=== PATIENT | male | born 1950 | race Caucasian/White ===

== ENCOUNTER 2016-08-15 10:12 | Observation (INO) | payer MEDICARE, MEDICAID ==
[2016-08-15] MEDS ORDERED: Diltiazem IV* 5 MG/ML 5 ML VIAL (for loading dose/IV Push) (25 MG) IV SLOW PU ONE ×2 (10:43→11:49)
[2016-08-15] MEDS ORDERED: Diltiazem DRIP* 100 MG/100 ML ADDV.BAG IVPB ONE (10:43)
[2016-08-15] MEDS ORDERED: NS 0.9% 1000 ML* 1,000 ML IV ONE (10:44)
[2016-08-15 10:56] LABS: Hematocrit 33 % (42-52); Hemoglobin 10.9 g/dl (14.0-18.0); Mean Corpuscular HGB Conc 33 g/dl (31-36); Mean Corpuscular Hemoglobin 33 pg (27-31); Mean Corpuscular Volume 98 fL (80-94); Mean Platelet Volume 8 um3 (7.4-10.4); Red Blood Count 3.32 10^6/ul (4.0-5.4); Red Cell Distribution Width 14 % (10.5-15); White Blood Count 4.1 10^3/ul (3.5-10.8)
[2016-08-15 11:12] LABS: Albumin 4.3 g/dL (3.2-5.2); BUN/Creatinine Ratio 3.9 (8-20); Calcium 9.6 mg/dL (8.6-10.3); EGFR Non-African American 17.1 (>60); Globulin 3.3 g/dL (2-4); Magnesium 1.9 mg/dL (1.9-2.7); Potassium 3.3 mmol/L (3.5-5.0); Total Bilirubin 0.7 mg/dL (0.2-1.0); Total Protein 7.6 g/dL (6.4-8.9)
[2016-08-15 11:19] LABS: Troponin I 0.06 ng/mL (<0.04)
[2016-08-15 11:41] LABS: TSH (Thyroid Stimulating Horm) 1.11 mcIU/mL (0.34-5.60)
[2016-08-15] MEDS ORDERED: Diltiazem IV* 5 MG/ML 5 ML VIAL (for loading dose/IV Push) (25 MG) ONE (11:51)
[2016-08-15] MEDS ORDERED: Magnesium Sulfate 2 GM IV* 2 GM/50 ML BAG IVPB ONE (12:02)
[2016-08-15] MEDS ORDERED: Metoprolol Tartrate TAB* 25 MG PO ONE (12:02)
[2016-08-15] MEDS ORDERED: Acetaminophen TAB* 325 MG PO PRN (12:30)
[2016-08-15] MEDS: Ropinirole TAB* 0.5 MG TAB PO SCH ×2 (14:11→20:47)
--- NOTE | 2016-08-15 14:14 | ED ---
Aquiles Rob Matthew, scribed for Rajesh Andrew MD on 08/15/16 at 1130 . Palpitations / Dysrhythmia - HPI Summary HPI Summary: A 65 y/o male presents to the ED with constant atrial fibrillation since this morning. The patient was sent from dialysis to the ED. 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 Last night, he felt some irregular heart beats. The patient is not currently on the blood thinner and receives heparin at dialysis. He has been on dialysis for the past two years. He has some residual affects of the CVA. PMHx also includes AFib and two CVA. - History of Current Complaint Chief Complaint: EDDysrhythmPalp Hx Obtained From: Patient Onset/Duration: Lasting Hours, Still Present Timing: Constant Severity Initially: Moderate Severity Currently: Moderate Character: Irregular Aggravating: Nothing Alleviating: Nothing Associated Signs & Symptoms: Negative - Allergy/Home Medications Allergies/Adverse Reactions: Allergies Allergy/AdvReac Type Severity Reaction Status Date / Time Penicillins Allergy Hives Verified 05/15/12 13:56 Home Medications: Home Medications Acetaminophen TAB* [Tylenol TAB*] 650 mg PO Q8HR PRN 08/15/16 [History Confirmed 08/15/16] B-Complex W/ C & Folic Acid [Nephro-Mark] 1 tab PO DAILY 08/15/16 [History Confirmed 08/15/16] NIFEdipine ER TAB* [Procardia Xl TAB*] 30 mg PO DAILY 08/15/16 [History Confirmed 08/15/16] Nitroglycerin TAB 0.4 MG* 0.4 mg SL Q5M PRN 08/15/16 [History Confirmed 08/15/16 ] Ropinirole Hydrochloride [Ropinirole HCl] 0.75 mg PO TID 08/15/16 [History Confirmed 08/15/16] Sevelamer TAB* [Renvela TAB*] 800 mg PO TID WITH MEALS 08/15/16 [History Confirmed 08/15/16] Sodium Polystyrene ORAL.SELENE* [Kayexalate ORAL.SELENE*] 15 gm PO DAILY 08/15/16 [ History Confirmed 08/15/16] diPHENhydraMINE PO* [Benadryl PO*] 50 mg PO DAILY PRN 08/15/16 [History Confirmed 08/15/16] PMH/Surg Hx/FS Hx/Imm Hx Endocrine/Hematology History: Reports: Hx Diabetes - CONTROL WITH DIET, Hx Anemia Cardiovascular History: Reports: Hx Coronary Artery Disease - CHOLESTEROL CONTROL WITH MEDICATION, Hx Hypertension - ON MEDICATION, Other Cardiovascular Problems/Disorders - 2009 OR 2010 CARDIAC CATHERIZATION Respiratory History: Reports: Hx Sleep Apnea - NO CPAP, Other Respiratory Problems/Disorders GI History: Reports: Hx Gastroesophageal Reflux Disease - ON MEDICATION History: Reports: Hx Chronic Renal Failure Musculoskeletal History: Reports: Hx Arthritis - BILATERAL KNUCKLES AND NECK Sensory History: Reports: Hx Cataracts - BILATERAL, Hx Contacts or Glasses - GLASSES Denies: Hx Hearing Aid Opthamlomology History: Reports: Hx Cataracts - BILATERAL, Hx Contacts or Glasses - GLASSES Neurological History: Comment Only: Other Neuro Impairments/Disorders - DIFFICULTY CONCENTRATING WITH LEFT SIDE WEAKNESS, BALANCE OFF, STAMMERING, Psychiatric History: Reports: Hx Depression - ON MEDICATION - Surgical History Surgery Procedure, Year, and Place: 2009 OR 2010 CARDIAC CATHERIZATION, [place] DENTAL WORK, OFFICE Hx Anesthesia Reactions: No Infectious Disease History: No Infectious Disease History: Denies: Traveled Outside the [place] in Last 30 Days - Family History Family History: No FHx of malignant hyperthermia. No FHx of anesthesia reaction - Social History Alcohol Use: Rare Substance Use Type: Reports: None Smoking Status (MU): Never Smoked Tobacco Review of Systems Constitutional: Negative Eyes: Negative ENT: Negative Positive: Palpitations Respiratory: Negative Gastrointestinal: Negative Genitourinary: Negative Musculoskeletal: Negative Skin: Negative Neurological: Negative Psychological: Normal All Other Systems Reviewed And Are Negative: Yes Physical Exam Triage Information Reviewed: Yes Vital Signs On Initial Exam: Initial Vitals Temp Pulse Resp BP Pulse Ox 98 F 132 19 161/111 100 08/15/16 10:19 08/15/16 10:19 08/15/16 10:19 08/15/16 10:19 08/15/16 10:19 Vital Signs Reviewed: Yes Appearance: Positive: Well-Appearing, No Pain Distress Skin: Positive: Warm, Skin Color Reflects Adequate Perfusion, Dry Head/Face: Positive: Normal Head/Face Inspection Eyes: Positive: Normal ENT: Positive: Normal ENT inspection Neck: Positive: Supple, Nontender Respiratory/Lung Sounds: Positive: Clear to Auscultation, Breath Sounds Present Cardiovascular: Positive: IRR, Tachycardia. Negative: Murmur Abdomen Description: Positive: Nontender, Soft Bowel Sounds: Positive: Present Musculoskeletal: Positive: Normal, Strength/ROM Intact Neurological: Positive: Normal, Sensory/Motor Intact, Alert, Oriented to Person Place, Time Psychiatric: Positive: Normal, Affect/Mood Appropriate Diagnostics - Vital Signs Vital Signs Temp Pulse Resp BP Pulse Ox 08/15/16 10:19 98 F 132 19 161/111 100 - Laboratory Lab Results: Lab Results 08/15/16 08/15/16 08/15/16 Range/Units 10:40 10:40 10:40 WBC 4.1 (3.5-10.8) 10^3/ul RBC 3.32 L (4.0-5.4) 10^6/ul Hgb 10.9 L (14.0-18.0) g/dl Hct 33 L (42-52) % MCV 98 H (80-94) fL MCH 33 H (27-31) pg MCHC 33 (31-36) g/dl RDW 14 (10.5-15) % Plt Count 154 (150-450) 10^3/ul MPV 8 (7.4-10.4) um3 Neut % (Auto) 65.6 (38-83) % Lymph % (Auto) 20.5 L (25-47) % [place] % (Auto) 6.9 (1-9) % Eos % (Auto) 5.6 (0-6) % Baso % (Auto) 1.4 (0-2) % Absolute Neuts (auto) 2.7 (1.5-7.7) 10^3/ul Absolute Lymphs (auto) 0.8 L (1.0-4.8) 10^3/ul Absolute Monos (auto) 0.3 (0-0.8) 10^3/ul Absolute Eos (auto) 0.2 (0-0.6) 10^3/ul Absolute Basos (auto) 0.1 (0-0.2) 10^3/ul Absolute Nucleated RBC 0 10^3/ul Nucleated RBC % 0 INR (Anticoag Therapy) (0.89-1.11) Sodium 137 (133-145) mmol/L Potassium 3.3 L (3.5-5.0) mmol/L Chloride 93 L (101-111) mmol/L Carbon Dioxide 35 H (22-32) mmol/L Anion Gap 9 (2-11) mmol/L BUN 14 (6-24) mg/dL Creatinine 3.62 H (0.67-1.17) mg/dL Est GFR ( Amer) 22.0 (>60) Est GFR (Non-Af Amer) 17.1 (>60) BUN/Creatinine Ratio 3.9 L (8-20) Glucose 116 H (70-100) mg/dL Lactic Acid 1.4 (0.5-2.0) mmol/L Calcium 9.6 (8.6-10.3) mg/dL Magnesium 1.9 (1.9-2.7) mg/dL Total Bilirubin 0.70 (0.2-1.0) mg/dL AST 19 (13-39) U/L ALT 10 (7-52) U/L Alkaline Phosphatase 64 (34-104) U/L Troponin I 0.06 H* (<0.04) ng/mL Total Protein 7.6 (6.4-8.9) g/dL Albumin 4.3 (3.2-5.2) g/dL Globulin 3.3 (2-4) g/dL Albumin/Globulin Ratio 1.3 (1-3) TSH 1.11 (0.34-5.60) mcIU/mL 08/15/16 Range/Units 10:40 WBC (3.5-10.8) 10^3/ul RBC (4.0-5.4) 10^6/ul Hgb (14.0-18.0) g/dl Hct (42-52) % MCV (80-94) fL MCH (27-31) pg MCHC (31-36) g/dl RDW (10.5-15) % Plt Count (150-450) 10^3/ul MPV (7.4-10.4) um3 Neut % (Auto) (38-83) % Lymph % (Auto) (25-47) % [place] % (Auto) (1-9) % Eos % (Auto) (0-6) % Baso % (Auto) (0-2) % Absolute Neuts (auto) (1.5-7.7) 10^3/ul Absolute Lymphs (auto) (1.0-4.8) 10^3/ul Absolute Monos (auto) (0-0.8) 10^3/ul Absolute Eos (auto) (0-0.6) 10^3/ul Absolute Basos (auto) (0-0.2) 10^3/ul Absolute Nucleated RBC 10^3/ul Nucleated RBC % INR (Anticoag Therapy) 0.95 (0.89-1.11) Sodium (133-145) mmol/L Potassium (3.5-5.0) mmol/L Chloride (101-111) mmol/L Carbon Dioxide (22-32) mmol/L Anion Gap (2-11) mmol/L BUN (6-24) mg/dL Creatinine (0.67-1.17) mg/dL Est GFR ( Amer) (>60) Est GFR (Non-Af Amer) (>60) BUN/Creatinine Ratio (8-20) Glucose (70-100) mg/dL Lactic Acid (0.5-2.0) mmol/L Calcium (8.6-10.3) mg/dL Magnesium (1.9-2.7) mg/dL Total Bilirubin (0.2-1.0) mg/dL AST (13-39) U/L ALT (7-52) U/L Alkaline Phosphatase (34-104) U/L Troponin I (<0.04) ng/mL Total Protein (6.4-8.9) g/dL Albumin (3.2-5.2) g/dL Globulin (2-4) g/dL Albumin/Globulin Ratio (1-3) TSH (0.34-5.60) mcIU/mL Result Diagrams: 08/15/16 10:40 08/15/16 10:40 Lab Statement: Any lab studies that have been ordered have been reviewed, and results considered in the medical decision making process. - EKG 10:13 Cardiac Rate: Tachycardia - 132 bpm EKG Rhythm: Atrial Fibrillation EKG Interpretation: Rapid Response ; anterior lateral ST depressions Course/Dx - Course Course Of Treatment: Mr. Knight presented in A-Fib with a rapid response but relatively asymptomatic. He was slowed with diltiazem and admitted to the hospitalist service. - Diagnoses Provider Diagnoses: Afib - Physician Notifications Discussed Care Of Patient With: Hal (Hospitalist CARLOTTA) at 11:30 -- Notified of patient's history and will admit the patient into their services. Discharge - Discharge Plan Condition: Stable Disposition: ADMITTED TO [facility] The documentation as recorded by the Aquiles patricio Matthew accurately reflects the service I personally performed and the decisions made by me, Rajesh Andrew MD.
[2016-08-15] MEDS: Heparin VIAL(*) 5000 UNITS/ML VIAL (FIVE THOUSAND) SUBCUT SCH ×2 (14:17→20:53)
--- NOTE | 2016-08-15 16:11 | HP ---
HISTORY AND PHYSICAL: * DATE OF ADMISSION: 08/15/16 PRIMARY CARE PHYSICIAN: " " and Dr. Corral. ADDENDUM: The addendum is to history and physical dictated by CARLOTTA Loya, at the same time and as follows: Mr. Knight is a 65-year-old male with history of paroxysmal atrial fibrillation who has also history of end-stage renal disease. He is not currently anticoagulated. He woke up with "palpitations." He is in atrial fibrillation with rapid ventricular response. He is going to be placed on observation and we will try to rate control his atrial fibrillation. Due to history of bleeding in 2013 and due to being [employer], apparently the patient had not been anticoagulated ever since 2013. For further details of the patient's presentation and plan, please see history and physical dictated by CARLOTTA Loya, on 08/15/16 with which I agree[place] [id number]/[facility] #: [id number] MTDD
[2016-08-15] MEDS ORDERED: Warfarin TAB(*) 5 MG PO SCH (17:00)
--- NOTE | 2016-08-15 17:09 | HP ---
SUPERVISING PHYSICIAN'S ADDENDUM INCLUDED ON THIS REPORT ADMISSION HISTORY AND PHYSICAL: DATE OF ADMISSION: 08/15/16 PRIMARY CARE PROVIDER: Dr. Balbina oCrral. PRIMARY KEY CARRIER: Abdifatah Mosqueda MD ADMITTING PROVIDER: CARLOTTA Carroll SUPERVISING PHYSICIAN: Monique Cordero MD * (DICTATED BY CARLOTTA CARROLL) CHIEF COMPLAINT: Palpitations. HISTORY OF PRESENT ILLNESS: This is a 65-year-old gentleman with history of paroxysmal atrial fibrillation; end-stage renal disease, on hemodialysis; history of 2 prior CVAs with minimal residual deficits; hypertension; GERD; and ischemic cardiomyopathy with EF last estimated at 40% to 45% who awoke this morning with feelings of palpitation starting at about 5 a.m. The patient states that he does have occasional palpitations, but they are generally fleeting, these palpitations more and more sustained. He presented to hemodialysis for his typical appointment, noted to be an atrial fibrillation, but he was otherwise feeling well and dialysis was completed as scheduled and he was subsequently referred to the emergency department following dialysis. Heart rate was between 130 and 150 beats per minute when he reached the emergency department, again he was normotensive and generally asymptomatic. The patient stated that he now recalls that he has been out of his metoprolol for the last couple of days. He states that he is not without any of his other medications and took all of his usual morning medications this morning. The patient is not currently anticoagulated. From record review and discussing with the patient, it sounds like he had this severe acute illness since 2013 at which point, his INR was near 17 and he was severely anemic complicated by sepsis secondary to pneumonia. The patient is a [employer] and refuses whole blood products. The patient's Coumadin was discontinued at that time and review from Cardiology note states that the plan was to resume his anticoagulation after his anemia has stabilized, but it has now been a couple of years since that time, his hemoglobin does appear to be fairly stable between the 10 and 12 g/dL range when reviewing prior records. The patient denies any associated chest pain or difficulty breathing. He denies any acute illness or as mentioned above, missing any other medications. He denies any abdominal pain, nausea, or vomiting. He has been afebrile at home and compliant with dialysis. PAST MEDICAL HISTORY: 1. End-stage renal disease followed by Dr. Mosqueda on hemodialysis on Sunday, , and Sunday. 2. Paroxysmal atrial fibrillation, not currently anticoagulated. 3. History of CVA with residual deficit including occasional right eye droop, double vision, and dizziness. 4. Hypertension. 5. GERD. 6. Ischemic cardiomyopathy with last cardiac catheterization in 2013 showing diffuse moderate disease, but no severe stenosis requiring intervention at that time. Last ejection fraction estimated at 40% to 45%. PAST SURGICAL HISTORY: Two cardiac catheterizations without PCI. HOME MEDICATIONS: 1. Acetaminophen 650 mg p.o. q.8 hours as needed for pain or fever. 2. Vitamin B complex with folic acid 1 tablet p.o. daily. 3. Lisinopril 20 mg p.o. daily. 4. Metoprolol tartrate 25 mg p.o. b.i.d. 5. Nifedipine XL 30 mg p.o. daily. 6. Nitroglycerin 0.4 mg sublingual q.5 minutes as needed for chest pain. 7. Omeprazole 20 mg p.o. daily. 8. Ropinirole 0.7 mg p.o. t.i.d. 9. Renvela 800 mg p.o. t.i.d. 10. Simvastatin 20 mg p.o. daily. 11. Kayexalate 15 g p.o. daily. 12. Diphenhydramine 50 mg p.o. daily as needed for insomnia. SOCIAL HISTORY: The patient currently lives alone. His sister lives in a nearby apartment. He consumes occasional alcohol. He has limited tobacco history, smoked a little bit in high school, but nothing of significant. The patient is currently unemployed and identified himself as a Y[employer]ism. REVIEW OF SYSTEMS: As noted above in HPI. PHYSICAL EXAMINATION GENERAL: This is a very pleasant middle-aged gentleman, who is in no acute distress. VITAL SIGNS: Initially temperature 98 degrees Fahrenheit, pulse 132 beats per minute, respiratory rate 19, oxygen saturation 100% on room air, and blood pressure 161/111 mmHg. HEENT: Head is normocephalic, atraumatic. Mucous membranes are pink and moist. RESPIRATORY: Lungs are clear to auscultation without wheezes, crackles, or rhonchi. CARDIOVASCULAR: Heart has an irregular rhythm, but rate is appropriate at this time. No significant murmurs appreciated. ABDOMEN: Soft and nontender to palpation. EXTREMITIES: He has a trace lower extremity edema. SKIN: Limited exam, shows no concerning rashes or lesions. PSYCH: The patient is alert and appropriately oriented. LABORATORY EVALUATION: CBC shows a white blood cell count of 4100; hemoglobin of 10.9 g/dL; and a platelet count of 154,000. INR is normal at 0.95. Comprehensive metabolic panel shows normal sodium of 137 mmol/L, potassium 3.3 mmol/L, BUN of 14, and creatinine of 3.62. Random glucose of 116 mg/dL. Transaminase and total bilirubin within normal limits. Troponin mildly elevated at 0.06. TSH is normal at 1.11. DIAGNOSTIC STUDIES/IMAGIN. EKG shows atrial fibrillation at a rate of 130 to 150 beats per minute. There are some ST depressions appreciated in lateral leads, most specifically the lead III through V. 2. Repeat EKG with rate improved to about 90 beats per minutes shows improvement in ST depressions near resolution in affected leads. ASSESSMENT AND PLAN: This is a 65-year-old gentleman with end-stage renal disease, on hemodialysis Sunday, , and Sunday followed by Dr. Mosqueda as well as paroxysmal atrial fibrillation, not currently anticoagulated as well as history of prior cerebrovascular accidents, hypertension, gastroesophageal reflux disease, and ischemic cardiomyopathy with an EF of 40% to 45%, who presents with complaints of palpitations, found to be in rapid atrial fibrillation after being without his metoprolol for the last few days. 1. Rapid atrial fibrillation - this seems likely be medication related. The patient has been without his metoprolol for the last couple of days. He received 2 boluses of IV Cardizem in the emergency department and started on Cardizem drip. He is still on atrial fibrillation, but rate controlled near 90. We will plan to restart his oral metoprolol and likely be able to discontinue his diltiazem drip within the next hour or so. Had a thorough discussion with the patient in regards to his anticoagulation wishes. He understands that there is concern about his bleeding risk given his identifying as a Syn[employer] and not accepting whole blood products. He is chronically anemic, but this appears to be stable and likely related to his chronic kidney disease. The patient has had 2 prior cerebrovascular accidents that seemed to be embolic in origin placing him at high risk for future cerebrovascular accidents. He had a CHADS-VASc score of 4, placing him at an annual stroke risk of 4% yearly. The patient is very concerned about his future risk of stroke and is interested in resuming anticoagulation. Given his history I think a reversible agent would be in his best interest. We will plan to resume Coumadin and have him follow up with his primary robotic technician, Dr. Acuña, following discharge. 2. Demand ischemia - the patient has a mildly elevated troponin and ST depressions appreciated in lateral leads noted on EKG. These seemed to be rate related and have improved as his rate has improved. The patient has no complaints of chest pain and his repeat EKG appears to be improved. Could consider repeating stress test for him either during this hospital stay depending on the trajectory of his troponins, but given his atrial fibrillation currently being poorly controlled in terms of rate, this would probably be best accomplished as an outpatient as the patient is currently asymptomatic and can be arranged by his robotic technician. The patient does have known moderate coronary artery disease based on catheterization approximately 3 years ago. There was no significant stenosis appreciated at that time. 3. Ischemic cardiomyopathy with last EF of 40% to 45% without evidence of acute exacerbation. 4. End-stage renal disease, on hemodialysis Sunday, , and Sunday - the patient did receive his dialysis as scheduled today prior to coming to the emergency department. 5. Hypokalemia - potassium is 3.3. Although he is in atrial fibrillation, the patient is on daily Kayexalate therapy and he is a hemodialysis patient. Assume that his potassium accumulates rather quickly and we will hold off on oral supplementation at this time. We will instead plan to repeat a basic metabolic panel in the morning. 6. History of cerebrovascular accident - presumed to be embolic in origin with some mild residual deficits including occasional double vision and dizziness what sounds to be an occasional right eye ptosis. 7. Hypertension. 8. Gastroesophageal reflux disease. 9. Code status - the patient is full code. 10. Health care proxy - identified as the patient's sister, Mary. 11. DVT prophylaxis - plan to resume Coumadin without a bridge, but during his hospital stay, we will place him on prophylactic doses of heparin. DISPOSITION: The patient is being admitted to observation status for rapid atrial fibrillation, anticipates discharge tomorrow morning. The patient will require close follow up with primary robotic technician, Dr. Acuña, following discharge. CARLOTTA CARROLL DATE OF ADMISSION: 08/15/16 PRIMARY CARE PHYSICIAN: Dr. Mosquera and Dr. Corral. ADDENDUM: The addendum is to history and physical dictated by CARLOTTA Carroll, at the same time and as follows: Mr. Knight is a 65-year-old male with history of paroxysmal atrial fibrillation who has also history of end-stage renal disease. He is not currently anticoagulated. He woke up with "palpitations." He is in atrial fibrillation with rapid ventricular response. He is going to be placed on observation and we will try to rate control his atrial fibrillation. 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 For further details of the patient's presentation and plan, please see history and physical dictated by CARLOTTA Carroll on 08/15/16 with which I agree. MONIQUE CORDERO MD CC: Dr. Arianne MD; Dr. Balbina Corral; Dr. Abdiftaah Mosqueda* [id number] #: [id number] #: [id number] [facility]
[2016-08-15] MEDS: Sevelamer TAB* 800 MG PO SCH (17:19)
[2016-08-15] MEDS: Metoprolol Tartrate TAB* 25 MG PO SCH (17:19)
[2016-08-15] MEDS ORDERED: Atorvastatin* 10 MG TAB PO SCH (21:00)
[2016-08-16 05:39] LABS: Calcium 9.4 mg/dL (8.6-10.3); EGFR African American 12.8 (>60); EGFR Non-African American 9.9 (>60); Potassium 4.5 mmol/L (3.5-5.0)
[2016-08-16] MEDS: Heparin VIAL(*) 5000 UNITS/ML VIAL (FIVE THOUSAND) SUBCUT SCH (05:41)
[2016-08-16] MEDS ORDERED: Omeprazole CAP* 20 MG PO SCH (07:30)
[2016-08-16] MEDS: Metoprolol Tartrate TAB* 25 MG PO SCH (08:42)
[2016-08-16] MEDS: Sevelamer TAB* 800 MG PO SCH (08:42)
[2016-08-16] MEDS: Ropinirole TAB* 0.5 MG TAB PO SCH (08:45)
[2016-08-16] MEDS ORDERED: Lisinopril TAB* 10 MG PO SCH (09:00)
[2016-08-16] MEDS ORDERED: NIFEdipine ER TAB* 30 MG PO SCH (09:00)
[2016-08-16] MEDS ORDERED: Atorvastatin* 10 MG TAB PO SCH (09:00)
[2016-08-16 09:02] VITALS: BP 185/98
--- NOTE | 2016-08-16 22:25 | DS ---
DISCHARGE SUMMARY: DATE OF ADMISSION: 08/15/16 DATE OF DISCHARGE: 08/16/16 PRIMARY CARE PROVIDER: Dr. Balbina Corral. PRIMARY LICENSED EMBALMER: Dr. Acuña. ATTENDING PHYSICIAN: Chris Corral MD * (DICTATED BY CARLOTTA CARROLL) PRIMARY DISCHARGE DIAGNOSES: 1. Atrial fibrillation with rapid ventricular rate. 2. Demand ischemia. SECONDARY DISCHARGE DIAGNOSES: 1. Ischemic cardiomyopathy with last ejection fraction estimated at 40% to 45% without evidence of acute exacerbation. 2. End-stage renal disease, on hemodialysis with a Sunday, , Sunday schedule, followed by Dr. Mosqueda. 3. 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 4. Hypertension. 5. Gastroesophageal reflux disease. 6. Hypokalemia - resolved. DISCHARGE MEDICATIONS: 1. Acetaminophen 650 mg p.o. q.8 hours as needed. 2. Vitamin B complex with folic acid 1 tablet p.o. daily. 3. Lisinopril 20 mg p.o. daily. 4. Metoprolol tartrate 25 mg p.o. b.i.d. 5. Nifedipine extended release 30 mg p.o. daily. 6. Nitroglycerin 0.4 mg sublingual q.5 minutes as needed for chest pain. 7. Omeprazole 20 mg p.o. daily. 8. Ropinirole 0.75 mg p.o. t.i.d. 9. Renvela 800 mg p.o. t.i.d. 10. Simvastatin 20 mg p.o. daily. 11. Kayexalate 15 g p.o. daily. 12. Coumadin 5 mg p.o. daily. 13. Diphenhydramine 50 mg p.o. daily as needed for insomnia. Medication changes: 1. Start Coumadin. 2. Refilled metoprolol. HOSPITAL IMAGIN. EKG initially showed atrial fibrillation with rate between 130 and 150 beats per minute with ST depressions in V2 through V5 and subtly in I and aVL. Repeat EKGs showed improvement in ST depressions. 2. EKG, 08/16/16, shows normal sinus rhythm without ischemic changes. HOSPITAL COURSE: This is a 65-year-old gentleman with a history of paroxysmal atrial fibrillation; history of 2 prior CVAs with some occasional double vision and dizziness; end-stage renal disease, on hemodialysis; hypertension; GERD; known ischemic cardiomyopathy with last EF estimated between 40% and 45%, who was sent from dialysis with complaints of palpitations. The patient awoke at approximately 5 a.m. yesterday morning with feelings of palpitations. He was otherwise asymptomatic, denying shortness of breath, or chest pain. No abdominal pain, nausea, or vomiting. He says that he does have occasional palpitations that are generally fleeting, but these were sustained and he was noted to be in rapid atrial fibrillation at dialysis. His dialysis was completed as scheduled and he was sent to the emergency department following for further evaluation. The patient was normotensive, actually slightly hypertensive when reaching the emergency department, heart rate was between 130 and 150 beats per minute and the patient was otherwise asymptomatic. Initial EKG showed some ST depressions in lateral leads and troponin was mildly elevated to 0.06. Again, the patient denied any associated chest pain. The patient relates that he had forgotten that he ran out of his metoprolol a few days ago. He states that he is usually very well organized and did not realize that this had occurred. He received 2 boluses of Cardizem in the emergency department and started on a Cardizem drip. His oral metoprolol was resumed. The Cardizem drip was discontinued and the patient spontaneously converted to sinus rhythm overnight and remained asymptomatic. Subsequent troponins remained 0.[address] changes resolved as his rate improved. I had a thorough discussion with the patient in terms of his anticoagulation. The patient was not anticoagulated upon entering the hospital. He was previously anticoagulated with Coumadin and had an acute illness in 2013, at which point, he had a severe pneumonia, supratherapeutic INR with a GI bleed. He had been struggling with anemia since that time and his Coumadin had been discontinued with plans based on his Cardiology notes to resume at some point, but that had not been completed. The patient has had 2 prior CVAs, presumed to be of embolic origin and is at high risk for future stroke. I discussed benefits and risks of anticoagulation and the patient expressed that he is a [employer] and is unwilling to accept whole blood products. He is, however, quite concerned about his risk of CVA and would like to resume anticoagulation. Coumadin was chosen because of its reversibility and initiated at 5 mg daily during his hospital stay. He was not bridged, however. In regards to demand ischemia, echocardiogram was not repeated during his hospital stay. He showed no signs of CHF exacerbation, but would consider repeating a stress test as an outpatient. This was not completed during his hospital stay due to his uncontrolled atrial fibrillation rate at the time of admission, but could be arranged as an outpatient. DISPOSITION: The patient is being discharged to home where he lives alone in an apartment at [facility]. Followup arranged with his sports trainer for August 28. Also recommend, he follows up with his primary care provider within the next week. The patient has been initiated on Coumadin, this does need to be followed by his primary care provider. He is given instructions to check his INR tomorrow and again next Sunday, which will align with his dialysis days and contact his primary care provider's office for instructions on what to do with his Coumadin dose. The patient's INR is 0.98 at the time of discharge today. The patient is also provided with a refill for his metoprolol and is asymptomatic and is in a normal sinus rhythm at the time of discharge. CARLOTTA CARROLL CC: Dr. Balbina Corral; Dr. Acuña; Dr. Mosqueda * [id number]/[facility] #: [id number] [facility]PITALNatasha
== END 2016-08-16 13:15 | disposition home or self-care (01) ==
LOC: ED 10:12 → MEDTELE 11:40
PROVIDERS: ADMIT Internal Medicine; ATTEND Internal Medicine
DX: I48.0 Paroxysmal atrial fibrillation (principal); Z79.01 Long term (current) use of anticoagulants; I25.5 Ischemic cardiomyopathy; I12.0 Hypertensive chronic kidney disease with stage 5 chronic kidney disease or end stage renal disease; N18.6 End stage renal disease; Z99.2 Dependence on renal dialysis; K21.9 Gastro-esophageal reflux disease without esophagitis; E87.6 Hypokalemia; Z79.899 Other long term (current) drug therapy; Z88.0 Allergy status to penicillin; I69.392 Facial weakness following cerebral infarction; Z87.891 Personal history of nicotine dependence; R74.8 Abnormal levels of other serum enzymes
CPT/HCPCS: 36415; 80048; 80053; 83605; 83735; 84443; 84484; 85025; 85610; 87641; 93005; 96365; 96367; 96372; 96375; 96376; 99285; A9270-GY; G0378; J1644; J3475

== ENCOUNTER 2017-05-25 19:15 | Emergency (ER) | payer MEDICARE, MEDICAID ==
--- NOTE | 2017-05-25 21:31 | RAD ---
Indication: RIGHT hip pain post fall. Comparison: May 21, 2014 CT. Technique: AP pelvis and AP and frog-leg lateral views RIGHT hip. Report: The RIGHT hip is normally located. No proximal femur or pelvic fracture or pelvic joint diastases. Preserved hip joint spaces. Extensive peripheral vascular calcifications. Unremarkable soft tissue contours. IMPRESSION: No radiographic evidence for RIGHT hip or pelvic fracture.
--- NOTE | 2017-05-25 21:35 | RAD ---
Indication: Fall. Anticoagulated. Hit chin. Comparison: February 07, [address] Technique: Noncontrast CT vertex of skull through foramen magnum. Report: Moderate prominence of the cerebral sulci and mild prominence of the cerebellar fissures reflecting atrophy. Moderate regions of encephalomalacia at the RIGHT frontal and LEFT parietal lobes without gross change compared with the 2013 exam. No new region of whittaker matter white matter obscuration, intra or extra-axial hemorrhage, or mass effect. Decreased density in the periventricular and subcortical white matter while non-specific is most likely due to chronic microangiopathy. Unremarkable orbital contents. Negative for calvarial or skull base fracture. Clear visualized paranasal sinuses and mastoid air spaces. Negative for scalp hematoma. IMPRESSION: 1. No evidence for traumatic brain injury or acute intracranial process. 2. Multiple old infarcts. Stigmata of chronic small vessel ischemic disease.
[2017-05-25] MEDS ORDERED: rOPINIRole TAB* 1 MG PO ONE (22:06)
[2017-05-25] MEDS ORDERED: Metoprolol Tartrate TAB* 25 MG PO ONE (22:06)
--- NOTE | 2017-05-25 22:12 | RAD ---
INDICATION: Bruising at the chin after a fall. Anticoagulated. COMPARISON: CT brain of the same date. TECHNIQUE: Multidetector CT base of the skull through mandible without contrast. Multiplanar reformation. REPORT: Soft tissue swelling at the anterior and RIGHT para midline mandible. No loculated soft tissue hematoma evident. Negative for subcutaneous emphysema. The orbital and maxillary sinus margins, zygomatic arches, lamina papyracea, base of the maxilla, pterygoid plates, and nasal bones are intact. The senile morphology mandible is intact. Normal temporal mandibular joint alignment. Atherosclerotic calcification at the carotid bifurcations. Clear paranasal sinuses and mastoid air spaces. IMPRESSION: Soft tissue swelling at the chin. Negative for fracture.
[2017-05-25] MEDS ORDERED: Warfarin TAB(*) 5 MG PO ONE (23:00)
--- NOTE | 2017-05-26 01:00 | ED ---
Dest[place] Rob Alfonso, scribed for Yunior Wallace MD on 05/25/17 at 2142 . Adult Trauma - HPI Summary HPI Summary: This patient is a 66 year old M presenting [facility] s/p a mechanical fall at approximately 1230 today. He states I was going to the gas station and my foot caught a pothole and I went down so fast and I caught the pavement with my chin and down on my left side. He was able to ambulate after the fall. The patient rates the pain 1/10 in severity. Symptoms aggravated by ambulation. Symptoms alleviated by 2000 mg Tylenol at 1300. Patient reports a chin bruise and bilateral LE neuropathy (chronic). Patient denies CP, SOB, and abdominal pain. He is a dialysis patient with his next treatment tomorrow at 0600. He lives alone in [facility]. He does not remember when his last tetanus shot was. - History of Current Complaint Chief Complaint: EDExtremityLower Stated Complaint: RT LEG INJURY Hx Obtained From: Patient Mechanism of Injury: Fall Ambulatory at the Scene: Yes Force: Direct Onset/Duration: Started Hours Ago, Traumatic, Still Present Onset of Pain: Post Accident Current Severity: Mild Pain Intensity: 1 Pain Scale Used: 0-10 Numeric Aggravating Factor(s): Ambulation Alleviating Factor(s): OTC Meds Associated Signs & Symptoms: Positive: Other: - chin bruise and bilateral LE neuropathy (chronic). Patient denies CP, SOB, and abdominal pain - Allergy/Home Medications Allergies/Adverse Reactions: Allergies Allergy/AdvReac Type Severity Reaction Status Date / Time Penicillins Allergy Hives Verified 05/15/12 13:56 PMH/Surg Hx/FS Hx/Imm Hx Endocrine/Hematology History: Reports: Hx Diabetes - CONTROL WITH DIET, Hx Anemia Cardiovascular History: Reports: Hx Atrial Fibrillation, Hx Coronary Artery Disease - CHOLESTEROL CONTROL WITH MEDICATION, Hx Hypertension - ON MEDICATION, Other Cardiovascular Problems/Disorders - 2009 OR 2010 CARDIAC CATHERIZATION Respiratory History: Reports: Hx Sleep Apnea - NO CPAP, Other Respiratory Problems/Disorders GI History: Reports: Hx Gastroesophageal Reflux Disease - ON MEDICATION History: Reports: Hx Chronic Renal Failure Musculoskeletal History: Reports: Hx Arthritis - BILATERAL KNUCKLES AND NECK Sensory History: Reports: Hx Cataracts - BILATERAL, Hx Contacts or Glasses - GLASSES Denies: Hx Hearing Aid Opthamlomology History: Reports: Hx Cataracts - BILATERAL, Hx Contacts or Glasses - GLASSES Neurological History: Reports: Hx Nerve Disease - Neuropathy, restless leg syndrome Comment Only: Other Neuro Impairments/Disorders - DIFFICULTY CONCENTRATING WITH LEFT SIDE WEAKNESS, BALANCE OFF, STAMMERING, Psychiatric History: Reports: Hx Depression - ON MEDICATION - Surgical History Surgery Procedure, Year, and Place: 2009 OR 2010 CARDIAC CATHERIZATION, [place] DENTAL WORK, OFFICE Hx Anesthesia Reactions: No Infectious Disease History: No Infectious Disease History: Denies: Traveled Outside the [place] in Last 30 Days - Family History Family History: No FHx of malignant hyperthermia. No FHx of anesthesia reaction - Social History Lives: Alone Alcohol Use: Rare Hx Substance Use: No Substance Use Type: Reports: None Hx Tobacco Use: No Smoking Status (MU): Never Smoked Tobacco Review of Systems Negative: Fever Negative: Chest Pain Negative: Shortness Of Breath Negative: Abdominal Pain Positive: Other - mechanical fall Positive: Other - chin bruise Neurological: Other - bilateral LE neuropathy (chronic) All Other Systems Reviewed And Are Negative: Yes Physical Exam - Summary Physical Exam Summary: Appearance: Well-appearing, Well-nourished Sin: Warm, Bruising along right chin measuring 7 cm round proximally with superficial abrasion Eyes: Normal ENT: Normal , No trismus Neck: Supple, nontender Respiratory: Clear to auscultation Cardiovascular: Normal Abdomen: Soft, nontender Bowel: Present Musculoskeletal: Strength/ROM Intact, Mild tenderness to palpation at the chin. No obvious FND. Normal ROM of neck. No tenderness to hip palpation. Mild tenderness to right upper thigh. Neurological: Normal, A&Ox3, Conversational, No obvious FND, Normal distal neurovascular status in bilateral toes Psychiatric: Normal Triage Information Reviewed: Yes Vital Signs On Initial Exam: Initial Vitals Temp Pulse Resp BP Pulse Ox 97.4 F 80 14 138/77 100 05/25/17 19:32 05/25/17 19:32 05/25/17 19:32 05/25/17 19:32 05/25/17 19:32 Vital Signs Reviewed: Yes - Noris Coma Scale Coma Scale Total: 15 Diagnostics - Vital Signs Vital Signs Temp Pulse Resp BP Pulse Ox 05/25/17 19:32 97.4 F 80 14 138/77 100 - Laboratory Lab Results: Lab Results 05/25/17 05/25/17 Range/Units 22:37 22:37 INR (Anticoag Therapy) 2.61 H (0.89-1.11) Total Creatine Kinase 285 H (10-223) U/L Lab Statement: Any lab studies that have been ordered have been reviewed, and results considered in the medical decision making process. - Radiology Hip/Pelvis X-Ray Radiology Interpretation Completed By: Radiologist - No radiographic evidence for RIGHT hip or pelvic fracture. ED physician has reviewed this radiology report and agrees. - CT Brain CT Interpretation Completed By: Radiologist - 1. No evidence for traumatic brain injury or acute intracranial process. 2. Multiple old infarcts. Stigmata of chronic small vessel ischemic disease. ED physician has reviewed this radiology report and agrees. Maxillofacial CT Interpretation Completed By: Radiologist - Soft tissue swelling at the chin. Negative for fracture. ED physician has reviewed this radiology report and agrees. Re-Evaluation - Re-Evaluation First Eval Re-Evaluation Time: 00:58 Change: Improved Adult Trauma Course/Dx - Course Assessment/Plan: ct and xr neg for any acute traumatic injuries, likely mechanical fall on history ,pt feels well and comfortabel to fu with pmd agrees to and understands dc instructions. - Diagnoses Provider Diagnoses: Fall, Facial abrasion Discharge - Discharge Plan Condition: Stable Disposition: HOME Referrals: Balbina Corral MD [Primary Care Provider] - Additional Instructions: RETURN TO THE EMERGENCY DEPARTMENT FOR CHANGING OR WORSENING SYMPTOMS. PLEASE MAKE AN APPOINTMENT TO SEE YOUR PRIMARY CARE DOCTOR TO BE SEEN WITHIN 1 WEEK. The documentation as recorded by the Destin patricio Alfonso accurately reflects the service I personally performed and the decisions made by me, Yunior Wallace MD.
[2017-05-26 01:02] VITALS: BP 138/74
== END 2017-05-26 01:32 | disposition home or self-care (01) ==
LOC: ED 19:15
DX: S00.81XA Abrasion of other part of head, initial encounter (principal); E11.9 Type 2 diabetes mellitus without complications; Z86.79 Personal history of other diseases of the circulatory system; W19.XXXA Unspecified fall, initial encounter; Y93.9 Activity, unspecified; Y92.9 Unspecified place or not applicable
CPT/HCPCS: 36415; 70450; 70486; 82550; 85610; 99283; A9270-GY

== ENCOUNTER 2017-05-29 07:32 | Inpatient (IN) | payer MEDICARE, MEDICAID ==
[2017-05-29 07:58] LABS: Hematocrit 21 % (42-52); Mean Corpuscular HGB Conc 34 g/dl (31-36); Mean Corpuscular Hemoglobin 34 pg (27-31); Mean Corpuscular Volume 100 fL (80-94); Mean Platelet Volume 7 um3 (7.4-10.4); Red Blood Count 2.08 10^6/ul (4.0-5.4); Red Cell Distribution Width 14 % (10.5-15); White Blood Count 6.4 10^3/ul (3.5-10.8)
[2017-05-29 08:16] LABS: Albumin 3.9 g/dL (3.2-5.2); BUN/Creatinine Ratio 4.8 (8-20); C Reactive Protein 66.99 mg/L (< 5.00); Calcium 9.7 mg/dL (8.6-10.3); EGFR African American 11.7 (>60); EGFR Non-African American 9.1 (>60); Globulin 3.3 g/dL (2-4); Total Bilirubin 0.6 mg/dL (0.2-1.0); Total Protein 7.2 g/dL (6.4-8.9); Troponin I 0.03 ng/mL (<0.04)
--- NOTE | 2017-05-29 08:41 | RAD ---
HISTORY: Near syncope, hypertension COMPARISONS: June 29, 2015 VIEWS: 4: Frontal dual-energy and lateral views of the chest. FINDINGS: CARDIOMEDIASTINAL SILHOUETTE: The cardiomediastinal silhouette is normal. CORNELL: The cornell are normal. PLEURA: Again noted is elevation of left hemidiaphragm. LUNG PARENCHYMA: The lungs are clear. ABDOMEN: The upper abdomen is clear. There is no subphrenic gas. BONES AND SOFT TISSUES: No bone or soft tissue abnormalities are noted. OTHER: None. IMPRESSION: NO ACTIVE CARDIOPULMONARY DISEASE.
--- NOTE | 2017-05-29 08:42 | RAD ---
HISTORY: Near syncope, fall, right femur pain COMPARISONS: None VIEWS: 5, Frontal and lateral views of the right femur FINDINGS: BONE DENSITY: Normal. BONES: There is no displaced fracture. JOINTS: There is mild osteoarthritis of the hip and knee. ALIGNMENT: There is no dislocation. SOFT TISSUES: There is peripheral arterial calcification. OTHER FINDINGS: None. IMPRESSION: 1. PERIPHERAL ARTERIAL DISEASE. 2. NO ACUTE OSSEOUS INJURY. 3. X-RAYS MAY BE NEGATIVE WITH NONDISPLACED HIP FRACTURE, IF THERE IS PERSISTENT CLINICAL CONCERN, RECOMMEND CONSIDERATION OF MRI. IN THE SETTING OF CONTRAINDICATION TO MRI OR LIMITATION IN EMERGENT ACCESS TO MRI, CT WOULD BE SUGGESTED.
[2017-05-29 10:05] LABS: Urine Bacteria Absent (Absent); Urine Bilirubin Negative (Negative); Urine Glucose 1+(50 mg/dL) (Negative); Urine Nitrite Negative (Negative)
--- NOTE | 2017-05-29 10:46 | RAD ---
HISTORY: Seizure COMPARISONS: July 25, 2016 TECHNIQUE: Multiple contiguous axial CT scans were obtained of the head without intravenous contrast. FINDINGS: HEMORRHAGE/INFARCT: There is no hemorrhage or acute infarct. MASSES/SHIFT: There is no mass or shift. EXTRA-AXIAL SPACES: There are no extra-axial fluid collections. SULCI AND VENTRICLES: The sulci and ventricles are normal in size and position for the patient's stated age. CEREBRUM: There is right frontal and left frontoparietal BRAINSTEM: There are no focal parenchymal abnormalities. CEREBELLUM: There are no focal parenchymal abnormalities. VESSELS: The vessels are grossly normal. PARANASAL SINUSES: The paranasal sinuses are clear. ORBITS: The orbits are unremarkable. BONES AND SOFT TISSUE: No bone or soft tissue abnormalities are noted. OTHER: None IMPRESSION: 1. NO ACUTE INTRACRANIAL PATHOLOGY. 2. STABLE CHRONIC INFARCTS
[2017-05-29] MEDS ORDERED: Acetaminophen TAB* 325 MG PO PRN (11:14)
[2017-05-29] MEDS ORDERED: Epoetin Alfa* 10,000 UNITS/ML VIAL SUBCUT ONE (11:14)
--- NOTE | 2017-05-29 12:09 | RAD ---
Indication: Right Leg edema. Duplex Doppler sonography of the deep venous system of the right lower extremity deep venous system was performed. Bilaterally the common femoral veins appear patent and compressible. Right proximal greater saphenous vein, proximal deep femoral vein, femoral vein, popliteal vein, posterior tibial veins and peroneal veins appear patent and compressible. In the upper thigh there is retraction enlargement of a quadriceps muscle may represent hematoma or tear. IMPRESSION: NO EVIDENCE OF DEEP VENOUS THROMBOSIS IS IDENTIFIED. INTRAMUSCULAR ENLARGEMENT IN THE LATERAL RIGHT THIGH SUGGESTIVE OF INTRAMUSCULAR HEMATOMA OR TEAR OF THE QUADRICEPS MUSCLE.
[2017-05-29] MEDS ORDERED: Iron Sucrose* 200 MG in NS 0.9% 100 ML* 100 ML IVPB ONE (12:45)
[2017-05-29] MEDS ORDERED: Phytonadione Oral Solution* 5 MG/25 ML UDC PO ONE ×2 (12:46→22:00)
[2017-05-29 12:57] LABS: Magnesium 1.9 mg/dL (1.9-2.7)
--- NOTE | 2017-05-29 13:08 | RAD ---
CLINICAL HISTORY: Fall, trauma COMPARISON: May 21, 2014 TECHNIQUE: Multiple contiguous axial CT scans were obtained of the abdomen and pelvis, without intravenous contrast enhancement. Coronal and sagittal multiplanar reformations are submitted for review. Oral contrast was not administered. FINDINGS: The study is limited by the lack of intravenous contrast. This limits evaluation of the solid organs and vasculature. LUNG BASES: The lung bases are clear. There is elevation of left hemidiaphragm. LIVER: The liver is normal in shape, size, contour, and attenuation. BILE DUCTS: There is no intrahepatic or extrahepatic biliary dilatation. GALLBLADDER: The gallbladder is normal, without pericholecystic inflammatory change. PANCREAS: The pancreas is normal, without mass or ductal dilatation. SPLEEN: Normal in size and appearance. UPPER GI TRACT: Evaluation of the gastrointestinal tract is limited by incomplete gastric distention. The upper GI tract is unremarkable. SMALL BOWEL AND MESENTERY: The small bowel is normal in contour, course, and caliber. There is no obstruction or dilatation. COLON: The colon is normal in contour, course, caliber. There is no pericolonic inflammatory change. ADRENALS: Normal bilaterally. KIDNEYS: The kidneys are normal in shape, size, contour, and axis. There is no hydronephrosis or nephrolithiasis. BLADDER: The bladder is smooth in contour. PELVIC ORGANS: The prostate gland is normal. The seminal vesicles are symmetric. AORTA: There is calcific atherosclerotic disease of the abdominal aorta and its branches, without aneurysmal dilatation IVC: Unremarkable LYMPH NODES: There is no lymphadenopathy by size criteria. ABDOMINAL WALL: There is a small fat-containing right inguinal hernia. BONES AND SOFT TISSUES: Degenerative changes are noted of the spine. OTHER: None IMPRESSION: 1. ELEVATION OF THE LEFT HEMIDIAPHRAGM. 2. ATHEROSCLEROSIS. 3. NO ACUTE CT PATHOLOGY OF THE VISUALIZED ABDOMEN OR PELVIS.
--- NOTE | 2017-05-29 13:15 | RAD ---
INDICATION: Right hip and thigh pain after a fall COMPARISON: Right thigh radiograph that does not reveal any acute abnormalities. TECHNIQUE: Noncontrast CT examination of the right hip and femur. Axial images were acquired and sagittal and coronal reformats were created and independently analyzed. FINDINGS: The visualized bones are intact and appropriately aligned. No fracture or dislocation is identified. There is subcutaneous induration overlying the greater trochanter (axial image 31) but no subcutaneous fluid collection. Within the musculature of the quadriceps muscle there is a heterogeneous but partially hyperattenuating collection measuring 3.8 x 5.5 cm in the axial plane (image 94) and up to 9.5 cm in the cephalocaudal projection (coronal image 25). Hyperdense material tracks within the musculature of the vastus lateralis. There is widespread calcified atherosclerosis throughout the visualized iliac and femoral arterial system. IMPRESSION: 1. No acute fracture or dislocation involving the right hip or femur. 2. CT findings are consistent with large multilocular intramuscular hematoma mostly contained within the right vastus lateralis and vastus intermedialis and deep to the rectus femoris. In the subcutaneous tissue overlying the greater trochanter there is infiltration of the fat but no drainable fluid collection. 3. Also incidentally noted is widespread calcified atherosclerosis of the visualized iliac and femoral arteries. These correlate to chronic signs and symptoms of lower extremity arterial insufficiency.
[2017-05-29 13:31] LABS: TSH (Thyroid Stimulating Horm) 1.03 mcIU/mL (0.34-5.60)
[2017-05-29 13:34] LABS: Free T4 1.26 ng/dL (0.61-1.12)
[2017-05-29 13:37] LABS: Ferritin 930.6 ng/mL (24-336)
[2017-05-29] MEDS: Sevelamer TAB* 800 MG PO SCH ×2 (14:51→18:09)
[2017-05-29] MEDS: Ropinirole TAB* 0.5 MG TAB PO SCH ×2 (14:51→21:11)
[2017-05-29 15:15] LABS: Hematocrit 21 % (42-52); Hemoglobin 7.1 g/dl (14.0-18.0)
--- NOTE | 2017-05-29 15:36 | HP ---
CC: Dr. Balbina Corral; Dr. Mosqueda; Dr. Chris * HISTORY AND PHYSICAL: DATE OF ADMISSION: 05/29/17 PRIMARY CARE PROVIDER: Dr. Balbina Corral. ATTENDING PHYSICIAN WHILE IN THE HOSPITAL: Leyla Mariee MD * (report dictated by Kp Nieves NP). CONSULTING FIELD PLACEMENT DIRECTOR: Dr. Mosqueda. CONSULTING NEUROLOGIST: Dr. Chris. CHIEF COMPLAINT: 1. Shaking. 2. Hypertension. HISTORY OF PRESENTING ILLNESS: Mr. Knight is a 66-year-old male patient who has a history of end-stage renal disease, AFib, history of CVA, hypertension, GERD, cardiomyopathy and he also has a history of borderline diabetes. He says that his blood pressure dropped, it went down in the 70s. He had the shaking episode , it sounds like it was in both arms. He has had episodes like this in the past with dialysis. He usually gets cramping and they terminated dialysis and sent him in the ER. Five days ago, he sustained a fall while [place] [facility] [place] He says his toes got caught in a pothole and he went down, he hit his face. In addition to this, he also hit his right leg. Since then, he has been having significant amount of swelling and pain in leg. He has also been complaining of having swelling in that leg. He was concerned for this as well and brought this to our attention. He came into the ER, was evaluated. There is a concern that maybe he had a partial seizure, maybe he was having again tremors, it is unclear and he was also noted that his H and H had dropped significantly, his hemoglobin was 7 down from 10, so we were asked to evaluate for admission. He denies having any chest pain. No shortness of breath. Denies having any loss of consciousness. Denies having any confusion. There has been no dysuria, no fevers, no coughing and no diarrhea or vomiting or abdominal discomfort. He came into our ER, was evaluated. Again, we are asked to evaluate. PAST MEDICAL HISTORY: Significant for: 1. End-stage renal disease. 2. AFib. 3. CVA. 4. Hypertension. 5. GERD. 6. Cardiomyopathy, last EF 40% to 45%. 7. Borderline diabetes. PAST SURGICAL HISTORY: He has had a HD fistula placed and he has had a cardiac catheterization x2 with no PCI. MEDICATIONS: Home meds according to list that we were able to obtain includes: 1. Diphenhydramine 50 mg p.o. daily as needed. 2. Simvastatin 20 mg daily. 3. Requip 0.75 mg p.o. t.i.d. 4. Prilosec 20 mg daily. 5. Lopressor 50 mg p.o. b.i.d. 6. Coumadin 7.5 mg p.o. twice a week. 7. Coumadin 5 mg p.o. 5 times a week. 8. Nitro 0.4 mg sublingual every 5 minutes p.r.n. x3 for chest pain. 9. Procardia 30 mg p.o. daily. 10. Lisinopril 20 mg p.o. daily. 11. Tylenol 650 mg every 8 hours as needed. 12. Renvela 800 mg p.o. t.i.d. with meals. 13. Nephro-Mark 1 tablet p.o. daily. ALLERGIES TO MEDICATIONS: Include PENICILLIN. FAMILY HISTORY: Both parents were diabetic. SOCIAL HISTORY: He does not smoke. He does not drink. His surrogate decision maker is his sister Maninder. REVIEW OF SYSTEMS: There is no documented fever. He denied having any significant weight change. There was no double vision. He denies having any ear discharge. There is no rhinorrhea. No sore throat. No thyroid enlargement. Denied having any chest pain. There is no orthopnea. No nocturnal dyspnea. There was no abdominal pain. There was no nausea, no vomiting, no dysuria, no frequency. There was question of possible seizure, but he had tremors. No loss of consciousness. No pruritus and no skin ulcerations. Review of 14 systems completed, all others negative. PHYSICAL EXAMINATION GENERAL: At this time, Mr. Knight is a 66-year-old male patient, appears to be well nourished, well developed. He does not appear to be in any acute distress. He is awake. He is alert. He is oriented x3. VITAL SIGNS: Blood pressure 124/73; pulse 78; respirations was documented in here at 37, but he is not 37, he is breathing at 20; his O2 saturation was dipping down into the 80s, it is now up to 90%, when I was in there with him he was 94% on room air and question if with these low sats if he was having tremors , then it maybe not an accurate read. HEENT: Head: Atraumatic with exception he has ecchymosis noted to his jaw on the right side. Eyes: EOMs intact. Sclerae anicteric, not pale. Throat: Oral mucosa appears to be moist. No oropharyngeal erythema. NECK: Supple. LUNGS: Clear to auscultation. No wheezes, rales, or rhonchi. HEART: Sounds S1, S2. Regular rate and rhythm. No murmurs, rubs, or gallops. ABDOMEN: Soft, flat, nontender. Bowel sounds are present. EXTREMITIES: Pulses were 2+ throughout. He does have a significant amount of swelling noted to the right lower extremity particularly in the thigh. Distal CSM checks are intact. NEUROLOGICAL: He is awake. He is alert. He is oriented x3. His tongue is midline. His manager planning are equal. He had 5/5 strength. He had no gross focal deficits. SKIN: His skin was grossly intact. DIAGNOSTIC STUDIES/LAB DATA: The labs today revealed a WBC of 6.4, RBC of 2.08 , hemoglobin 7, hematocrit 21, platelet count of 189. Sodium was 134, potassium was 4.0, chloride of 91, his bicarb was 33, BUN was 30, his creatinine was 6.24, his glucose 100, calcium 9.7. Total bili 0.6, AST 23, ALT 9, alk phos 45, troponin 0.03, CRP is 66, albumin is 3.9. Urine showed 2+ protein, 1+ blood, present squamous epithelial cells. Again, his hemoglobin on April was 10, now is 7. Brain CT obtained today revealed, impression: No acute intracranial pathology, stable chronic infarcts. There was a femur x-ray obtained today, which revealed peripheral arterial disease, no acute osseous injury, as x-rays maybe negative with nondisplaced hip fracture. If there is persistent clinical concern, recommend consideration of MRI in the setting of contraindication of MRI, limitation in emergent access MRI, CT would be suggested. EKG obtained today shows a sinus rhythm, rate of 74. No ST elevations or T- wave inversions. He did have a LVH. It was reviewed to the previous EKG, it appears to be similar and no acute changes were noted. There was a chest x-ray obtained today showed no active cardiopulmonary disease. Old medical records were reviewed. ASSESSMENT AND PLAN: Mr. Knight is a 66-year-old male patient with multiple medical problems, coming into the ED today with complaints of shaking. In addition to this, now found to have a low H and H. We were asked to evaluate for admission. He will be admitted under observation status for: 1. Tremors. Again when I was evaluated him, he was shaking, the one side was tremors particularly on the right side. He is aware that this is happening and he apparently take dialysis, is seemed more diffuse and there was concern for seizure. So at this point, I did touch base with Dr. Chris who will evaluate the patient. We will get an MRI of the brain and an EEG and we will place him on telemetry. We will order neuro checks every 4 hours and we will follow closely. 2. Acute on chronic anemia. Again, I am worried that he may have a hematoma particularly in the right thigh given the recent fall. I am checking his INR. The plan will be if his INR is therapeutic, I probably would continue and see what his H and H does as he has his 5 days out, but I am going to CT that lower extremity and also get an ultrasound of that lower extremity. He unfortunately is Orthodox and will not take blood transfusion, so I am going to give him Neupogen and checking iron studies. If his iron saturation is well, I will give him Venofer and we will continue to follow. 3. Atrial fibrillation. For the time being until I know the INR, I am holding off on giving him any Coumadin and we will restart it when able. He is in a sinus rhythm. 4. History of cerebrovascular accident. Again if INR is therapeutic, I probably would continue the INR checking, keep an eye on that H and H and we will continue with this for secondary stroke prevention. 5. Hypertension. Continue meds as prescribed. 6. Gastroesophageal reflux disease. Continue PPI therapy. 7. Cardiomyopathy. It does not appear to be in any failure. We will continue to monitor RSV. 8. History of borderline diabetes. We will continue with diet control. 9. DVT prophylaxis. For now, I have ordered SCDs. 10. Code status. Full code. 11. Fluids, electrolytes, and nutrition. He can have a renal diet. 12. End-stage renal disease. Again, we did touch base with Dr. Mosqueda, who will be evaluating. We will continue his dialysis as prescribed. TIME SPENT: On the admission was 60 minutes; greater than half the time was spent [id number] with the patient obtaining my history and physical, time spent going over the plan of care with the patient and implementing the plan of care. I did discuss the plan of care with my attending doctor, Dr. Mariee; she is in agreement. KP NIEVES, AMIRAH [id number]/[facility] #: [id number] PETER
--- NOTE | 2017-05-29 16:01 | CONS ---
CONSULTATION REPORT: DATE OF CONSULT: 05/29/17 LOCATION: Currently in ER bed 16. PRIMARY CARE PROVIDER: Dr. Corral. REASON FOR CONSULTATION: Tremors and dizziness. HISTORY OF PRESENT ILLNESS: Mr. Knight is a 66-year-old gentleman with a history of end-stage renal disease, on dialysis; history of AV fistula placed on the left; history of paroxysmal atrial fibrillation, on warfarin; history of strokes in the past, he said he had 2 years ago with no significant deficits; history of hypertension; cardiomyopathy; GERD; also a recent fall which he was seen in the ER several days ago. He was walking and tripped when he hit his head. At that time, he had a brain CT, which showed no traumatic brain injury or bleeding. He had a right frontal and left parietal old strokes with no significant change from 2013, also some micro-ischemic changes noted. He also had a maxillofacial CT done at the time of his ER visit several days ago, which showed some soft tissue swelling of the chin, but negative for fracture. He was discharged home, was recovering, although he noted some right leg pain and more difficulty walking, was in hemodialysis this morning when he suddenly started to develop tremors. He states the tremors were generally in the upper extremities, they were coarse, involving the entire arm. They were persistent in nature. He was awake during them. He did not lose consciousness, although he felt dizzy at times. His blood pressure apparently dropped during hemodialysis to the systolic in the 70s. He denied any chest palpitations at that time. Currently, denies any headache, any nausea or vomiting. He states that he has not been eating and the last time he ate was last night. No dysuria. No diarrhea or constipation. No fevers or chills. He notes that the tremors have resolved mostly. Currently, he is not having any tremors, although when I spoke with the hospitalist on the phone, he was still having some upper extremity tremors. He states that the same thing happened several years ago when he was in hemodialysis and he developed tremors and had some electrolyte abnormalities at that time, which were replaced and he did well. He has a history of some seizure-like event when he was in high school, but he states it was because of anxiety. He denies any family history of seizures, any other head trauma prior to 05/25/17 or any history of meningitis. There is no reported family history of seizures that he is aware of. He states that he has been taking his medications regularly. He was admitted back in August of 2016. At that time, he was having palpitations with rapid atrial fibrillation, was kept overnight for observation and discharged home. Apparently, at that time, he had run out of his metoprolol, was initially put on a Cardizem drip that converted to sinus rhythm and remained asymptomatic. He had some demand ischemia at that time. Most recently, he denies any stroke-like symptoms. No problem speaking. No slurred speech. No problem swallowing. No vision changes. No vision loss. No focal numbness, tingling, or weakness except for the right lower extremity proximally where he states that he has a lot of pain limiting his movement where he hit his leg during the fall. He notes no current chest pain or shortness of breath. He does have some dyspnea on exertion at times, but nothing above his baseline. No prior history of Parkinson's disease or tremors in the past. He has otherwise been in his usual state of health. PAST MEDICAL HISTORY: As noted above includes: 1. Hypertension. 2. History of strokes in the past. 3. Paroxysmal atrial fibrillation. 4. End-stage renal disease. 5. GERD. 6. Ischemic cardiomyopathy with catheterizations in the past. 7. He also has a history of restless legs syndrome. PAST SURGICAL HISTORY: Includes catheterizations. No stenting was done. MEDICATIONS: Current medications at home include: 1. Diphenhydramine. 2. Simvastatin. 3. Ropinirole tab 0.75 mg p.o. t.i.d. 4. Omeprazole 20 mg p.o. daily. 5. Metoprolol 50 mg p.o. b.i.d. 6. Coumadin. 7. Nitroglycerin. 8. Nifedipine. 9. Lisinopril. 10. Acetaminophen. 11. Sevelamer. 12. B-complex. ALLERGIES: PENICILLIN. SOCIAL HISTORY: Lives alone in an apartment. Drinks alcohol occasionally. Minimal tobacco use. REVIEW OF SYSTEMS: Review of systems in 14 organ systems as noted above, otherwise negative. PHYSICAL EXAMINATION: Vital Signs: Blood pressure 131/69 and 124/73, heart rate of 84, respiratory rate of 16, pulse ox 100%, afebrile. In general, he is a well- nourished, well-developed gentleman, lying in his hospital bed. He is pleasant, well dressed, well groomed. HEENT: He is normocephalic, atraumatic. Sclerae are anicteric. Mucous membranes are slightly dry. Oropharynx is clear. Poor dentition. Neck is supple. No thyromegaly. No carotid bruits. Chest: Clear to auscultation bilaterally. Cardiovascular is regular rate and rhythm with a 3/6 holosystolic murmur. Abdomen is nontender. Extremities: No clubbing, cyanosis, or edema. He has petechiae in his legs bilaterally distally and he has an AV fistula on the left with a bruit. On neurologic examination, he is awake, alert, oriented x3. His speech is fluent. There is no dysarthria. Repetition is intact. Recall of recent and remote events is intact. Vocabulary is intact. His mood is euthymic. Affect is mood congruent. Cranial nerves II through XII; pupils are are equal, round, and reactive to light and accommodation. Extraocular muscles are intact. Visual sol are full. There is no nystagmus noted. Facial sensation is intact throughout. Face is symmetric. There is no obvious drooping. Hearing is intact bilaterally. Tongue is midline. Palate raises symmetrically. Sternocleidomastoid and trapezius are intact. Motor Exam: Spontaneously moving all extremities with 5/5 throughout except for the right lower extremity proximally where he has limited movement secondary to pain in his thigh. He does have an area of firmness in his right thigh, sensitive to touch. No erythema. No obvious cords appreciated. Distally on the right lower extremity is 5/5. DTRs are absent in the upper and lower extremities bilaterally. Sensation is markedly diminished to all modalities in the legs to the knees bilaterally. Babinski is equivocal. Finger-to- nose and rapid alternating movements are intact. There is no obvious tremor at this time. There is no asterixis. There is no resting tremor. There is no coarse tremor appreciated. Tone is normal. There is no evidence of ataxia. Gait was not tested at this time. He is having difficulty walking. DIAGNOSTIC STUDIES/LAB DATA: Lab work includes a white count of 6.4, hemoglobin of 7, hematocrit of 21, platelet count of 189. INR of 2.61 on the 25 of May. Chemistry is significant for a chloride of 91, carbon dioxide of 33, BUN of 30, creatinine of 6.24 up from August at 5.80. Troponin is 0.03 , total protein 7.2, C-reactive protein of 66.99. Urine showed 2+ protein, 1+ blood, squamous cells present, 1+ urine glucose. FRANCISCO screen in the past was negative. Hepatitis screen in the past nonreactive in 2014. Studies done includes a brain CT on this admission showed the old strokes, but no acute changes, films reviewed. Femur x-ray of the right lower extremity shows peripheral artery disease, no acute osseous injury. Venous Doppler of the lower extremities is pending. MRI of the brain is pending. EEG is pending. ASSESSMENT AND PLAN: Mr. Knight is a 66-year-old gentleman with multiple medical problems with chronic kidney disease, on hemodialysis; history of strokes in the past; paroxysmal atrial fibrillation; ischemic heart disease; history of possible seizure in high school, although it sounds more like anxiety ; history of tremors in the past with dialysis, had a fall several days ago, came to the ER and workup was largely negative. No evidence of any fractures. No evidence of new stroke at that time. He was in dialysis today when he developed sudden onset of some dizziness and upper extremity tremors, which were coarse in nature. he tremors have since resolved and I see no obvious tremors on examination. He is feeling better. He states that he had not eaten since last night, but he denies any other significant neurologic symptoms including no headache, no vision changes, no speech difficulties, no other focal numbness, tingling, or weakness. He does have limited range of motion in the right lower extremity proximally due to pain. It appears there may be a hematoma in the right side. Doppler is pending. It is likely limiting his movement, but I do not think this is primarily neurologic. Given his history of stroke and paroxysmal atrial fibrillation, I do think an MRI of the brain is appropriate for any evidence of new strokes especially in light of his right lower extremity weakness. I am also going to get an EEG to look for any underlying epileptogenic activity, although my suspicion for seizures is low. I suspect at this point that this may be related to electrolyte abnormality, possibly electrolyte shift due to hemodialysis. We will additionally check magnesium. I am also checking CPK and myoglobin, which I expect will be elevated due to his recent trauma, but we can track it over time. We will check copper and ceruloplasmin, although my suspicion for underlying Harris's disease is very low. Check an EEG as noted to rule out any seizure-like activity, although my suspicion is very low. He has had similar episodes like this in the past, most recently several years ago during hemodialysis. He states at that time, he had some electrolyte abnormalities and once they were repleted, he felt better. Currently, he is not having any tremors and feels better. We will continue to follow him closely in the hospital and make further recommendations as necessary. Thank you for the opportunity to participate in his care. [id number]/[facility] #: [id number] PETER
--- NOTE | 2017-05-29 18:27 | RAD ---
HISTORY: Seizure COMPARISONS: Same day CT of the brain as well as CT of the brain dated May 25, 2017 TECHNIQUE: The following sequences were obtained of the head: Sagittal T1-weighted images, axial T2-weighted images, axial FLAIR images, axial susceptibility weighted images, axial T1-weighted images. Additionally, axial diffusion-weighted images were obtained with calculated apparent diffusion coefficients.. FINDINGS: HEMORRHAGE/INFARCT: There is no hemorrhage or acute infarct. MASSES/SHIFT: There is no mass or shift. EXTRA-AXIAL SPACES/MENINGES: There are no extra-axial fluid collections. SULCI AND VENTRICLES: The sulci and ventricles are normal in size and position for the patient's stated age. CEREBRUM: There is encephalomalacia at the left posterior parietal lobe corresponding to the appearance of the 1716 CT of the brain. There is a smaller area of encephalomalacia involving the posterior superior right frontal lobe (image 22 of 30). There are confluent subcortical and periventricular T2 Bright changes in the white matter. BRAINSTEM: There are no focal parenchymal abnormalities. CEREBELLUM: There are no focal parenchymal abnormalities. The cerebellar tonsils are normal in size and position. SELLA: The sella is normal. PINEAL: The pineal region is clear. CP ANGLE/TEMPORAL BONES: The labyrinthine structures are grossly normal. VESSELS: Normal flow-voids are noted within the visualized vertebral vasculature. DIFFUSION ABNORMALITIES: There are no diffusion abnormalities. PARANASAL SINUSES/MASTOIDS: The paranasal sinuses are clear. ORBITS: The orbits are unremarkable. BONES AND SOFT TISSUE: No bone or soft tissue abnormalities are noted. IMPRESSION: THERE IS ENCEPHALOMALACIA AND EVIDENCE OF CHRONIC MICROVASCULAR DISEASE CORRESPONDING TO FINDINGS ON THE SAME DAY AND MAY 25, 2017 CTS OF THE BRAIN. THERE IS NO EVIDENCE OF ACUTE TERRITORIAL OR FOCAL INFARCTION OR OTHER ACUTE INTRACRANIAL PROCESS.
[2017-05-29 19:58] LABS: Hematocrit 20 % (42-52); Hemoglobin 6.6 g/dl (14.0-18.0)
[2017-05-29 19:59] LABS: Comments Flag Yes
[2017-05-29] MEDS: Metoprolol Tartrate TAB* 50 mg PO SCH (21:11)
[2017-05-30 03:07] LABS: Hematocrit 20 % (42-52); Hemoglobin 6.8 g/dl (14.0-18.0)
[2017-05-30 03:08] LABS: Comments Flag Yes
[2017-05-30 04:17] LABS: Erythrocyte Sed Rate 120 mm/Hr (0-20)
[2017-05-30 06:37] LABS: Hematocrit 19 % (42-52); Mean Corpuscular HGB Conc 34 g/dl (31-36); Mean Corpuscular Hemoglobin 34 pg (27-31); Mean Corpuscular Volume 100 fL (80-94); Mean Platelet Volume 7 um3 (7.4-10.4); Red Cell Distribution Width 14 % (10.5-15); White Blood Count 6.3 10^3/ul (3.5-10.8)
[2017-05-30 06:45] LABS: Comments Flag Yes
[2017-05-30 06:46] LABS: Hemoglobin 6.5 g/dl (14.0-18.0)
[2017-05-30 06:52] LABS: BUN/Creatinine Ratio 5.1 (8-20); Calcium 9.4 mg/dL (8.6-10.3); EGFR African American 8.6 (>60); EGFR Non-African American 6.7 (>60); Potassium 4.7 mmol/L (3.5-5.0)
--- NOTE | 2017-05-30 08:21 | ED ---
Gordo Rob Angela, scribed for Randall Nichols MD on 05/29/17 at 0740 . Syncope/Near Syncope - HPI Summary HPI Summary: This pt is a 66 y/o male presenting to [facility] via EMS c/o hypotension today. Pt was at dialysis this morning and after 1 hour of dialysis, pt became hypotensive. Pt was given 200ml of NS and his hypotension was resolved. Pt notes he was shaking during dialysis. Pt states he took a fall a couple of days ago and had XRs done here in the ED, which resulted negative for fractures. He is able to ambulate with the aide of a walker. Pt notes he is able to bear weight on his right leg but still has tenderness. - History Of Current Complaint Time Seen by Provider: 05/29/17 07:38 Hx Obtained From: Patient Onset/Duration: Sudden Onset, Resolved Timing: Constant Context: Witnessed Activity At Onset: Other - at dialysis Associated Head Trauma: No Alleviating Factor(s): Other - NS 200ml Associated Signs And Symptoms: Other - hypotension, shaking - Allergies/Home Medications Allergies/Adverse Reactions: Allergies Allergy/AdvReac Type Severity Reaction Status Date / Time Penicillins Allergy Hives Verified 05/15/12 13:56 Home Medications: Home Medications Acetaminophen [Acetaminophen ER] 650 mg PO Q8HR PRN 05/29/17 [History Confirmed 05/29/17] Metoprolol Tartrate TAB* [Lopressor TAB*] 50 mg PO BID 05/29/17 [History Confirmed 05/29/17] Ropinirole TAB* [Requip TAB*] 0.75 mg PO TID 05/29/17 [History Confirmed ] Warfarin TAB(*) [Coumadin TAB(*)] 5 mg PO .5 DAYS A WEEK 05/29/17 [History Confirmed 05/29/17] Warfarin TAB(*) [Coumadin TAB(*)] 7.5 mg PO .2 DAYS A WEEK 05/29/17 [History Confirmed 05/29/17] PMH/Surg Hx/FS Hx/Imm Hx Endocrine/Hematology History: Reports: Hx Diabetes - CONTROL WITH DIET, Hx Anemia Cardiovascular History: Reports: Hx Atrial Fibrillation, Hx Coronary Artery Disease - CHOLESTEROL CONTROL WITH MEDICATION, Hx Hypertension - ON MEDICATION, Other Cardiovascular Problems/Disorders - 2009 OR 2010 CARDIAC CATHERIZATION Respiratory History: Reports: Hx Sleep Apnea - NO CPAP, Other Respiratory Problems/Disorders GI History: Reports: Hx Gastroesophageal Reflux Disease - ON MEDICATION History: Reports: Hx Chronic Renal Failure Musculoskeletal History: Reports: Hx Arthritis - BILATERAL KNUCKLES AND NECK Sensory History: Reports: Hx Cataracts - BILATERAL, Hx Contacts or Glasses - GLASSES Denies: Hx Hearing Aid Opthamlomology History: Reports: Hx Cataracts - BILATERAL, Hx Contacts or Glasses - GLASSES Neurological History: Reports: Hx Nerve Disease - Neuropathy, restless leg syndrome Comment Only: Other Neuro Impairments/Disorders - DIFFICULTY CONCENTRATING WITH LEFT SIDE WEAKNESS, BALANCE OFF, STAMMERING, Psychiatric History: Reports: Hx Depression - ON MEDICATION - Surgical History Surgery Procedure, Year, and Place: 2009 OR 2010 CARDIAC CATHERIZATION, [place], [place]. 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 No FHx of anesthesia reaction - Social History Alcohol Use: Rare Hx Substance Use: No Substance Use Type: Reports: None Hx Tobacco Use: No Smoking Status (MU): Never Smoked Tobacco Review of Systems Constitutional: Other - hypotensive, shaking Negative: Fever, Chills Eyes: Negative ENT: Negative Negative: Chest Pain Negative: Shortness Of Breath Gastrointestinal: Negative Genitourinary: Negative Musculoskeletal: Negative All Other Systems Reviewed And Are Negative: Yes Physical Exam - Summary Physical Exam Summary: VITAL SIGNS: Reviewed. GENERAL: Patient is a well-developed and nourished male who is lying comfortable in the stretcher. Patient is not in any acute respiratory distress. HEAD AND FACE: No signs of trauma. No ecchymosis, hematomas or skull depressions. No sinus tenderness. EYES: PERRLA, EOMI x 2, No injected conjunctiva, no nystagmus. EARS: Hearing grossly intact. Ear canals and tympanic membranes are within normal limits. MOUTH: Oropharynx within normal limits. NECK: Supple, trachea is midline, no adenopathy, no JVD, no carotid bruit, no c- spine tenderness, neck with full ROM. CHEST: Symmetric, no tenderness at palpation LUNGS: Clear to auscultation bilaterally. No wheezing or crackles. CVS: Regular rate and rhythm, S1 and S2 present, no murmurs or gallops appreciated. ABDOMEN: Soft, non-tender. No signs of distention. No rebound no guarding, and no masses palpated. Bowel sounds are normal. EXTREMITIES: FROM in all major joints, no edema, no cyanosis or clubbing. Pt has a port on left arm. RLE: There is swelling of the right thigh. There is tenderness to palpation on right thigh. No hematoma. Good pulses and good capillary refill of bilateral legs. NEURO: Alert and oriented x 3. No acute neurological deficits. Speech is normal and follows commands. SKIN: Dry and warm Triage Information Reviewed: Yes Vital Signs On Initial Exam: Initial Vitals Temp Pulse Resp BP Pulse Ox 98.1 F 78 16 143/100 100 05/29/17 07:34 05/29/17 07:34 05/29/17 07:34 05/29/17 07:34 05/29/17 07:34 Vital Signs Reviewed: Yes Diagnostics - Vital Signs Vital Signs Temp Pulse Resp BP Pulse Ox 05/29/17 10:30 103 37 124/73 90 05/29/17 10:16 33 11 81 05/29/17 10:15 131/69 05/29/17 09:28 45 19 82 05/29/17 09:26 97 17 93 05/29/17 08:00 73 13 100 05/29/17 07:49 76 13 98 05/29/17 07:34 98.1 F 78 16 143/100 100 - Laboratory Lab Results: Lab Results 05/29/17 05/29/17 05/29/17 Range/Units 07:47 07:47 07:47 WBC 6.4 (3.5-10.8) 10^3/ul RBC 2.08 L (4.0-5.4) 10^6/ul Hgb 7.0 L (14.0-18.0) g/dl Hct 21 L (42-52) % MCV 100 H (80-94) fL MCH 34 H (27-31) pg MCHC 34 (31-36) g/dl RDW 14 (10.5-15) % Plt Count 189 (150-450) 10^3/ul MPV 7 L (7.4-10.4) um3 Neut % (Auto) 70.3 (38-83) % Lymph % (Auto) 14.9 L (25-47) % [place] % (Auto) 10.0 H (1-9) % Eos % (Auto) 3.9 (0-6) % Baso % (Auto) 0.9 (0-2) % Absolute Neuts (auto) 4.5 (1.5-7.7) 10^3/ul Absolute Lymphs (auto) 1.0 (1.0-4.8) 10^3/ul Absolute Monos (auto) 0.6 (0-0.8) 10^3/ul Absolute Eos (auto) 0.2 (0-0.6) 10^3/ul Absolute Basos (auto) 0.1 (0-0.2) 10^3/ul Absolute Nucleated RBC 0 10^3/ul Nucleated RBC % 0.1 INR (Anticoag Therapy) (0.89-1.11) Sodium 134 (133-145) mmol/L Potassium 4.0 (3.5-5.0) mmol/L Chloride 91 L (101-111) mmol/L Carbon Dioxide 33 H (22-32) mmol/L Anion Gap 10 (2-11) mmol/L BUN 30 H (6-24) mg/dL Creatinine 6.24 H (0.67-1.17) mg/dL Est GFR ( Amer) 11.7 (>60) Est GFR (Non-Af Amer) 9.1 (>60) BUN/Creatinine Ratio 4.8 L (8-20) Glucose 100 (70-100) mg/dL Calcium 9.7 (8.6-10.3) mg/dL Iron 28 L (50-212) ug/dL TIBC 297 (250-450) mcg/dL % Saturation 9 L (15-55) % Unsat Iron Binding 269 ug/dL Ferritin 930.6 H (24-336) ng/mL Total Bilirubin 0.60 (0.2-1.0) mg/dL AST 23 (13-39) U/L ALT 9 (7-52) U/L Alkaline Phosphatase 45 (34-104) U/L Troponin I 0.03 (<0.04) ng/mL C-Reactive Protein 66.99 H (< 5.00) mg/L Total Protein 7.2 (6.4-8.9) g/dL Albumin 3.9 (3.2-5.2) g/dL Globulin 3.3 (2-4) g/dL Albumin/Globulin Ratio 1.2 (1-3) Urine Color Urine Appearance Urine pH (5-9) Ur Specific [place] (1.010-1.030) Urine Protein (Negative) Urine Ketones (Negative) Urine Blood (Negative) Urine Nitrate (Negative) Urine Bilirubin (Negative) Urine Urobilinogen (Negative) Ur Leukocyte Esterase (Negative) Urine WBC (Auto) (Absent) Urine RBC (Auto) (Absent) Ur Squamous Epith Cells (Absent) Urine Bacteria (Absent) Urine Glucose (Negative) Blood Type A Positive Antibody Screen Negative Crossmatch See Detail 05/29/17 05/29/17 Range/Units 07:47 09:39 WBC (3.5-10.8) 10^3/ul RBC (4.0-5.4) 10^6/ul Hgb (14.0-18.0) g/dl Hct (42-52) % MCV (80-94) fL MCH (27-31) pg MCHC (31-36) g/dl RDW (10.5-15) % Plt Count (150-450) 10^3/ul MPV (7.4-10.4) um3 Neut % (Auto) (38-83) % Lymph % (Auto) (25-47) % [place] % (Auto) (1-9) % Eos % (Auto) (0-6) % Baso % (Auto) (0-2) % Absolute Neuts (auto) (1.5-7.7) 10^3/ul Absolute Lymphs (auto) (1.0-4.8) 10^3/ul Absolute Monos (auto) (0-0.8) 10^3/ul Absolute Eos (auto) (0-0.6) 10^3/ul Absolute Basos (auto) (0-0.2) 10^3/ul Absolute Nucleated RBC 10^3/ul Nucleated RBC % INR (Anticoag Therapy) 5.53 H* (0.89-1.11) Sodium (133-145) mmol/L Potassium (3.5-5.0) mmol/L Chloride (101-111) mmol/L Carbon Dioxide (22-32) mmol/L Anion Gap (2-11) mmol/L BUN (6-24) mg/dL Creatinine (0.67-1.17) mg/dL Est GFR ( Amer) (>60) Est GFR (Non-Af Amer) (>60) BUN/Creatinine Ratio (8-20) Glucose (70-100) mg/dL Calcium (8.6-10.3) mg/dL Iron (50-212) ug/dL TIBC (250-450) mcg/dL % Saturation (15-55) % Unsat Iron Binding ug/dL Ferritin (24-336) ng/mL Total Bilirubin (0.2-1.0) mg/dL AST (13-39) U/L ALT (7-52) U/L Alkaline Phosphatase (34-104) U/L Troponin I (<0.04) ng/mL C-Reactive Protein (< 5.00) mg/L Total Protein (6.4-8.9) g/dL Albumin (3.2-5.2) g/dL Globulin (2-4) g/dL Albumin/Globulin Ratio (1-3) Urine Color Yellow Urine Appearance Clear Urine pH 9.0 (5-9) Ur Specific [place] 1.010 (1.010-1.030) Urine Protein 2+(100 mg/dl) H (Negative) Urine Ketones Negative (Negative) Urine Blood 1+ H (Negative) Urine Nitrate Negative (Negative) Urine Bilirubin Negative (Negative) Urine Urobilinogen Negative (Negative) Ur Leukocyte Esterase Negative (Negative) Urine WBC (Auto) Trace(0-5/hpf) (Absent) Urine RBC (Auto) Trace(0-2/hpf) (Absent) Ur Squamous Epith Cells Present H (Absent) Urine Bacteria Absent (Absent) Urine Glucose 1+(50 mg/dl) H (Negative) Blood Type Antibody Screen Crossmatch Result Diagrams: 05/30/17 06:18 05/30/17 06:18 Lab Statement: Any lab studies that have been ordered have been reviewed, and results considered in the medical decision making process. - Radiology Right femur XR Xray Interpretation: Positive (See Comments) - IMPRESSION: 1. Peripheral arterial disease. 2. No acute osseous injury. 3. As X-rays may be negative with nondisplaced hip fracture, if there is persistent clinical concern, recommend consideration of MRI. In the setting of contraindication to MRI or limitation in emergent access to MRI, CT would be suggested. ED physician has reviewed this radiology report and agrees. Radiology Interpretation Completed By: Radiologist Chest XR Xray Interpretation: No Acute Changes - IMPRESSION: No active cardiopulmonary disease. ED physician has reviewed this radiology report and agrees. Radiology Interpretation Completed By: Radiologist - CT Brain CT CT Interpretation: No Acute Changes - IMPRESSION: 1. No acute intracranial pathology. 2. Stable chronic infarcts. ED physician has reviewed this radiology report and agrees. CT Interpretation Completed By: Radiologist - EKG 0833 Cardiac Rate: NL EKG Rhythm: Sinus Rhythm - at 74 bpm EKG Interpretation: No ST elevations. T wave inversion in I and aVL. Course/Dx Assessment/Plan: This pt is a 66 y/o male presenting to [facility] via EMS c/o hypotension today. Pt was at dialysis this morning and after 1 hour of dialysis , pt became hypotensive. Pt was given 200ml of NS and his hypotension was resolved. Pt notes he was shaking during dialysis. Pt states he took a fall a couple of days ago and had XRs done here in the ED, which resulted negative for fractures. He is able to ambulate with the aide of a walker. Pt notes he is able to bear weight on his right leg but still has tenderness. Test results shows normocytic and normochromic anemia, possibly secondary to end of stage renal disease. BUN and creatinine are elevated, consistent with end of stage renal disease. Chest XR shows no active cardiopulmonary disease. I offered the pt transfusion, but since the pt is a Je[employer]es he refused the transfusion. I discussed the pts case with Dr. Mosqueda, final block press operator, he reported to me that while the pt was having dialysis he had a seizure. He recommends a head CT and admit the pt to the hospitalist for observation. Head CT shows 1. No acute intracranial pathology. 2. Stable chronic infarcts. At this point I discussed the test results and findings with Dr. Manning, who accepted the pt for admission. Pt is hemodynamically stable, alert and oriented x3. - Diagnoses Provider Diagnoses: Symptomatic anemia, End stage renal disease, Seizure - Physician Notifications Discussed Care of Patient With: Leyla Manning Time Discussed With Above Provider: 09:15 Instructed by Provider To: Other - I discussed pt care with Dr. Manning, who has accepted the pt for admission. Discharge - Discharge Plan Condition: Stable Disposition: ADMITTED TO [facility] The documentation as recorded by the scribe, Caro,Lynne accurately reflects the service I personally performed and the decisions made by me, Randall Nichols MD.
[2017-05-30] MEDS: Sevelamer TAB* 800 MG PO SCH ×3 (08:22→17:28)
[2017-05-30] MEDS: NIFEdipine ER TAB* 30 MG PO SCH (08:22)
[2017-05-30] MEDS: Metoprolol Tartrate TAB* 50 mg PO SCH ×2 (08:22→21:01)
[2017-05-30] MEDS: Lisinopril TAB* 10 MG PO SCH (08:22)
[2017-05-30] MEDS: Omeprazole CAP* 20 MG PO SCH (08:22)
[2017-05-30] MEDS: Ropinirole TAB* 0.5 MG TAB PO SCH ×3 (08:22→21:02)
[2017-05-30] MEDS: Atorvastatin* 10 MG TAB PO SCH (08:22)
--- NOTE | 2017-05-30 08:28 | PN ---
Subjective Date of Service: 05/30/17 Interval History: This is a 66 yo gentleman with ESRD on HD with afib and h/o CVA anticoagulated with coumadin who presented after a period of hypotension associated HD and tremors. Patient was noted to be profoundly anemic with c/o R leg swelling after a recent injury. CT confirmed presence of large hematoma of the R thigh. Patient is a Mandaen and does not wish to receive blood products. He has received Epogen and iron infusion. INR was supratherapeutic at admission and he has received 2 doses of oral vit K. This am, patient reports he is having some pain in R leg with associated spasm. He denies dizziness or lightheadedness with ambulation. No CP, SOB, abd pain , n/v. Objective Active Medications: Acetaminophen (Tylenol Tab*) 650 mg PO Q4H PRN PRN Reason: FEVER/PAIN Last Admin: 05/29/17 21:34 Dose: 650 mg Atorvastatin Calcium (Lipitor*) 10 mg PO DAILY [facility] Lisinopril (Prinivil Tab*) 20 mg PO DAILY [facility] Metoprolol Tartrate (Lopressor Tab*) 50 mg PO BID [facility] Last Admin: 05/29/17 21:11 Dose: 50 mg Nifedipine (Procardia Xl Tab*) 30 mg PO DAILY [facility] Omeprazole (Prilosec Cap*) 20 mg PO DAILY@0730 [facility] Ropinirole HCl (Requip Tab*) 0.75 mg PO TID [facility] Last Admin: 05/29/17 21:11 Dose: 0.75 mg Sevelamer Carbonate (Renvela Tab*) 2,400 mg PO TID WITH MEALS [facility] Vital Signs: Temp Pulse Resp BP Pulse Ox 98.0 F 85 18 130/73 98 05/30/17 07:15 05/30/17 07:15 05/30/17 07:15 05/30/17 07:15 05/30/17 07:15 Oxygen Devices in Use Now: None Appearance: Chronically ill appearing 66 yo gentleman in NAD, sitting up at bedside. Respiratory: Symmetrical Chest Expansion and Respiratory Effort, Clear to Auscultation Cardiovascular: RRR, - - 3/6 murmur Abdominal: NL Sounds; No Tenderness; No Distention Extremities: - - R leg is much large than the L, no pitting edema noted Skin: - - ecchymosis over his chin and posterior R proximal and lower legs Neurological: Alert and Oriented x 3 Result Diagrams: 05/30/17 06:18 05/30/17 06:18 Additional Lab and Data: . Microbiology and Other Data: Microbiology 05/29/17 18:41 Nasal Screen MRSA (PCR)(JORGE) - Final Nasal Mrsa Negative Diagnostic Imaging: MRI brain - encephalomalacia associated with prior CVA, no new infarct or mass LE venous doppler - No DVT CT RLE - large hematoma Assess/Plan/Problems-Billing Assessment: This is a 66 yo gentleman with ESRD, afib and prior CVA chronically anticoagulated with Coumadin, HTN, GERD and cardiomyopathy with last EF measured at 40-45% who presented with hypotension and tremor noted to be anemic with a large R proximal leg hematoma. - Patient Problems (1) Hematoma Comment: Large R proximal leg hematoma with supratherapeutic INR and acute blood loss anemia He has received 2 doses of vit K with improvement from near 6 to 2.0 this am Hgb has drifted down to 6.5 g/dl this am, largely asx and hemodynamically stable Refuses blood products, he did receive one dose of Epogen and iron infusion (2) Hypotension Comment: During HD Likely due to blood loss Now resolved (3) Tremor Comment: Appreciate neuro input Low suspicion for seizure Pending EEG MRI shows old infarcts, but nothing acute (4) ESRD (end stage renal disease) Comment: On HD (5) Cardiomyopathy Comment: EF 40-45% No acute exacerbation (6) Afib Comment: Rate controlled Chronically anticoagulated with Coumadin, now being held and reversed (7) HTN (hypertension) Comment: Normotensive Home antihypertensives have been continued at this time (8) GERD (gastroesophageal reflux disease) (9) History of CVA (cerebrovascular accident) (10) Full code status (11) DVT prophylaxis Comment: Chemical prophylaxis contraindicated with active bleeding Status and Disposition: Transition to inpatient. Trend H&H. Dc anticipated in 1-2 d
--- NOTE | 2017-05-30 10:18 | PN ---
Progress Note - Progress Note Date of Service: 05/30/17 SOAP: Subjective: Mr. Knight is a pleasant 66 yo male with a history of stage 4 CKD, atrial fibrillation, and CVA who presents complaining of tremors and hypotension that occurred while receiving dialysis. Patient was found to have a large hematoma on the right thigh area, and was subsequently anemic. Patient is being treated for this with epogen and iron. Patient seems to be doing well this morning and reports that his tremors have resolved completely. Patient's biggest complaint is leg pain that occurs d/t spasms. Patient denies fatigue, fevers, chills, lightheadedness above baseline, weakness, CP, SOB, coughing, wheezing, abdominal pain, N/V/D. Objective: Vital Signs Temp Pulse Resp BP Pulse Ox 98.0 F 85 18 130/73 98 05/30/17 07:15 05/30/17 07:15 05/30/17 07:15 05/30/17 07:15 05/30/17 07:15 Laboratory Last Values WBC 6.3 10^3/ul (3.5-10.8) 05/30/17 06:18 RBC 1.90 10^6/ul (4.0-5.4) L 05/30/17 06:18 Hgb 6.5 g/dl (14.0-18.0) L 05/30/17 06:18 Hct 19 % (42-52) L 05/30/17 06:18 MCV 100 fL (80-94) H 05/30/17 06:18 MCH 34 pg (27-31) H 05/30/17 06:18 MCHC 34 g/dl (31-36) 05/30/17 06:18 RDW 14 % (10.5-15) 05/30/17 06:18 Plt Count 189 10^3/ul (150-450) 05/30/17 06:18 MPV 7 um3 (7.4-10.4) L 05/30/17 06:18 Neut % (Auto) 76.4 % (38-83) 05/30/17 06:18 Lymph % (Auto) 11.9 % (25-47) L 05/30/17 06:18 [place] % (Auto) 8.2 % (1-9) 05/30/17 06:18 Eos % (Auto) 2.6 % (0-6) 05/30/17 06:18 Baso % (Auto) 0.9 % (0-2) 05/30/17 06:18 Absolute Neuts (auto) 4.8 10^3/ul (1.5-7.7) 05/30/17 06:18 Absolute Lymphs (auto) 0.8 10^3/ul (1.0-4.8) L 05/30/17 06:18 Absolute Monos (auto) 0.5 10^3/ul (0-0.8) 05/30/17 06:18 Absolute Eos (auto) 0.2 10^3/ul (0-0.6) 05/30/17 06:18 Absolute Basos (auto) 0.1 10^3/ul (0-0.2) 05/30/17 06:18 Absolute Nucleated RBC 0 10^3/ul 05/30/17 06:18 Nucleated RBC % 0 05/30/17 06:18 ESR 120 mm/Hr (0-20) H 05/30/17 02:54 INR (Anticoag Therapy) 2.00 (0.89-1.11) H 05/30/17 06:17 Sodium 131 mmol/L (133-145) L 05/30/17 06:18 Potassium 4.7 mmol/L (3.5-5.0) 05/30/17 06:18 Chloride 91 mmol/L (101-111) L 05/30/17 06:18 Carbon Dioxide 31 mmol/L (22-32) 05/30/17 06:18 Anion Gap 9 mmol/L (2-11) 05/30/17 06:18 BUN 42 mg/dL (6-24) H 05/30/17 06:18 Creatinine 8.18 mg/dL (0.67-1.17) H 05/30/17 06:18 Est GFR ( Amer) 8.6 (>60) 05/30/17 06:18 Est GFR (Non-Af Amer) 6.7 (>60) 05/30/17 06:18 BUN/Creatinine Ratio 5.1 (8-20) L 05/30/17 06:18 Glucose 129 mg/dL (70-100) H 05/30/17 06:18 Calcium 9.4 mg/dL (8.6-10.3) 05/30/17 06:18 Magnesium 1.9 mg/dL (1.9-2.7) 05/29/17 12:22 Iron 28 ug/dL (50-212) L 05/29/17 07:47 TIBC 297 mcg/dL (250-450) 05/29/17 07:47 % Saturation 9 % (15-55) L 05/29/17 07:47 Unsat Iron Binding 269 ug/dL 05/29/17 07:47 Ferritin 930.6 ng/mL (24-336) H 05/29/17 07:47 Total Bilirubin 0.60 mg/dL (0.2-1.0) 05/29/17 07:47 AST 23 U/L (13-39) 05/29/17 07:47 ALT 9 U/L (7-52) 05/29/17 07:47 Alkaline Phosphatase 45 U/L (34-104) 05/29/17 07:47 Total Creatine Kinase 534 U/L (10-223) H 05/29/17 12:22 Myoglobin 1001.3 ng/mL (17.4-105.7) H 05/29/17 12:22 Troponin I 0.03 ng/mL (<0.04) 05/29/17 07:47 C-Reactive Protein 66.99 mg/L (< 5.00) H 05/29/17 07:47 Total Protein 7.2 g/dL (6.4-8.9) 05/29/17 07:47 Albumin 3.9 g/dL (3.2-5.2) 05/29/17 07:47 Globulin 3.3 g/dL (2-4) 05/29/17 07:47 Albumin/Globulin Ratio 1.2 (1-3) 05/29/17 07:47 TSH 1.03 mcIU/mL (0.34-5.60) 05/29/17 12:22 Free T4 1.26 ng/dL (0.61-1.12) H 05/29/17 12:22 Urine Color Yellow 05/29/17 09:39 Urine Appearance Clear 05/29/17 09:39 Urine pH 9.0 (5-9) 11/21/17 09:39 Ur Specific [place] 1.010 (1.010-1.030) 05/29/17 09:39 Urine Protein 2+(100 mg/dl) (Negative) H 05/29/17 09:39 Urine Ketones Negative (Negative) 05/29/17 09:39 Urine Blood 1+ (Negative) H 05/29/17 09:39 Urine Nitrate Negative (Negative) 05/29/17 09:39 Urine Bilirubin Negative (Negative) 05/29/17 09:39 Urine Urobilinogen Negative (Negative) 05/29/17 09:39 Ur Leukocyte Esterase Negative (Negative) 05/29/17 09:39 Urine WBC (Auto) Trace(0-5/hpf) (Absent) 05/29/17 09:39 Urine RBC (Auto) Trace(0-2/hpf) (Absent) 05/29/17 09:39 Ur Squamous Epith Cells Present (Absent) H 05/29/17 09:39 Urine Bacteria Absent (Absent) 05/29/17 09:39 Urine Glucose 1+(50 mg/dl) (Negative) H 05/29/17 09:39 Blood Type A Positive 05/29/17 07:47 Antibody Screen Negative 05/29/17 07:47 Crossmatch See Detail 05/29/17 07:47 Assessment: General: WDWN male, sitting up in bed and is in NAD. A&O x3. CV: RRR, regurgitation murmur was appreciated on exam. Respiratory: CTA BL w/o RRW GI: Abdomen is soft and non-tender to palpation Extremities: LE w/o edema, however, right leg is much larger and more firm than left, bruising noted on the posterior aspect of the thigh. Plan: Mr. Knight is a pleasant 66 yo male with a history of stage 4 CKD, atrial fibrillation, and CVA. 1. Tremors: Largely resolved, neurology was consulted. EEG is pending, MRI of the brain shows no active disease. 2. Hematoma: Patient is a Restorationism and is not interested in receiving blood products. Treated with epogen and iron instead. 3. Stage 4 CKD: Hemodialysis 4. Chronic atrial fibrillation: warfarin is being held at this time.
[2017-05-30] MEDS ORDERED: Epoetin Alfa* 10,000 UNITS/ML VIAL IV ONE (12:00)
[2017-05-30 15:30] LABS: Hematocrit 20 % (42-52)
[2017-05-30 15:31] LABS: Comments Flag Yes
[2017-05-30 15:32] LABS: Hemoglobin 6.8 g/dl (14.0-18.0)
--- NOTE | 2017-05-30 22:18 | EEG ---
ELECTROENCEPHALOGRAPHY: DATE OF STUDY: 05/29/17 - ROOM #446 LOCATION: The patient is an inpatient. ORDERING PROVIDER: pK Nieves NP CLINICAL PROBLEM: This is a 66-year-old man admitted after a seizure-like episode at dialysis. He states he was cold in the dialysis room, began upper body shaking bilaterally for about 10 minutes without loss of consciousness or awareness. He had a similar episode about 3 years ago while getting dialysis. EEG is requested to evaluate for epileptiform abnormalities. MEDICATIONS: 1. Acetaminophen. 2. Simvastatin. 3. Nifedipine. 4. Lisinopril. 5. Omeprazole. 6. Metoprolol. 7. Ropinirole. 8. Sevelamer. 9. Epogen. REPORT: The waking background showed appropriate organization with clearly defined [id number] voltage and frequency gradients. There was a well -defined posterior dominant rhythm of 8.5 Hz, which was symmetrical and showed normal reactivity. Anteriorly, there was an expected pattern of lower voltage, irregular, mixed faster frequencies. Photic stimulation and hyperventilation were not performed. Attenuation of the occipital rhythm accompanied drowsiness, but there were no well- developed sleep spindles to indicate the transition to stage II sleep. Throughout the recording, there were no epileptiform discharges, focal features , paroxysmal features, or significant interhemispheric asymmetries. CLINICAL IMPRESSION: This is a normal waking and drowsy EEG. There are no epileptiform abnormalities. [id number] #: [id number] [facility]
[2017-05-31 06:33] LABS: Hematocrit 20 % (42-52); Mean Corpuscular HGB Conc 34 g/dl (31-36); Mean Corpuscular Hemoglobin 34 pg (27-31); Mean Corpuscular Volume 100 fL (80-94); Mean Platelet Volume 7 um3 (7.4-10.4); Red Blood Count 1.97 10^6/ul (4.0-5.4); Red Cell Distribution Width 14 % (10.5-15); White Blood Count 5.7 10^3/ul (3.5-10.8)
[2017-05-31 06:38] LABS: Comments Flag Yes
[2017-05-31 06:39] LABS: Hemoglobin 6.7 g/dl (14.0-18.0)
[2017-05-31 06:52] LABS: BUN/Creatinine Ratio 4.3 (8-20); Calcium 9.5 mg/dL (8.6-10.3); EGFR African American 11.7 (>60); EGFR Non-African American 9.1 (>60); Potassium 3.8 mmol/L (3.5-5.0)
[2017-05-31] MEDS: Sevelamer TAB* 800 MG PO SCH (08:08)
[2017-05-31] MEDS: Omeprazole CAP* 20 MG PO SCH (08:08)
[2017-05-31] MEDS: NIFEdipine ER TAB* 30 MG PO SCH (08:09)
[2017-05-31] MEDS: Lisinopril TAB* 10 MG PO SCH (08:09)
[2017-05-31] MEDS: Ropinirole TAB* 0.5 MG TAB PO SCH (08:09)
[2017-05-31] MEDS: Atorvastatin* 10 MG TAB PO SCH (08:09)
[2017-05-31] MEDS: Metoprolol Tartrate TAB* 50 mg PO SCH (08:09)
[2017-05-31 09:33] VITALS: BP 118/62
--- NOTE | 2017-05-31 18:39 | DS ---
CC: Dr. Balbina Corral * DISCHARGE SUMMARY: DATE OF ADMISSION: 05/29/17 DATE OF DISCHARGE: 05/31/17 PRIMARY CARE PROVIDER: Dr. Balbina Corral. DISCHARGING PROVIDER: CARLOTTA Carroll SUPERVISING PHYSICIAN: Dr. Kee Etienne * (DICTATED BY CARLOTTA CARROLL) PRIMARY DISCHARGE DIAGNOSES: 1. Acute blood loss anemia secondary to right thigh hematoma. 2. Supratherapeutic INR. 3. Hypotension associated with hemodialysis secondary to hypovolemia. 4. Tremor without evidence of seizure. SECONDARY DISCHARGE DIAGNOSES: 1. End-stage renal disease, on hemodialysis, followed by Dr. Mosqueda. 2. Cardiomyopathy with an ejection fraction of 40% to 45% without acute exacerbation. 3. Atrial fibrillation, which is rate controlled and previously anticoagulated with Coumadin, which has since been stopped due to hematoma formation. 4. Hypertension. 5. Gastroesophageal reflux disease. 6. History of cerebrovascular accident. DISCHARGE MEDICATIONS: 1. Lisinopril 20 mg p.o. daily. 2. Metoprolol tartrate 25 mg p.o. twice daily. 3. Nifedipine 30 mg p.o. daily. 4. Nitroglycerin 0.4 mg sublingual q.5 minutes as needed for chest pain. 5. Omeprazole 20 mg p.o. daily. 6. Requip 0.75 mg p.o. three times daily. 7. Renvela 800 mg p.o. three times daily. 8. Simvastatin 20 mg p.o. daily. Medication changes: Discontinue Coumadin. HOSPITAL IMAGIN. Chest x-ray shows no acute process. 2. X-ray of the femur shows evidence of peripheral arterial disease, but no acute fracture. 3. CT of the brain shows no acute pathology, stable chronic infarcts noted. 4. CT of the abdomen and pelvis, elevation of the left hemidiaphragm was incidentally noticed. There is no acute pathology noted. 5. CT of the right lower extremity demonstrates no fracture or dislocation. There is a large multilocular intramuscular hematoma mostly within the right vastus lateralis and vastus intermedius and deep to the rectus femoris in the subcu tissue overlying the greater trochanter. There is infiltration of the fat , but no drainable collection. 6. Venous Doppler study shows no evidence of DVT. 7. MRI of the brain shows encephalomalacia and evidence of chronic microvascular disease, but no evidence of acute infarcts or other process. 8. EEG is read as a normal waking and drowsy EEG. HOSPITAL COURSE: This is a 66-year-old gentleman with end-stage renal disease, on hemodialysis as well as AFib with a history of CVA, anticoagulated on Coumadin, who was referred to the emergency department following dialysis where he became profoundly hypotensive and had an episode that was concerning for a possible seizure where he had a coarse tremor of his upper extremities, but was able to maintain consciousness during the episode. Initial imaging of the brain showed nothing acute when he reached the emergency room. His initial CBC showed a rather significant anemia with a hemoglobin of 7, when his last hemoglobin checked about 6 weeks prior was 10. His INR was also elevated at 5.5 and chemistry panel was consistent with his known renal disease, but really no other acute findings. Imaging of the right lower extremity demonstrated a very large hematoma and the patient did provide a history where he had fallen approximately 1-week prior, hitting his chin and also injuring his right leg and he had noted some pain and edema in that right leg as well as some accompanying weakness. The patient's Coumadin was discontinued and his INR was reversed with oral vitamin K. The patient is a Hinduism and declined blood products. He did receive Epogen and then iron infusion. His hemoglobin stabilized near 6.5 g /dL and he was largely asymptomatic, denying lightheadedness with position changes and orthostatic vital signs completed at the time of discharge were negative. The patient's pain in his leg improved, swelling seems to improve somewhat during his hospital stay as well. Due to the tremors that were noted during dialysis that were concerning for seizure, he was evaluated by neurologist, Dr. Chris, who felt that per his history this is the low suspicion for seizure. An MRI was completed of his brain, which showed his old infarcts, but nothing acute. EEG was completed, which was within normal limits and the patient remained asymptomatic throughout the remainder of his hospital stay. DISPOSITION AND FOLLOWUP PLAN: The patient is being discharged to home. His Coumadin has been discontinued and reversed. Recommend repeating his CBC in approximately 1 week's time. If there is clinical evidence of regression of the hematoma, could trial resuming his Coumadin in a few weeks' time as he is at high- risk for recurrent CVA given his history of such in the setting of atrial fibrillation. No specific neurologic followup is necessary. CARLOTTA CARROLL [id number]/[facility] #: [id number] [facility]PITALNatasha
== END 2017-05-31 11:15 | disposition home or self-care (01) | DRG 811 ==
LOC: ED 07:32 → MEDTELE 11:11 → OBSVTOIN 05-30 08:50
PROVIDERS: ADMIT Internal Medicine; ATTEND Hospitalist
PROC: 4A00X4Z Measurement of Central Nervous Electrical Activity, External Approach (ICD-10-PCS; principal; 2017-05-30)
PROC: 5A1D70Z Performance of Urinary Filtration, Intermittent, Less than 6 Hours Per Day (ICD-10-PCS; 2017-05-30)
DX: D62 Acute posthemorrhagic anemia (principal); N18.6 End stage renal disease; E11.22 Type 2 diabetes mellitus with diabetic chronic kidney disease; E11.40 Type 2 diabetes mellitus with diabetic neuropathy, unspecified; I95.3 Hypotension of hemodialysis; E11.51 Type 2 diabetes mellitus with diabetic peripheral angiopathy without gangrene; I12.0 Hypertensive chronic kidney disease with stage 5 chronic kidney disease or end stage renal disease; S70.11XA Contusion of right thigh, initial encounter; E11.36 Type 2 diabetes mellitus with diabetic cataract; I48.0 Paroxysmal atrial fibrillation; G25.81 Restless legs syndrome; G93.89 Other specified disorders of brain; F32.9 Major depressive disorder, single episode, unspecified; G47.30 Sleep apnea, unspecified; R79.1 Abnormal coagulation profile; K21.9 Gastro-esophageal reflux disease without esophagitis; I25.10 Atherosclerotic heart disease of native coronary artery without angina pectoris; M13.0 Polyarthritis, unspecified; I25.5 Ischemic cardiomyopathy; Y93.01 Activity, walking, marching and hiking; Z88.0 Allergy status to penicillin; Z99.2 Dependence on renal dialysis; Z72.89 Other problems related to lifestyle; Z83.3 Family history of diabetes mellitus; I69.398 Other sequelae of cerebral infarction; Y92.009 Unspecified place in unspecified non-institutional (private) residence as the place of occurrence of the external cause
CPT/HCPCS: 36415; 70450; 70551; 71020; 74176; 80048; 80053; 81003; 81015; 82390; 82525; 82550; 82728; 83540; 83550; 83735; 83874; 84439; 84443; 84466; 84484; 85014; 85018; 85025; 85610; 85652; 86140; 86850; 86900; 86901; 86922; 87641; 90935; 93005; 95816; A9270-GY; G0257; G0378; J0885; J1756

== ENCOUNTER 2017-06-04 04:57 | Inpatient (IN) | payer MEDICARE, MEDICAID ==
[2017-06-04] MEDS ORDERED: Morphine INJ* 2 MG/ML 1 ML CARPUJECT IV ONE (05:08)
[2017-06-04] MEDS ORDERED: Ondansetron INJ* 2 MG/ML VIAL IV ONE (05:09)
[2017-06-04] MEDS ORDERED: Morphine INJ* 2 MG/ML 1 ML SYRINGE (TWO MG - NEW SYRINGE VERSION) ONE (05:15)
[2017-06-04] MEDS ORDERED: nitroGLYCERIN DRIP* 25,000 MCG/250 ML BTL IV ONE (05:24)
[2017-06-04 05:27] LABS: PCO2 Arterial 33 mmHg (35-45)
[2017-06-04] MEDS ORDERED: Furosemide IV* 10 MG/ML 10 ML VIAL (100 MG) IV ONE (05:27)
[2017-06-04 05:28] LABS: EPAP 6; FIO2 100; IPAP 14
[2017-06-04] MEDS ORDERED: Levofloxacin 500 MG IVPREMIX(* 500 MG/100 ML BAG IVPB ONE (05:28)
[2017-06-04] MEDS ORDERED: Heparin DRIP 25,000 UNITS(*) 25,000 UNITS/500 ML BAG IV SCH ×2 (05:30→08:08)
[2017-06-04 05:31] LABS: Hematocrit 23 % (42-52); Hemoglobin 7.4 g/dl (14.0-18.0); Mean Corpuscular HGB Conc 33 g/dl (31-36); Mean Corpuscular Hemoglobin 35 pg (27-31); Mean Corpuscular Volume 105 fL (80-94); Mean Platelet Volume 8 um3 (7.4-10.4); Red Blood Count 2.15 10^6/ul (4.0-5.4); Red Cell Distribution Width 15 % (10.5-15); White Blood Count 12.2 10^3/ul (3.5-10.8)
[2017-06-04 05:45] LABS: BUN/Creatinine Ratio 6.4 (8-20); Calcium 9.8 mg/dL (8.6-10.3); Globulin 3.3 g/dL (2-4); Total Bilirubin 1.8 mg/dL (0.2-1.0); Total Protein 7.3 g/dL (6.4-8.9)
[2017-06-04 05:49] LABS: Potassium 6.2 mmol/L (3.5-5.0)
[2017-06-04 05:50] LABS: Troponin I 0.31 ng/mL (<0.04)
[2017-06-04] MEDS ORDERED: Albuterol/Ipratropium NEB.SOL* Albuterol 2.5 MG/Ipratropium 0.5 MG 3 ML INH ONE (05:50)
[2017-06-04] MEDS ORDERED: Dextrose 50% Syringe 50 ML* 25 GM/50 ML SYRINGE IV PUSH PRN ×2 (05:59→08:29)
[2017-06-04] MEDS ORDERED: Insulin REGULAR(*) 1 UNITS UNIT IV PUSH ONE (06:00)
[2017-06-04] MEDS ORDERED: Heparin VIAL(*) 5000 UNITS/ML VIAL (FIVE THOUSAND) IV SCH ×2 (06:00)
[2017-06-04] MEDS ORDERED: Sodium Bicarbonate 8.4% IV* 50 ML VIAL IV ONE (06:01)
[2017-06-04] MEDS ORDERED: Nitroglycerin 2% OINT* 1 GM PAK TOPICAL ONE (06:03)
[2017-06-04 06:21] LABS: EPAP 6; FIO2 35; IPAP 14; Resp Rate 12
[2017-06-04 06:28] LABS: PCO2 Arterial 39 mmHg (35-45)
[2017-06-04] MEDS ORDERED: Sodium Bicarbonate 8.4%* 50 ML SYRINGE IV ONE (06:30)
--- NOTE | 2017-06-04 07:25 | ED ---
Nick Rob Nikita, scribed for Lokesh Buck on 06/04/17 at 0502 . Shortness of Breath - HPI Summary HPI Summary: This patient is a 68 year old M presenting to ED with a chief complaint of SOB since a couple of days ago. Symptoms aggravated by nothing. Symptoms alleviated by nothing. Per EMS, pt was pallor, anxious, and diaphoretic. Patient denies CP. 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 Pt was on dialysis 2 days ago. - History of Current Complaint Hx Obtained From: Patient Onset/Duration: Sudden Onset, Lasting Hours, Still Present Timing: Constant Aggrevating Factors: Nothing Alleviating Factors: Nothing Associated Signs & Symptoms: Diaphoresis - Per EMS, pt was pallor, anxious, and diaphoretic. Patient denies CP. - Allergy/Home Medications Allergies/Adverse Reactions: Allergies Allergy/AdvReac Type Severity Reaction Status Date / Time Penicillins Allergy Hives Verified 05/15/12 13:56 PMH/Surg Hx/FS Hx/Imm Hx Endocrine/Hematology History: Reports: Hx Diabetes - CONTROL WITH DIET, Hx Anemia Cardiovascular History: Reports: Hx Atrial Fibrillation, Hx Coronary Artery Disease - CHOLESTEROL CONTROL WITH MEDICATION, Hx Hypertension - ON MEDICATION, Other Cardiovascular Problems/Disorders - 2009 OR 2010 CARDIAC CATHERIZATION Denies: Hx Pacemaker/ICD Respiratory History: Reports: Hx Sleep Apnea - NO CPAP, Other Respiratory Problems/Disorders GI History: Reports: Hx Gastroesophageal Reflux Disease - ON MEDICATION History: Reports: Hx Chronic Renal Failure Musculoskeletal History: Reports: Hx Arthritis - BILATERAL KNUCKLES AND NECK Sensory History: Reports: Hx Cataracts - BILATERAL, Hx Contacts or Glasses - GLASSES Denies: Hx Hearing Aid Opthamlomology History: Reports: Hx Cataracts - BILATERAL, Hx Contacts or Glasses - GLASSES Neurological History: Reports: Hx Nerve Disease - Neuropathy, restless leg syndrome, Other Neuro Impairments/Disorders - DIFFICULTY CONCENTRATING WITH LEFT SIDE WEAKNESS, BALANCE OFF, STAMMERING, Psychiatric History: Reports: Hx Depression - ON MEDICATION Denies: Hx Panic Disorder - Surgical History Surgery Procedure, Year, and Place: 2009 OR 2010 CARDIAC CATHERIZATION, [place], [place]. 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 No FHx of anesthesia reaction - Social History Alcohol Use: Rare Alcohol Amount: 1-2 per week Hx Substance Use: No Substance Use Type: Reports: None Hx Tobacco Use: No Smoking Status (MU): Never Smoked Tobacco Review of Systems Positive: Skin Diaphoresis Negative: Chest Pain Positive: Shortness Of Breath Positive: Other - pallor Positive: Anxious All Other Systems Reviewed And Are Negative: Yes Physical Exam Triage Information Reviewed: Yes Vital Signs On Initial Exam: Initial Vitals Temp Pulse Resp BP Pulse Ox 97.2 F 96 38 163/107 100 06/04/17 04:57 06/04/17 04:57 06/04/17 04:57 06/04/17 04:57 06/04/17 04:57 Vital Signs Reviewed: Yes Appearance: Positive: Well-Appearing, No Pain Distress Skin: Positive: Warm, Skin Color Reflects Adequate Perfusion, Dry Head/Face: Positive: Normal Head/Face Inspection Eyes: Positive: EOMI, DARLEEN, Other: - pale conjunctiva ENT: Positive: Normal ENT inspection Neck: Positive: Supple, Nontender Respiratory/Lung Sounds: Positive: Other - pulmonary edema Cardiovascular: Positive: Tachycardia, Other - bilateral palpitations, shunt on L arm (fistula) Abdomen Description: Positive: Nontender, Soft Bowel Sounds: Positive: Present Musculoskeletal: Positive: Normal, Strength/ROM Intact Neurological: Positive: Normal, Sensory/Motor Intact, Alert, Oriented to Person Place, Time Diagnostics - Vital Signs Vital Signs Temp Pulse Resp BP Pulse Ox 06/04/17 07:17 86 106/65 100 06/04/17 07:00 85 30 103/69 97 06/04/17 06:30 86 18 111/74 100 06/04/17 06:06 87 28 100 06/04/17 06:04 87 28 100 06/04/17 06:00 90 31 92/55 96 06/04/17 05:30 39 120/71 06/04/17 05:23 94 38 06/04/17 05:16 38 06/04/17 05:11 37 06/04/17 05:10 163/107 06/04/17 04:57 97.2 F 96 38 163/107 100 - Laboratory Lab Results: Lab Results 06/04/17 06/04/17 06/04/17 Range/Units 04:55 04:55 04:55 WBC 12.2 H (3.5-10.8) 10^3/ul RBC 2.15 L (4.0-5.4) 10^6/ul Hgb 7.4 L (14.0-18.0) g/dl Hct 23 L (42-52) % MCV 105 H (80-94) fL MCH 35 H (27-31) pg MCHC 33 (31-36) g/dl RDW 15 (10.5-15) % Plt Count 374 (150-450) 10^3/ul MPV 8 (7.4-10.4) um3 Neut % (Auto) 83.9 H (38-83) % Lymph % (Auto) 9.0 L (25-47) % Hudspeth % (Auto) 6.0 (1-9) % Eos % (Auto) 0.4 (0-6) % Baso % (Auto) 0.7 (0-2) % Absolute Neuts (auto) 10.2 H (1.5-7.7) 10^3/ul Absolute Lymphs (auto) 1.1 (1.0-4.8) 10^3/ul Absolute Monos (auto) 0.7 (0-0.8) 10^3/ul Absolute Eos (auto) 0.1 (0-0.6) 10^3/ul Absolute Basos (auto) 0.1 (0-0.2) 10^3/ul Absolute Nucleated RBC 0.03 10^3/ul Nucleated RBC % 0.2 INR (Anticoag Therapy) 1.14 H (0.89-1.11) APTT 29.5 (26.0-36.3) seconds Patient Temperature ABG pH (7.35-7.45) ABG pH (Temp Correct) ABG pCO2 (35-45) mmHg ABG pCO2 (Temp Corrct ABG pO2 (80-100) mmHg ABG pO2 (Temp Correct ABG HCO3 (19-31) mmol/L ABG O2 Saturation (95-98) % ABG Base Excess (-2.0-2.0) Respiration Rate O2 Delivery Device Ventilator Type Vent Mode FiO2 Inspiratory Time PEEP Pressure Support Pressure Control EPAP IPAP BiPAP Sodium (133-145) mmol/L Potassium (3.5-5.0) mmol/L Chloride (101-111) mmol/L Carbon Dioxide (22-32) mmol/L Anion Gap (2-11) mmol/L BUN (6-24) mg/dL Creatinine (0.67-1.17) mg/dL Est GFR ( Amer) (>60) Est GFR (Non-Af Amer) (>60) BUN/Creatinine Ratio (8-20) Glucose (70-100) mg/dL Calcium (8.6-10.3) mg/dL Magnesium (1.9-2.7) mg/dL Total Bilirubin (0.2-1.0) mg/dL AST (13-39) U/L ALT (7-52) U/L Alkaline Phosphatase (34-104) U/L Troponin I (<0.04) ng/mL B-Natriuretic Peptide 2230 H ( - 100) pg/mL Total Protein (6.4-8.9) g/dL Albumin (3.2-5.2) g/dL Globulin (2-4) g/dL Albumin/Globulin Ratio (1-3) Blood Type Antibody Screen 06/04/17 06/04/17 06/04/17 Range/Units 04:55 04:55 05:12 WBC (3.5-10.8) 10^3/ul RBC (4.0-5.4) 10^6/ul Hgb (14.0-18.0) g/dl Hct (42-52) % MCV (80-94) fL MCH (27-31) pg MCHC (31-36) g/dl RDW (10.5-15) % Plt Count (150-450) 10^3/ul MPV (7.4-10.4) um3 Neut % (Auto) (38-83) % Lymph % (Auto) (25-47) % Hudspeth % (Auto) (1-9) % Eos % (Auto) (0-6) % Baso % (Auto) (0-2) % Absolute Neuts (auto) (1.5-7.7) 10^3/ul Absolute Lymphs (auto) (1.0-4.8) 10^3/ul Absolute Monos (auto) (0-0.8) 10^3/ul Absolute Eos (auto) (0-0.6) 10^3/ul Absolute Basos (auto) (0-0.2) 10^3/ul Absolute Nucleated RBC 10^3/ul Nucleated RBC % INR (Anticoag Therapy) (0.89-1.11) APTT (26.0-36.3) seconds Patient Temperature Not Reportable ABG pH 7.41 (7.35-7.45) ABG pH (Temp Correct) ABG pCO2 33 L (35-45) mmHg ABG pCO2 (Temp Corrct ABG pO2 310 H (80-100) mmHg ABG pO2 (Temp Correct ABG HCO3 22.4 (19-31) mmol/L ABG O2 Saturation 100.0 H (95-98) % ABG Base Excess -3.3 L (-2.0-2.0) Respiration Rate Not Reportable O2 Delivery Device bipap Ventilator Type Not Reportable Vent Mode s/t FiO2 100 Inspiratory Time Not Reportable PEEP Not Reportable Pressure Support Not Reportable Pressure Control Not Reportable EPAP 6 IPAP 14 BiPAP Not Reportable Sodium 134 (133-145) mmol/L Potassium 6.2 H* (3.5-5.0) mmol/L Chloride 88 L (101-111) mmol/L Carbon Dioxide 21 L (22-32) mmol/L Anion Gap 25 H (2-11) mmol/L BUN 50 H (6-24) mg/dL Creatinine 7.86 H (0.67-1.17) mg/dL Est GFR ( Amer) 9.0 (>60) Est GFR (Non-Af Amer) 7.0 (>60) BUN/Creatinine Ratio 6.4 L (8-20) Glucose 110 H (70-100) mg/dL Calcium 9.8 (8.6-10.3) mg/dL Magnesium 2.0 (1.9-2.7) mg/dL Total Bilirubin 1.80 H (0.2-1.0) mg/dL AST 32 (13-39) U/L ALT 16 (7-52) U/L Alkaline Phosphatase 53 (34-104) U/L Troponin I 0.31 H* (<0.04) ng/mL B-Natriuretic Peptide ( - 100) pg/mL Total Protein 7.3 (6.4-8.9) g/dL Albumin 4.0 (3.2-5.2) g/dL Globulin 3.3 (2-4) g/dL Albumin/Globulin Ratio 1.2 (1-3) Blood Type A Positive Antibody Screen Negative 06/04/17 Range/Units 06:15 WBC (3.5-10.8) 10^3/ul RBC (4.0-5.4) 10^6/ul Hgb (14.0-18.0) g/dl Hct (42-52) % MCV (80-94) fL MCH (27-31) pg MCHC (31-36) g/dl RDW (10.5-15) % Plt Count (150-450) 10^3/ul MPV (7.4-10.4) um3 Neut % (Auto) (38-83) % Lymph % (Auto) (25-47) % Hudspeth % (Auto) (1-9) % Eos % (Auto) (0-6) % Baso % (Auto) (0-2) % Absolute Neuts (auto) (1.5-7.7) 10^3/ul Absolute Lymphs (auto) (1.0-4.8) 10^3/ul Absolute Monos (auto) (0-0.8) 10^3/ul Absolute Eos (auto) (0-0.6) 10^3/ul Absolute Basos (auto) (0-0.2) 10^3/ul Absolute Nucleated RBC 10^3/ul Nucleated RBC % INR (Anticoag Therapy) (0.89-1.11) APTT (26.0-36.3) seconds Patient Temperature Not Reportable ABG pH 7.47 H (7.35-7.45) ABG pH (Temp Correct) Not Reportable ABG pCO2 39 (35-45) mmHg ABG pCO2 (Temp Corrct Not Reportable ABG pO2 78 L (80-100) mmHg ABG pO2 (Temp Correct Not Reportable ABG HCO3 28.3 (19-31) mmol/L ABG O2 Saturation 97.6 (95-98) % ABG Base Excess 4.4 H (-2.0-2.0) Respiration Rate 12 O2 Delivery Device Ventilator Type Not Reportable Vent Mode Not Reportable FiO2 35 Inspiratory Time Not Reportable PEEP Not Reportable Pressure Support Not Reportable Pressure Control Not Reportable EPAP 6 IPAP 14 BiPAP s/t Sodium (133-145) mmol/L Potassium (3.5-5.0) mmol/L Chloride (101-111) mmol/L Carbon Dioxide (22-32) mmol/L Anion Gap (2-11) mmol/L BUN (6-24) mg/dL Creatinine (0.67-1.17) mg/dL Est GFR ( Amer) (>60) Est GFR (Non-Af Amer) (>60) BUN/Creatinine Ratio (8-20) Glucose (70-100) mg/dL Calcium (8.6-10.3) mg/dL Magnesium (1.9-2.7) mg/dL Total Bilirubin (0.2-1.0) mg/dL AST (13-39) U/L ALT (7-52) U/L Alkaline Phosphatase (34-104) U/L Troponin I (<0.04) ng/mL B-Natriuretic Peptide ( - 100) pg/mL Total Protein (6.4-8.9) g/dL Albumin (3.2-5.2) g/dL Globulin (2-4) g/dL Albumin/Globulin Ratio (1-3) Blood Type Antibody Screen Result Diagrams: 06/04/17 04:55 06/04/17 04:55 Lab Statement: Any lab studies that have been ordered have been reviewed, and results considered in the medical decision making process. - Radiology CXR Radiology Interpretation Completed By: ED Physician - pulmonary edema and PNA - EKG 4002 Cardiac Rate: Other Rate EKG Rhythm: Atrial Fibrillation - 96 bpm EKG Interpretation: ST depression at V2 and V6 Course/Dx - Course Assessment/Plan: This patient is a 68 year old M presenting to ED with a chief complaint of SOB since a couple of days ago. Per EMS, pt was pallor, anxious, and diaphoretic. Patient denies CP. 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 In the ED course, pt was given heparin, morphine, and zofran. CXR reveals pulmonary edema and PNA. EKG reveals Afib at [address] depression at V2 and V6. Bloodwork/UA obtained. Consulted Dr. Acuña at 0450 who recommended to consult with Dr. Ford regarding the pt. Consulted Dr. Ford at 045 who said that the case is not a STEMI. Consulted Dr. Ford at 0520 who says to start NTG. Consulted Dr. Mosqueda at 0555 who agrees to put the pt on dialysis at 0800. Consulted Dr. Manning at 0719 who accepts pt for admission. Pt will be admitted. - Diagnoses Differential Diagnosis/HQI/PQRI: Positive: Bronchitis, CHF, COPD Exacerbation, OR, Pulmonary Edema - esrd on hd, Unstable Angina, Other - Pulmonary edema, PNA , end stage renal disease, hemodialysis, ACS, hyperkalemia, anemia, respiratory failure Provider Diagnoses: Pulmonary edema, Pneumonia, End stage renal disease, ACS (acute coronary syndrome), Hyperkalemia, Anemia, Respiratory failure - Physician Notifications Discussed Care of Patient With: Lisa Acuña Time Discussed With Above Provider: 04:50 Instructed by Provider To: Other - Consulted Dr. Acuña who recommended to consult with Dr. Ford regarding the pt. Consulted Dr. Ford at 0459 who said that the case is not a STEMI. Consulted Dr. Ford at 0520 who says to start NTG. Consulted Dr. Mosqueda at 0555 who agrees to put the pt on dialysis at 0800. Consulted Dr. Manning at 0719 who accepts pt for admission. - Critical Care Time Critical Care Time: 75-104 min Discharge - Discharge Plan Condition: Stable Disposition: ADMITTED TO [facility] Referrals: Balbina Corral MD [Primary Care Provider] - The documentation as recorded by the Nick patricio Nikita accurately reflects the service I personally performed and the decisions made by , Lokesh Buck.
[2017-06-04] MEDS ORDERED: diPHENhydraMINE PO* 50 MG PO PRN (08:09)
[2017-06-04] MEDS ORDERED: Albuterol/Ipratropium NEB.SOL* Albuterol 2.5 MG/Ipratropium 0.5 MG 3 ML INH PRN (08:11)
[2017-06-04] MEDS ORDERED: Acetaminophen TAB* 325 MG PO PRN (08:11)
--- NOTE | 2017-06-04 08:16 | RAD ---
INDICATION: Shortness of breath. COMPARISON: Comparison is made with a prior chest x-ray study from May 29, 2017. TECHNIQUE: A portable view of the chest was obtained. FINDINGS: The heart appears within normal limits in size for this portable exam. There is elevation of the left hemidiaphragm which is unchanged. There is a new moderately dense infiltrates present in the right mid and lower lung field and at the left lung base. No pleural effusion is seen. IMPRESSION: NEW BILATERAL INFILTRATES.
[2017-06-04] MEDS ORDERED: Atorvastatin* 10 MG TAB PO SCH (09:00)
[2017-06-04] MEDS: NIFEdipine ER TAB* 30 MG PO SCH (10:01)
[2017-06-04] MEDS: Metoprolol Tartrate TAB* 50 mg PO SCH ×2 (10:01→22:07)
[2017-06-04] MEDS: Lisinopril TAB* 10 MG PO SCH (10:01)
--- NOTE | 2017-06-04 10:57 | HP ---
CC: Dr. Balbina Corral; Dr. Mosqueda; Dr. Stewart HISTORY AND PHYSICAL: DATE OF ADMISSION: 06/04/17 TIME OF EVALUATION: 7:40 p.m. PRIMARY CARE PROVIDER: Dr. Balbina Corral. ADVERTISING AGENCY MANAGER: Dr. Mosqueda. CONSULTING HYPERION DEVELOPER: Dr. Stewart. CHIEF COMPLAINT: Shortness of breath. HISTORY OF PRESENT ILLNESS: Mr. Knight is a 66-year-old male with a past medical history of ESRD, on hemodialysis, atrial fibrillation, CVA, hypertension, GERD, CHF with ejection fraction of 40% to 45%, diet-controlled diabetes, recent admission for blood loss anemia, and right thigh hematoma, that pre sented to the emergency room with complaints of severe shortness of breath and chest pressure. The patient was admitted to [facility] from 05/29/17 to 05/31/17. At that time, he was anticoagulated with warfarin, sustained a fall, and was found to have a large right thigh hematoma and significant anemia . His hemoglobin had dropped, from baseline of 10 to 12, to 6.5. The patient is a Sabianism . He declined blood transfusions, received Epogen while in the hospital. His INR on that admission was elevated at 5.6. So, his warfarin was discontinued. His INR was reversed and the plan was for h im to follow up as an outpatient, and as his hemoglobin improves, may be resume his warfarin in the n ear future. The patient states he went home on , but he did not have Thanks dinner with his family. He ate the dinner in the hospital. He states he did eat some leftovers over the weekend, b ut he is very conscious about his fluid and food intake. He had his dialysis as scheduled on , but since discharge he has had progressive dyspnea, initially on exertion, that progressed to dysp sai at rest, associated with chest pressure that is relieved by rest. Today, the symptoms became wor se and he came to the emergency room for further evaluation. As per ED description, the patient arriv ed on BiPAP, was diaphoretic, tachypneic. He was continued on BiPAP, received aspirin and bronchodila tors, Zofran, morphine, and he continued to be tachypneic and restless. The patient received 60 mg o f Lasix and he states that he still voids a little. As his tests started to come back, he was noted to have ST depressions on the EKG, hyperkalemia with a potassium of 6.2, troponin of 0.31, and BNP of 2200. He was started on a nitro drip and heparin drip for possible acute coronary syndrome and hospitalist services was consulted for admission. PAST MEDICAL HISTORY: 1. ESRD, on hemodialysis on Tuesdays, , and Saturdays. 2. Atrial fibrillation, off anticoagulation since last week due to fall with acute blood loss anemia and right thigh hematoma. 3. CVA. 4. Hypotension. 5. GERD. 6. CHF, with ejection fraction of 40% to 45%. 7. Diet-controlled diabetes. 8. Status post hemodialysis fistula to right arm. MEDICATION LIST: 1. Acetaminophen 650 mg p.o. q.8 hours p.r.n. pain or fever. 2. Nephro-Mark 1 tablet p.o. daily. 3. Benadryl 50 mg p.o. daily p.r.n. allergy symptoms. 4. Lisinopril 20 mg p.o. daily. 5. Metoprolol tartrate 50 mg p.o. b.i.d. 6. Nifedipine ER 30 mg p.o. daily. 7. Nitroglycerin 0.4 mg sublingual q.5 minutes p.r.n. chest pain. 8. Omeprazole 20 mg p.o. daily. 9. Ropinirole 0.75 mg p.o. t.i.d. 10. Sevelamer 800 mg p.o. t.i.d. with meals. 11. Simvastatin 20 mg p.o. daily. ALLERGIES: PENICILLIN, the patient had hives. FAMILY HISTORY: Both parents had diabetes. SOCIAL HISTORY: No history of tobacco, alcohol or drug use. The patient is a Sabianism. Carlson rrogate decision maker is his sister, Helga Knight, phone number is [phone]. REVIEW OF SYSTEMS: A 14-point review of systems was performed and all the pertinent negative and pos itive findings are in the HPI. PHYSICAL EXAMINATION GENERAL: The patient is a pleasant, elderly male, sitting up on the ED stretcher, in no acute distre ss at this time. VITAL SIGNS: Temperature 97.2, heart rate is 86, respiratory rate is 24, oxygen saturation 100% on B iPAP with FiO2 of 35%, blood pressure is 106/65. HEENT: Pupils are equal. Moist mucous membranes. CHEST: Breath sounds present bilaterally with crackles all the way to mid lungs bilaterally. CVS: Normal S1, S2. Irregularly irregular. ABDOMEN: Soft, nontender, nondistended. EXTREMITIES: Bilateral lower extremities show moderate pitting lower extremity edema. NEUROLOGIC: He is alert, awake, and oriented x3. Able to move all 4 extremities. LABORATORY/IMAGING DATA: Patient had a CBC that showed a WBC of 12.2, hemoglobin of 7.4, hematocrit of 23, platelets of 374, with 83% neutrophils. INR was 1.1. ABG showed a pH of 7.47, CO2 of 39, pO2 of 78, bicarb of 28, oxygen saturation 97% on BiPAP. Chemistry showed a sodium of 134, potassium of 6.2, chloride of 88, bicarb of 21, anion gap of 25, BUN of 50, creatinine of 7.86, glucose of 110, c alcium of 9.8. magnesium of 2. LFTs showed a total bilirubin of 1.8, AST of 32, ALT of 16, alk phos of 53. Troponin of 0.31. BNP of 2230. His chest x-ray showed new bilateral infiltrates and EKG showed atrial fibrillation at 96 beats per m inute with ST depression in V3 to V6. Those are new when compared to his prior EKG from 05/29/17. ASSESSMENT AND PLAN: Mr. Knight is 66-year-old male with a past medical history of end-stage renal di sease, on hemodialysis, atrial fibrillation, not on anticoagulation at this time, cerebrovascular acc ident, hypertension, gastroesophageal reflux disease, congestive heart failure with ejection fraction of 40% to 45%, diet-controlled diabetes, recent admission with acute blood loss anemia and right thi gh hematoma secondary to a fall, who presents to the emergency room with complaints of chest pressure and dyspnea, found to have acute coronary syndrome and acute pulmonary edema. 1. Acute hypoxemic respiratory failure. I believe this is likely secondary to acute pulmonary edema , but his chest x-ray does show bilaterally fluffy infiltrates that could be concerning for pneumonia too. The patient will continued on BiPAP and admitted to the intensive care unit. 2. Acute coronary syndrome. I believe the patient has increased demand in the setting of significan t blood loss anemia and probably developed ischemia and high output congestive heart failure in that setting. He will be admitted to the intensive care unit on BiPAP and he will be dialyzed this vern gonzáles. The patient was on nitroglycerin drip and his chest pressure is now resolved. The drip had to be stopped for now due to hypotension. He will be continued on low dose aspirin, heparin drip, beta-bl ocker, and statins. I am going to repeat his echocardiogram and a Cardiology consultation was reques yesica with Dr. Stewart. 3. Acute pulmonary edema. As above, we will continue BiPAP and the patient will be dialyzed this mo rning. I believe after dialysis he will probably be able to be released from BiPAP. 4. Possible pneumonia. Although I believe his infiltrates are likely secondary to fluid overload, john paul claros could be secondary to pneumonia. He received levofloxacin in the emergency room. I am going to check blood cultures, Legionella and pneumococcal antigens, and I plan to repeat his x-ray tomorrow. If the infiltrates are much improved, that is a sign that those are likely secondary to fluid overlo ad and I will probably discontinue the antibiotics at that time. 5. Diet-controlled diabetes. The patient is n.p.o. at this time. So, we are just going to monitor his fingersticks and cover with lispro sliding scale as needed. 6. End-stage renal disease, on hemodialysis. The patient will be dialyzed today. 7. Symptomatic anemia. The patient's hemoglobin is a little better from his prior admission, up to 7.4, but in the setting of ACS and pulmonary edema, the patient will certainly benefit from blood tra nsfusion to decrease demand, but he is very clear that he does not wish to proceed with transfusion a s he is a Sabianism. He understands the risks and benefits. I discussed with Dr. Panda boyer the plan is to give him more Epogen during dialysis today. 8. Hyperkalemia. The patient received sodium bicarb, regular insulin, with glucose in the emergency room, and he will be dialyzed soon. 9. Atrial fibrillation. The patient has been off anticoagulation due to his anemia/thigh hematoma a nd he understands that he was at greater risk for CVA because of that. At this point, with his acute coronary syndrome, he is back on anticoagulation with heparin drip that I plan to maintain for the s hortest possible time. We are going to monitor his H and H in the meantime. 10. DVT prophylaxis. The patient has a score of 4 on the DVT Prophylaxis Risk Assessment Guide and he is already on heparin drip. 11. Code status is full. TIME SPENT: Approximately 75 minutes of critical care time were spent to complete this admission. [id number]/[facility] #: [id number]
[2017-06-04 11:21] LABS: Hematocrit 18 % (42-52); Mean Corpuscular HGB Conc 34 g/dl (31-36); Mean Corpuscular Hemoglobin 35 pg (27-31); Mean Corpuscular Volume 103 fL (80-94); Mean Platelet Volume 7 um3 (7.4-10.4); Red Blood Count 1.79 10^6/ul (4.0-5.4); Red Cell Distribution Width 14 % (10.5-15); White Blood Count 11.1 10^3/ul (3.5-10.8)
[2017-06-04 11:26] LABS: Comments Flag Yes; Hemoglobin 6.2 g/dl (14.0-18.0)
[2017-06-04 11:27] LABS: Add Diff/Slide Review? Slide Review Added
[2017-06-04] MEDS: Sevelamer TAB* 800 MG PO SCH ×2 (11:49→17:54)
[2017-06-04] MEDS: Insulin LISPRO* 1 UNITS UNIT SUBCUT SCH ×4 (11:49→22:07)
[2017-06-04 11:50] LABS: Troponin I 2.33 ng/mL (<0.04)
[2017-06-04] MEDS: Ropinirole TAB* 0.5 MG TAB PO SCH ×3 (11:52→20:47)
[2017-06-04] MEDS: Aspirin EC Low Dose* 81 MG TAB.EC PO SCH (11:55)
[2017-06-04] MEDS: Omeprazole CAP* 20 MG PO SCH (11:55)
[2017-06-04] MEDS ORDERED: Epoetin Alfa* 10,000 UNITS/ML VIAL IV ONE (12:00)
[2017-06-04] MEDS ORDERED: Heparin DIALYSIS ONLY(*) 1,000 UNITS/ML VIAL DIALYSIS ONE (13:00)
[2017-06-04 14:27] LABS: Hematocrit 19 % (42-52)
[2017-06-04 14:28] LABS: Comments Flag Yes
[2017-06-04 14:29] LABS: Hemoglobin 6.4 g/dl (14.0-18.0)
[2017-06-04 14:40] LABS: BUN/Creatinine Ratio 6.3 (8-20); EGFR African American 20.9 (>60); EGFR Non-African American 16.2 (>60); Potassium 3.4 mmol/L (3.5-5.0)
[2017-06-04 14:49] LABS: Troponin I 3.07 ng/mL (<0.04)
--- NOTE | 2017-06-04 16:10 | ECHO ---
Patient: HARRISON RODRIGUEZ [facility] Rec#: [id number] : 1950 Date: 06/04/2017 Age: 66y Height: 180.34 cm / 71.0 in Weight: 79.83 kg / 175.9 lbs Sex: M BSA: 2 Room#: ICU 12 Admit Date#: 06/04/2017 Type: Inpatient Referring: Leyla Thorne MD Reading: Ty Stewart MD Associate Merchant: Tamela Wilson,SILVIACS,RDMS CC: Balbina Corral Transthoracic Echocardiogram Indication: Pulmonary edema BP: 106/65 HR: 108 Rhythm: A-Fib Findings History: DM, AFIB, HTN, HLD, KIMBERLY, CKD, CVA Technical Comments: The study is technically difficult. The study is technically limited due to poor parasternal windows. Left Ventricle: The left ventricular chamber size is normal. Mild concentric left ventricular hypertrophy is observed. Basal interventricular septum shows moderate thickening. There is global hypokinesis of the left ventricle with minor regional variation. There is moderate to severely decreased left ventricular systolic function. The estimated ejection fraction is 30-35%. The assessment of diastolic function is non-diagnostic. Left Atrium: The left atrium is severely dilated. Right Ventricle: The right ventricular chamber size and systolic function are within normal limits. Right Atrium: The right atrium is mild to moderately dilated. Aortic Valve: The aortic valve leaflets are moderately thickened. Systolic excursion of the aortic valve cusps is reduced. There is a trace of aortic regurgitation. There is mild to moderate aortic stenosis. The mean gradient of the aortic valve is 10 mmHg. The aortic valve area, by peak velocities, is calculated at 1.4 cm2. Mitral Valve: There is mitral annular calcification. The mitral valve leaflets are mildly thickened. There is mild mitral regurgitation. There is mild mitral stenosis. Tricuspid Valve: The tricuspid valve leaflets are normal. There is trace tricuspid regurgitation. Unable to estimate the right ventricular systolic pressure. Pulmonic Valve: The pulmonic valve appears normal. There is mild to moderate pulmonic regurgitation. Pericardium: There is no significant pericardial effusion. Aorta: The ascending aorta is not well visualized. The aortic arch is not well visualized. The aortic root is normal in size. Pulmonary Artery: The main pulmonary artery is not well visualized. Venous: The inferior vena cava is dilated. There is an approximate 50% respiratory change in the inferior vena cava dimension. Conclusions Basal interventricular septum shows moderate thickening. There is global hypokinesis of the left ventricle with minor regional variation. There is moderate to severely decreased left ventricular systolic function. The estimated ejection fraction is 30-35%. The assessment of diastolic function is non-diagnostic. Systolic excursion of the aortic valve cusps is reduced. There is mild to moderate aortic stenosis. The mean gradient of the aortic valve is 10 mmHg. There is mild mitral regurgitation. There is trace tricuspid regurgitation. Unable to estimate the right ventricular systolic pressure. There is no significant pericardial effusion. Compared to study of 08/2016, the decrease in LV function is new (previously normal). The previously noted severe Pulm HTN could not be demonstrated. Measurements Name Value Normal Range RVDdMajor (2D) 3.2 cm (2.2 - 4.4) RAd ISD 4CH 5.8 cm (3.4 - 4.9) RA (A4C)W 4.7 cm (2.9 - 4.6) IVSd (2D) 1.9 cm (0.6 - 1) LVPWd (2D) 1.4 cm (0.6 - 1) LVIDd (2D) 3.9 cm (3.6 - 5.4) LVIDs (2D) 3.5 cm - LV FS (2D) 11 % (25 - 45) Aortic Annulus 2 cm (1.4 - 2.6) Ao root diameter (2D) 3.1 cm (2.1 - 3.5) LA dimension (AP) 2D 4.5 cm (2.3 - 3.8) LAd ISD 4CH 6.3 cm (2.9 - 5.3) LA ISD 4CH W 4.9 cm (2.5 - 4.5) Name Value Normal Range LA ESV SP 4CH (A/L) 113.58 ml - LA ESV SP 2CH (A/L) 98.87 ml - LA ESV BP (A/L) 108.71 ml - LA ESV BP (A/L) index 54 ml/m2 - LA ESV SP 4CH (MOD) 107.08 ml - LA ESV SP 2CH (MOD) 93.12 ml - Name Value Normal Range MV E-wave Vmax 1.5 m/sec - MV deceleration time 199 msec - LV lateral e' Vmax 0.05 m/sec - LV E:e' lateral ratio 30 ratio - Name Value Normal Range AV Vmax 2 m/sec - AV VTI 34.5 cm - AV peak gradient 16 mmHg - AV mean gradient 10 mmHg - LVOT diameter 2 cm - LVOT Vmax 0.9 m/sec - LVOT VTI 13.4 cm - LVOT peak gradient 3.2 mmHg - LVOT mean gradient 1.6 mmHg - PATSY (continuity Vmax) 1.4 cm2 - PATSY (continuity VTI) 1.2 cm2 - NGHIA Vmax 0.4 m/sec - Name Value Normal Range MV Vmax 1.3 m/sec - MV VTI 26.2 cm - MV peak gradient 7 mmHg - MV mean gradient 3.7 mmHg - MV PHT 81 msec - MVA (PHT) 2.7 cm2 - MVA (continuity VTI) 1.6 cm2 - Name Value Normal Range RAP 8 mmHg - IVC diameter 2.2 cm - Name Value Normal Range PV Vmax 0.8 m/sec - PV peak gradient 2.6 mmHg -
[2017-06-04] MEDS: Atorvastatin* 10 MG TAB PO SCH (20:47)
--- NOTE | 2017-06-05 02:02 | CONS ---
CC: Dr. Mariee; Dr. Acuña; Dr. Balbina Corral, Family Medicine * CARDIOLOGY CONSULTATION: DATE OF CONSULT: 06/04/17 INDICATION FOR CONSULTATION: Congestive heart failure. HISTORY OF PRESENT ILLNESS: The patient is a 66-year-old gentleman with a history of known moderate three-vessel coronary artery disease, paroxysmal atrial fibrillation, end-stage renal disease on dialysis, was admitted to the hospital with congestive heart failure. The patient was admitted to the hospital last week with a severe bleed and hematoma to his right leg. His hemoglobin went down to 6.2 during that admission. At that time, his Coumadin was stopped. The patient did not get a blood transfusion because of his jehovah's witness beliefs. The patient was observed for a couple of days and discharged home. The patient came to the emergency room today in severe congestive heart failure. He was immediately placed on BiPAP machine and given nitroglycerin for afterload reduction. He was not given Lasix because of his end-stage renal disease. The patient states that on Sunday, he had his usual dialysis but then today he became progressively short of breath and came to the emergency room in severe congestive heart failure. The patient's initial blood work showed a potassium level of 6.2, a minimally elevated troponin level, and a BNP of 2200. The patient was admitted to the hospital for evaluation. Since he has been in the ICU, he has undergone dialysis which has markedly improved his breathing status. The patient denies any chest pain. He denies any palpitations. He denies any lightheadedness, dizziness, or syncope. PAST MEDICAL HISTORY: Significant for end-stage renal disease, he is on hemodialysis. Paroxysmal atrial fibrillation, he is on anticoagulation until his severe bleed last week. Coronary artery disease with a cardiac catheterization in 2013 showing a 30% stenosis to his LAD, a 60% stenosis to his diagonal, a 50% stenosis to his circumflex artery. His first obtuse marginal had an 80% stenosis but was relatively small vessel. His right coronary artery had a 40 and then a 30% stenosis. The patient had an echocardiogram in August of 2016 which showed normal LV size and systolic function, dilated right ventricle with [id number] pulmonary hypertension, estimated PA systolic pressure of 65 to 70 mmHg. Also has a history of CVA, gastroesophageal reflux disease, diabetes. OUTPATIENT MEDICATIONS: 1. Nephro-Mark 1 tablet a day. 2. Lisinopril 20 mg a day. 3. Metoprolol tartrate 50 mg b.i.d. 4. Nifedipine ER 30 mg a day. 5. Omeprazole 20 mg a day. 6. Ropinirole 0.75 mg 3 times a day. 7. Simvastatin 20 mg a day. ALLERGIES: He is intolerant of PENICILLIN. FAMILY HISTORY: Both parents had diabetes. SOCIAL HISTORY: He denies tobacco use or alcohol use. He is a Nondenominational and refuses blood products. PHYSICAL EXAM: Height is 5 feet 10 inches, weight is 180 pounds, temperature 99.4, heart rate is 91, respiratory rate is 22, oxygen saturation 99% on 2 L, blood pressure 90/58. Sclerae anicteric. Oropharynx is pink without erythema. Carotids are 2+ without bruits. JVD is normal. Thyroid is normal. Cardiac Exam: S1, S2 with distant heart sounds. No obvious murmurs, rubs, or gallops. Lungs have bilateral rales at the bases. There is no dullness to percussion. Abdomen is soft, nontender, nondistended with normoactive bowel sounds. Extremities show no edema. He has 2+ pulses throughout. The patient is awake, alert, and oriented. He moves all 4 extremities equally. DIAGNOSTIC STUDIES/LAB DATA: White count 11.1, hemoglobin 6.2, hematocrit 18, platelet count 206. Chemistries: Potassium 3.4, BUN 24, creatinine 3.8. Peak troponin is 3. BNP is 2200. EKG today appears to be in atrial flutter with a heart rate of 84 beats per minute, LVH, mild ST segment depressions in V3 and V4. His echocardiogram today shows globally reduced LV systolic function with ejection fraction of 30% to 35%, [id number] aortic stenosis, trace tricuspid regurgitation, unable to estimate PA systolic pressures. IMPRESSION: This is a 66-year-old gentleman who is admitted to the hospital with congestive heart failure who clearly has high output failure from his low hemoglobin and hematocrit and now has low LV function because of that. The patient did get dialysis today, which had a significant improvement in his overall pulmonary status. However, given his severe anemia and the fact that he refuses blood products makes the situation very difficult to treat. His blood pressure is very low, so I cannot treat him with afterload reducing agents. He is on low dose beta-blockers for heart rate control. At this point , I do not have any significant intervention for this gentleman. We will continue to use BiPAP and dialysis as tolerated and try to add on afterload reducing agents as his blood pressure tolerates. This was discussed with Dr. Mariee. [id number]/[facility] #: [id number] MTDNatasha
[2017-06-05] MEDS: Insulin LISPRO* 1 UNITS UNIT SUBCUT SCH ×5 (02:18→17:41)
[2017-06-05] MEDS: Metoprolol Tartrate TAB* 50 mg PO SCH ×2 (09:18→20:41)
[2017-06-05] MEDS: Sevelamer TAB* 800 MG PO SCH ×3 (09:18→17:37)
[2017-06-05] MEDS: Aspirin EC Low Dose* 81 MG TAB.EC PO SCH (09:18)
[2017-06-05] MEDS: Ropinirole TAB* 0.5 MG TAB PO SCH ×3 (09:19→21:32)
[2017-06-05] MEDS: Omeprazole CAP* 20 MG PO SCH (09:20)
[2017-06-05] MEDS: NIFEdipine ER TAB* 30 MG PO SCH (09:20)
[2017-06-05] MEDS: Lisinopril TAB* 10 MG PO SCH (09:20)
--- NOTE | 2017-06-05 11:54 | RAD ---
INDICATION: Infiltrates, follow-up. COMPARISON: Comparison is made with a prior chest x-ray study from June 04, 2017. TECHNIQUE: Dual-energy PA and lateral views of the chest were obtained. FINDINGS: Cardiac and mediastinal contours appear normal. The lungs are underinflated. There is more focal elevation of the left hemidiaphragm which appears unchanged. There is near complete resolution of the previously noted bibasilar infiltrates. No pleural effusion is seen. IMPRESSION: NEAR COMPLETE RESOLUTION OF THE PREVIOUSLY NOTED INFILTRATES.
--- NOTE | 2017-06-05 17:47 | PN ---
Subjective Date of Service: 06/05/17 Interval History: Pt feeling much better. Down to 3L. s/p HD. no chest pressure currently. Blood pressures stable. Objective Active Medications: Acetaminophen (Tylenol Tab*) 650 mg PO Q6H PRN PRN Reason: pain/fever Last Admin: 06/04/17 22:00 Dose: 650 mg Albuterol/Ipratropium (Duoneb (Albuterol 2.5 Mg/Ipratropium 0.5 Mg)) 1 neb INH Q4H PRN PRN Reason: SOB/WHEEZING Aspirin (Aspirin Ec Low Dose*) 81 mg PO DAILY [facility] Last Admin: 06/05/17 09:18 Dose: 81 mg Atorvastatin Calcium (Lipitor*) 10 mg PO DAILY@2100 [facility] Last Admin: 06/04/17 20:47 Dose: 10 mg Dextrose (D50w Syringe 50 Ml*) 12.5 gm IV PUSH .FOR FS < 60 - SS PRN PRN Reason: FS < 60 Diphenhydramine HCl (Benadryl Po*) 50 mg PO DAILY PRN PRN Reason: Allergy Symptoms Levofloxacin/Dextrose (Levaquin 500 Mg Ivpremix(*)) 500 mg in 100 mls @ 100 mls /hr IVPB Q48H [facility] Insulin Human Lispro (Humalog*) 0 units SUBCUT Q4HR [facility] PRN Reason: Protocol Last Admin: 06/05/17 17:41 Dose: Not Given Lisinopril (Prinivil Tab*) 20 mg PO DAILY [facility] Last Admin: 06/05/17 09:20 Dose: 20 mg Metoprolol Tartrate (Lopressor Tab*) 50 mg PO BID [facility] Last Admin: 06/05/17 09:18 Dose: 50 mg Nifedipine (Procardia Xl Tab*) 30 mg PO DAILY [facility] Last Admin: 06/05/17 09:20 Dose: 30 mg Omeprazole (Prilosec Cap*) 20 mg PO DAILY [facility] Last Admin: 06/05/17 09:20 Dose: 20 mg Ropinirole HCl (Requip Tab*) 0.75 mg PO TID [facility] Last Admin: 06/05/17 14:49 Dose: 0.75 mg Sevelamer Carbonate (Renvela Tab*) 800 mg PO TID WITH MEALS [facility] Last Admin: 06/05/17 17:37 Dose: 800 mg Vital Signs 06/04/17 06/04/17 06/04/17 18:00 18:30 19:00 Temperature Pulse Rate 89 91 96 Respiratory 20 22 25 Rate Blood Pressure 91/74 80/60 90/59 (mmHg) O2 Sat by Pulse 98 93 97 Oximetry 06/04/17 06/04/17 06/04/17 19:30 20:00 20:06 Temperature 100.6 F Pulse Rate 83 97 76 Respiratory 19 19 22 Rate Blood Pressure 80/51 78/53 83/65 (mmHg) O2 Sat by Pulse 100 88 100 Oximetry 06/04/17 06/04/17 06/04/17 20:30 21:00 21:30 Temperature Pulse Rate 84 86 Respiratory 21 9 7 Rate Blood Pressure 99/69 84/54 90/54 (mmHg) O2 Sat by Pulse 94 100 Oximetry 06/04/17 06/04/17 06/04/17 22:00 22:19 22:20 Temperature Pulse Rate 94 90 89 Respiratory 22 19 19 Rate Blood Pressure 80/47 (mmHg) O2 Sat by Pulse 100 100 100 Oximetry 06/04/17 06/04/17 06/04/17 22:30 23:00 23:30 Temperature Pulse Rate 101 80 90 Respiratory 22 16 10 Rate Blood Pressure 105/74 100/67 100/64 (mmHg) O2 Sat by Pulse 100 100 100 Oximetry 06/05/17 06/05/17 06/05/17 00:00 00:30 01:00 Temperature 98.5 F Pulse Rate 94 87 81 Respiratory 18 17 20 Rate Blood Pressure 103/70 108/78 109/74 (mmHg) O2 Sat by Pulse 100 100 100 Oximetry 06/05/17 06/05/17 06/05/17 01:30 02:00 02:30 Temperature Pulse Rate 85 92 87 Respiratory 16 16 16 Rate Blood Pressure 130/82 97/63 106/79 (mmHg) O2 Sat by Pulse 100 100 100 Oximetry 06/05/17 06/05/17 06/05/17 03:00 03:30 04:00 Temperature Pulse Rate 90 91 89 Respiratory 16 18 18 Rate Blood Pressure 105/66 123/80 106/80 (mmHg) O2 Sat by Pulse 100 100 100 Oximetry 06/05/17 06/05/17 06/05/17 04:30 05:00 05:30 Temperature Pulse Rate 112 95 Respiratory 15 16 15 Rate Blood Pressure 100/72 112/84 110/72 (mmHg) O2 Sat by Pulse 96 96 Oximetry 06/05/17 06/05/17 06/05/17 06:00 06:30 07:00 Temperature Pulse Rate 92 74 71 Respiratory 20 18 12 Rate Blood Pressure 117/89 132/77 119/63 (mmHg) O2 Sat by Pulse 100 100 100 Oximetry 06/05/17 06/05/17 06/05/17 07:30 07:54 08:00 Temperature 99.1 F Pulse Rate 71 73 Respiratory 19 18 Rate Blood Pressure 118/62 144/80 (mmHg) O2 Sat by Pulse 99 100 Oximetry 06/05/17 06/05/17 06/05/17 08:30 09:00 09:13 Temperature Pulse Rate 72 75 76 Respiratory 12 15 18 Rate Blood Pressure 139/78 130/85 140/80 (mmHg) O2 Sat by Pulse 100 100 100 Oximetry 06/05/17 06/05/17 06/05/17 09:30 10:00 10:24 Temperature Pulse Rate 75 Respiratory 20 18 17 Rate Blood Pressure 137/82 (mmHg) O2 Sat by Pulse 100 Oximetry 06/05/17 06/05/17 06/05/17 10:25 10:30 11:00 Temperature Pulse Rate 71 69 69 Respiratory 19 7 19 Rate Blood Pressure 127/78 130/77 127/70 (mmHg) O2 Sat by Pulse 100 100 96 Oximetry 06/05/17 06/05/17 06/05/17 11:30 11:40 12:00 Temperature 98.6 F Pulse Rate 70 73 Respiratory 18 6 Rate Blood Pressure 113/65 147/83 (mmHg) O2 Sat by Pulse 95 100 Oximetry 06/05/17 06/05/17 06/05/17 12:30 13:00 13:30 Temperature Pulse Rate 71 70 72 Respiratory 20 15 17 Rate Blood Pressure 124/70 124/76 135/75 (mmHg) O2 Sat by Pulse 99 99 100 Oximetry 06/05/17 06/05/17 06/05/17 14:00 14:30 15:00 Temperature Pulse Rate 77 76 74 Respiratory 18 22 22 Rate Blood Pressure 136/74 131/69 101/53 (mmHg) O2 Sat by Pulse 100 100 98 Oximetry 06/05/17 06/05/17 06/05/17 15:30 16:00 16:10 Temperature 98.4 F Pulse Rate 73 71 Respiratory 19 19 Rate Blood Pressure 99/47 102/53 (mmHg) O2 Sat by Pulse 98 100 Oximetry 06/05/17 06/05/17 06/05/17 16:30 17:00 17:30 Temperature Pulse Rate 77 75 76 Respiratory 20 21 18 Rate Blood Pressure 137/78 132/77 128/78 (mmHg) O2 Sat by Pulse 99 92 97 Oximetry Oxygen Devices in Use Now: None Appearance: NAD Ears/Nose/Mouth/Throat: NL Teeth, Lips, Gums, Mucous Membranes Moist Neck: NL Appearance and Movements; NL JVP, Trachea Midline Respiratory: Symmetrical Chest Expansion and Respiratory Effort, Clear to Auscultation Cardiovascular: - - TEDDY loudest apex, regular rate rhythm Abdominal: NL Sounds; No Tenderness; No Distention Extremities: No Edema Skin: No Rash or Ulcers Neurological: Alert and Oriented x 3 Result Diagrams: 06/05/17 20:37 06/04/17 14:05 Additional Lab and Data: Laboratory Results - last 24 hr 06/04/17 06/05/17 06/05/17 22:05 02:16 06:19 Hgb Hct POC Glucose (mg/dL) 127 H 127 H 120 H 06/05/17 06/05/17 06/05/17 09:28 09:30 13:00 Hgb Hct POC Glucose (mg/dL) 79 105 H 149 H 06/05/17 06/05/17 06/05/17 17:40 20:37 20:41 Hgb 6.4 L* Hct 19 L POC Glucose (mg/dL) 144 H 175 H Microbiology and Other Data: Microbiology 06/04/17 14:05 Blood Venous Aerobic Blood Culture - Preliminary No Growth Day 1 06/04/17 14:05 Blood Venous Anaerobic Blood Culture - Preliminary No Growth Day 1 06/04/17 11:00 Blood Venous Aerobic Blood Culture - Preliminary No Growth Day 1 06/04/17 11:00 Blood Venous Anaerobic Blood Culture - Preliminary No Growth Day 1 06/04/17 17:00 Urine Legionella Urinary Antigen - Final Negative Legionella 06/04/17 17:00 Urine Streptococcus pneumoniae Ag Screen - Final Positive S. Pneumo Antigen 06/04/17 09:30 Nasal Nasal Screen MRSA (PCR)(JORGE) - Final Mrsa Negative 06/04/17 05:30 Stool Stool Occult Blood (JORGE) - Final Assess/Plan/Problems-Billing Assessment: 66 yo male ESRD, Afib, CVA, HTN, DM, GERD p/w hypoxic respiratory, troponin elevation, Strep Pna Urine Ag positive on levaquin. Improved after HD. - Patient Problems (1) Acute respiratory failure with hypoxia Current Visit: Yes Status: Acute Code(s): J96.01 - ACUTE RESPIRATORY FAILURE WITH HYPOXIA SNOMED Code(s): 92547580 Comment: continue levaquin for now given low grade fevers, renally dosed. Pt w/ pcn allergy Strep Pna Urine Antigen positive. Infiltrates largely resolved after HD. improved after HD. (2) Anemia Current Visit: Yes Status: Acute Code(s): D64.9 - ANEMIA, UNSPECIFIED SNOMED Code(s): 313043243 Comment: Refuses blood products. epogen per renal. in setting of recent right thigh hematoma cbc daily. (3) ESRD (end stage renal disease) Current Visit: No Status: Acute Code(s): N18.6 - END STAGE RENAL DISEASE SNOMED Code(s): 07626208 Comment: respiratory improved greatly after HD. (4) Hematoma Current Visit: No Status: Acute Code(s): T14.8XXA - OTHER INJURY OF UNSPECIFIED BODY REGION, INITIAL ENCOUNTER SNOMED Code(s): 377655005 Comment: recent fall while on supratherapeautic anticoagulation. Stable. Refuses blood products. s/p epogen (5) Afib Current Visit: No Status: Chronic Code(s): I48.91 - UNSPECIFIED ATRIAL FIBRILLATION SNOMED Code(s): 61445621 Comment: off anticoagulation given hematoma/anemia (6) SIRS (systemic inflammatory response syndrome) Current Visit: Yes Status: Acute Code(s): R65.10 - SIRS OF NON-INFECTIOUS ORIGIN W/O ACUTE ORGAN DYSFUNCTION SNOMED Code(s): 275271574 Comment: fever, slight leukocytosis, tachpynea, tachypnea. qSofa also met. Sepsis II and III hypotension initially, Status and Disposition: medicine inpatient. possible d/c 06/06 Attending: Howard Patiño
[2017-06-05] MEDS: Atorvastatin* 10 MG TAB PO SCH (20:41)
[2017-06-05 21:10] LABS: Hematocrit 19 % (42-52)
[2017-06-05 21:14] LABS: Comments Flag Yes
[2017-06-05 21:15] LABS: Hemoglobin 6.4 g/dl (14.0-18.0)
[2017-06-06 06:09] LABS: Hematocrit 19 % (42-52); Mean Corpuscular HGB Conc 34 g/dl (31-36); Mean Corpuscular Hemoglobin 34 pg (27-31); Mean Corpuscular Volume 102 fL (80-94); Mean Platelet Volume 8 um3 (7.4-10.4); Red Blood Count 1.81 10^6/ul (4.0-5.4); Red Cell Distribution Width 15 % (10.5-15); White Blood Count 6.5 10^3/ul (3.5-10.8)
[2017-06-06 06:11] LABS: Comments Flag Yes
[2017-06-06 06:13] LABS: Hemoglobin 6.2 g/dl (14.0-18.0)
[2017-06-06 06:18] LABS: BUN/Creatinine Ratio 7.5 (8-20); Calcium 9.1 mg/dL (8.6-10.3); EGFR African American 8.6 (>60); EGFR Non-African American 6.7 (>60); Potassium 3.8 mmol/L (3.5-5.0)
[2017-06-06] MEDS ORDERED: Levofloxacin 500 MG IVPREMIX(* 500 MG/100 ML BAG IVPB SCH (08:00)
[2017-06-06] MEDS ORDERED: Levofloxacin 750 MG IVPREMIX(* 750 MG/150 ML BAG IVPB SCH (08:00)
[2017-06-06] MEDS: Insulin LISPRO* 1 UNITS UNIT SUBCUT SCH ×3 (08:31→18:02)
[2017-06-06] MEDS: Ropinirole TAB* 0.5 MG TAB PO SCH ×2 (08:44→14:15)
[2017-06-06] MEDS: NIFEdipine ER TAB* 30 MG PO SCH (08:45)
[2017-06-06] MEDS: Metoprolol Tartrate TAB* 50 mg PO SCH (08:45)
[2017-06-06] MEDS: Omeprazole CAP* 20 MG PO SCH (08:45)
[2017-06-06] MEDS: Aspirin EC Low Dose* 81 MG TAB.EC PO SCH (08:45)
[2017-06-06] MEDS: Sevelamer TAB* 800 MG PO SCH ×3 (08:45→18:03)
[2017-06-06] MEDS: Lisinopril TAB* 10 MG PO SCH (08:45)
[2017-06-06] MEDS ORDERED: Epoetin Alfa* 10,000 UNITS/ML VIAL IV ONE (11:00)
[2017-06-06] MEDS ORDERED: Heparin DIALYSIS ONLY(*) 1,000 UNITS/ML VIAL DIALYSIS ONE (11:00)
[2017-06-06 17:53] VITALS: BP 116/68
--- NOTE | 2017-06-07 13:32 | DS ---
DISCHARGE SUMMARY: DATE OF ADMISSION: 06/04/17 DATE OF DISCHARGE: 06/06/17 ADMITTING PHYSICIAN: Leyla Mariee MD. ATTENDING PHYSICIAN: Howard Patiño MD. PRIMARY CARE PROVIDER: Balbina Corral MD. PRIMARY FAST FOOD CREW MEMBER: Dr. Mosqueda. CONSULTING EMPLOYMENT TRAINING SPECIALIST: Dr. Stewart. CHIEF COMPLAINT: Shortness of breath. PRINCIPAL DIAGNOSES: 1. Acute hypoxic respiratory failure secondary to volume overload and possible Streptococcus pneumoniae. 2. Persistent blood loss anemia secondary to hematoma. 3. Sepsis by Sepsis 2 and 3 criteria, SIRS/qSOFA. 4. Fxm-VX-jqlrntogi myocardial infarction. PAST MEDICAL HISTORY: End-stage renal disease, on hemodialysis Sunday, , Sunday. Atrial fibrillation, off anticoagulation since recent right thigh hematoma secondary to fall. Acute anemia, CVA, hypertension, GERD, CHF, EF 40% to 45%, diet-controlled diabetes. HISTORY OF PRESENT ILLNESS AND HOSPITAL COURSE: Mr. Knight is a 66-year-old male with PMH as above, who presented to the emergency room with severe shortness of breath and chest pressure. He was recently admitted between to 05/31/17 after he had a fall resulting in large right thigh hematoma and significant anemia. Hemoglobin had been dropped to 6.5 from 10 to 12 baseline. The fact that he was a Jehovah's witness, he denied any blood transfusions. His INR was 5.6. He got vitamin K at that time. He returned home on , had a scheduled dialysis on Sunday, but since discharge he has had progressive dyspnea on exertion and then at rest and then associated with chest pressure, relieved by rest. Symptoms worsened on the day of admission and he required BiPAP in the emergency room for diaphoresis, tachypnea. He received bronchodilators, morphine, Zofran, aspirin, got 60 of Lasix, but ultimately required hemodialysis on hospital day #1, which rapidly improved his symptoms. He did have some ST depressions on EKG. The patient had hyperkalemia with potassium of 6.2, BNP of 2200. His chest x- ray was concerning for bilateral fluffy infiltrates concerning for volume overload. He did, of note, have a Strep pneumoniae urine antigen positive and was given a course of Levaquin while in the hospital and will be continued upon discharge. He rapidly improved after hemodialysis, was transferred out of the ICU on , is on room air on discharge. He got dialysis again on the day of discharge , Sunday06/06/17 with scheduled resumption of his normal schedule of Sunday, Sunday, . Patient's microbiology was negative for blood cultures all 4 bottles x2 days. He had initial leukocytosis of 12.2 improved to 6.5, a T-max of 101.4 and initially was hypotensive to 75/59 inna on hospital day #1. The patient's troponin peaked at 4.24. Dr. Stewart of Cardiology recommended medical management for NSTEMI given the patient's Jehovah 's Witness status and anemia. It was deemed somewhat difficult to treat except continuing his low dose beta-blockers for heart rate control and if his blood pressure rallies, to continue afterload reducing agents. He was continued on lisinopril 20 mg p.o. daily and metoprolol 50 mg p.o. b.i.d. DISCHARGE MEDICATIONS: Include: 1. Levaquin 500 mg p.o. q. 48 hours to start on 06/08/17. 2. Nitroglycerin tabs 0.4 mg sublingual q.5 minutes p.r.n. 3. B complex tab p.o. daily. 4. Acetaminophen 650 mg p.o. q.8 hours p.r.n. 5. Simvastatin 20 mg p.o. daily. 6. Sevelamer 800 mg p.o. t.i.d. with meals. 7. Ropinirole 0.75 mg p.o. t.i.d. 8. Omeprazole 20 mg p.o. daily. 9. Nifedipine 30 mg p.o. daily. 10. Metoprolol 50 mg p.o. b.i.d. 11. Lisinopril 20 mg p.o. daily. 12. Benadryl 50 mg p.o. daily p.r.n. 13. Aspirin 81 mg daily. DISCHARGE DIET: Renal, heart healthy, unchanged. ACTIVITY LEVEL: No restrictions. FOLLOWUP: Please follow up with Dr. Balbina Corral within 3 to 5 days to discuss CHF admission and possible resumption of his warfarin for his A-Fib after his hematoma resolves, although discharge hemoglobin is still low at 6.2 on 11/29/17. TIME SPENT: Time spent on discharge was 45 minutes. [id number]/[facility] #: [id number] PETER
== END 2017-06-06 19:50 | disposition home or self-care (01) | DRG 189 ==
LOC: ED 04:57 → ICU 08:03 → MEDTELE 06-06 05:43
PROVIDERS: ADMIT Internal Medicine; ATTEND Internal Medicine
PROC: 5A1D70Z Performance of Urinary Filtration, Intermittent, Less than 6 Hours Per Day (ICD-10-PCS; principal; 2017-06-04)
DX: J96.01 Acute respiratory failure with hypoxia (principal); I21.4 Non-ST elevation (NSTEMI) myocardial infarction; I13.2 Hypertensive heart and chronic kidney disease with heart failure and with stage 5 chronic kidney disease, or end stage renal disease; R65.10 Systemic inflammatory response syndrome (SIRS) of non-infectious origin without acute organ dysfunction; E11.22 Type 2 diabetes mellitus with diabetic chronic kidney disease; I50.9 Heart failure, unspecified; E87.5 Hyperkalemia; I48.0 Paroxysmal atrial fibrillation; N18.6 End stage renal disease; N39.0 Urinary tract infection, site not specified; D50.0 Iron deficiency anemia secondary to blood loss (chronic); B95.3 Streptococcus pneumoniae as the cause of diseases classified elsewhere; K21.9 Gastro-esophageal reflux disease without esophagitis; Z99.2 Dependence on renal dialysis; Z86.73 Personal history of transient ischemic attack (TIA), and cerebral infarction without residual deficits; Z79.1 Long term (current) use of non-steroidal anti-inflammatories (NSAID); Z79.899 Other long term (current) drug therapy; Z88.0 Allergy status to penicillin; Z83.3 Family history of diabetes mellitus
CPT/HCPCS: 36415; 36600; 71010; 71020; 80048; 80053; 82270; 82803; 82947; 83735; 83880; 84484; 85014; 85018; 85025; 85610; 85730; 86850; 86900; 86901; 87040; 87641; 87899; 90935; 93005; 93306; 94640; 94660; A9270-GY; G0257; J0885; J1644; J1940; J1956; J2270; J2405

== ENCOUNTER 2017-06-18 17:20 | Inpatient (IN) | payer MEDICARE, MEDICAID ==
[2017-06-18] MEDS ORDERED: Nitroglycerin TAB 0.4 MG* 0.4 MG TAB SL PRN (17:26)
[2017-06-18] MEDS ORDERED: Aspirin Low Dose CHEW TAB* 81 MG PO ONE (17:26)
[2017-06-18] MEDS ORDERED: Morphine INJ* 4 MG/ML 1 ML CARPUJECT IV ONE (17:26)
[2017-06-18] MEDS ORDERED: Nitroglycerin TAB 0.4 MG* 0.4 MG TAB ONE (17:35)
[2017-06-18 17:47] LABS: Hematocrit 28 % (42-52); Hemoglobin 8.9 g/dl (14.0-18.0); Mean Corpuscular HGB Conc 32 g/dl (31-36); Mean Corpuscular Hemoglobin 33 pg (27-31); Mean Corpuscular Volume 102 fL (80-94); Mean Platelet Volume 8 um3 (7.4-10.4); Red Blood Count 2.74 10^6/ul (4.0-5.4); Red Cell Distribution Width 15 % (10.5-15)
[2017-06-18 17:56] LABS: FIO2 15
[2017-06-18 17:59] LABS: PCO2 Arterial 42 mmHg (35-45)
[2017-06-18] MEDS ORDERED: nitroGLYCERIN DRIP* 25,000 MCG/250 ML BTL IV ONE (18:02)
[2017-06-18 18:03] LABS: Albumin 4.2 g/dL (3.2-5.2); BUN/Creatinine Ratio 5.6 (8-20); Calcium 9.9 mg/dL (8.6-10.3); EGFR African American 8.9 (>60); EGFR Non-African American 6.9 (>60); Globulin 3.5 g/dL (2-4); Magnesium 1.8 mg/dL (1.9-2.7); Total Bilirubin 1.2 mg/dL (0.2-1.0); Total Protein 7.7 g/dL (6.4-8.9)
[2017-06-18 18:05] LABS: Troponin I 0.03 ng/mL (<0.04)
[2017-06-18 18:07] LABS: Potassium 6.6 mmol/L (3.5-5.0)
--- NOTE | 2017-06-18 18:31 | RAD ---
HISTORY: Chest pain COMPARISONS: June 05, 2017 VIEWS: 1: frontal portable view of the chest at 6:02 PM FINDINGS: LINES AND TUBES: None. CARDIOMEDIASTINAL SILHOUETTE: The cardiomediastinal silhouette is normal for portable technique. PLEURA: The costophrenic angles are sharp. No pleural abnormalities are noted. LUNG PARENCHYMA: There is a diffuse reticular pattern with indistinct pulmonary vessels. There is patchy linear opacification of the lung bases bilaterally ABDOMEN: The upper abdomen is clear. There is no subphrenic gas. BONES AND SOFT TISSUES: No bone or soft tissue abnormalities are noted. IMPRESSION: PULMONARY INTERSTITIAL AND ALVEOLAR EDEMA
[2017-06-18 18:38] LABS: T4 9.82 mcg/mL (6.09-12.23)
[2017-06-18 18:42] LABS: TSH (Thyroid Stimulating Horm) 2.2 mcIU/mL (0.34-5.60)
[2017-06-18] MEDS ORDERED: Furosemide IV* 10 MG/ML VIAL (40 MG) IV SLOW PU ONE (18:47)
[2017-06-18] MEDS ORDERED: diPHENhydraMINE PO* 50 MG PO PRN (19:07)
[2017-06-18] MEDS ORDERED: Acetaminophen TAB* 325 MG PO PRN (19:09)
--- NOTE | 2017-06-18 19:17 | ED ---
[place] Rob Alfonso, scribed for Geneva Cha MD on 06/18/17 at 1743 . Shortness of Breath - HPI Summary HPI Summary: This patient is a 66 year old [facility] chief complaint of SOB since earlier today. The patient rates the pain 0/10 in severity. Symptoms alleviated by nothing. Patient reports vomiting (earlier today) and weight gain. Patient denies CP, and fever. He is due for dialysis tomorrow. Pt was just admitted to [facility] ED 05/29/17 s/p a fall with a significant bleed into his right leg that dropped his HB to the 6's. He declined transfusion at the time. Dr. Mosqueda said his Hb was 8 a few days ago. During that admission he had CHF and had a full cardiology evaluation. Pt is in severe respiratory distress on admission and can only speak single word answers. EMS report that pt's O2 sats on room air were in the 70's. With 100% O2 pt's sats are 98%, but his resp rate is 51. Pt does not know his usual dry weight but thinks he has excess fluid weight now. - History of Current Complaint Chief Complaint: EDShortnessOfBreath Time Seen by Provider: 06/18/17 17:25 Hx Obtained From: Patient, EMS, Medical Records, Other: - Dr. Mosqueda Onset/Duration: Gradual Onset, Lasting Hours, Still Present Timing: Constant Current Severity: Severe Dyspnea At: Rest Aggrevating Factors: Nothing Alleviating Factors: Nothing Associated Signs & Symptoms: Calf Pain/Swelling - Allergy/Home Medications Allergies/Adverse Reactions: Allergies Allergy/AdvReac Type Severity Reaction Status Date / Time Penicillins Allergy Hives Verified 05/15/12 13:56 PMH/Surg Hx/FS Hx/Imm Hx Endocrine/Hematology History: Reports: Hx Diabetes, Hx Anemia Cardiovascular History: Reports: Hx Atrial Fibrillation, Hx Congestive Heart Failure, Hx Coronary Artery Disease, Hx Hypercholesterolemia, Hx Hypertension - ON MEDICATION Denies: Hx Pacemaker/ICD Respiratory History: Reports: Hx Sleep Apnea - NO CPAP Denies: Hx Asthma, Hx Chronic Obstructive Pulmonary Disease (COPD) GI History: Reports: Hx Gastroesophageal Reflux Disease - ON MEDICATION History: Reports: Hx Chronic Renal Failure, Hx Dialysis Musculoskeletal History: Reports: Hx Arthritis Sensory History: Reports: Hx Cataracts - BILATERAL Denies: Hx Contacts or Glasses, Hx Hearing Aid Opthamlomology History: Reports: Hx Cataracts - BILATERAL Denies: Hx Contacts or Glasses Neurological History: Reports: Hx Nerve Disease - Neuropathy, restless leg syndrome Psychiatric History: Reports: Hx Depression - ON MEDICATION Denies: Hx Panic Disorder - Surgical History Surgery Procedure, Year, and Place: 2009 OR 2010 CARDIAC CATHERIZATION, [place] DENTAL WORK, OFFICE Hx Anesthesia Reactions: No - Immunization History Date of Influenza Vaccine: Fall 2016 Infectious Disease History: No Infectious Disease History: Denies: Traveled Outside the [place] in Last 30 Days - Family History Known Family History: Positive: Cardiac Disease Family History: No FHx of malignant hyperthermia. No FHx of anesthesia reaction - Social History Alcohol Use: None Alcohol Amount: 1-2 per week Hx Substance Use: No Substance Use Type: Reports: None Hx Tobacco Use: No Smoking Status (MU): Never Smoked Tobacco Review of Systems Positive: Other - Weight change. Negative: Fever Negative: Chest Pain Positive: Shortness Of Breath Positive: Vomiting All Other Systems Reviewed And Are Negative: Yes Physical Exam Triage Information Reviewed: Yes Vital Signs On Initial Exam: Initial Vitals Temp Pulse Resp BP Pulse Ox 98.2 F 108 30 137/77 94 06/18/17 17:28 06/18/17 17:28 06/18/17 17:28 06/18/17 17:28 06/18/17 17:28 Vital Signs Reviewed: Yes Completion Of Physical Exam Limited Due To: Extremis Appearance: Positive: No Pain Distress, Well-Nourished, Ill-Appearing Skin: Positive: Warm, Skin Color Reflects Adequate Perfusion, Other - Right leg and groin with purple bruising. Head/Face: Positive: Normal Head/Face Inspection Eyes: Positive: Conjunctiva Clear ENT: Positive: Normal ENT inspection Neck: Positive: Supple, Nontender Respiratory/Lung Sounds: Positive: Breath Sounds Present, Rales - All lung sol, Unable to speak in full sentences, Other - Respiratory distress Cardiovascular: Positive: RRR, Pulses are Symmetrical in both Upper and Lower Extremities, Other - Left antecubital AV fistula with bruit and good thrill. Brisk capillary refill.. Negative: Murmur Abdomen Description: Positive: Nontender, No Organomegaly, Soft. Negative: Distended, Guarding, Hepatomegaly, McBurney's Point Tenderness, Peritoneal Signs , Splenomegaly Bowel Sounds: Positive: Present Musculoskeletal: Positive: Strength/ROM Intact, Edema Left, Edema Right, Other - 1+ pitting edema bilaterally Neurological: Positive: Alert, Oriented to Person Place, Time, Other - Tremulous , muscle tone normal, facial symmetry, speech normal, sensory/motor intact Psychiatric: Positive: Normal - Hudson Coma Scale Coma Scale Total: 15 Diagnostics - Vital Signs Vital Signs Temp Pulse Resp BP Pulse Ox 06/18/17 17:37 40 06/18/17 17:33 98 06/18/17 17:28 98.2 F 108 30 137/77 94 - Laboratory Lab Results: Lab Results 06/18/17 06/18/17 06/18/17 Range/Units 17:33 17:33 17:33 WBC 13.0 H (3.5-10.8) 10^3/ul RBC 2.74 L (4.0-5.4) 10^6/ul Hgb 8.9 L (14.0-18.0) g/dl Hct 28 L (42-52) % MCV 102 H (80-94) fL MCH 33 H (27-31) pg MCHC 32 (31-36) g/dl RDW 15 (10.5-15) % Plt Count 286 (150-450) 10^3/ul MPV 8 (7.4-10.4) um3 Neut % (Auto) 88.9 H (38-83) % Lymph % (Auto) 4.9 L (25-47) % [place] % (Auto) 4.4 (1-9) % Eos % (Auto) 1.2 (0-6) % Baso % (Auto) 0.6 (0-2) % Absolute Neuts (auto) 11.6 H (1.5-7.7) 10^3/ul Absolute Lymphs (auto) 0.6 L (1.0-4.8) 10^3/ul Absolute Monos (auto) 0.6 (0-0.8) 10^3/ul Absolute Eos (auto) 0.2 (0-0.6) 10^3/ul Absolute Basos (auto) 0.1 (0-0.2) 10^3/ul Absolute Nucleated RBC 0 10^3/ul Nucleated RBC % 0 INR (Anticoag Therapy) 1.06 H (0.77-1.02) APTT 36.3 (26.0-36.3) seconds D-Dimer, Quantitative > 1050 H (Less Than 230) ng/mL Patient Temperature ABG pH (7.35-7.45) ABG pH (Temp Correct) ABG pCO2 (35-45) mmHg ABG pCO2 (Temp Corrct ABG pO2 (80-100) mmHg ABG pO2 (Temp Correct ABG HCO3 (19-31) mmol/L ABG O2 Saturation (95-98) % ABG Base Excess (-2.0-2.0) Respiration Rate O2 Delivery Device Ventilator Type Vent Mode FiO2 Inspiratory Time PEEP Pressure Support Pressure Control EPAP IPAP BiPAP Sodium (133-145) mmol/L Potassium (3.5-5.0) mmol/L Chloride (101-111) mmol/L Carbon Dioxide (22-32) mmol/L Anion Gap (2-11) mmol/L BUN (6-24) mg/dL Creatinine (0.67-1.17) mg/dL Est GFR ( Amer) (>60) Est GFR (Non-Af Amer) (>60) BUN/Creatinine Ratio (8-20) Glucose (70-100) mg/dL Lactic Acid (0.5-2.0) mmol/L Calcium (8.6-10.3) mg/dL Magnesium (1.9-2.7) mg/dL Total Bilirubin (0.2-1.0) mg/dL AST (13-39) U/L ALT (7-52) U/L Alkaline Phosphatase (34-104) U/L Total Creatine Kinase (10-223) U/L CK-MB (CK-2) (0.6-6.3) ng/mL Troponin I (<0.04) ng/mL B-Natriuretic Peptide 2144 H ( - 100) pg/mL Total Protein (6.4-8.9) g/dL Albumin (3.2-5.2) g/dL Globulin (2-4) g/dL Albumin/Globulin Ratio (1-3) TSH (0.34-5.60) mcIU/mL Thyroxine (T4) (6.09-12.23) mcg/mL 06/18/17 06/18/17 06/18/17 Range/Units 17:33 17:33 17:50 WBC (3.5-10.8) 10^3/ul RBC (4.0-5.4) 10^6/ul Hgb (14.0-18.0) g/dl Hct (42-52) % MCV (80-94) fL MCH (27-31) pg MCHC (31-36) g/dl RDW (10.5-15) % Plt Count (150-450) 10^3/ul MPV (7.4-10.4) um3 Neut % (Auto) (38-83) % Lymph % (Auto) (25-47) % [place] % (Auto) (1-9) % Eos % (Auto) (0-6) % Baso % (Auto) (0-2) % Absolute Neuts (auto) (1.5-7.7) 10^3/ul Absolute Lymphs (auto) (1.0-4.8) 10^3/ul Absolute Monos (auto) (0-0.8) 10^3/ul Absolute Eos (auto) (0-0.6) 10^3/ul Absolute Basos (auto) (0-0.2) 10^3/ul Absolute Nucleated RBC 10^3/ul Nucleated RBC % INR (Anticoag Therapy) (0.77-1.02) APTT (26.0-36.3) seconds D-Dimer, Quantitative (Less Than 230) ng/mL Patient Temperature Not Reportable ABG pH 7.51 H (7.35-7.45) ABG pH (Temp Correct) Not Reportable ABG pCO2 42 (35-45) mmHg ABG pCO2 (Temp Corrct Not Reportable ABG pO2 58 L* (80-100) mmHg ABG pO2 (Temp Correct Not Reportable ABG HCO3 32.2 H (19-31) mmol/L ABG O2 Saturation 93.1 L (95-98) % ABG Base Excess 9.5 H (-2.0-2.0) Respiration Rate Not Reportable O2 Delivery Device oxymask Ventilator Type Not Reportable Vent Mode Not Reportable FiO2 15 Inspiratory Time Not Reportable PEEP Not Reportable Pressure Support Not Reportable Pressure Control Not Reportable EPAP Not Reportable IPAP Not Reportable BiPAP Not Reportable Sodium 133 (133-145) mmol/L Potassium 6.6 H* (3.5-5.0) mmol/L Chloride 92 L (101-111) mmol/L Carbon Dioxide 30 (22-32) mmol/L Anion Gap 11 (2-11) mmol/L BUN 44 H (6-24) mg/dL Creatinine 7.91 H (0.67-1.17) mg/dL Est GFR ( Amer) 8.9 (>60) Est GFR (Non-Af Amer) 6.9 (>60) BUN/Creatinine Ratio 5.6 L (8-20) Glucose 130 H (70-100) mg/dL Lactic Acid 2.6 H* (0.5-2.0) mmol/L Calcium 9.9 (8.6-10.3) mg/dL Magnesium 1.8 L (1.9-2.7) mg/dL Total Bilirubin 1.20 H (0.2-1.0) mg/dL AST 24 (13-39) U/L ALT 25 (7-52) U/L Alkaline Phosphatase 54 (34-104) U/L Total Creatine Kinase 171 (10-223) U/L CK-MB (CK-2) 4.2 (0.6-6.3) ng/mL Troponin I 0.03 (<0.04) ng/mL B-Natriuretic Peptide ( - 100) pg/mL Total Protein 7.7 (6.4-8.9) g/dL Albumin 4.2 (3.2-5.2) g/dL Globulin 3.5 (2-4) g/dL Albumin/Globulin Ratio 1.2 (1-3) TSH 2.20 (0.34-5.60) mcIU/mL Thyroxine (T4) 9.82 (6.09-12.23) mcg/mL Result Diagrams: 06/18/17 17:33 06/18/17 17:33 Lab Statement: Any lab studies that have been ordered have been reviewed, and results considered in the medical decision making process. - Radiology CXR Radiology Interpretation Completed By: Radiologist - PULMONARY INTERSTITIAL AND ALVEOLAR EDEMA. ED physician has reviewed this radiology report. - EKG 1730 Cardiac Rate: Tachycardia EKG Rhythm: Sinus Tachycardia - 107 BPM EKG Interpretation: Nml AV IV CT QTC. -[address] depressions in V2-V5. EKG Comparison: No Significant Change - 06/04/17 Re-Evaluation - Re-Evaluation First Eval Re-Evaluation Time: 17:50 Change: Improved - after morphine, nitro, ASA, and O2 Second Eval Re-Evaluation Time: 18:00 - after vapotherm, able to speak full sentences Change: Improved Course/Dx - Course Assessment/Plan: Patients medications reviewed this visit. In the ED course the patient was given ASA, Dr. Mosqueda and Dr. Barrios consulted immediately on arrival. No STEMI per Dr. Barrios. Morphine, and nitroglycerin and started on a nitro drip with improvement of his SOB. Sepsis protocol IV fluids withheld due to CHF. Made aware of PO2 58 and lactic acid 2.16 at 1805. Pt also placed on vapotherm with decrease of his respiratory rate from 50's to 20's after 100% O2. Patient will be admitted to [facility] ICU with Dr. Manning. The patient is agreeable with this plan. - Diagnoses Differential Diagnosis/HQI/PQRI: Positive: CHF, COPD Exacerbation, MS, Pulmonary Embolism, Pulmonary Edema Provider Diagnoses: Acute respiratory failure with hypoxia, ESRD (end stage renal disease), Pulmonary edema with congestive heart failure, Hyperkalemia - Physician Notifications Discussed Care of Patient With: Abdifatah Mosqueda Time Discussed With Above Provider: 17:36 Instructed by Provider To: Other - Consulted Dr. Mosqueda (dielectric press operator) at 1736 regarding the patients case and plan for care. Consulted Dr. Barrios ( silk hanger) at 1745 regarding the patient's case. Consulted Dr. Mosqueda again at 1748 who reports the Dialysis machine is not ready yet if it were to be needed. Consulted Dr. Barrios again at 1757 who reports the patient is not a STEMI. Consulted Dr. Manning (hospitalist) at 1806 who agrees to admit. - Critical Care Time Critical Care Time: 30-74 min - 30 minutes Discharge - Discharge Plan Condition: Guarded Disposition: ADMITTED TO [facility] documentation as recorded by the [place] patricio Alfonso accurately reflects the service I personally performed and the decisions made by , Geneva Cha MD.
[2017-06-18] MEDS ORDERED: Sodium Polystyrene ORAL.SOL* 15 GM/60 ML BTL PO ONE (20:00)
[2017-06-18] MEDS ORDERED: Furosemide IV* 10 MG/ML 10 ML VIAL (100 MG) IV ONE (20:01)
[2017-06-18] MEDS: Atorvastatin* 10 MG TAB PO SCH (21:08)
[2017-06-18] MEDS: Metoprolol Tartrate TAB* 25 MG PO SCH (21:08)
[2017-06-18] MEDS: Heparin VIAL(*) 5000 UNITS/ML VIAL (FIVE THOUSAND) SUBCUT SCH (21:08)
[2017-06-18] MEDS: Ropinirole TAB* 0.5 MG TAB PO SCH (21:47)
--- NOTE | 2017-06-19 00:08 | HP ---
C: Dr. Balbina Corral; Dr. Abdifatah Mosuqeda * HISTORY AND PHYSICAL: DATE OF ADMISSION: 06/18/17 PRIMARY CARE PROVIDER: Dr. Balbina Corral. STAFF RADIOLOGIST: Dr. Abdifatah Mosqueda. ATTENDING PHYSICIAN: Blaire Chan DO * (dictated by Brendan Yun NP). CHIEF COMPLAINT: Shortness of breath. HISTORY OF PRESENT ILLNESS: Mr. Knight is a 66-year-old male with past medical history significant for end-stage renal disease, on hemodialysis; atrial fibrillation, off full anticoagulation due to a hematoma; cerebrovascular accident; GERD; congestive heart failure; diet-controlled diabetes mellitus; obstructive sleep apnea, non-treated; and restless leg syndrome, who presents to the emergency room today with complaints of shortness of breath starting in the last couple of days. The patient states that since he had dialysis on Sunday, he had not been monitoring his fluid intake and had lost track, he feels that he went over his fluid restriction. He also reports vomiting this afternoon while waiting for EMS. He denies any chills, chest pain. He reports intermittent cough with clear mucus production, but then often was followed by the vomiting. He reports shaking, does not feel that he had a fever. He reports generalized weakness. He has a hematoma in his right thigh that he has had for several weeks that is improving. While in the emergency room, the patient had a chest x-ray showing pulmonary interstitial and alveolar edema. He had an EKG showing a sinus tachycardia with a rate of [address] depressions in leads V2 to 5. This EKG was similar to previous EKG from 06/04/17 with the exception that at that time he was in an atrial flutter. He had labs significant for hyperkalemia with potassium of 6.7. His BUN was 44 and creatinine 7.91, magnesium 1.8. He had a D-dimer greater than 1050, lactic acid 2.6, BNP 2144. He had a mild leukocytosis with white blood cell count of 13.0. He had an ABG showing pH of 7.51, bicarb 82.2, pO2 of 58, pCO2 of 42, O2 saturation of 93.1, and base excess of 9.5. While in the ER the patient was noted to be tachypneic. He was placed initially on OxyMask and then transition to Vapotherm for acute hypoxic respiratory failure. He had initially been called in by EMS as possible STEMI. After his EKGs were reviewed by Dr. Barrios, it was felt that this was not a STEMI. His troponin was 0.03. Hospitalist were asked to evaluate the patient for admission. PAST MEDICAL HISTORY: 1. End-stage renal disease, on hemodialysis, Sunday, , Sunday. 2. Atrial fibrillation, currently off anticoagulation due to a hematoma. 3. Cerebrovascular accident. 4. Hypertension. 5. GERD. 6. Congestive heart failure, last EF 40 to 45. 7. Diet-controlled diabetes mellitus. 8. Obstructive sleep apnea. 9. Restless leg syndrome. PAST SURGICAL HISTORY: 1. Status post hemodialysis fistula to the left arm forearm. 2. Status post cardiac catheterization x2. MEDICATIONS: Home medications include: 1. Rfip-uuu-lelvkyy allergy medicine 1 tablet daily as needed. The patient is unsure of the name but states that it is a store brand medication. 2. Simvastatin 20 mg oral daily. 3. Sevelamer 800 mg oral 3 times daily with meals. 4. Requip 0.75 mg oral 3 times daily. 5. Omeprazole 20 mg oral daily. 6. Nitroglycerin 0.4 mg sublingual every 5 minutes as needed for chest pain. 7. Nifedipine ER 30 mg oral daily. 8. Metoprolol tartrate 50 mg oral twice daily. 9. Lisinopril 20 mg oral daily. 10. Nephro-Mark one tablet oral daily. 11. Aspirin 81 mg oral daily. 12. Acetaminophen 650 mg oral every 8 hours as needed for fever or pain. ALLERGIES: PENICILLIN and ENVIRONMENTAL ALLERGIES. FAMILY HISTORY: The patient's father had a history of coronary artery disease. The patient's mother and father had a history of diabetes mellitus. The patient denies any family history of cancer. SOCIAL HISTORY: The patient denies tobacco or recreational drug use. He drinks 1 to 2 alcoholic beverages weekly. His sister, Helga Knight, will be his surrogate decision maker in the event that he is unable to make decisions for himself. REVIEW OF SYSTEMS: I performed a 14-point review of systems. All the pertinent positives and negatives are mentioned in the history of present illness. The remaining review of systems are negative. PHYSICAL EXAMINATION GENERAL APPEARANCE: The patient is alert, pleasant, and appears to be in no acute distress. VITAL SIGNS: Temperature 98.2, heart rate 88, respiratory rate 23, O2 sat 100% on 40% Vapotherm. Blood pressure 128/53. HEENT: Normocephalic, atraumatic. Pupils are equal and reactive to light. Extraocular movements are intact. NECK: Supple. RESPIRATORY: There is no accessory muscle use. The lungs have crackles bilaterally. CARDIOVASCULAR: Regular rate and rhythm. S1, S2 present. There are no murmurs , rubs, or gallops heard. ABDOMEN: Soft, nontender, nondistended. There are bowel sounds present x4. EXTREMITIES: There is no lower extremity edema. Although the patient does have some swelling in his posterior thigh due to hematoma, DP and PT pulses are 2+ and symmetric. The patient has AV fistula in his left forearm and has a positive bruit and thrill. MUSCULOSKELETAL: There is no clubbing or cyanosis noted. The patient exhibits good strength in all extremities. NEUROLOGIC: The patient is alert and oriented x4. Cranial nerves II through XII are grossly intact. PSYCHOLOGICAL: The patient is calm and cooperative. SKIN: There are no rashes or abnormalities seen with the exception of some ecchymosis to the posterior right thigh due to his hematoma. DIAGNOSTIC STUDIES/LABORATORY DATA: Sodium 133, potassium 6.6, chloride 92, CO2 30, BUN 44, creatinine 7.91, glucose 130. Magnesium 1.8. D-dimer greater than 1050. Lactic acid 2.6. BNP 2144. White blood cell count 13.0, hemoglobin 8.9, hematocrit 28, platelet count 286. ABG shows a pH of 7.51, pO2 of 58, pCO2 42, HCO3 82.2, O2 sat 93.1. Base excess 9.5. Troponin 0.03. EKG shows a sinus, tachycardia rate of 107. There is ST depressions in leads V2 to V5. This EKG is similar to previous EKG with the exception of previous EKG from 06/04/17 that showed an atrial flutter. Chest x-ray from today. Radiologist's impression: Pulmonary interstitial and alveolar edema. IMPRESSION: Mr. Knight is a 66-year-old male with past medical history significant for end-stage renal disease on hemodialysis; atrial fibrillation, off anticoagulation; cerebrovascular accident; gastroesophageal reflux disease; congestive heart failure; diet-controlled diabetes; obstructive sleep apnea; and restless leg syndrome, who presents to the emergency room with complaints of shortness of breath. He will be admitted as an inpatient for acute hypoxic respiratory failure and acute renal failure, on chronic end-stage renal disease. ASSESSMENT/PLAN: 1. Acute hypoxic respiratory failure: I suspect this is in the setting of volume overload. The patient has been given IV Lasix. He was requiring Vapotherm, I am going to try to wean him off of Vapotherm. In the past, he has needed BiPAP but has not tolerated it well, so we will start with Vapotherm. 2. Acute renal failure imposed over end-stage renal disease: The patient receives dialysis Sunday, , Sunday. He last received dialysis on Sunday. We are going to give him IV Lasix and hold on emergent dialysis tonight. He will have dialysis in the morning. 3. Hyperkalemia. I am going to give the patient some Kayexalate, recheck his labs at midnight and we will give further interventions if needed. The patient does not have EKG changes. 4. Leukocytosis and lactic acidosis: At this time, there are no signs of an infection. We will check urinalysis, although the patient denies any urinary symptoms. We will repeat lactic acid later and redraw CBC in the morning. Again at this time, the patient does not have any signs of an infection and he is yet to void. 5. Diabetes mellitus: The patient is diet controlled. We will get fingersticks a.c. and h.s. and hold on any insulin coverage. We will start insulin if he has elevated glucoses in the setting of his acute illness. 6. Atrial fibrillation: The patient is not currently anticoagulated due to a recent right thigh hematoma. He is currently on aspirin. He is currently in sinus rhythm. He will be continued on his home metoprolol. 7. Gastroesophageal reflux disease: The patient will be continued on his home omeprazole. 8. Restless leg syndrome: The patient will be continued on his home Requip. 9. End-stage renal disease: The patient will be continued on his home schedule of dialysis. He will be continued on sevelamer and renal vitamins. 10. Fluids, electrolytes, and nutrition: The patient will be on a renal diet with 1.5 L fluid restriction. 11. Code status: Full code. 12. DVT prophylaxis: The patient is at moderate risk and will have subcu heparin. 13. Disposition: Inpatient. TIME SPENT: Time for this admission was approximately 70 minutes, greater than half of that was spent with the patient discussing medications, past medical history, the events leading up to his arrival today, and performing a physical examination. Case has been reviewed with the attending, Dr. Chan, who agrees with the plan of care. BRENDAN LUCAS, EMERGENCY ROOM PHYSICIAN [id number]/CPS #: [id number]
[2017-06-19 00:17] LABS: BUN/Creatinine Ratio 5.8 (8-20); Calcium 9.1 mg/dL (8.6-10.3); EGFR African American 8.2 (>60); EGFR Non-African American 6.4 (>60)
[2017-06-19 00:20] LABS: Potassium 6.7 mmol/L (3.5-5.0)
[2017-06-19] MEDS ORDERED: Insulin REGULAR(*) 1 UNITS UNIT IV PUSH ONE (01:00)
[2017-06-19] MEDS ORDERED: Dextrose 50% Syringe 50 ML* 25 GM/50 ML SYRINGE IV PUSH ONE (01:00)
[2017-06-19 02:51] LABS: Urine Bacteria Absent (Absent); Urine Bilirubin Negative (Negative); Urine Glucose 2+(150 mg/dL) (Negative); Urine Nitrite Negative (Negative)
[2017-06-19] MEDS: Heparin VIAL(*) 5000 UNITS/ML VIAL (FIVE THOUSAND) SUBCUT SCH ×3 (06:00→22:48)
[2017-06-19 06:08] LABS: Hematocrit 25 % (42-52); Hemoglobin 8.2 g/dl (14.0-18.0); Mean Corpuscular HGB Conc 33 g/dl (31-36); Mean Corpuscular Hemoglobin 34 pg (27-31); Mean Corpuscular Volume 103 fL (80-94); Mean Platelet Volume 8 um3 (7.4-10.4); Red Blood Count 2.41 10^6/ul (4.0-5.4); Red Cell Distribution Width 16 % (10.5-15); White Blood Count 8.4 10^3/ul (3.5-10.8)
[2017-06-19 06:09] LABS: Add Diff/Slide Review? Slide Review Added
[2017-06-19 06:31] LABS: BUN/Creatinine Ratio 5.9 (8-20); Calcium 9.6 mg/dL (8.6-10.3); EGFR African American 7.7 (>60)
[2017-06-19 06:37] LABS: Potassium 7.4 mmol/L (3.5-5.0)
[2017-06-19] MEDS ORDERED: Sodium Polystyrene ORAL.SOL* 15 GM/60 ML BTL PO ONE (06:39)
[2017-06-19] MEDS ORDERED: Nitroglycerin TAB 0.4 MG* 0.4 MG TAB SL PRN (07:50)
[2017-06-19] MEDS: Sevelamer TAB* 800 MG PO SCH ×3 (07:56→18:26)
[2017-06-19] MEDS: Metoprolol Tartrate TAB* 25 MG PO SCH ×2 (07:56→20:25)
[2017-06-19] MEDS: Aspirin EC Low Dose* 81 MG TAB.EC PO SCH (07:56)
[2017-06-19] MEDS: NIFEdipine ER TAB* 30 MG PO SCH (07:56)
[2017-06-19] MEDS: Omeprazole CAP* 20 MG PO SCH (07:56)
[2017-06-19] MEDS: Lisinopril TAB* 10 MG PO SCH (07:56)
[2017-06-19] MEDS: Atorvastatin* 10 MG TAB PO SCH (07:56)
[2017-06-19] MEDS: Ropinirole TAB* 0.5 MG TAB PO SCH ×3 (07:56→20:26)
--- NOTE | 2017-06-19 08:11 | PN ---
Subjective Date of Service: 06/19/17 Interval History: Less SOB here. He says he has had worse episodes of SOB than this.Urinated once since admission according to pt, goes 1-3 times a day at home. He states his weight was higher at his last HD 06/16. Objective Active Medications: Acetaminophen (Tylenol Tab*) 650 mg PO Q4H PRN PRN Reason: FEVER/PAIN Aspirin (Aspirin Ec Low Dose*) 81 mg PO DAILY [facility] Last Admin: 06/19/17 07:56 Dose: 81 mg Atorvastatin Calcium (Lipitor*) 10 mg PO DAILY [facility] Last Admin: 06/19/17 07:56 Dose: 10 mg Diphenhydramine HCl (Benadryl Po*) 50 mg PO DAILY PRN PRN Reason: Allergy Symptoms Heparin Sodium (Porcine) (Heparin Vial(*)) 5,000 units SUBCUT Q8HR [facility] Last Admin: 06/19/17 06:00 Dose: 5,000 units Lisinopril (Prinivil Tab*) 20 mg PO DAILY [facility] Last Admin: 06/19/17 07:56 Dose: 20 mg Metoprolol Tartrate (Lopressor Tab*) 50 mg PO BID [facility] Last Admin: 06/19/17 07:56 Dose: 50 mg Nifedipine (Procardia Xl Tab*) 30 mg PO DAILY [facility] Last Admin: 06/19/17 07:56 Dose: 30 mg Nitroglycerin (Nitroglycerin Tab 0.4 Mg*) 0.4 mg SL Q5M PRN PRN Reason: PAIN - CHEST Non-Formulary Medication (B-Complex W/ C & Folic Acid [Nephro-Mark 0.8 Mg]) 1 tab PO DAILY [facility] Omeprazole (Prilosec Cap*) 20 mg PO DAILY [facility] Last Admin: 06/19/17 07:56 Dose: 20 mg Ropinirole HCl (Requip Tab*) 0.75 mg PO TID [facility] Last Admin: 06/19/17 07:56 Dose: 0.75 mg Sevelamer Carbonate (Renvela Tab*) 800 mg PO TID WITH MEALS [facility] Last Admin: 06/19/17 07:56 Dose: 800 mg Sodium Polystyrene Sulfonate (Kayexalate Oral.Maria Isabel*) 15 gm PO DAILY [facility] Vital Signs - 8 hr 06/19/17 06/19/17 06/19/17 00:31 00:33 00:45 Temperature Pulse Rate 76 77 78 Respiratory 18 13 21 Rate Blood Pressure 77/55 131/64 155/51 (mmHg) O2 Sat by Pulse 98 99 100 Oximetry 06/19/17 06/19/17 06/19/17 01:00 02:00 03:00 Temperature Pulse Rate 78 81 82 Respiratory 24 21 18 Rate Blood Pressure 155/66 139/61 151/79 (mmHg) O2 Sat by Pulse 100 100 94 Oximetry 06/19/17 06/19/17 06/19/17 03:34 04:00 05:00 Temperature 96.9 F Pulse Rate 73 74 Respiratory 19 19 Rate Blood Pressure 129/70 (mmHg) O2 Sat by Pulse 100 98 Oximetry 06/19/17 06/19/17 06/19/17 05:01 05:56 06:00 Temperature Pulse Rate 74 83 Respiratory 20 21 22 Rate Blood Pressure 163/63 (mmHg) O2 Sat by Pulse 99 98 Oximetry 06/19/17 06/19/17 06:01 07:00 Temperature Pulse Rate 82 85 Respiratory 29 14 Rate Blood Pressure 163/80 166/76 (mmHg) O2 Sat by Pulse 100 99 Oximetry Oxygen Devices in Use Now: High Flow Heated Nasal Cannula Appearance: Alert, sitting up on ICU bed. Tachypneic, otherwise looks comfortable. Respiratory: - - Basilar rales Cardiovascular: NL Sounds; No Murmurs; No JVD, RRR, No Edema, - Extremities: No Edema, No Clubbing, Cyanosis, - Skin: No Nodules or Sclerosis, - - onychomycosis all toenails. Markedly dry scaly skin on feet. Neurological: Alert and Oriented x 3, NL Sensation Result Diagrams: 06/19/17 05:53 06/19/17 05:53 Additional Lab and Data: Lab Results 06/18/17 06/18/17 06/18/17 Range/Units 17:33 17:33 17:33 WBC 13.0 H (3.5-10.8) 10^3/ul RBC 2.74 L (4.0-5.4) 10^6/ul Hgb 8.9 L (14.0-18.0) g/dl Hct 28 L (42-52) % MCV 102 H (80-94) fL MCH 33 H (27-31) pg MCHC 32 (31-36) g/dl RDW 15 (10.5-15) % Plt Count 286 (150-450) 10^3/ul MPV 8 (7.4-10.4) um3 Neut % (Auto) 88.9 H (38-83) % Lymph % (Auto) 4.9 L (25-47) % Marin % (Auto) 4.4 (1-9) % Eos % (Auto) 1.2 (0-6) % Baso % (Auto) 0.6 (0-2) % Absolute Neuts (auto) 11.6 H (1.5-7.7) 10^3/ul Absolute Lymphs (auto) 0.6 L (1.0-4.8) 10^3/ul Absolute Monos (auto) 0.6 (0-0.8) 10^3/ul Absolute Eos (auto) 0.2 (0-0.6) 10^3/ul Absolute Basos (auto) 0.1 (0-0.2) 10^3/ul Absolute Nucleated RBC 0 10^3/ul Nucleated RBC % 0 INR (Anticoag Therapy) 1.06 H (0.77-1.02) APTT 36.3 (26.0-36.3) seconds D-Dimer, Quantitative > 1050 H (Less Than 230) ng/mL Patient Temperature ABG pH (7.35-7.45) ABG pH (Temp Correct) ABG pCO2 (35-45) mmHg ABG pCO2 (Temp Corrct ABG pO2 (80-100) mmHg ABG pO2 (Temp Correct ABG HCO3 (19-31) mmol/L ABG O2 Saturation (95-98) % ABG Base Excess (-2.0-2.0) Respiration Rate O2 Delivery Device Ventilator Type Vent Mode FiO2 Inspiratory Time PEEP Pressure Support Pressure Control EPAP IPAP BiPAP Sodium (133-145) mmol/L Potassium (3.5-5.0) mmol/L Chloride (101-111) mmol/L Carbon Dioxide (22-32) mmol/L Anion Gap (2-11) mmol/L BUN (6-24) mg/dL Creatinine (0.67-1.17) mg/dL Est GFR ( Amer) (>60) Est GFR (Non-Af Amer) (>60) BUN/Creatinine Ratio (8-20) Glucose (70-100) mg/dL Lactic Acid (0.5-2.0) mmol/L Calcium (8.6-10.3) mg/dL Magnesium (1.9-2.7) mg/dL Total Bilirubin (0.2-1.0) mg/dL AST (13-39) U/L ALT (7-52) U/L Alkaline Phosphatase (34-104) U/L Total Creatine Kinase (10-223) U/L CK-MB (CK-2) (0.6-6.3) ng/mL Troponin I (<0.04) ng/mL B-Natriuretic Peptide 2144 H ( - 100) pg/mL Total Protein (6.4-8.9) g/dL Albumin (3.2-5.2) g/dL Globulin (2-4) g/dL Albumin/Globulin Ratio (1-3) TSH (0.34-5.60) mcIU/mL Thyroxine (T4) (6.09-12.23) mcg/mL 06/18/17 06/18/17 06/18/17 Range/Units 17:33 17:33 17:50 WBC (3.5-10.8) 10^3/ul RBC (4.0-5.4) 10^6/ul Hgb (14.0-18.0) g/dl Hct (42-52) % MCV (80-94) fL MCH (27-31) pg MCHC (31-36) g/dl RDW (10.5-15) % Plt Count (150-450) 10^3/ul MPV (7.4-10.4) um3 Neut % (Auto) (38-83) % Lymph % (Auto) (25-47) % Marin % (Auto) (1-9) % Eos % (Auto) (0-6) % Baso % (Auto) (0-2) % Absolute Neuts (auto) (1.5-7.7) 10^3/ul Absolute Lymphs (auto) (1.0-4.8) 10^3/ul Absolute Monos (auto) (0-0.8) 10^3/ul Absolute Eos (auto) (0-0.6) 10^3/ul Absolute Basos (auto) (0-0.2) 10^3/ul Absolute Nucleated RBC 10^3/ul Nucleated RBC % INR (Anticoag Therapy) (0.77-1.02) APTT (26.0-36.3) seconds D-Dimer, Quantitative (Less Than 230) ng/mL Patient Temperature Not Reportable ABG pH 7.51 H (7.35-7.45) ABG pH (Temp Correct) Not Reportable ABG pCO2 42 (35-45) mmHg ABG pCO2 (Temp Corrct Not Reportable ABG pO2 58 L* (80-100) mmHg ABG pO2 (Temp Correct Not Reportable ABG HCO3 32.2 H (19-31) mmol/L ABG O2 Saturation 93.1 L (95-98) % ABG Base Excess 9.5 H (-2.0-2.0) Respiration Rate Not Reportable O2 Delivery Device oxymask Ventilator Type Not Reportable Vent Mode Not Reportable FiO2 15 Inspiratory Time Not Reportable PEEP Not Reportable Pressure Support Not Reportable Pressure Control Not Reportable EPAP Not Reportable IPAP Not Reportable BiPAP Not Reportable Sodium 133 (133-145) mmol/L Potassium 6.6 H* (3.5-5.0) mmol/L Chloride 92 L (101-111) mmol/L Carbon Dioxide 30 (22-32) mmol/L Anion Gap 11 (2-11) mmol/L BUN 44 H (6-24) mg/dL Creatinine 7.91 H (0.67-1.17) mg/dL Est GFR ( Amer) 8.9 (>60) Est GFR (Non-Af Amer) 6.9 (>60) BUN/Creatinine Ratio 5.6 L (8-20) Glucose 130 H (70-100) mg/dL Lactic Acid 2.6 H* (0.5-2.0) mmol/L Calcium 9.9 (8.6-10.3) mg/dL Magnesium 1.8 L (1.9-2.7) mg/dL Total Bilirubin 1.20 H (0.2-1.0) mg/dL AST 24 (13-39) U/L ALT 25 (7-52) U/L Alkaline Phosphatase 54 (34-104) U/L Total Creatine Kinase 171 (10-223) U/L CK-MB (CK-2) 4.2 (0.6-6.3) ng/mL Troponin I 0.03 (<0.04) ng/mL B-Natriuretic Peptide ( - 100) pg/mL Total Protein 7.7 (6.4-8.9) g/dL Albumin 4.2 (3.2-5.2) g/dL Globulin 3.5 (2-4) g/dL Albumin/Globulin Ratio 1.2 (1-3) TSH 2.20 (0.34-5.60) mcIU/mL Thyroxine (T4) 9.82 (6.09-12.23) mcg/mL Assess/Plan/Problems-Billing Assessment: - Patient Problems (1) CHF (congestive heart failure) Current Visit: Yes Status: Acute Code(s): I50.9 - HEART FAILURE, UNSPECIFIED SNOMED Code(s): 61048514 Comment: Acute on chronic systolic CHF, exacerbated by fluid overload. HD , needs lower weight target. (2) ESRD (end stage renal disease) Current Visit: No Status: Acute Code(s): N18.6 - END STAGE RENAL DISEASE SNOMED Code(s): 47068060 Comment: HD TuThSa. Nutririon consult requested. (3) Hyperkalemia Current Visit: No Status: Acute Priority: High Onset Date: 05/15/14 Code (s): E87.5 - HYPERKALEMIA SNOMED Code(s): 47217179 Comment: Daily sodium polystyrene 15 gm, start 06/19, titrate as outpt. (4) Afib Current Visit: No Status: Chronic Code(s): I48.91 - UNSPECIFIED ATRIAL FIBRILLATION SNOMED Code(s): 99742417 Comment: off anticoagulation due to prior hematoma/anemia
[2017-06-19] MEDS: NON FORMULARY MED* (B-Complex W/ C & Folic Acid [Nephro-Vite 0.8 Mg] 1 TAB) PO SCH (08:55)
[2017-06-19] MEDS ORDERED: Sodium Polystyrene ORAL.SOL* 15 GM/60 ML BTL PO SCH (09:00)
[2017-06-19] MEDS ORDERED: Heparin DIALYSIS ONLY(*) 1,000 UNITS/ML VIAL DIALYSIS ONE (11:30)
[2017-06-19 11:33] LABS: Phosphorus 2.9 mg/dL (2.5-5.0)
[2017-06-19] MEDS ORDERED: Epoetin Alfa* 4,000 UNITS/ML VIAL IV ONE (12:00)
[2017-06-19] MEDS ORDERED: Metoprolol Tartrate TAB* 25 MG PO SCH (12:00)
[2017-06-19] MEDS ORDERED: Metoprolol Tartrate TAB* 25 MG PO ONE (12:00)
[2017-06-19 15:43] LABS: BUN/Creatinine Ratio 4.5 (8-20); Calcium 8.9 mg/dL (8.6-10.3); EGFR African American 14.6 (>60); EGFR Non-African American 11.3 (>60); Potassium 3.6 mmol/L (3.5-5.0)
[2017-06-20] MEDS: Heparin VIAL(*) 5000 UNITS/ML VIAL (FIVE THOUSAND) SUBCUT SCH (06:08)
[2017-06-20 06:33] LABS: Hematocrit 22 % (42-52); Hemoglobin 7.6 g/dl (14.0-18.0); Mean Corpuscular HGB Conc 34 g/dl (31-36); Mean Corpuscular Hemoglobin 35 pg (27-31); Mean Corpuscular Volume 101 fL (80-94); Mean Platelet Volume 9 um3 (7.4-10.4); Red Blood Count 2.19 10^6/ul (4.0-5.4); Red Cell Distribution Width 15 % (10.5-15); White Blood Count 3.8 10^3/ul (3.5-10.8)
[2017-06-20 06:57] LABS: BUN/Creatinine Ratio 5.4 (8-20); Calcium 9.1 mg/dL (8.6-10.3); EGFR African American 10.6 (>60); EGFR Non-African American 8.2 (>60)
[2017-06-20] MEDS: Sevelamer TAB* 800 MG PO SCH (07:59)
[2017-06-20] MEDS: Aspirin EC Low Dose* 81 MG TAB.EC PO SCH (08:00)
[2017-06-20] MEDS: Lisinopril TAB* 10 MG PO SCH (08:00)
[2017-06-20] MEDS: Ropinirole TAB* 0.5 MG TAB PO SCH (08:01)
[2017-06-20] MEDS: Atorvastatin* 10 MG TAB PO SCH (08:01)
[2017-06-20] MEDS: Metoprolol Tartrate TAB* 25 MG PO SCH (08:02)
[2017-06-20] MEDS: NIFEdipine ER TAB* 30 MG PO SCH (08:02)
[2017-06-20] MEDS: Omeprazole CAP* 20 MG PO SCH (08:02)
[2017-06-20] MEDS: NON FORMULARY MED* (B-Complex W/ C & Folic Acid [Nephro-Vite 0.8 Mg] 1 TAB) PO SCH (08:05)
[2017-06-20] MEDS ORDERED: Folic Acid TAB* 1 MG PO SCH (09:00)
[2017-06-20] MEDS ORDERED: Vitamin B Complex TAB PO SCH (09:00)
--- NOTE | 2017-06-20 09:02 | PN ---
Progress Note - Progress Note Date of Service: 06/20/17 Note: Time spent on discharge 50 minutes.
--- NOTE | 2017-06-20 09:39 | DS ---
CC: Dr. Corral; Dr. Mosqueda * DISCHARGE SUMMARY: DATE OF ADMISSION: 06/18/17 DATE OF DISCHARGE: 06/20/17 HOSPITAL COURSE: This 66-year-old man was admitted with fluid overload from endstage renal disease as well as hyperkalemia. The patient clearly had dietary indiscretion and also this was the portion of the weakened, which he had 3 days between dialysis treatments. His potassium was recorded up to 7.4. He received several doses of Kayexalate and also insulin and glucose. He had dialysis the next morning. He was much improved. His dyspnea resolved. His potassium level on the day of discharge was 4.0. His oxygen saturation was on room air was 98% to 100%. The patient did have a few instances of low grade fever, the highest being 100.9. He had a mild nausea. He may have some mild viral illness, but I do not think this was of concern at this time. His white count was 2.8 on the day of discharge, which is elevated due to his congestive heart failure, but it was 8.4 on this second hospital day. The patient spoke to dietitian about his renal diet again. He realizes that he needs to make changes; I know he has continued followup with the dialysis dietitian as well. I decided to give the patient a prescription for Kayexalate 15 g every Sunday and Sunday. This can be titrated up or down as needed, depending on how he does as an outpatient. FINAL DIAGNOSES: 1. Endstage renal disease with fluid overload and hyperkalemia. 2. Atrial fibrillation. DISCHARGE MEDICATIONS: 1. Sodium polystyrene 15 g every Sunday and Sunday. 2. Simvastatin 20 mg daily. 3. Omeprazole 20 mg daily. 4. Lisinopril 20 mg daily. 5. Nitroglycerin 0.4 mg every 5 minutes p.r.n. 6. Diphenhydramine 50 mg daily p.r.n. 7. Nephro-Mark 1 daily. 8. Sevelamer 800 mg t.i.d. with meals. 9. Nifedipine ER 30 mg daily. 10. Acetaminophen 650 mg every 8 hours p.r.n. 11. Ropinirole 0.75 mg t.i.d. 12. Metoprolol tartrate 50 mg b.i.d. 13. Aspirin 81 mg daily. The patient was instructed to discuss both the possibility of having an overnight sleep oximetry study as well as reconsidering the use of anticoagulation for his atrial fibrillation in light of his previous hematoma. [id number]/[facility] #: [id number] PETER
[2017-06-20 10:31] VITALS: BP 157/77
[2017-06-22] MEDS ORDERED: Sodium Polystyrene ORAL.SOL* 15 GM/60 ML BTL PO SCH (20:58)
== END 2017-06-20 15:16 | disposition home or self-care (01) | DRG 291 ==
LOC: ED 17:20 → ICU 18:48
PROVIDERS: ADMIT Internal Medicine; ATTEND Internal Medicine
DX: I50.23 Acute on chronic systolic (congestive) heart failure (principal); N18.6 End stage renal disease; J96.01 Acute respiratory failure with hypoxia; E11.22 Type 2 diabetes mellitus with diabetic chronic kidney disease; N17.9 Acute kidney failure, unspecified; I48.91 Unspecified atrial fibrillation; G25.81 Restless legs syndrome; E87.5 Hyperkalemia; D72.829 Elevated white blood cell count, unspecified; K21.9 Gastro-esophageal reflux disease without esophagitis; G47.33 Obstructive sleep apnea (adult) (pediatric); Z86.73 Personal history of transient ischemic attack (TIA), and cerebral infarction without residual deficits; Z99.2 Dependence on renal dialysis; Z79.1 Long term (current) use of non-steroidal anti-inflammatories (NSAID); Z79.82 Long term (current) use of aspirin; Z79.899 Other long term (current) drug therapy; Z88.0 Allergy status to penicillin; Z82.49 Family history of ischemic heart disease and other diseases of the circulatory system; Z83.3 Family history of diabetes mellitus
CPT/HCPCS: 36415; 36600; 71010; 80048; 80053; 81003; 81015; 82550; 82553; 82803; 83605; 83735; 83880; 84100; 84436; 84443; 84484; 85025; 85027; 85379; 85610; 85730; 87040; 87641; 90935; 93005; 94760; A9270-GY; G0257; J0885; J1644; J1940; J2270

== ENCOUNTER 2017-08-14 09:50 | Inpatient (IN) | payer MEDICARE, MEDICAID ==
[2017-08-14 10:20] LABS: ABS Basophils 0.1 10^3/ul (0-0.2); ABS Eosinophils 0.1 10^3/ul (0-0.6); ABS Lymphocytes 0.8 10^3/ul (1.0-4.8); ABS Monocytes 0.6 10^3/ul (0-0.8); ABS Neutrophils 8.6 10^3/ul (1.5-7.7); ABS Nucleated RBC 0 10^3/ul; Hematocrit 26 % (42-52); Hemoglobin 8.5 g/dl (14.0-18.0); Lymphocyte % 7.9 % (25-47); Mean Corpuscular HGB Conc 33 g/dl (31-36); Mean Corpuscular Hemoglobin 33 pg (27-31); Mean Corpuscular Volume 101 fL (80-94); Mean Platelet Volume 7 um3 (7.4-10.4); Nucleated Red Blood Cells % 0.1; Platelet Count 229 10^3/ul (150-450); Red Blood Count 2.55 10^6/ul (4.0-5.4); Red Cell Distribution Width 18 % (10.5-15); White Blood Count 10.2 10^3/ul (3.5-10.8)
[2017-08-14 10:36] LABS: EGFR Non-African American 13.7 (>60)
[2017-08-14] MEDS ORDERED: Furosemide IV* 10 MG/ML 2 ML VIAL (20 MG) IV ONE (10:54)
--- NOTE | 2017-08-14 10:58 | RAD ---
INDICATION: Shortness of breath. COMPARISON: Correlation is made with prior studies from June 05, 2017 and June 18, 2017. TECHNIQUE: A portable view of the chest was obtained. FINDINGS: The heart is mildly enlarged. There is diffuse prominence of the interstitial markings with more focal infiltrates at both lung bases. There are small bilateral pleural effusions. These findings appear similar to the prior exam. IMPRESSION: FINDINGS MOST CONSISTENT WITH CONGESTIVE HEART FAILURE LESS LIKELY PNEUMONIA.
[2017-08-14] MEDS ORDERED: Cefepime(*) 2 GM in NS 0.9% 50 ML* 50 ML IVPB ONE (11:52)
[2017-08-14] MEDS ORDERED: Dextrose 50% VIAL 50 ml IV PRN (12:03)
[2017-08-14] MEDS ORDERED: Dextrose 50% Syringe 50 ML* 25 GM/50 ML SYRINGE ONE (12:11)
[2017-08-14] MEDS ORDERED: Dextrose 50% Syringe 50 ML* 25 GM/50 ML SYRINGE IV PUSH ONE (12:16)
[2017-08-14] MEDS ORDERED: Propofol* 0 ML ONE (12:54)
[2017-08-14] MEDS ORDERED: Norepinephrine 16MCG/ML IVPRE* 0 MCG/0 ML BAG IV ONE (12:54)
[2017-08-14] MEDS ORDERED: Vancomycin(*) 1,000 MG in NS 0.9% 250 ML* 250 ML IVPB ONE ×2 (13:00→14:00)
[2017-08-14] MEDS ORDERED: Acetaminophen TAB* 325 MG PO PRN (13:03)
[2017-08-14] MEDS ORDERED: Dextrose 50% Syringe 50 ML* 25 GM/50 ML SYRINGE IV PUSH PRN (13:14)
[2017-08-14] MEDS ORDERED: Oseltamivir CAP* 30 MG CAP PO SCH (13:15)
[2017-08-14] MEDS ORDERED: NS 0.9% 1000 ML* 1,000 ML IV SCH (13:15)
[2017-08-14] MEDS ORDERED: Vancomycin(*) 1,000 MG in NS 0.9% 250 ML* 250 ML IVPB PRN (14:41)
--- NOTE | 2017-08-14 14:47 | RAD ---
Indication: Altered mental status. Symptoms began at dialysis. Associated shortness of breath. Comparison: May 29, [address] Technique: Noncontrast CT vertex of skull through foramen magnum. Report: Chronic encephalomalacia related to previous infarcts at the RIGHT frontal and LEFT parietal lobes. No new region of whittaker matter white matter obscuration, intra or extra-axial hemorrhage, or mass effect. Decreased density in the periventricular and subcortical white matter while non-specific is most likely due to chronic microangiopathy. Mild prominence of the cerebral sulci and cerebellar fissures reflecting atrophy. Unremarkable ventricles and basal cisterns. Unremarkable orbital contents. Small fluid level at the partially visualized RIGHT maxillary sinus. No suspicious calvarial or skull base lesions evident. Peripheral vascular calcifications noted at the intracranial internal carotid arteries and the superficial scalp arteries. IMPRESSION: 1. No acute intracranial process evident. 2. Unchanged bilateral foci of encephalomalacia related to previous infarcts and stigmata of chronic small vessel ischemic disease.
[2017-08-14] MEDS: Azithromycin IV(*) 500 MG in NS 0.9% 250 ML* 250 ML IVPB SCH (14:57)
[2017-08-14] MEDS: Heparin VIAL(*) 5000 UNITS/ML VIAL (FIVE THOUSAND) SUBCUT SCH ×2 (15:36→21:57)
[2017-08-14] MEDS: Oseltamivir CAP* 30 MG CAP PO SCH (15:37)
[2017-08-14] MEDS: Pantoprazole IV* 40 MG IV SCH (15:37)
--- NOTE | 2017-08-14 15:39 | PN ---
Progress Note - Progress Note Date of Service: 08/14/17 - [facility] admission note Note: Pt was seen and examined at bedside. Agree with dictated history and physical by Kp Nieves CATTLE MANAGER Pt was sent from dialysis for evaluation of AMS and SOB. Pt was found to be lethargic upon arrival. His BS was 50, received dextrose. He was also noted to be hypotensive, received fluid resuscitation. He was noted to be febrile with left shift. He was hypoxic and was placed on high flow. No evidence of metabolic acidosis or hypercapnia was noted. He was noted to have elevated lactic acid. He bacame more respnsive while in ED and intubation was deferred. He was admitted to ICU with diagnosis of septic shock and septic encephalopathy. Labs, imaging studies, prior hospital records were reviewed Please refer to detailed dictated H&P by Kp Nieevs Pt is on broad spectrum antibiotics Mental status improved upn re-exam, he is now AAOx4 Will rpt lactate in 2 hrs c/w IV fluids at 100cc/hr, BP now improved to 120 systolic with MAP of 84 Pt has air space opacities b/l on CXR- PNA versus fluid overload Will avoid aggressive resuscitation in setting of HD status and concern with fluid overload He is not in need of vasopressors at this time, will c/w gentle hydration while holding BP meds Will c/w NPO status until mental status and resp status improves Renal f/u in am Aspiration and fall precautions D/W Kp Nieves RN at bedside.
[2017-08-14 16:35] LABS: EGFR Non-African American 14.1 (>60)
[2017-08-14] MEDS ORDERED: NS 0.9% 1000 ML* 1,000 ML IV ONE (18:00)
--- NOTE | 2017-08-14 18:27 | PN ---
Progress Note - Progress Note Date of Service: 08/14/17 - Femoral central line procedure note Note: Central Venous Catheter (CVC, Central Line) Placement Date of procedure: 08/14/17 Time: 4:30 pm Indication: Intravenous access for administration of pressors Procedure: A time-out was completed verifying correct patient, procedure, site, positioning, and equipment needed. The patient was placed in a dependent position appropriate for central line placement. Strict aseptic precautions and all necessary barrier techniques were utilized. The patients right groin was prepped and draped in sterile fashion. 1% Lidocaine was used to anesthetize the surrounding skin area. A triple lumen catheter was introduced into the right common femoral vein using the Seldinger technique and under ultrasound guidance. The catheter was threaded smoothly over the guide wire and appropriate blood return was obtained. Each lumen of the catheter was evacuated of air and flushed with sterile saline. The catheter was then sutured in place to the skin and a sterile dressing applied. Perfusion to the extremity distal to the point of catheter insertion was checked and found to be adequate. Estimated Blood Loss: Minimal to none The patient tolerated the procedure well and there were no complications.
--- NOTE | 2017-08-14 19:04 | HP ---
CC: Dr. Mosqueda; Dr. Balbina Corral * HISTORY AND PHYSICAL: DATE OF ADMISSION: 08/14/17 PRIMARY CARE PROVIDER: Dr. Balbina Corral. CONSULTING TELECOMMUNICATIONS TECHNICIAN: Dr. Mosqueda. ATTENDING PHYSICIAN WHILE IN THE HOSPITAL: Dr. Marlene Hernandez * (report dictated by Kp Nieves NP). CHIEF COMPLAINT: Shortness of breath. HISTORY OF PRESENT ILLNESS: Mr. Knight is a 66-year-old male patient. He carries a history of end-stage renal disease, AFib, CVA, hypertension, GERD, CHF , diabetes. He has a history of KIMBERLY and history of restless legs syndrome. Diabetes is diet controlled. He is also a [employer] and does not take blood products. He comes into our ER today because he was over at dialysis today and during the treatment, he noted he became profoundly short of breath and he was hypoxic in the 70s. The patient now is evaluated in the ER. He is really not able to give much history and only thing he is really able to give us is that he has been exposed to flu recently and he has been having some URI- type symptoms and cough. He is very drowsy and he is very sluggish to respond. He is almost encephalopathic at times. He, according, to Dr. Mosqueda, I touched base with him, the nursing staff over there noticed that he appeared to slumped over in his car when he came in, he was acting drowsy before dialysis. He underwent dialysis where his treatment was stopped at 2- 1/2 hours' duration because he was noted to be little short of breath, hypoxic. He does state that he has been having issues with cough. There have been no documented fevers. He denies having any weight change, but again it is hard to get a thorough history from him because he is very drowsy during my exam and falling asleep quickly. There was concern here as well today his lactic acid was 3.6. He was noted to be hypoxic. He was requiring Vapotherm. CBC did show a left shift. His hemoglobin was 8.5 which is good for him as he is normally running around 7. The patient had an x-ray, which was concerning for pulmonary edema. He is noted to be hypoglycemic. We were asked to evaluate for admission. PAST MEDICAL HISTORY: Significant for: 1. End-stage renal disease. 2. AFib, not on anticoagulation because of hematoma. 3. History of CVA. 4. Hypertension. 5. GERD. 6. CHF. 7. Diabetes. 8. KIMBERLY. 9. Restless legs syndrome. His diabetes is diet controlled. PAST SURGICAL HISTORY: 1. He has had a fistula placement. 2. He has had a cardiac cath x2. MEDICATIONS: His home meds include: 1. Lopressor 50 mg p.o. b.i.d. 2. Veltassa one tab once. 3. Aspirin 81 mg daily. 4. Prilosec 20 mg daily. 5. Kayexalate 15 g on Sunday and Sunday. 6. Zocor 20 mg daily. 7. Procardia 90 mg daily. 8. Nephro-Mark 1 tablet daily. 9. Renvela 800 mg t.i.d. with meals. 10. Requip 0.75 mg p.o. t.i.d. 11. Lisinopril 20 mg daily. ALLERGIES TO MEDICATIONS: Include PENICILLIN. FAMILY HISTORY: His mother was diabetic. Father had CAD and diabetes. SOCIAL HISTORY: He does not smoke. He rarely drinks. Surrogate decision maker is his sister. REVIEW OF SYSTEMS: Again, difficult to obtain because of his lethargy, but he denies having any significant weight change. He denied having any double vision. He did admit to having some cough, feeling sick. He denied having any vomiting or dysuria. He denies any chest pain or any abdominal pain. Denies having any headache. Review of 14 systems completed, all others negative. PHYSICAL EXAMINATION GENERAL: At this time, Mr. Knight is a 66-year-old male patient with multiple medical problems. He is sitting in the ED stretcher. He does not appear to be in any acute respiratory distress but he is certainly noted to be drowsy. VITAL SIGNS: Blood pressure 112/71; pulse 81; respirations 18; his O2 sat is 100%, he is on Vapotherm; his temperature 99.5. HEENT: Head: Atraumatic. Eyes: Pupils react to light. Throat: Oral mucosa appears to be dry. No oropharyngeal erythema. NECK: Supple. LUNGS: He had crackles bilaterally. HEART: Sounds S1, S2. Regular rate and rhythm. No murmurs, rubs, or gallops. ABDOMEN: Soft, flat, nontender. Bowel sounds present. EXTREMITIES: Pulses were 2+. He had no peripheral edema. NEUROLOGIC: He will follow simple commands. He can squeeze both fingers. He has no facial drooping. Again, he is very drowsy. He will talk for a few minutes and then quickly will fall asleep, but he appears to be more encephalopathic than having any focal deficits. No other gross focal deficits were noted. SKIN: Intact. DIAGNOSTIC STUDIES/LAB DATA: WBC 10.2, RBC of 2.55, hemoglobin 8.5, hematocrit 26, platelet count of 229. PTT of 41.7. His blood gas: pH 7.51, PCO2 of 42, PO2 127, his bicarb was 32. His sodium was 137; potassium of 4.6; chloride 95; bicarb 32; BUN 23; creatinine 4.3; lactate was 3.6, repeat was 2.9 ; calcium 9.6. Total bili 1.1, AST 39, ALT 14, alk phos 82. CK 140. Troponin 0.02. BNP was 1133. Albumin of 3.9. Serology negative for flu. Chest x-ray under my review showed findings consistent with CHF, less likely pneumonia. EKG obtained today showed sinus rhythm. He does have depressions in V2, V3, and V4, which he has had previously, they are actually improved today. There are no acute changes noted from previous EKG. Old medical records were reviewed. ASSESSMENT AND PLAN: Mr. Knight is 66-year-old complex male patient coming into the ED today with complaints initially of hypoxia and shortness of breath, on evaluation here in the ED noted to be encephalopathic. He will be admitted under inpatient status for: 1. Sepsis. I think he has got a toxic encephalopathy probably from underlying infection. He has a left shift on his white count on the differential. In addition to this, I am concerned that he may have an underlying either viral pneumonia or underlying pneumonia. I did touch base with Dr. Hernandez, who evaluated the patient and it was felt that at this point, we should go ahead and give him fluids. We are not going to bolus him. I spoke to Dr. Mosqueda and Dr. Mosqueda says he is probably about a kilogram ahead of his dry weight, so at this point, he recommended 100 an hour for a liter. If his blood pressure does not come up relative to where his baseline is, we would consider pressors. His baseline blood pressure is between 140s to 160s, right now he is 112. At times , he does drip down in the 90s. I am going to get the CT of the brain as well to make sure there is not anything else going on but he is nonfocal. I will go ahead and I will put him on vanco, cefepime, and azithromycin. We will get legionella antigen, sputum cultures. I am going to give him Tamiflu empirically as he has been exposed to people with flu and we will continue to follow him. I have a low threshold for intubation should his mental status not improve significantly. It did improve when we had him sitting upright and we were stimulating him, but again quickly after he does fall asleep and again we will follow him closely. His lactate is coming down. I am going to add on a procalcitonin. 2. End-stage renal disease. I consulted Dr. Mosqueda. 3. Atrial fibrillation. 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 So, at this point, he is rate controlled. 4. Cerebrovascular accident. Continue with secondary prevention. He is on an aspirin. 5. Hypertension. In the setting of acute illness, I will hold his meds. 6. Gastroesophageal reflux disease. Continue PPI therapy. 7. History of congestive heart failure. We will diurese him as needed and follow his I's and O's closely. I am going to give him some fluids though for now. 8. Diabetes. Again, I will check his fingersticks. He is not on any insulin. He is diet controlled. 9. Obstructive sleep apnea. He is on Vapotherm for the time being. 10. Restless legs syndrome. Continue meds as prescribed. 11. DVT prophylaxis. I will place him on heparin subcu. 12. Code status. Full code. 13. Fluids, electrolytes, and nutrition. He is n.p.o. except for meds. When he is more awake, we will certainly get him on a renal diet. TIME SPENT: On the admission which is critical care time 90 minutes, greater than half time was spent [id number] with the patient obtaining my history and physical, other half the time was spent going over the plan of care with the patient and implementing the plan of care. I did discuss plan of care with my attending, Dr. Hernandez; she is in agreement. KP NIEVES NP [id number]/[facility] #: [id number] PETER
[2017-08-14] MEDS: Ropinirole TAB* 0.5 MG TAB PO SCH (19:45)
[2017-08-14 20:39] LABS: Urine Appearance Cloudy; Urine Blood 1+ (Negative); Urine Color Yellow; Urine Ketones Trace (Negative); Urine Protein 2+(100 mg/dL) (Negative); Urine Urobilinogen Negative (Negative)
[2017-08-15] MEDS: Aspirin EC Low Dose* 81 MG TAB.EC PO SCH (07:34)
[2017-08-15] MEDS: Ropinirole TAB* 0.5 MG TAB PO SCH ×3 (07:34→21:18)
[2017-08-15] MEDS: Heparin VIAL(*) 5000 UNITS/ML VIAL (FIVE THOUSAND) SUBCUT SCH ×3 (07:34→21:23)
--- NOTE | 2017-08-15 07:35 | PN ---
Date of Service: 08/15/17 - [facility] note Critical Care Services: Pt seen and examined at bedside. Pt reports improvement in SOB. Has been coughing last night. Has not needed pressors. BP has remained stable. Had 2 BM, UO of 400cc. Still needing high flow Medications, vitals, labs reviewed Vital Signs: Temp Pulse Resp BP SpO2 FiO2 98.3 F 78 17 133/72 95 60 08/15/17 04:00 08/15/17 06:00 08/15/17 06:00 08/15/17 06:00 08/15/17 05:45 08/15 04:00 Physical Exam: Gen:Pt in NAD, alert, awake, orientedx3 HEENT:PERRLA, NO JVD Lungs:Clear to auscultation b/l Cardiac: S1, S2+ Abdomen:Soft, BS+, mild tenderness in RUQ, no rebound Extremities:No edema, LUE fistula+ Neuro: Mental status much improved today, orientedx4, no focal defecits Fluid Balance (Past 24 Hours): T=5171 O= 400 Net 1484 Intake & Output 08/13/17 08/14/17 08/15/17 08/16/17 06:59 06:59 06:59 06:59 Intake Total 1884 Output Total 400 Balance 1484 Weight 187 lb 2.759 oz Intake: IV Fluids 948 NS (0.9%) 948 IVPB 536 ABX - VANCOMYCIN 536 Oral 400 Output: Urine 400 Other: Date of Last Bowel 08/15/17 Movement # Bowel Movements 1 Estimated Stool Amount Medium Labs: Laboratory Results - last 24 hr 08/14/17 08/14/17 08/14/17 13:31 16:00 18:22 Sodium 139 Potassium 4.1 Chloride 106 Carbon Dioxide 23 Anion Gap 10 BUN 21 Creatinine 4.27 H Est GFR ( Amer) 18.1 Est GFR (Non-Af Amer) 14.1 BUN/Creatinine Ratio 4.9 L Glucose 50 L POC Glucose (mg/dL) 94 57 L Calcium 7.2 L Urine Color Urine Appearance Urine pH Ur Specific [place] Urine Protein Urine Ketones Urine Blood Urine Nitrate Urine Bilirubin Urine Urobilinogen Ur Leukocyte Esterase Urine WBC (Auto) Urine RBC (Auto) Ur Squamous Epith Cells Amorphous Crystals Urine Bacteria Urine Glucose 08/14/17 08/14/17 08/14/17 18:25 18:29 20:00 Sodium Potassium Chloride Carbon Dioxide Anion Gap BUN Creatinine Est GFR ( Amer) Est GFR (Non-Af Amer) BUN/Creatinine Ratio Glucose POC Glucose (mg/dL) 83 83 Calcium Urine Color Yellow Urine Appearance Cloudy Urine pH 8.0 Ur Specific [place] 1.010 Urine Protein 2+(100 mg/dl) H Urine Ketones Trace H Urine Blood 1+ H Urine Nitrate Negative Urine Bilirubin Negative Urine Urobilinogen Negative Ur Leukocyte Esterase Trace H Urine WBC (Auto) 2+(11-20/hpf) H Urine RBC (Auto) Trace(0-2/hpf) Ur Squamous Epith Cells Present H Amorphous Crystals Present H Urine Bacteria Absent Urine Glucose 1+(50 mg/dl) H 08/14/17 08/15/17 23:55 06:06 Sodium Potassium Chloride Carbon Dioxide Anion Gap BUN Creatinine Est GFR ( Amer) Est GFR (Non-Af Amer) BUN/Creatinine Ratio Glucose POC Glucose (mg/dL) 64 L 79 Calcium Urine Color Urine Appearance Urine pH Ur Specific [place] Urine Protein Urine Ketones Urine Blood Urine Nitrate Urine Bilirubin Urine Urobilinogen Ur Leukocyte Esterase Urine WBC (Auto) Urine RBC (Auto) Ur Squamous Epith Cells Amorphous Crystals Urine Bacteria Urine Glucose Studies: CXR:Air space opacities and prominance of interstitium b/l CT brain: No acute abnormalities Nutrition: Has been NPO, will start renal/diabetic diet today Impression: 66 y o m with ESRD on HD, CHF, A.fib, h/o hematoma and Jehovah`s witness not in anticoagulation, CHF a/f HD for AMS, lethargy with sepsis sec to PNA 1. Community acquired PNA 2. Hypotension sec to sepsis responded to fluid resuscitation 3. ESRD on HD 4. Hypoglycemia sec to sepsis Plan: 1. Neuro: Was encephalopathic upon admission, mental status improved signficantly, no focal defecits. 2. CVS: Was hypotensive in septic shock yesterday, received total of 2L fluid yesterday, has not needed pressors, is able to void, not continuing fluids anymore. BP meds on hold still until BP normalizes, still on low side. A.fib, rate controlled, in sinus rhythm currently, not on anticoagulation due to h/o hematoma c/w ASA 3. ID: Pt with sepsis sec to PNA and possible FLU, Influenza testing negative, on droplet precautions. Was spiking fevers last night, received tylenol. On broad spectrum antibiotics. Lactate trending down, procalcitonin mildly elevated 4. GI: Reported mild discomfort in RUQ, will obtain U/S of abdomen. Will start diet this am and advance as tolerated,c/w PPI 5. Renal: ESRD on HD, was able to have dialysis only for 2 hrs yesterday. Renal f/u this am, no electrolyte abnromalities, BMP pending 6. Endo: H/o DM, BS have been running low secondary to sepsis, insulin on hold, will start diet and monitor bl sugars closely 7. Haem: Left shift, anemia stable. Will f/u CBC this am 8, Musculoskeltal: LUE shunt site looking fine, moves extremities spontaneously. c/w Requip for RLS 9. Psychosocial: Pt in good spirits this am, sister is health care proxy 10. Supportive and preventive care as ordered 11. DVT px: Heparin Sq Critical Care Time: 30 min
[2017-08-15 08:15] LABS: ABS Basophils 0 10^3/ul (0-0.2); ABS Eosinophils 0.2 10^3/ul (0-0.6); ABS Lymphocytes 0.3 10^3/ul (1.0-4.8); ABS Monocytes 0.3 10^3/ul (0-0.8); ABS Neutrophils 8.4 10^3/ul (1.5-7.7); ABS Nucleated RBC 0 10^3/ul; Eosinophil % 2.1 % (0-6); Hematocrit 22 % (42-52); Hemoglobin 7.3 g/dl (14.0-18.0); Lymphocyte % 2.8 % (25-47); Mean Corpuscular HGB Conc 34 g/dl (31-36); Mean Corpuscular Hemoglobin 34 pg (27-31); Mean Corpuscular Volume 101 fL (80-94); Mean Platelet Volume 7 um3 (7.4-10.4); Nucleated Red Blood Cells % 0; Platelet Count 143 10^3/ul (150-450); Red Blood Count 2.17 10^6/ul (4.0-5.4); Red Cell Distribution Width 18 % (10.5-15); White Blood Count 9.2 10^3/ul (3.5-10.8)
[2017-08-15 08:27] LABS: EGFR Non-African American 8.6 (>60)
--- NOTE | 2017-08-15 09:47 | RAD ---
HISTORY: Right upper quadrant pain right upper quadrant pain COMPARISONS: CT abdomen pelvis May 29, 2017 TECHNIQUE: Multiple transverse and longitudinal ultrasound images were obtained of the abdomen using grayscale and color flow imaging. FINDINGS: LIVER: The liver is normal in shape, size, contour, and echogenicity. There are no focal parenchymal masses. There is normal monophasic hepatopedal flow of the portal vein on spectral Doppler imaging. BILIARY TREE: There is no intrahepatic or extrahepatic biliary dilatation. The common duct measures up to 4 mm. The patient reports no sonographic Pena sign. GALLBLADDER: The gallbladder is well-visualized. There is gallbladder wall thickening up to 6 mm in thickness. PANCREAS: The visualized portions of the pancreas are sonographically normal. SPLEEN: The echogenically homogenous spleen measures up to 12.6 cm in maximum axial dimension. KIDNEYS: The kidneys are symmetrically hypoplastic with cortical thinning bilaterally. AORTA AND IVC: The aorta and IVC are patent. appropriate arterial and venous waveforms are identified respectively. FLUID: There is a small to moderate amount of peritoneal effusions as well as small bibasilar pleural effusions. IMPRESSION: 1. Gallbladder wall thickening up to 6 mm in thickness without other signs of biliary obstruction or a sonographic Pena's sign. Chronic gallbladder wall thickening can be seen in the setting of chronic ascites. 2. [id number] ascites and bibasilar pleural effusions. 3. The kidneys are symmetrically atrophic in appearance. 4. Otherwise homogenous appearing spleen is slightly enlarged measuring 12.6 cm in greatest dimension.
[2017-08-15] MEDS: Cefepime 1 GM in Dextrose(*) 1 GM/50 ML BAG IV SCH (13:58)
[2017-08-15] MEDS: Pantoprazole IV* 40 MG IV SCH (13:58)
[2017-08-15] MEDS ORDERED: Vancomycin Random Level* NOTE FOLLOW UP SCH (14:00)
[2017-08-15] MEDS: Azithromycin IV(*) 500 MG in NS 0.9% 250 ML* 250 ML IVPB SCH (14:48)
[2017-08-15] MEDS ORDERED: Hemorrhoidal SUPP PR PRN (15:48)
[2017-08-15] MEDS ORDERED: Heparin DIALYSIS ONLY(*) 1,000 UNITS/ML VIAL DIALYSIS ONE (18:00)
[2017-08-15] MEDS ORDERED: Epoetin Alfa* 4,000 UNITS/ML VIAL IV ONE (18:00)
--- NOTE | 2017-08-15 18:13 | ED ---
Gordo Rob Angela, scribed for Randall Nichols MD on 08/14/17 at 0954 . Shortness of Breath - HPI Summary HPI Summary: This pt is a 66 y/o male presenting to [facility] via EMS for SOB. Pt was in dialysis when he became suddenly more SOB. He had 2.5 hours of his usual 3.5 hours long dialysis. Pt was placed on 6 L of O2 NC and pt was saturating at 78% when EMS arrived. Pt is currently at 94% on 6L of O2. PMHx: DM, HTN, CHF, chronic renal failure on dialysis. Pt is not on O2 at home. - History of Current Complaint Time Seen by Provider: 08/14/17 09:51 Hx Obtained From: EMS Onset/Duration: Sudden Onset, Still Present Timing: Constant Dyspnea At: Rest Aggrevating Factors: Nothing Alleviating Factors: Oxygen Associated Signs & Symptoms: Negative - Allergy/Home Medications Allergies/Adverse Reactions: Allergies Allergy/AdvReac Type Severity Reaction Status Date / Time Penicillins Allergy Intermediate Hives Verified 08/14/17 12:18 Home Medications: Home Medications Patiromer Calcium Sorbitex [Veltassa] 8.4 gm PO ONCE 08/14/17 [History Confirmed 08/14/17] PMH/Surg Hx/FS Hx/Imm Hx Endocrine/Hematology History: Reports: Hx Anticoagulant Therapy - Not currently on anticoagulant therapy d/t hematoma, Hx Diabetes - CONTROL WITH DIET, Hx Anemia Cardiovascular History: Reports: Hx Atrial Fibrillation, Hx Congestive Heart Failure, Hx Coronary Artery Disease - CHOLESTEROL CONTROL WITH MEDICATION, Hx Hypercholesterolemia, Hx Hypertension - ON MEDICATION, Other Cardiovascular Problems/Disorders - 2009 OR 2010 CARDIAC CATHERIZATION Denies: Hx Pacemaker/ICD Respiratory History: Reports: Hx Sleep Apnea - NO CPAP, Other Respiratory Problems/Disorders Denies: Hx Asthma, Hx Chronic Obstructive Pulmonary Disease (COPD) GI History: Reports: Hx Gastroesophageal Reflux Disease - ON MEDICATION History: Reports: Hx Chronic Renal Failure, Hx Dialysis Musculoskeletal History: Reports: Hx Arthritis - BILATERAL KNUCKLES AND NECK Sensory History: Reports: Hx Cataracts - BILATERAL Denies: Hx Contacts or Glasses, Hx Hearing Aid Opthamlomology History: Reports: Hx Cataracts - BILATERAL Denies: Hx Contacts or Glasses Neurological History: Reports: Hx Nerve Disease - Neuropathy, restless leg syndrome, Other Neuro Impairments/Disorders - DIFFICULTY CONCENTRATING WITH LEFT SIDE WEAKNESS, BALANCE OFF, STAMMERING, Psychiatric History: Reports: Hx Depression - ON MEDICATION Denies: Hx Panic Disorder - Surgical History Surgery Procedure, Year, and Place: 2009 OR 2010 CARDIAC CATHERIZATION, [place], [place]. 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 No FHx of anesthesia reaction - Social History Alcohol Use: None Alcohol Amount: 1-2 per week Hx Substance Use: No Substance Use Type: Reports: None Hx Tobacco Use: No Smoking Status (MU): Never Smoked Tobacco Review of Systems Negative: Fever Eyes: Negative ENT: Negative Positive: Shortness Of Breath Musculoskeletal: Negative Skin: Negative Neurological: Negative All Other Systems Reviewed And Are Negative: Yes Physical Exam - Summary Physical Exam Summary: VITAL SIGNS: Reviewed. GENERAL: Patient is a well-developed and nourished male with SOB unable to speak in full sentences. HEAD AND FACE: No signs of trauma. No ecchymosis, hematomas or skull depressions. No sinus tenderness. EYES: PERRLA, EOMI x 2, No injected conjunctiva, no nystagmus. EARS: Hearing grossly intact. Ear canals and tympanic membranes are within normal limits. MOUTH: Oropharynx within normal limits. NECK: Supple, trachea is midline, no adenopathy, no JVD, no carotid bruit, no c- spine tenderness, neck with full ROM. CHEST: Symmetric, no tenderness at palpation LUNGS: Diffuse crackles. CVS: Regular rate and rhythm, S1 and S2 present, no murmurs or gallops appreciated. ABDOMEN: Soft, non-tender. No signs of distention. No rebound no guarding, and no masses palpated. Bowel sounds are normal. EXTREMITIES: FROM in all major joints, no edema, no cyanosis or clubbing. NEURO: Alert and oriented x 3. No acute neurological deficits. Speech is normal and follows commands. SKIN: Dry and warm. Pale looking. Triage Information Reviewed: Yes Vital Signs On Initial Exam: Initial Vitals Temp Pulse Resp BP Pulse Ox 96.9 F 91 32 130/84 94 08/14/17 09:52 08/14/17 09:52 08/14/17 09:52 08/14/17 09:52 08/14/17 09:52 Vital Signs Reviewed: Yes Diagnostics - Laboratory Result Diagrams: 08/14/17 09:53 08/14/17 16:00 Lab Statement: Any lab studies that have been ordered have been reviewed, and results considered in the medical decision making process. - Radiology Chest XR Xray Interpretation: Positive (See Comments) - IMPRESSION: Findings most consistent with congestive heart failure less likely pneumonia. Dr. Nichols has reviewed this radiology report. Radiology Interpretation Completed By: Radiologist - EKG 09:52 Cardiac Rate: NL EKG Rhythm: Sinus Rhythm - at 90 bpm EKG Interpretation: No ST elevation Course/Dx - Course Assessment/Plan: This pt is a 66 y/o male presenting to [facility] via EMS for SOB. Pt was in dialysis when he became suddenly more SOB. He had 2.5 hours of his usual 3.5 hours long dialysis. Pt was placed on 6 L of O2 NC and pt was saturating at 78% when EMS arrived. Pt is currently at 94% on 6L of O2. PMHx: DM, HTN, CHF, chronic renal failure on dialysis. Pt is not on O2 at home. Test results shows chronic anemia, ABG pH of 7.48, pCO2 of 45, pO2 of 47, O2 saturation of 86.2, creatinine of 4.38 consistent with end stage renal disease, lactic acid of 3.6, CRP of 19.49, BNP of 1133. Influenza A and B is negative. In the ED, we initially obtained 2 IV access and he was given IV fluids. I placed the pt in Cefepime and Vacomycin since I believe the pt may be going through sepsis, however pt has no fever and chest XR is negative. We placed the pt in vapotherm and his symptoms improved. I discussed pts case with Dr. Hernandez who accepted the pt for admission and the pt will going to ICU services. The pt is critical but stable, therefore pt will be transferred to the ICU. - Diagnoses Provider Diagnoses: Sepsis, Hypotension, rule out pneumonia, End stage renal disease, Hypoxia - Physician Notifications Discussed Care of Patient With: Rocio Larios Time Discussed With Above Provider: 11:26 Instructed by Provider To: Other - I discussed pt care with Dr. Larios, hospitalist, who has agreed to admit the pt. - Critical Care Time Critical Care Time: 75-104 min Discharge - Discharge Plan Condition: Stable Disposition: ADMITTED TO [facility] The documentation as recorded by the Gordo patricio Angela accurately reflects the service I personally performed and the decisions made by , Randall Nichols MD.
[2017-08-15] MEDS: Oseltamivir CAP* 30 MG CAP PO SCH (21:18)
[2017-08-16] MEDS: Heparin VIAL(*) 5000 UNITS/ML VIAL (FIVE THOUSAND) SUBCUT SCH ×3 (06:04→22:12)
[2017-08-16] MEDS: Aspirin EC Low Dose* 81 MG TAB.EC PO SCH (08:08)
[2017-08-16] MEDS: Ropinirole TAB* 0.5 MG TAB PO SCH ×3 (08:08→20:04)
[2017-08-16] MEDS: Pantoprazole IV* 40 MG IV SCH (13:44)
[2017-08-16] MEDS: Cefepime 1 GM in Dextrose(*) 1 GM/50 ML BAG IV SCH (13:45)
[2017-08-16] MEDS: Azithromycin IV(*) 500 MG in NS 0.9% 250 ML* 250 ML IVPB SCH (14:47)
--- NOTE | 2017-08-16 15:05 | PN ---
Subjective Date of Service: 08/16/17 Interval History: Less SOB, scant sputum, little cough. No pain, overall feels better. No new c /o. Objective Active Medications: Acetaminophen (Tylenol Tab*) 650 mg PO Q4H PRN PRN Reason: FEVER/PAIN Last Admin: 08/15/17 21:18 Dose: 650 mg Aspirin (Aspirin Ec Low Dose*) 81 mg PO DAILY [facility] Last Admin: 08/16/17 08:08 Dose: 81 mg Dextrose (Dextrose 50% Vial 50 Ml*) 50 ml IV ONCE PRN PRN Reason: hypoglycemia Dextrose (D50w Syringe 50 Ml*) 25 gm IV PUSH .FOR FS < 60 - SS PRN PRN Reason: FS < 60 Hard Fat/Phenylephrine (Preparation H Supp*) 1 supp NV Q6H PRN PRN Reason: PAIN Last Admin: 08/15/17 16:11 Dose: 1 supp Heparin Sodium (Porcine) (Heparin Vial(*)) 5,000 units SUBCUT Q8HR [facility] Last Admin: 08/16/17 13:45 Dose: 5,000 units Azithromycin 500 mg/ Sodium (Chloride) 250 mls @ 250 mls/hr IVPB Q24H [facility] Last Admin: 08/15/17 14:48 Dose: 250 mls/hr Cefepime HCl (Maxipime 1 Gm In Dextrose Duplex (*)) 1 gm in 50 mls @ 100 mls/ hr IV Q24H [facility] Last Admin: 08/16/17 13:45 Dose: 100 mls/hr Sodium Chloride (Ns 0.9% 1000 Ml*) 1,000 mls @ 100 mls/hr IV PER RATE [facility] Last Admin: 08/14/17 14:56 Dose: 100 mls/hr Vancomycin HCl 1,000 mg/ (Sodium Chloride) 250 mls @ 166.667 mls/hr IVPB MoWeFr @1500 PRN PRN Reason: RANDOM LEVEL <20 Last Admin: 08/15/17 23:17 Dose: 166.667 mls/hr Oseltamivir Phosphate (Tamiflu Cap*) 30 mg PO MoWeFr@1400 [facility] Stop: 08/17/17 14:01 Last Admin: 08/15/17 21:18 Dose: 30 mg Pantoprazole Sodium (Protonix Iv*) 40 mg IV Q24H [facility] Last Admin: 02/08/18 13:44 Dose: 40 mg Pharmacy Consult (Vancomycin Random Level*) 1 note FOLLOW UP MoWeFr@1400 [facility] Last Admin: 08/15/17 23:18 Dose: 1 note Ropinirole HCl (Requip Tab*) 0.75 mg PO TID [facility] Last Admin: 08/16/17 13:44 Dose: 0.75 mg Vital Signs - 8 hr 08/16/17 08/16/17 08/16/17 07:55 08:11 08:58 Temperature 98.1 F Pulse Rate 114 Respiratory 16 16 Rate Blood Pressure 117/72 (mmHg) O2 Sat by Pulse 100 97 Oximetry 08/16/17 11:19 Temperature 97.2 F Pulse Rate 113 Respiratory 14 Rate Blood Pressure 124/79 (mmHg) O2 Sat by Pulse 100 Oximetry Oxygen Devices in Use Now: Nasal Cannula Appearance: Alert, in a chair. In good spirits. Looks comforable. Eyes: No Scleral Icterus Neck: NL Appearance and Movements; NL JVP, No Thyroid Enlargement, Masses Respiratory: Symmetrical Chest Expansion and Respiratory Effort, Clear to Auscultation, Clear to Percussion Cardiovascular: NL Sounds; No Murmurs; No JVD, RRR, No Edema, - Extremities: No Edema, No Clubbing, Cyanosis, - Skin: No Rash or Ulcers, No Nodules or Sclerosis, - Neurological: Alert and Oriented x 3 Result Diagrams: 08/15/17 08:04 08/15/17 08:04 Microbiology and Other Data: Microbiology 08/14/17 19:30 Gram Stain - Final Sputum Expectorated Sputum Culture - Final Normal Maria G 08/14/17 20:00 Urine Culture - Final Urine No Growth (<1,000 CFU/mL) 08/15/17 16:11 Stool Gross Appearance - Final Stool C. difficile DNA Amplification - Final 027 Presumptive NEGATIVE Toxigenic C.diff NEGATIVE 08/14/17 15:00 Nasal Screen MRSA (PCR)(JORGE) - Final Nasal Mrsa Not Detected Assess/Plan/Problems-Billing Assessment: - Patient Problems (1) Acute respiratory failure with hypoxia Current Visit: No Status: Acute Code(s): J96.01 - ACUTE RESPIRATORY FAILURE WITH HYPOXIA SNOMED Code(s): 00820811 Comment: Continue triple antibiotics for now. Nurse to attempt to wean off O2. (2) Influenza Current Visit: Yes Status: Acute Code(s): J11.1 - FLU DUE TO UNIDENTIFIED INFLUENZA VIRUS W OTH RESP MANIFEST SNOMED Code(s): 4596300 Comment: Treated with oseltamivir for presumed influnenza despite neg rapid antigen test. (3) ESRD (end stage renal disease) Current Visit: No Status: Acute Code(s): N18.6 - END STAGE RENAL DISEASE SNOMED Code(s): 80312426 Comment: HD at home Judah.
[2017-08-16] MEDS ORDERED: GuaiFENesin DM* 5 ML UDC PO PRN (21:53)
[2017-08-16] MEDS ORDERED: Ondansetron INJ* 2 MG/ML VIAL IV PRN (21:53)
[2017-08-16] MEDS ORDERED: Calcium Carbonate CHEW TAB* 500 MG (TUMS) PO PRN (21:53)
[2017-08-17 04:48] LABS: ABS Basophils 0 10^3/ul (0-0.2); ABS Eosinophils 0.5 10^3/ul (0-0.6); ABS Lymphocytes 0.6 10^3/ul (1.0-4.8); ABS Monocytes 0.5 10^3/ul (0-0.8); ABS Neutrophils 5.2 10^3/ul (1.5-7.7); ABS Nucleated RBC 0 10^3/ul; Eosinophil % 7.7 % (0-6); Hematocrit 23 % (42-52); Hemoglobin 7.8 g/dl (14.0-18.0); Lymphocyte % 8.3 % (25-47); Mean Corpuscular HGB Conc 33 g/dl (31-36); Mean Corpuscular Hemoglobin 33 pg (27-31); Mean Corpuscular Volume 100 fL (80-94); Mean Platelet Volume 7 um3 (7.4-10.4); Nucleated Red Blood Cells % 0.1; Platelet Count 177 10^3/ul (150-450); Red Blood Count 2.34 10^6/ul (4.0-5.4); Red Cell Distribution Width 17 % (10.5-15); White Blood Count 6.7 10^3/ul (3.5-10.8)
[2017-08-17] MEDS: Heparin VIAL(*) 5000 UNITS/ML VIAL (FIVE THOUSAND) SUBCUT SCH (05:56)
[2017-08-17 06:28] VITALS: BP 133/73
[2017-08-17] MEDS: Ropinirole TAB* 0.5 MG TAB PO SCH (08:06)
[2017-08-17] MEDS ORDERED: Omeprazole CAP* 20 MG PO SCH (09:00)
[2017-08-17] MEDS: Aspirin EC Low Dose* 81 MG TAB.EC PO SCH (10:44)
[2017-08-17] MEDS: Oseltamivir CAP* 30 MG CAP PO SCH (10:44)
[2017-08-17] MEDS ORDERED: guaiFENesin LIQ* 100 MG/5 ML UDC PO SCH (13:00)
[2017-08-17] MEDS ORDERED: Azithromycin TAB* 250 MG PO SCH (15:00)
[2017-08-18] MEDS ORDERED: ceFUROXime 500 mg TAB(NF) 500 MG TAB PO SCH (15:00)
[2017-08-18] MEDS ORDERED: ceFUROXime TAB(*) 250 MG PO SCH (16:00)
== END 2017-08-17 11:06 | disposition home health service (06) | DRG 871 ==
LOC: ED 09:50 → ICU 13:00 → MED 08-15 14:49
PROVIDERS: ADMIT Internal Medicine; ATTEND Internal Medicine
PROC: 06HM33Z Insertion of Infusion Device into Right Femoral Vein, Percutaneous Approach (ICD-10-PCS; principal; 2017-08-14)
PROC: 5A1D70Z Performance of Urinary Filtration, Intermittent, Less than 6 Hours Per Day (ICD-10-PCS; 2017-08-15)
DX: A41.9 Sepsis, unspecified organism (principal); G93.41 Metabolic encephalopathy; J96.01 Acute respiratory failure with hypoxia; R65.21 Severe sepsis with septic shock; I13.2 Hypertensive heart and chronic kidney disease with heart failure and with stage 5 chronic kidney disease, or end stage renal disease; J11.00 Influenza due to unidentified influenza virus with unspecified type of pneumonia; I48.91 Unspecified atrial fibrillation; N18.6 End stage renal disease; I50.9 Heart failure, unspecified; E11.22 Type 2 diabetes mellitus with diabetic chronic kidney disease; E11.40 Type 2 diabetes mellitus with diabetic neuropathy, unspecified; E11.36 Type 2 diabetes mellitus with diabetic cataract; G25.81 Restless legs syndrome; E11.649 Type 2 diabetes mellitus with hypoglycemia without coma; G47.33 Obstructive sleep apnea (adult) (pediatric); F32.9 Major depressive disorder, single episode, unspecified; K21.9 Gastro-esophageal reflux disease without esophagitis; M19.042 Primary osteoarthritis, left hand; D64.9 Anemia, unspecified; M19.041 Primary osteoarthritis, right hand; M47.892 Other spondylosis, cervical region; Z82.49 Family history of ischemic heart disease and other diseases of the circulatory system; Z86.73 Personal history of transient ischemic attack (TIA), and cerebral infarction without residual deficits; Z88.0 Allergy status to penicillin; Z99.2 Dependence on renal dialysis; Z83.3 Family history of diabetes mellitus
CPT/HCPCS: 36415; 36600; 70450; 71045; 76700; 80048; 80053; 80202; 81003; 81015; 82550; 82803; 83605; 83880; 84145; 84484; 85025; 85730; 86140; 87040; 87045; 87046; 87070; 87086; 87205; 87493; 87502; 87641; 87899; 90935; 93005; 94760; 99285; A9270-GY; G0257; J0456; J0692; J0885; J1644; J1940; J2405; J2704; J3370

== ENCOUNTER 2017-08-23 05:43 | Emergency (ER) | payer MEDICARE, MEDICAID ==
--- NOTE | 2017-08-23 08:22 | RAD ---
HISTORY: Fall, trauma. No other history is provided COMPARISONS: August 14, 2017 TECHNIQUE: Multiple contiguous axial CT scans were obtained of the head without intravenous contrast. FINDINGS: HEMORRHAGE/INFARCT: There is no hemorrhage or acute infarct. MASSES/SHIFT: There is no mass or shift. EXTRA-AXIAL SPACES: There are no extra-axial fluid collections. SULCI AND VENTRICLES: The sulci and ventricles are normal in size and position for the patient's stated age. CEREBRUM: There is stable right frontal and left parietal encephalomalacia consistent with remote infarct. BRAINSTEM: There are no focal parenchymal abnormalities. CEREBELLUM: There are no focal parenchymal abnormalities. VESSELS: There is calcification of the cavernous segments of the internal carotid arteries bilaterally and of the distal vertebral arteries bilaterally. PARANASAL SINUSES: The paranasal sinuses are clear. ORBITS: The orbits are unremarkable. BONES AND SOFT TISSUE: No bone or soft tissue abnormalities are noted. OTHER: None IMPRESSION: NO ACUTE INTRACRANIAL PATHOLOGY. STABLE CHRONIC INFARCTS
--- NOTE | 2017-08-23 08:37 | RAD ---
HISTORY: Fall, trauma. No other history is provided COMPARISONS: None TECHNIQUE: Multiple contiguous axial CT scans were obtained of the cervical spine without intravenous contrast, with coronal and sagittal multiplanar reformations. FINDINGS: BRAIN: The visualized brain is unremarkable CENTRAL CANAL: Evaluation of the central canal is limited on CT technique; however, there is no obvious canalicular mass or epidural hemorrhage. ALIGNMENT: The alignment is normal, without subluxation or dislocation. VERTEBRAL BODIES: There is anterolateral marginal osteophyte formation. There is no displaced fracture. JOINTS: There is uncovertebral and facet osteoporosis, greater on the right than on the left. MUSCULATURE: Unremarkable INTERVERTEBRAL DISCS: There is diffuse loss of intervertebral disc height. AXIAL IMAGES: On axial images, there is moderate neural foraminal narrowing on the right at C3-C4 and C4-C5 and C5-C6. There is a disc bulge that is eccentric to the right at C4-C5. There is moderate narrowing of the central canal at C3-C4 and C4-C5.. SOFT TISSUES: There is a right pleural effusion. OTHER: None. IMPRESSION: 1. DEGENERATIVE DISC DISEASE AND OSTEOARTHRITIS, DESCRIBED ABOVE. 2. NO ACUTE OSSEOUS INJURY TO THE CERVICAL SPINE. 3. RIGHT PLEURAL EFFUSION
--- NOTE | 2017-08-23 08:37 | RAD ---
INDICATION: Facial trauma. COMPARISON: Comparison is made with a prior CT of the facial bones from May 25, 2017. TECHNIQUE: Contiguous axial sections of the axial images of the facial bones were obtained and reconstructed in the coronal and sagittal planes. FINDINGS: Soft tissue swelling is noted over the nose and forehead. The veloz of the orbits and maxillary sinuses appear intact. The zygomatic arches appear intact. There is no evidence for a fracture of the mandible. The nose is deviated toward the left side. There are are slightly depressed fractures of the nasal bones on both sides. There is moderate severe deviation of the nasal septum toward the right side. The pterygoid plates appear intact. There is a small air-fluid level or mucosal thickening present posteriorly within the right maxillary sinus. The paranasal sinuses otherwise appear clear. The visualized portion of the mastoid air cells appear clear. There is diffuse carious and periapical dental disease. IMPRESSION: 1. SLIGHTLY DEPRESSED FRACTURES OF THE NASAL BONES. 2. DIFFUSE DENTAL DISEASE.
[2017-08-23 09:24] LABS: ABS Basophils 0 10^3/ul (0-0.2); ABS Eosinophils 0.5 10^3/ul (0-0.6); ABS Lymphocytes 0.9 10^3/ul (1.0-4.8); ABS Monocytes 0.6 10^3/ul (0-0.8); ABS Neutrophils 4.9 10^3/ul (1.5-7.7); ABS Nucleated RBC 0 10^3/ul; Eosinophil % 7.2 % (0-6); Hematocrit 25 % (42-52); Lymphocyte % 12.8 % (25-47); Mean Corpuscular HGB Conc 33 g/dl (31-36); Mean Corpuscular Hemoglobin 33 pg (27-31); Mean Corpuscular Volume 102 fL (80-94); Mean Platelet Volume 7 um3 (7.4-10.4); Nucleated Red Blood Cells % 0.3; Platelet Count 193 10^3/ul (150-450); Red Cell Distribution Width 19 % (10.5-15); White Blood Count 6.9 10^3/ul (3.5-10.8)
[2017-08-23 09:41] LABS: EGFR Non-African American 8.1 (>60)
--- NOTE | 2017-08-23 10:03 | RAD ---
HISTORY: Right forearm pain status post fall COMPARISONS: None VIEWS: 2, Frontal and lateral views of the right forearm FINDINGS: BONE DENSITY: Normal. BONES: There is no displaced fracture. JOINTS: There is no arthropathy. ALIGNMENT: There is no dislocation. SOFT TISSUES: There is peripheral arterial calcification. OTHER FINDINGS: None. IMPRESSION: PERIPHERAL ARTERIAL DISEASE. NO ACUTE OSSEOUS INJURY. IF SYMPTOMS PERSIST, RECOMMEND REPEAT IMAGING.
--- NOTE | 2017-08-23 10:04 | RAD ---
HISTORY: Right arm pain status post fall COMPARISONS: None VIEWS: 2, Frontal internal rotation and external rotation views of the right shoulder FINDINGS: BONE DENSITY: Normal. BONES: There is no displaced fracture. JOINTS: There is no arthropathy. ALIGNMENT: There is no dislocation. SOFT TISSUES: There is peripheral arterial calcification. OTHER FINDINGS: None. IMPRESSION: PERIPHERAL ARTERIAL DISEASE. NO ACUTE OSSEOUS INJURY. IF SYMPTOMS PERSIST, RECOMMEND REPEAT IMAGING.
--- NOTE | 2017-08-23 10:06 | RAD ---
HISTORY: Fall, arm pain COMPARISONS: August 14, 2017, June 18, 2017, June 29, 2015 VIEWS: 4: Frontal dual-energy and lateral views of the chest. FINDINGS: CARDIOMEDIASTINAL SILHOUETTE: The cardiomediastinal silhouette is normal. CORNELL: The cornell are normal. PLEURA: There is elevation left hemidiaphragm. This can be identified on previous examinations and is stable. LUNG PARENCHYMA: The lungs are clear. ABDOMEN: The upper abdomen is clear. There is no subphrenic gas. BONES AND SOFT TISSUES: No bone or soft tissue abnormalities are noted. OTHER: None. IMPRESSION: NO ACTIVE CARDIOPULMONARY DISEASE.
[2017-08-23 10:46] LABS: Urine Appearance Clear; Urine Blood Negative (Negative); Urine Color Yellow; Urine Ketones Negative (Negative); Urine Protein 2+(100 mg/dL) (Negative); Urine Specific Gravity 1.009 (1.010-1.030); Urine Urobilinogen Negative (Negative)
[2017-08-23 11:07] VITALS: BP 115/64
--- NOTE | 2017-08-24 16:18 | ED ---
Gordo Rob Angela, scribed for Randall Nichols MD on 08/23/17 at 0718 . Adult Trauma - HPI Summary HPI Summary: This pt is a 66 y/o male presenting to [facility] c/o nose injury and right arm pain s/p fall today at approximately 01:00 today. Pt reports he was at home today when he tripped and fell, striking his face on the floor. He sustained a bloody nose after this fall. Denies LOC. He states he went to dialysis this morning but they refused to perform dialysis until he was seen in the ED due to the heparin they use. He notes his last tetanus shot was less than 5 years ago. - History of Current Complaint Chief Complaint: EDFacialInjury Stated Complaint: FALL, NOSE INJURY Time Seen by Provider: 08/23/17 07:05 Hx Obtained From: Patient Mechanism of Injury: Fall Ambulatory at the Scene: Yes Loss of Consciousness: no loss of consciousness Onset/Duration: Started Hours Ago, Traumatic, Still Present Onset of Pain: Immediate Current Severity: Moderate Pain Intensity: 5 Pain Scale Used: 0-10 Numeric Location: Head - face Aggravating Factor(s): Nothing Alleviating Factor(s): Nothing Associated Signs & Symptoms: Negative: Loss of Consciousness - Additional Pertinent History Primary Care Physician: [id number] - Allergy/Home Medications Allergies/Adverse Reactions: Allergies Allergy/AdvReac Type Severity Reaction Status Date / Time Penicillins Allergy Intermediate Hives Verified 08/23/17 06:03 PMH/Surg Hx/FS Hx/Imm Hx Endocrine/Hematology History: Reports: Hx Anticoagulant Therapy - Not currently on anticoagulant therapy d/t hematoma, Hx Diabetes - CONTROL WITH DIET, Hx Anemia Cardiovascular History: Reports: Hx Atrial Fibrillation, Hx Congestive Heart Failure, Hx Coronary Artery Disease - CHOLESTEROL CONTROL WITH MEDICATION, Hx Hypercholesterolemia, Hx Hypertension - ON MEDICATION, Other Cardiovascular Problems/Disorders - 2009 OR 2010 CARDIAC CATHERIZATION Denies: Hx Pacemaker/ICD Respiratory History: Reports: Hx Sleep Apnea - NO CPAP, Other Respiratory Problems/Disorders Denies: Hx Asthma, Hx Chronic Obstructive Pulmonary Disease (COPD) GI History: Reports: Hx Gastroesophageal Reflux Disease - ON MEDICATION History: Reports: Hx Chronic Renal Failure, Hx Dialysis Musculoskeletal History: Reports: Hx Arthritis - BILATERAL KNUCKLES AND NECK Sensory History: Reports: Hx Cataracts - BILATERAL Denies: Hx Contacts or Glasses, Hx Hearing Aid Opthamlomology History: Reports: Hx Cataracts - BILATERAL Denies: Hx Contacts or Glasses Neurological History: Reports: Hx Nerve Disease - Neuropathy, restless leg syndrome, Other Neuro Impairments/Disorders - DIFFICULTY CONCENTRATING WITH LEFT SIDE WEAKNESS, BALANCE OFF, STAMMERING, Psychiatric History: Reports: Hx Depression - ON MEDICATION Denies: Hx Panic Disorder - Surgical History Surgery Procedure, Year, and Place: 2009 OR 2010 CARDIAC CATHERIZATION, [place], [place]. DENTAL WORK, OFFICE Hx Anesthesia Reactions: No - Immunization History Date of Tetanus Vaccine: unk Date of Influenza Vaccine: utd Infectious Disease History: No Infectious Disease History: Denies: Traveled Outside the [place] in Last 30 Days - Family History Known Family History: Positive: Cardiac Disease Family History: No FHx of malignant hyperthermia. No FHx of anesthesia reaction - Social History Alcohol Use: None Alcohol Amount: 1-2 per week Hx Substance Use: No Substance Use Type: Reports: None Hx Tobacco Use: No Smoking Status (MU): Never Smoked Tobacco Review of Systems Negative: Fever, Chills Positive: Epistaxis Respiratory: Negative Gastrointestinal: Negative Musculoskeletal: Other - right arm pain Negative: Headache All Other Systems Reviewed And Are Negative: Yes Physical Exam - Summary Physical Exam Summary: VITAL SIGNS: Reviewed. GENERAL: Patient is a well-developed and nourished male who is lying comfortable in the stretcher. Patient is not in any acute respiratory distress. HEAD AND FACE: Abrasion on the face, especially in the nose and forehead. EYES: PERRLA, EOMI x 2, No injected conjunctiva, no nystagmus. EARS: Hearing grossly intact. Ear canals and tympanic membranes are within normal limits. MOUTH: Oropharynx within normal limits. NECK: Supple, trachea is midline, no adenopathy, no JVD, no carotid bruit, no c- spine tenderness, neck with full ROM. CHEST: Symmetric, no tenderness at palpation LUNGS: Clear to auscultation bilaterally. No wheezing or crackles. CVS: Regular rate and rhythm, S1 and S2 present, no murmurs or gallops appreciated. ABDOMEN: Soft, non-tender. No signs of distention. No rebound no guarding, and no masses palpated. Bowel sounds are normal. EXTREMITIES: FROM in all major joints, no edema, no cyanosis or clubbing. NEURO: Alert and oriented x 3. No acute neurological deficits. Speech is normal and follows commands. SKIN: Dry and warm. Triage Information Reviewed: Yes Vital Signs On Initial Exam: Initial Vitals Temp Pulse Resp BP Pulse Ox 99.1 F 65 16 92/54 97 08/23/17 05:46 08/23/17 05:46 08/23/17 05:46 08/23/17 05:46 08/23/17 05:46 Vital Signs Reviewed: Yes - Noris Coma Scale Best Eye Response: 4 - Spontaneous Best Motor Response: 6 - Obeys Commands Best Verbal Response: 5 - Oriented Coma Scale Total: 15 Diagnostics - Vital Signs Vital Signs Temp Pulse Resp BP Pulse Ox 08/23/17 05:46 99.1 F 65 16 92/54 97 - Laboratory Result Diagrams: 08/23/17 09:14 08/23/17 09:11 Lab Statement: Any lab studies that have been ordered have been reviewed, and results considered in the medical decision making process. - Radiology Right forearm XR Xray Interpretation: No Acute Changes - IMPRESSION: Peripheral arterial disease. No acute osseous injury. If symptoms persist, recommend repeat imaging. Dr. Nichols has reviewed this radiology report. Radiology Interpretation Completed By: Radiologist Right humerus XR Xray Interpretation: No Acute Changes - IMPRESSION: Peripheral arterial disease. No acute osseous injury. If symptoms persist, recommend repeat imaging. Dr. Nichols has reviewed this radiology report. Radiology Interpretation Completed By: Radiologist Chest XR Xray Interpretation: No Acute Changes - IMPRESSION: No active cardiopulmonary disease. Dr. Nichols has reviewed this radiology report. Radiology Interpretation Completed By: Radiologist - CT Brain CT CT Interpretation: No Acute Changes - IMPRESSION: No acute intracranial pathology. Stable chronic infarcts. Dr. Nichols has reviewed this radiology report. CT Interpretation Completed By: Radiologist Maxillofacial CT CT Interpretation: Positive (See Comments) - IMPRESSION: 1. Slightly depressed fracture of the nasal bones. 2. Diffuse dental disease. Dr. Nichols has reviewed this radiology report. CT Interpretation Completed By: Radiologist Cervical spine CT CT Interpretation: Positive (See Comments) - IMPRESSION: 1. Degenerative disc disease and osteoarthritis as described above. 2. No acute osseous injury to the cervical spine. 3. Right pleural effusion. Dr. Nichols has reviewed this radiology report. CT Interpretation Completed By: Radiologist Adult Trauma Course/Dx - Course Assessment/Plan: This pt is a 66 y/o male presenting to [facility] c/o nose injury and right arm pain s/p fall today at approximately 01:00 today. Pt reports he was at home today when he tripped and fell, striking his face on the floor. He sustained a bloody nose after this fall. Denies LOC. He states he went to dialysis this morning but they refused to perform dialysis until he was seen in the ED due to the heparin they use. He notes his last tetanus shot was less than 5 years ago. Test results show chronic anemia, chronic renal failure. Urinalysis is negative for UTI. Right forearm and right humerus XRs show peripheral arterial disease. No acute osseous injury. If symptoms persist, recommend repeat imaging. Chest XR: No active cardiopulmonary disease. Brain CT: No acute intracranial pathology. Stable chronic infarcts. Maxillofacial CT : 1. Slightly depressed fracture of the nasal bones. 2. Diffuse dental disease. Cervical spine CT: 1. Degenerative disc disease and osteoarthritis as described above. 2. No acute osseous injury to the cervical spine. 3. Right pleural effusion. At this point the only abnormal finding is a nasal fracture. Therefore the pt will be discharged to home with follow up from PCP and ENT. Pt is hemodynamically stable, alert and oriented x3. Pt ambulated out of the ER. - Diagnoses Provider Diagnoses: Nasal fracture Discharge - Discharge Plan Condition: Stable Disposition: HOME Patient Education Materials: Nasal Fracture (ED) Referrals: Balbina Corral MD [Primary Care Provider] - Polo Way MD [Medical Doctor] - Additional Instructions: Please follow up with ENT doctor, Dr. Way and your primary care provider. RETURN TO THE ED FOR ANY WORSENING SYMPTOMS. The documentation as recorded by the Gordo patricio Angela accurately reflects the service I personally performed and the decisions made by , Randall Nichols MD.
== END 2017-08-23 11:06 | disposition home or self-care (01) ==
LOC: ED 05:43
DX: S02.2XXA Fracture of nasal bones, initial encounter for closed fracture (principal); M79.601 Pain in right arm; R04.0 Epistaxis; W01.0XXA Fall on same level from slipping, tripping and stumbling without subsequent striking against object, initial encounter; Y92.9 Unspecified place or not applicable; Z79.01 Long term (current) use of anticoagulants; Z87.19 Personal history of other diseases of the digestive system; Z98.61 Coronary angioplasty status
CPT/HCPCS: 36415; 70450; 70486; 71046; 72125; 80053; 81003; 81015; 83690; 85025; 86140; 99283

== ENCOUNTER 2017-08-23 15:37 | Emergency (ER) | payer MEDICARE, MEDICAID ==
[2017-08-23 16:46] VITALS: BP 125/70
--- NOTE | 2017-08-23 21:30 | ED ---
Kirill Rob Jennifer, scribed for Rajesh Andrew MD on 08/23/17 at 1556 . Complex/Multi-Sys Presentation - HPI Summary HPI Summary: The patient is a 66 year old male who was brought to the ED from dialysis because he was too unstable to go back to his independent living center today. The patient reports that his restless leg syndrome has gotten worse and he can t walk well. Additionally, he recently tripped, fell, and fractured his nose. - History Of Current Complaint Chief Complaint: EDWeakness Time Seen by Provider: 08/23/17 15:48 Hx Obtained From: Patient Onset/Duration: Sudden Onset, Still Present Timing: Constant Severity Currently: Mild Severity Initially: Mild Associated Signs And Symptoms: Positive: Other - Weakness, restless leg syndrome , difficulty walking - Allergies/Home Medications Allergies/Adverse Reactions: Allergies Allergy/AdvReac Type Severity Reaction Status Date / Time Penicillins Allergy Intermediate Hives Verified 08/23/17 06:03 Home Medications: Home Medications rOPINIRole TAB* [Requip TAB*] 1 mg PO TID 08/23/17 [History Confirmed 08/23/17] PMH/Surg Hx/FS Hx/Imm Hx Endocrine/Hematology History: Reports: Hx Anticoagulant Therapy - Not currently on anticoagulant therapy d/t hematoma, Hx Diabetes - CONTROL WITH DIET, Hx Anemia Cardiovascular History: Reports: Hx Atrial Fibrillation, Hx Congestive Heart Failure, Hx Coronary Artery Disease - CHOLESTEROL CONTROL WITH MEDICATION, Hx Hypercholesterolemia, Hx Hypertension - MOSTLY CONTROLLED, Other Cardiovascular Problems/Disorders - 2 LEAKY VALVES Denies: Hx Pacemaker/ICD Respiratory History: Reports: Hx Sleep Apnea - NO CPAP, Other Respiratory Problems/Disorders Denies: Hx Asthma, Hx Chronic Obstructive Pulmonary Disease (COPD) GI History: Reports: Hx Gastroesophageal Reflux Disease - ON MEDICATION History: Reports: Hx Chronic Renal Failure, Hx Dialysis Musculoskeletal History: Reports: Hx Arthritis - BILATERAL KNUCKLES AND NECK Sensory History: Reports: Hx Cataracts - BILATERAL Denies: Hx Contacts or Glasses, Hx Hearing Aid Opthamlomology History: Reports: Hx Cataracts - BILATERAL Denies: Hx Contacts or Glasses Neurological History: Reports: Hx Nerve Disease - Neuropathy, restless leg syndrome, Other Neuro Impairments/Disorders - DIFFICULTY CONCENTRATING WITH LEFT SIDE WEAKNESS, BALANCE OFF, STAMMERING, Psychiatric History: Reports: Hx Depression - ON MEDICATION Denies: Hx Panic Disorder - Surgical History Surgery Procedure, Year, and Place: 2009 OR 2010 CARDIAC CATHERIZATION, [place], [place]. DENTAL WORK, OFFICE Hx Anesthesia Reactions: No - Immunization History Date of Tetanus Vaccine: unk Date of Influenza Vaccine: utd Infectious Disease History: No Infectious Disease History: Denies: Traveled Outside the [place] in Last 30 Days - Family History Known Family History: Positive: Cardiac Disease Family History: No FHx of malignant hyperthermia. No FHx of anesthesia reaction - Social History Alcohol Use: None Alcohol Amount: 1-2 per week Hx Substance Use: No Substance Use Type: Reports: None Hx Tobacco Use: No Smoking Status (MU): Never Smoked Tobacco Review of Systems Positive: Other - Restless Leg Syndrome Neurological: Other - Difficulty walking Positive: Weakness All Other Systems Reviewed And Are Negative: Yes Physical Exam - Summary Physical Exam Summary: Appearance: The patient is well-nourished in no acute distress and in no acute pain. There are occasional full body twitches. Skin: The skin is warm and dry and skin color reflects adequate perfusion. There are clean abrasions on the nose and dorsum of the left hand. HEENT: ~The head is normocephalic and atraumatic. There are clean abrasions on the nose and dorsum of the left hand. The pupils are equal and reactive. The conjunctivae are clear and without drainage. ~Nares are patent and without drainage. ~Mouth reveals dry mucous membranes and the throat is without erythema and exudate. ~The external ears are intact. The ear canals are patent and without drainage. The tympanic membranes are intact. Neck: the neck is supple with full range of motion and non-tender. There are no carotid bruits. ~There is no neck vein distension. Respiratory: Chest is non-tender. ~Lungs are clear to auscultation and breath sounds are symmetrical and equal. Cardiovascular: Heart is regular rate and rhythm. ~There is no murmur or rub auscultated. ~~There is no peripheral edema and pulses are symmetrical and equal. Abdomen: The abdomen is soft and non-tender. ~There are normal bowel sounds heard in all four quadrants and there is no organomegaly palpated. Musculoskeletal: There is no back tenderness noted. ~Extremities are non-tender with full range of motion.There are clean abrasions on the dorsum of the left hand. ~There is good capillary refill. ~There is no peripheral edema or calf tenderness elicited. Neurological: Patient is alert and oriented to person, place and time. ~The patient has symmetrical motor strength in all four extremities. ~Cranial nerves are grossly intact. Deep tendon reflexes are symmetrical and equal in all four extremities. Psychiatric: The patient has an appropriate affect and does not exhibit any anxiety or depression. Triage Information Reviewed: Yes Vital Signs On Initial Exam: Initial Vitals Temp Pulse Resp BP Pulse Ox 98.8 F 74 16 131/83 97 08/23/17 15:40 08/23/17 15:40 08/23/17 15:40 08/23/17 15:40 08/23/17 15:40 Vital Signs Reviewed: Yes Diagnostics - Vital Signs Vital Signs Temp Pulse Resp BP Pulse Ox 08/23/17 15:40 98.8 F 74 16 131/83 97 - Laboratory Lab Statement: Any lab studies that have been ordered have been reviewed, and results considered in the medical decision making process. Complex Multi-Symp Course/Dx Course Of Treatment: Mr. Knight was sent over from dialysis with a concern for whether he was safe to go home as he fell this AM or last evening and he was unsteady after dialysis. He was also unsteady on his feet here although he was able to ambulate without help. He has a walker at home that he doesn't use and he ambulated very well here with a walker. He agreed to use the walker and was D/C'd. - Diagnoses Provider Diagnoses: Ataxia Discharge - Discharge Plan Condition: Stable Disposition: HOME Referrals: Balbina Corral MD [Primary Care Provider] - 3 Days Additional Instructions: Follow up with your primary care physician in three days. Return to the emergency department for any new or worsening symptoms. The documentation as recorded by the Kirill patricio Jennifer accurately reflects the service I personally performed and the decisions made by me, Rajesh Andrew MD.
== END 2017-08-23 18:13 | disposition home or self-care (01) ==
LOC: ED 15:37
DX: R27.0 Ataxia, unspecified (principal); G25.81 Restless legs syndrome; Z91.81 History of falling; Z88.0 Allergy status to penicillin
CPT/HCPCS: 99283

== ENCOUNTER 2017-08-26 20:43 | Inpatient (IN) | payer MEDICARE, MEDICAID ==
[2017-08-26] MEDS ORDERED: nitroGLYCERIN DRIP* 25,000 MCG/250 ML BTL IV ONE (20:59)
[2017-08-26] MEDS ORDERED: Nitroglycerin TAB 0.4 MG* 0.4 MG TAB SL ONE (20:59)
[2017-08-26] MEDS ORDERED: Furosemide IV* 10 MG/ML 10 ML VIAL (100 MG) IV ONE (20:59)
[2017-08-26 21:18] LABS: ABS Basophils 0.3 10^3/ul (0-0.2); ABS Eosinophils 0.4 10^3/ul (0-0.6); ABS Lymphocytes 0.8 10^3/ul (1.0-4.8); ABS Monocytes 0.4 10^3/ul (0-0.8); ABS Neutrophils 6.7 10^3/ul (1.5-7.7); ABS Nucleated RBC 0 10^3/ul; Eosinophil % 4.8 % (0-6); Hematocrit 32 % (42-52); Hemoglobin 10.6 g/dl (14.0-18.0); Lymphocyte % 9.5 % (25-47); Mean Corpuscular HGB Conc 33 g/dl (31-36); Mean Corpuscular Hemoglobin 34 pg (27-31); Mean Corpuscular Volume 104 fL (80-94); Mean Platelet Volume 8 um3 (7.4-10.4); Nucleated Red Blood Cells % 0; Platelet Count 280 10^3/ul (150-450); Red Blood Count 3.09 10^6/ul (4.0-5.4); Red Cell Distribution Width 19 % (10.5-15); White Blood Count 8.6 10^3/ul (3.5-10.8)
[2017-08-26 21:25] LABS: INR 1.13 (0.77-1.02)
[2017-08-26 21:33] LABS: EGFR Non-African American 9.5 (>60)
--- NOTE | 2017-08-26 21:40 | RAD ---
INDICATION: Respiratory failure. COMPARISON: Comparison is made with a prior chest x-ray study from August 23, 2017. TECHNIQUE: A portable view of the chest was obtained. FINDINGS: The heart appears mildly enlarged. There are diffuse interstitial and alveolar infiltrates most prominent in the mid and lower lung sol. There appears to be a small right pleural effusion. IMPRESSION: DIFFUSE BILATERAL INFILTRATES AND SMALL RIGHT PLEURAL EFFUSION SUGGESTIVE OF CONGESTIVE HEART FAILURE OR PNEUMONIA.
[2017-08-26] MEDS ORDERED: Ondansetron INJ* 2 MG/ML VIAL IV PRN (22:47)
[2017-08-27] MEDS ORDERED: Vancomycin(*) 1,500 MG in NS 0.9% 250 ML* 250 ML IVPB ONE ×2
[2017-08-27] MEDS ORDERED: rOPINIRole TAB* 1 MG PO ONE (01:05)
[2017-08-27] MEDS ORDERED: oxyCODONE/Acetamin 5/325 MG* TAB ONE (01:13)
[2017-08-27] MEDS: oxyCODONE/Acetamin 5/325 MG* TAB PO PRN ×3 (01:16→20:56)
[2017-08-27] MEDS ORDERED: Cefepime 1 GM in Dextrose(*) 1 GM/50 ML BAG IV ONE (01:30)
[2017-08-27] MEDS ORDERED: Heparin DIALYSIS ONLY(*) 1,000 UNITS/ML VIAL DIALYSIS ONE ×2 (02:00→21:00)
--- NOTE | 2017-08-27 03:55 | ED ---
Bryce Rob Julia, scribed for Low Stock MD on 08/26/17 at 2115 . Respiratory - HPI Summary HPI Summary: This patient is a 66 year old M BIBA to [facility] with a chief complaint of SOB worsening midafternoon today. Patient reports wheezing, productive cough described as frothy, and LE edema. Per EMS, his SaO2 was roughly 70% in the field. Patient recently fell about 4-5 days ago Patient has a hx of CHF and kidney failure. His last dialysis was performed on 08/25/17.. Patient is still urinating, last urination occurring about an hour ago. Dr. Mosqueda is his Elementary Substitute Teacher. Dr. oCrral is his PCP. - History of Current Complaint Chief Complaint: EDShortnessOfBreath Stated Complaint: DIFFICULTY BREATHING Hx Obtained From: Patient, EMS Onset/Duration: Lasting Hours, Still Present, Worse Since - mid- afternoon Timing: Constant Character: Wheezing, Cough (Productive), Dyspnea at Rest Sputum Color: Clear - "frothy" Associated Signs and Symptoms: SOB, Edema Related History: Similar Episode/Dx as - CHF - Allergy/Home Medications Allergies/Adverse Reactions: Allergies Allergy/AdvReac Type Severity Reaction Status Date / Time Penicillins Allergy Intermediate Hives Verified 08/23/17 06:03 PMH/Surg Hx/FS Hx/Imm Hx Endocrine/Hematology History: Reports: Hx Anticoagulant Therapy - Not currently on anticoagulant therapy d/t hematoma, Hx Diabetes - CONTROL WITH DIET, Hx Anemia Cardiovascular History: Reports: Hx Atrial Fibrillation, Hx Congestive Heart Failure, Hx Coronary Artery Disease - CHOLESTEROL CONTROL WITH MEDICATION, Hx Hypercholesterolemia, Hx Hypertension - MOSTLY CONTROLLED, Other Cardiovascular Problems/Disorders - 2 LEAKY VALVES Denies: Hx Pacemaker/ICD Respiratory History: Reports: Hx Sleep Apnea - NO CPAP, Other Respiratory Problems/Disorders Denies: Hx Asthma, Hx Chronic Obstructive Pulmonary Disease (COPD) GI History: Reports: Hx Gastroesophageal Reflux Disease - ON MEDICATION History: Reports: Hx Chronic Renal Failure, Hx Dialysis Musculoskeletal History: Reports: Hx Arthritis - BILATERAL KNUCKLES AND NECK Sensory History: Reports: Hx Cataracts - BILATERAL Denies: Hx Contacts or Glasses, Hx Hearing Aid Opthamlomology History: Reports: Hx Cataracts - BILATERAL Denies: Hx Contacts or Glasses Neurological History: Reports: Hx Nerve Disease - Neuropathy, restless leg syndrome, Other Neuro Impairments/Disorders - DIFFICULTY CONCENTRATING WITH LEFT SIDE WEAKNESS, BALANCE OFF, STAMMERING, Psychiatric History: Reports: Hx Depression - ON MEDICATION Denies: Hx Panic Disorder - Surgical History Surgery Procedure, Year, and Place: 2009 OR 2010 CARDIAC CATHERIZATION, [place] DENTAL WORK, OFFICE Hx Anesthesia Reactions: No - Immunization History Date of Tetanus Vaccine: unk Date of Influenza Vaccine: utd - Family History Known Family History: Positive: Cardiac Disease Family History: No FHx of malignant hyperthermia. No FHx of anesthesia reaction - Social History Alcohol Use: None Alcohol Amount: 1-2 per week Hx Substance Use: No Substance Use Type: Reports: None Hx Tobacco Use: No Smoking Status (MU): Never Smoked Tobacco Review of Systems Positive: Shortness Of Breath, Cough, Other - wheezing Positive: Edema All Other Systems Reviewed And Are Negative: Yes Physical Exam - Summary Physical Exam Summary: Appearance: moderate to severe distress Skin: warm, dry, reflects adequate perfusion Head/face: normal Eyes: EOMI, DARLEEN ENT: normal Neck: non-tender, JVD Respiratory:, breath sounds presents, coarse breathe sounds with rales bilaterally Cardiovascular: Regular rate tachycardic, pulses are full Abdomen: non-tender, soft Bowel: present Musculoskeletal: strength/ROM intact, LE edema 4+, bruising on nose, fistula with thrill on LUE Neuro: normal, sensory motor intact, A&Ox3 Triage Information Reviewed: Yes Vital Signs On Initial Exam: Initial Vitals Temp Pulse Resp BP Pulse Ox 35.5 C 131 42 144/93 100 08/26/17 20:51 08/26/17 20:51 08/26/17 20:51 08/26/17 20:51 08/26/17 20:51 Vital Signs Reviewed: Yes Diagnostics - Vital Signs Vital Signs Temp Pulse Resp BP Pulse Ox 08/26/17 22:30 116 23 100/62 94 08/26/17 22:16 117 23 97/58 98 08/26/17 22:06 120 24 100 08/26/17 22:02 48 08/26/17 22:00 124 32 106/61 98 08/26/17 21:49 105/62 08/26/17 21:07 134 50 86 08/26/17 20:51 35.5 C 131 42 144/93 100 - Laboratory Lab Results: Lab Results 08/26/17 08/26/17 08/26/17 Range/Units 21:01 21:01 21:01 WBC 8.6 (3.5-10.8) 10^3/ul RBC 3.09 L (4.0-5.4) 10^6/ul Hgb 10.6 L (14.0-18.0) g/dl Hct 32 L (42-52) % MCV 104 H (80-94) fL MCH 34 H (27-31) pg MCHC 33 (31-36) g/dl RDW 19 H (10.5-15) % Plt Count 280 (150-450) 10^3/ul MPV 8 (7.4-10.4) um3 Neut % (Auto) 78.5 (38-83) % Lymph % (Auto) 9.5 L (25-47) % [place] % (Auto) 4.1 (1-9) % Eos % (Auto) 4.8 (0-6) % Baso % (Auto) 3.1 H (0-2) % Absolute Neuts (auto) 6.7 (1.5-7.7) 10^3/ul Absolute Lymphs (auto) 0.8 L (1.0-4.8) 10^3/ul Absolute Monos (auto) 0.4 (0-0.8) 10^3/ul Absolute Eos (auto) 0.4 (0-0.6) 10^3/ul Absolute Basos (auto) 0.3 H (0-0.2) 10^3/ul Absolute Nucleated RBC 0 10^3/ul Nucleated RBC % 0 INR (Anticoag Therapy) (0.77-1.02) Patient Temperature ABG pH (7.35-7.45) ABG pH (Temp Correct) ABG pCO2 (35-45) mmHg ABG pCO2 (Temp Corrct ABG pO2 (80-100) mmHg ABG pO2 (Temp Correct ABG HCO3 (19-31) mmol/L ABG O2 Saturation (95-98) % ABG Base Excess (-2.0-2.0) Respiration Rate O2 Delivery Device Ventilator Type Vent Mode FiO2 Inspiratory Time PEEP Pressure Support Pressure Control EPAP IPAP BiPAP Sodium 134 (133-145) mmol/L Potassium 3.8 (3.5-5.0) mmol/L Chloride 90 L (101-111) mmol/L Carbon Dioxide 32 (22-32) mmol/L Anion Gap 12 H (2-11) mmol/L BUN 22 (6-24) mg/dL Creatinine 6.00 H (0.67-1.17) mg/dL Est GFR ( Amer) 12.2 (>60) Est GFR (Non-Af Amer) 9.5 (>60) BUN/Creatinine Ratio 3.7 L (8-20) Glucose 166 H (70-100) mg/dL Lactic Acid 4.0 H* (0.5-2.0) mmol/L Calcium 9.5 (8.6-10.3) mg/dL Total Bilirubin 1.00 (0.2-1.0) mg/dL AST 40 H (13-39) U/L ALT 41 (7-52) U/L Alkaline Phosphatase 87 (34-104) U/L Troponin I 0.13 H* (<0.04) ng/mL Total Protein 8.0 (6.4-8.9) g/dL Albumin 3.9 (3.2-5.2) g/dL Globulin 4.1 H (2-4) g/dL Albumin/Globulin Ratio 1.0 (1-3) Procalcitonin (<0.6) ng/mL Influenza A (Rapid) (Negative) Influenza B (Rapid) (Negative) 08/26/17 08/26/17 08/26/17 Range/Units 21:01 21:01 21:13 WBC (3.5-10.8) 10^3/ul RBC (4.0-5.4) 10^6/ul Hgb (14.0-18.0) g/dl Hct (42-52) % MCV (80-94) fL MCH (27-31) pg MCHC (31-36) g/dl RDW (10.5-15) % Plt Count (150-450) 10^3/ul MPV (7.4-10.4) um3 Neut % (Auto) (38-83) % Lymph % (Auto) (25-47) % [place] % (Auto) (1-9) % Eos % (Auto) (0-6) % Baso % (Auto) (0-2) % Absolute Neuts (auto) (1.5-7.7) 10^3/ul Absolute Lymphs (auto) (1.0-4.8) 10^3/ul Absolute Monos (auto) (0-0.8) 10^3/ul Absolute Eos (auto) (0-0.6) 10^3/ul Absolute Basos (auto) (0-0.2) 10^3/ul Absolute Nucleated RBC 10^3/ul Nucleated RBC % INR (Anticoag Therapy) 1.13 H (0.77-1.02) Patient Temperature Not Reportable ABG pH 7.46 H (7.35-7.45) ABG pH (Temp Correct) Not Reportable ABG pCO2 47 H (35-45) mmHg ABG pCO2 (Temp Corrct Not Reportable ABG pO2 163 H (80-100) mmHg ABG pO2 (Temp Correct Not Reportable ABG HCO3 31.6 H (19-31) mmol/L ABG O2 Saturation 99.6 H (95-98) % ABG Base Excess 8.6 H (-2.0-2.0) Respiration Rate Not Reportable O2 Delivery Device bipap Ventilator Type Not Reportable Vent Mode St FiO2 100 Inspiratory Time 1.0 PEEP Not Reportable Pressure Support Not Reportable Pressure Control Not Reportable EPAP 6 IPAP 12 BiPAP Not Reportable Sodium (133-145) mmol/L Potassium (3.5-5.0) mmol/L Chloride (101-111) mmol/L Carbon Dioxide (22-32) mmol/L Anion Gap (2-11) mmol/L BUN (6-24) mg/dL Creatinine (0.67-1.17) mg/dL Est GFR ( Amer) (>60) Est GFR (Non-Af Amer) (>60) BUN/Creatinine Ratio (8-20) Glucose (70-100) mg/dL Lactic Acid (0.5-2.0) mmol/L Calcium (8.6-10.3) mg/dL Total Bilirubin (0.2-1.0) mg/dL AST (13-39) U/L ALT (7-52) U/L Alkaline Phosphatase (34-104) U/L Troponin I (<0.04) ng/mL Total Protein (6.4-8.9) g/dL Albumin (3.2-5.2) g/dL Globulin (2-4) g/dL Albumin/Globulin Ratio (1-3) Procalcitonin 0.6 H (<0.6) ng/mL Influenza A (Rapid) (Negative) Influenza B (Rapid) (Negative) 08/26/17 Range/Units 21:47 WBC (3.5-10.8) 10^3/ul RBC (4.0-5.4) 10^6/ul Hgb (14.0-18.0) g/dl Hct (42-52) % MCV (80-94) fL MCH (27-31) pg MCHC (31-36) g/dl RDW (10.5-15) % Plt Count (150-450) 10^3/ul MPV (7.4-10.4) um3 Neut % (Auto) (38-83) % Lymph % (Auto) (25-47) % [place] % (Auto) (1-9) % Eos % (Auto) (0-6) % Baso % (Auto) (0-2) % Absolute Neuts (auto) (1.5-7.7) 10^3/ul Absolute Lymphs (auto) (1.0-4.8) 10^3/ul Absolute Monos (auto) (0-0.8) 10^3/ul Absolute Eos (auto) (0-0.6) 10^3/ul Absolute Basos (auto) (0-0.2) 10^3/ul Absolute Nucleated RBC 10^3/ul Nucleated RBC % INR (Anticoag Therapy) (0.77-1.02) Patient Temperature ABG pH (7.35-7.45) ABG pH (Temp Correct) ABG pCO2 (35-45) mmHg ABG pCO2 (Temp Corrct ABG pO2 (80-100) mmHg ABG pO2 (Temp Correct ABG HCO3 (19-31) mmol/L ABG O2 Saturation (95-98) % ABG Base Excess (-2.0-2.0) Respiration Rate O2 Delivery Device Ventilator Type Vent Mode FiO2 Inspiratory Time PEEP Pressure Support Pressure Control EPAP IPAP BiPAP Sodium (133-145) mmol/L Potassium (3.5-5.0) mmol/L Chloride (101-111) mmol/L Carbon Dioxide (22-32) mmol/L Anion Gap (2-11) mmol/L BUN (6-24) mg/dL Creatinine (0.67-1.17) mg/dL Est GFR ( Amer) (>60) Est GFR (Non-Af Amer) (>60) BUN/Creatinine Ratio (8-20) Glucose (70-100) mg/dL Lactic Acid (0.5-2.0) mmol/L Calcium (8.6-10.3) mg/dL Total Bilirubin (0.2-1.0) mg/dL AST (13-39) U/L ALT (7-52) U/L Alkaline Phosphatase (34-104) U/L Troponin I (<0.04) ng/mL Total Protein (6.4-8.9) g/dL Albumin (3.2-5.2) g/dL Globulin (2-4) g/dL Albumin/Globulin Ratio (1-3) Procalcitonin (<0.6) ng/mL Influenza A (Rapid) Negative (Negative) Influenza B (Rapid) Negative (Negative) Result Diagrams: 08/26/17 21:01 08/26/17 21:01 Lab Statement: Any lab studies that have been ordered have been reviewed, and results considered in the medical decision making process. - Radiology CXR Radiology Interpretation Completed By: ED Physician - acute pulmonary edema - EKG 2051 Cardiac Rate: Tachycardia - at 132 BPM EKG Rhythm: Sinus Tachycardia ST Segment: Non-Specific EKG Interpretation: low volatage L axis, baseline wander Disposition - Course Course Of Treatment: At 21:14, Dr. Chan agrees to admit patient. Pt with hx of ESRD on dialysis. Presents with acute pulm edema and resp distress/failure. Heavy JVD. Lasix (does urinate) and nitro/nitro gtt started. D/W Nephro to initiate emergent dialysis. They will arrange for this tonight. Stabilized on BiPAP. D/W Hosptialist who is in ED evaluating. To ICU for further. - Diagnoses Provider Diagnoses: Acute respiratory failure, Acute pulmonary edema, End stage renal failure on dialysis, Fluid overload - Physician Notifications Discussed Care Of Patient With: Blaire Chan - hospitalist Time Discussed With Above Provider: 21:04 Instructed by Provider To: MD Will See In ED - will have nurse come in for emergent dialysis - Critical Care Time Critical Care Time: 30-74 min - exclusive of separately billable procedures Discharge - Discharge Plan Condition: Guarded Disposition: ADMITTED TO [facility] documentation as recorded by the Bryce patricio Julia accurately reflects the service I personally performed and the decisions made by me, Low Stock MD.
[2017-08-27] MEDS ORDERED: Vancomycin(*) 1,000 MG in NS 0.9% 250 ML* 250 ML IVPB PRN (04:58)
[2017-08-27] MEDS ORDERED: Vancomycin Random Level* NOTE FOLLOW UP PRN (04:59)
[2017-08-27 06:32] LABS: ABS Basophils 0 10^3/ul (0-0.2); ABS Eosinophils 0 10^3/ul (0-0.6); ABS Lymphocytes 0.2 10^3/ul (1.0-4.8); ABS Monocytes 0.1 10^3/ul (0-0.8); ABS Neutrophils 3.7 10^3/ul (1.5-7.7); ABS Nucleated RBC 0 10^3/ul; Eosinophil % 0.1 % (0-6); Hematocrit 24 % (42-52); Hemoglobin 7.9 g/dl (14.0-18.0); Lymphocyte % 4.7 % (25-47); Mean Corpuscular HGB Conc 33 g/dl (31-36); Mean Corpuscular Hemoglobin 34 pg (27-31); Mean Corpuscular Volume 102 fL (80-94); Mean Platelet Volume 8 um3 (7.4-10.4); Nucleated Red Blood Cells % 0; Platelet Count 152 10^3/ul (150-450); Red Blood Count 2.34 10^6/ul (4.0-5.4); Red Cell Distribution Width 18 % (10.5-15)
[2017-08-27 06:46] LABS: EGFR Non-African American 10.8 (>60)
[2017-08-27] MEDS: Atorvastatin* 40 MG TAB PO SCH (08:12)
[2017-08-27] MEDS: Folic Acid TAB* 1 MG PO SCH (08:13)
[2017-08-27] MEDS: Aspirin EC Low Dose* 81 MG TAB.EC PO SCH (08:13)
[2017-08-27] MEDS: Metoprolol Tartrate TAB* 25 MG PO SCH ×2 (08:14→21:07)
[2017-08-27] MEDS: Vitamin B Complex TAB PO SCH (08:14)
[2017-08-27] MEDS: rOPINIRole TAB* 1 MG PO SCH ×3 (08:15→20:56)
[2017-08-27] MEDS ORDERED: Metoprolol Tartrate TAB* 25 MG PO SCH (09:00)
[2017-08-27] MEDS ORDERED: VIT B COMPLEX AND C PO SCH (09:00)
[2017-08-27] MEDS ORDERED: FOLIC ACID PO SCH (09:00)
[2017-08-27] MEDS: Sevelamer TAB* 800 MG PO SCH ×3 (09:07→17:33)
--- NOTE | 2017-08-27 09:19 | HP ---
CC: Dr. Balbina Corral; Dr. Abdifatah Mosqueda * HISTORY AND PHYSICAL: DATE OF ADMISSION: 08/26/17 - ROOM #ICU-02 PRIMARY CARE PROVIDER: Dr. Balbina Corral. CONTINUOUS DRIER HELPER: Dr. Mosqueda. CHIEF COMPLAINT: Shortness of breath. HISTORY OF PRESENT ILLNESS: Mr. Knight is a 66-year-old male who has a history of endstage renal disease, on hemodialysis, Sunday, , and Sunday; atrial fibrillation; past history of CVA; hypertension; GERD; diabetes; CHF, and KIMBERLY, who presented to the emergency room with complaints of shortness of breath. 911 was activated to the patient's apartment. The patient reported to them shortness of breath since the afternoon of admission. The patient was found to be in a tripod position with an O2 saturation in the 70s on arrival. The patient was then placed on BiPAP on arrival to the emergency room due to persistent O2 saturations in the mid 80s. The patient was then in a moderate amount of respiratory distress. Currently, the patient is on BiPAP and it is very difficult to communicate with the patient. He is able to tell me that he feels somewhat better when he first got here. The patient is really unable to answer any of my other questions. PAST MEDICAL HISTORY: 1. Endstage renal disease on hemodialysis, Sunday, , and Sunday. 2. AFib, not on anticoagulation. 3. History of CVA. 4. Hypertension. 5. GERD. 6. History of CHF. 7. Type 2 diabetes - diet controlled. 8. KIMBERLY. 9. Restless legs. PAST SURGICAL HISTORY: 1. Fistula replacement. 2. Cardiac cath x2. MEDICATIONS: 1. Requip 1 mg p.o. t.i.d. 2. Kayexalate 15 g p.o. Sunday and Sunday. 3. Simvastatin 20 mg p.o. daily. 4. Sevelamer 2400 mg p.o. t.i.d. with meals. 5. Veltassa 8.4 g p.o. per the dialysis nurse. 6. Metoprolol tartrate 50 mg p.o. b.i.d. 7. Nephro-Mark 1 tab p.o. daily. 8. Aspirin 81 mg p.o. daily. ALLERGIES: PENICILLIN. FAMILY HISTORY: Mom had a history of diabetes. Dad had a history of coronary disease and diabetes. SOCIAL HISTORY: The patient does not smoke. He drinks rarely. His sister is his healthcare proxy. REVIEW OF SYSTEMS: Unobtainable from the patient due to his respiratory distress and being on BiPAP. PHYSICAL EXAMINATION GENERAL: The patient is a well-developed, middle-aged male, who appears older than his stated age, sitting up in the stretcher, in [id number] respiratory distress on BiPAP. VITAL SIGNS: Blood pressure 100/62, pulse 116, respirations 23, temp 96, O2 sat 94% on BiPAP with an FiO2 of 55%. HEENT: Pupils are equal and round. There is evidence of prior cataract extraction. Oropharynx is unable to be evaluated due to the patient being on BiPAP. There is no submandibular, cervical, or supraclavicular adenopathy. Thyroid is not enlarged. No thyroid nodules are noted. PULMONARY: The patient is in [id number] respiratory distress despite being on the BiPAP. He has a frequent wet cough. On exam, there are fine crackles heard approximately two-thirds of the way up bilaterally. CARDIAC: Normal S1, S2. Heart rate is tachycardic, but regular. I do not appreciate any murmurs. There is tense bilateral lower extremity edema left being worse than the right. There are chronic venous stasis changes to the bilateral lower legs. ABDOMEN: Bowel sounds present. Abdomen is soft, nontender, nondistended. MUSCULOSKELETAL: There is no cyanosis or clubbing of the digits. There is full active range of motion of all 4 extremities. NEUROLOGIC: Cranial nerves II through XII are grossly intact. Sensation is intact to light touch throughout. Strength is 5/5 and symmetric to both upper and lower extremities bilaterally. SKIN: Warm and dry. There are no rashes. The patient's right lower extremity from the distal thigh to the ankle appears dusky in color. This is warm to touch, however. PSYCH: Unable to determine orientation due to the BiPAP being in place. LABORATORY DATA: WBC 8.6, hemoglobin 10.6, hematocrit 32, platelets 280. INR 1.13. Sodium 134, potassium 3.8, chloride 90, CO2 of 32, BUN 22, creatinine 6.0 , glucose 166, lactic acid 4.0, calcium 9.5. Bilirubin 1.0, AST 40, ALT 41, alk phos 87, albumin 3.9. Influenza A and B, negative. ABG, 7.46/47/163. EKG reveals sinus tachycardia with an intraventricular conduction delay. The baseline of the EKG is difficult to interpret the ST segments. Chest x-ray: Diffuse bilateral infiltrates and small right pleural effusions suggestive of congestive heart failure or pneumonia. ASSESSMENT AND PLAN: Mr. Knight is a 66-year-old male with a history of endstage renal disease on hemodialysis, Sunday, , and Sunday; atrial fibrillation; hypertension; gastroesophageal reflux disease; systolic congestive heart failure; diet-controlled diabetes, and obstructive sleep apnea , who presents to the emergency room with complaints of severe shortness of breath and was found to be in moderate respiratory distress and markedly hypoxic requiring BiPAP intervention. 1. Acute hypoxic respiratory failure. The etiology of this is likely acute pulmonary edema secondary to volume overload from fluid administration during his prior hospitalization in addition to not pulling enough fluid off on dialysis, though systolic CHF cannot be ruled out. The patient had an echocardiogram in May that revealed his EF to be quite low at 30% to 35%. This was a dramatic change from his last echocardiogram in August 2016. At the time of that echocardiogram, it was felt that the reduced EF was secondary to the patient's marked anemia. I will go ahead and repeat a transthoracic echocardiogram tomorrow. The patient will remain on BiPAP for respiratory support. Additionally, the patient will be receiving acute dialysis this evening. Dr. Mosqueda has already been notified through the ER. The patient was recently hospitalized from 08/14/17 through 08/17/17 with sepsis secondary to a respiratory illness. At that time, he was discharged home on azithromycin and cefuroxime which are now completed. Given the patient's cough and recent hospitalization, I will send out a procalcitonin to evaluate for possible pneumonia. Additionally, he will be started on vancomycin and cefepime for pneumonia coverage. If the patient markedly improves with dialysis and there is no longer any signs or concerns for pneumonia, the broad- spectrum antibiotics can be discontinued. 2. Endstage renal disease. As above, the patient will be receiving dialysis this evening. Management is per Dr. Mosqueda. 3. Atrial fibrillation. The patient is currently in sinus tachycardia. He does have a high CHADS-VASc score; however, he is a [employer] and is already anemic and therefore, does not receive anticoagulation. 4. Hypertension. The patient's blood pressure is low at this point. He was previously on more blood pressure medication than he is currently; however, it appears that these were stopped. The patient will be maintained on metoprolol tartrate though at a lower dose and withhold parameters. 5. Type 2 diabetes. The patient is diet-controlled. Sugars will be monitored with daily labs. 6. Restless leg. The patient will continue on his Requip. 7. DVT prophylaxis. According to the Adult Thrombosis Prophylaxis Risk Factor Assessment Guide, the patient has a total risk factor score of 5 making him high risk. He will be placed on heparin 5000 units subcutaneous q. 8 hours. 8. Code status is full. TIME SPENT: 65 minutes was spent admitting this patient. [id number]/CPS #: [id number] MTDNatasha
--- NOTE | 2017-08-27 10:04 | ECHO ---
Patient: HARRISON RODRIGUEZ [facility] Rec#: [id number] : 1950 Date: 08/27/2017 Age: 66y Height: 177.8 cm / 70.0 in Weight: 86.18 kg / 189.9 lbs Sex: M BSA: 2.04 Room#: ICU 2 Admit Date#: 08/26/2017 Type: Inpatient Referring: Blaire Chan DO Reading: Ty Stewart MD Credit Operations Specialist: Tamela Wilson RD,RDMS CC: Balbina Corral Transthoracic Echocardiogram Indication: CHF BP: 121/73 HR: 107 Rhythm: Tachycardia Findings History: CKD, AFIB, CHF, DM, CAD, CVA, HTN HLD Technical Comments: The study quality is fair. The study is technically limited due to poor parasternal windows. Left Ventricle: The left ventricular chamber size is normal. Mild concentric left ventricular hypertrophy is observed. There is global hypokinesis of the left ventricle with minor regional variation.Anteroapical wall is severely hypokinetic The estimated ejection fraction is 25-30%. The assessment of diastolic function is non-diagnostic. Left Atrium: The left atrium is severely dilated. Right Ventricle: The right ventricle is mildly dilated. The right ventricular global systolic function is normal. Right Atrium: The right atrium is moderately dilated. Aortic Valve: The aortic valve structure is not well visualized. The aortic valve leaflets are moderately thickened. Systolic excursion of the aortic valve cusps is reduced. There is no evidence of aortic regurgitation. There is mild to moderate aortic stenosis.Degree of may be under estimated due to low LV function The mean gradient of the aortic valve is 14 mmHg. The aortic valve area, by peak velocities, is calculated at 1.3 cm2. Mitral Valve: There is mitral annular calcification. The mitral valve leaflets are mildly thickened. There is mild mitral regurgitation. There is mild mitral stenosis. Tricuspid Valve: The tricuspid valve leaflets are normal. There is mild to moderate tricuspid regurgitation. There is evidence of moderate to severe pulmonary hypertension. Pulmonic Valve: The pulmonic valve structure is not well visualized. Pericardium: There is no significant pericardial effusion. Aorta: The aortic root appears normal. There is mild dilatation of the aortic arch. Pulmonary Artery: The main pulmonary artery is not well visualized. Venous: The inferior vena cava is dilated. There is less than 50% respiratory change in the inferior vena cava dimension. Conclusions Mild concentric left ventricular hypertrophy is observed. There is global hypokinesis of the left ventricle with minor regional variation.Anteroapical wall is severely hypokinetic The estimated ejection fraction is 25-30%. The right ventricular global systolic function is normal. Systolic excursion of the aortic valve cusps is reduced. There is no evidence of aortic regurgitation. There is mild to moderate aortic stenosis.Degree of may be under estimated due to low LV function There is mild mitral regurgitation. There is mild to moderate tricuspid regurgitation. There is evidence of moderate to severe pulmonary hypertension. Compared to study of 06/04/17, there is little change Measurements Name Value Normal Range RVIDd (AP) 2D 2.9 cm (0.9 - 2.6) RAd ISD 4CH 5.7 cm (3.4 - 4.9) RA (A4C)W 5.1 cm (2.9 - 4.6) IVSd (2D) 1.2 cm (0.6 - 1) LVPWd (2D) 1.2 cm (0.6 - 1) LVIDd (2D) 3.1 cm (3.6 - 5.4) LVIDs (2D) 2.6 cm - LV FS (2D) 18 % (25 - 45) Aortic Annulus 2.2 cm (1.4 - 2.6) Ao root diameter (2D) 3.3 cm (2.1 - 3.5) Ascending Ao 3.3 cm (2.1 - 3.4) Aortic arch 4.3 cm (1.8 - 3.4) LA dimension (AP) 2D 5.1 cm (2.3 - 3.8) LAd ISD 4CH 6.3 cm (2.9 - 5.3) LA ISD 4CH W 5.3 cm (2.5 - 4.5) Name Value Normal Range LA ESV SP 4CH (A/L) 134.18 ml - LA ESV SP 2CH (A/L) 113.9 ml - LA ESV BP (A/L) 124.48 ml - LA ESV BP (A/L) index 61 ml/m2 - LA ESV SP 4CH (MOD) 120.31 ml - LA ESV SP 2CH (MOD) 107.89 ml - LV EDV SP 4CH (MOD) 109.63 ml - LV ESV SP 4CH (MOD) 74.35 ml - EF SP 4CH (MOD) 32.18 % - Name Value Normal Range MV E-wave Vmax 1.7 m/sec - MV deceleration time 194 msec - LV lateral e' Vmax 0.06 m/sec - LV E:e' lateral ratio 28 ratio - Name Value Normal Range AV Vmax 2.5 m/sec - AV VTI 50 cm - AV peak gradient 25 mmHg - AV mean gradient 14 mmHg - LVOT diameter 2 cm - LVOT Vmax 1 m/sec - LVOT VTI 18 cm - LVOT peak gradient 4 mmHg - LVOT mean gradient 2 mmHg - DOI (VTI) 0.4 ratio - SV LVOT 66.13 ml - PATSY (continuity Vmax) 1.3 cm2 - PATSY (continuity VTI) 1.1 cm2 - NGHIA Vmax 0.6 m/sec - Name Value Normal Range MV Vmax 1.9 m/sec - MV VTI 36 cm - MV peak gradient 14 mmHg - MV mean gradient 6.1 mmHg - MV PHT 60 msec - MVA (PHT) 3.7 cm2 - MVA (continuity VTI) 1.8 cm2 - Name Value Normal Range TR Vmax 3.4 m/sec - TR peak gradient 46 mmHg - RAP 15 mmHg - RVSP 61 mmHg - IVC diameter 3 cm - Name Value Normal Range PV Vmax 0.6 m/sec - PV peak gradient 1.4 mmHg -
--- NOTE | 2017-08-27 12:47 | PN ---
Hospitalist Progress Note Date of Service: 08/27/17 Troponin rising with new vicky-apical hypokinesis on TTE. EKG changes resolved and no chest pain. I am consulting cardiology for consideration of a C knowing that he had multivessel nonobstructive disease in 2013. The volume overload he experienced can explain his demand ischemia, and I do not believe he has had a type I NE, but he may have worsening disease explaining the NSTEMI that should be intervened upon. He also may warrant discussion about his valvular disease, as this may also be contributing to his tenuous volume status. In addition, he may need AICD now for primary prevention.
--- NOTE | 2017-08-27 14:23 | PN ---
Subjective Date of Service: 08/27/17 Interval History: Received emergent HD overnight, then was able to be taken off bipap and is now on 6L this morning. He feels much better and only complains of restless legs. He has had no chest pain. He admits to fluid indiscretion, which he believes caused him to become overloaded. Says HD has been going well, but he does not know his dry weight. Family History: Unchanged from Admission Social History: Unchanged from Admission Past Medical History: Unchanged from Admission Objective Active Medications: Acetaminophen (Tylenol Tab*) 650 mg PO Q4H PRN PRN Reason: PAIN Aspirin (Aspirin Ec Low Dose*) 81 mg PO DAILY [facility] Last Admin: 08/27/17 08:13 Dose: 81 mg Atorvastatin Calcium (Lipitor*) 40 mg PO DAILY [facility] Last Admin: 08/27/17 08:12 Dose: 40 mg Folic Acid (Folvite Tab*) 0.5 mg PO DAILY [facility] Last Admin: 08/27/17 08:13 Dose: 0.5 mg Nitroglycerin/Dextrose (Nitroglycerin Drip*) 25,000 mcg in 250 mls @ 12 mls/hr IV ED ONCE ONE PRN Reason: 20 MCG/MIN Stop: 08/27/17 17:48 Last Admin: 08/26/17 21:26 Dose: 12 mls/hr Cefepime HCl 0.5 gm/ Sodium (Chloride) 50 mls @ 100 mls/hr IVPB Q24H [facility] Stop: 08/28/17 01:59 Cefepime HCl 0.5 gm/ Dextrose 50 mls @ 100 mls/hr IVPB Q24H [facility] Vancomycin HCl 1,000 mg/ (Sodium Chloride) 250 mls @ 166.667 mls/hr IVPB MoWeFr @1500 PRN PRN Reason: RANDOM LEVEL < 20 MCG/ML Metoprolol Tartrate (Lopressor Tab*) 25 mg PO Q12HR [facility] Last Admin: 08/27/17 08:14 Dose: 25 mg Omeprazole (Prilosec Cap*) 20 mg PO 0600 [facility] Ondansetron HCl (Zofran Inj*) 4 mg IV Q6H PRN PRN Reason: NAUSEA Oxycodone/Acetaminophen (Percocet 5/325 Tab*) 1 tab PO Q6H PRN PRN Reason: PAIN Last Admin: 08/27/17 07:50 Dose: 1 tab Pharmacy Consult (Vancomycin Random Level*) 1 note FOLLOW UP MoWeFr@1500 [facility] Ropinirole HCl (Requip Tab*) 1 mg PO TID [facility] Last Admin: 08/27/17 13:00 Dose: 1 mg Sevelamer Carbonate (Renvela Tab*) 2,400 mg PO TID WITH MEALS [facility] Last Admin: 08/27/17 12:59 Dose: 2,400 mg Vitamin B Complex/Vitamin E (Complex B-100*) 1 tab PO DAILY [facility] Last Admin: 08/27/17 08:14 Dose: 1 tab Vital Signs - 8 hr 08/27/17 08/27/17 08/27/17 06:30 07:00 07:30 Temperature Pulse Rate 104 104 105 Respiratory 23 21 33 Rate Blood Pressure 128/78 125/78 121/68 (mmHg) O2 Sat by Pulse 95 98 97 Oximetry 08/27/17 08/27/17 08/27/17 07:45 07:50 08:00 Temperature 99.2 F Pulse Rate 106 Respiratory 24 40 Rate Blood Pressure 127/79 (mmHg) O2 Sat by Pulse 96 Oximetry 08/27/17 08/27/17 08/27/17 08:30 09:00 09:30 Temperature Pulse Rate 107 92 83 Respiratory 27 26 14 Rate Blood Pressure 136/75 108/67 114/76 (mmHg) O2 Sat by Pulse 92 85 98 Oximetry 08/27/17 08/27/17 08/27/17 10:00 10:30 11:00 Temperature Pulse Rate 85 85 86 Respiratory 15 23 26 Rate Blood Pressure 112/70 115/78 110/73 (mmHg) O2 Sat by Pulse 100 100 98 Oximetry 08/27/17 08/27/17 08/27/17 11:30 11:52 12:00 Temperature 97.9 F Pulse Rate 87 89 Respiratory 21 24 22 Rate Blood Pressure 113/76 (mmHg) O2 Sat by Pulse 98 94 Oximetry 08/27/17 08/27/17 08/27/17 12:01 12:30 13:00 Temperature Pulse Rate 92 86 90 Respiratory 25 18 26 Rate Blood Pressure 109/76 113/69 (mmHg) O2 Sat by Pulse 96 95 89 Oximetry 08/27/17 08/27/17 08/27/17 13:30 13:55 14:00 Temperature Pulse Rate 92 91 Respiratory 29 27 28 Rate Blood Pressure 126/72 (mmHg) O2 Sat by Pulse 94 96 Oximetry Oxygen Devices in Use Now: OxyMask Appearance: no distress, nontoxic Eyes: No Scleral Icterus Ears/Nose/Mouth/Throat: NL Teeth, Lips, Gums, Clear Oropharnyx Respiratory: - - wet crackles b/l lungs, 1/[address] up Cardiovascular: RRR, - - S3 Abdominal: NL Sounds; No Tenderness; No Distention Lymphatic: No Cervical Adenopathy Extremities: - - left upper extremity AV fistula Skin: - - chronic venous stasis changes, ulcers on right anterior acevedo, pulses diminished, thickened toenails Result Diagrams: 08/27/17 05:55 08/27/17 05:55 Additional Lab and Data: Lab Results 08/26/17 08/26/17 08/26/17 Range/Units 21:01 21:01 21:01 WBC 8.6 (3.5-10.8) 10^3/ul RBC 3.09 L (4.0-5.4) 10^6/ul Hgb 10.6 L (14.0-18.0) g/dl Hct 32 L (42-52) % MCV 104 H (80-94) fL MCH 34 H (27-31) pg MCHC 33 (31-36) g/dl RDW 19 H (10.5-15) % Plt Count 280 (150-450) 10^3/ul MPV 8 (7.4-10.4) um3 Neut % (Auto) 78.5 (38-83) % Lymph % (Auto) 9.5 L (25-47) % Geary % (Auto) 4.1 (1-9) % Eos % (Auto) 4.8 (0-6) % Baso % (Auto) 3.1 H (0-2) % Absolute Neuts (auto) 6.7 (1.5-7.7) 10^3/ul Absolute Lymphs (auto) 0.8 L (1.0-4.8) 10^3/ul Absolute Monos (auto) 0.4 (0-0.8) 10^3/ul Absolute Eos (auto) 0.4 (0-0.6) 10^3/ul Absolute Basos (auto) 0.3 H (0-0.2) 10^3/ul Absolute Nucleated RBC 0 10^3/ul Nucleated RBC % 0 INR (Anticoag Therapy) (0.77-1.02) Patient Temperature ABG pH (7.35-7.45) ABG pH (Temp Correct) ABG pCO2 (35-45) mmHg ABG pCO2 (Temp Corrct ABG pO2 (80-100) mmHg ABG pO2 (Temp Correct ABG HCO3 (19-31) mmol/L ABG O2 Saturation (95-98) % ABG Base Excess (-2.0-2.0) Respiration Rate O2 Delivery Device Ventilator Type Vent Mode FiO2 Inspiratory Time PEEP Pressure Support Pressure Control EPAP IPAP BiPAP Sodium 134 (133-145) mmol/L Potassium 3.8 (3.5-5.0) mmol/L Chloride 90 L (101-111) mmol/L Carbon Dioxide 32 (22-32) mmol/L Anion Gap 12 H (2-11) mmol/L BUN 22 (6-24) mg/dL Creatinine 6.00 H (0.67-1.17) mg/dL Est GFR ( Amer) 12.2 (>60) Est GFR (Non-Af Amer) 9.5 (>60) BUN/Creatinine Ratio 3.7 L (8-20) Glucose 166 H (70-100) mg/dL Lactic Acid 4.0 H* (0.5-2.0) mmol/L Calcium 9.5 (8.6-10.3) mg/dL Total Bilirubin 1.00 (0.2-1.0) mg/dL AST 40 H (13-39) U/L ALT 41 (7-52) U/L Alkaline Phosphatase 87 (34-104) U/L Troponin I 0.13 H* (<0.04) ng/mL Total Protein 8.0 (6.4-8.9) g/dL Albumin 3.9 (3.2-5.2) g/dL Globulin 4.1 H (2-4) g/dL Albumin/Globulin Ratio 1.0 (1-3) Procalcitonin (<0.6) ng/mL Influenza A (Rapid) (Negative) Influenza B (Rapid) (Negative) 08/26/17 08/26/17 08/26/17 Range/Units 21:01 21:01 21:13 WBC (3.5-10.8) 10^3/ul RBC (4.0-5.4) 10^6/ul Hgb (14.0-18.0) g/dl Hct (42-52) % MCV (80-94) fL MCH (27-31) pg MCHC (31-36) g/dl RDW (10.5-15) % Plt Count (150-450) 10^3/ul MPV (7.4-10.4) um3 Neut % (Auto) (38-83) % Lymph % (Auto) (25-47) % Geary % (Auto) (1-9) % Eos % (Auto) (0-6) % Baso % (Auto) (0-2) % Absolute Neuts (auto) (1.5-7.7) 10^3/ul Absolute Lymphs (auto) (1.0-4.8) 10^3/ul Absolute Monos (auto) (0-0.8) 10^3/ul Absolute Eos (auto) (0-0.6) 10^3/ul Absolute Basos (auto) (0-0.2) 10^3/ul Absolute Nucleated RBC 10^3/ul Nucleated RBC % INR (Anticoag Therapy) 1.13 H (0.77-1.02) Patient Temperature Not Reportable ABG pH 7.46 H (7.35-7.45) ABG pH (Temp Correct) Not Reportable ABG pCO2 47 H (35-45) mmHg ABG pCO2 (Temp Corrct Not Reportable ABG pO2 163 H (80-100) mmHg ABG pO2 (Temp Correct Not Reportable ABG HCO3 31.6 H (19-31) mmol/L ABG O2 Saturation 99.6 H (95-98) % ABG Base Excess 8.6 H (-2.0-2.0) Respiration Rate Not Reportable O2 Delivery Device bipap Ventilator Type Not Reportable Vent Mode St FiO2 100 Inspiratory Time 1.0 PEEP Not Reportable Pressure Support Not Reportable Pressure Control Not Reportable EPAP 6 IPAP 12 BiPAP Not Reportable Sodium (133-145) mmol/L Potassium (3.5-5.0) mmol/L Chloride (101-111) mmol/L Carbon Dioxide (22-32) mmol/L Anion Gap (2-11) mmol/L BUN (6-24) mg/dL Creatinine (0.67-1.17) mg/dL Est GFR ( Amer) (>60) Est GFR (Non-Af Amer) (>60) BUN/Creatinine Ratio (8-20) Glucose (70-100) mg/dL Lactic Acid (0.5-2.0) mmol/L Calcium (8.6-10.3) mg/dL Total Bilirubin (0.2-1.0) mg/dL AST (13-39) U/L ALT (7-52) U/L Alkaline Phosphatase (34-104) U/L Troponin I (<0.04) ng/mL Total Protein (6.4-8.9) g/dL Albumin (3.2-5.2) g/dL Globulin (2-4) g/dL Albumin/Globulin Ratio (1-3) Procalcitonin 0.6 H (<0.6) ng/mL Influenza A (Rapid) (Negative) Influenza B (Rapid) (Negative) 08/26/17 Range/Units 21:47 WBC (3.5-10.8) 10^3/ul RBC (4.0-5.4) 10^6/ul Hgb (14.0-18.0) g/dl Hct (42-52) % MCV (80-94) fL MCH (27-31) pg MCHC (31-36) g/dl RDW (10.5-15) % Plt Count (150-450) 10^3/ul MPV (7.4-10.4) um3 Neut % (Auto) (38-83) % Lymph % (Auto) (25-47) % Geary % (Auto) (1-9) % Eos % (Auto) (0-6) % Baso % (Auto) (0-2) % Absolute Neuts (auto) (1.5-7.7) 10^3/ul Absolute Lymphs (auto) (1.0-4.8) 10^3/ul Absolute Monos (auto) (0-0.8) 10^3/ul Absolute Eos (auto) (0-0.6) 10^3/ul Absolute Basos (auto) (0-0.2) 10^3/ul Absolute Nucleated RBC 10^3/ul Nucleated RBC % INR (Anticoag Therapy) (0.77-1.02) Patient Temperature ABG pH (7.35-7.45) ABG pH (Temp Correct) ABG pCO2 (35-45) mmHg ABG pCO2 (Temp Corrct ABG pO2 (80-100) mmHg ABG pO2 (Temp Correct ABG HCO3 (19-31) mmol/L ABG O2 Saturation (95-98) % ABG Base Excess (-2.0-2.0) Respiration Rate O2 Delivery Device Ventilator Type Vent Mode FiO2 Inspiratory Time PEEP Pressure Support Pressure Control EPAP IPAP BiPAP Sodium (133-145) mmol/L Potassium (3.5-5.0) mmol/L Chloride (101-111) mmol/L Carbon Dioxide (22-32) mmol/L Anion Gap (2-11) mmol/L BUN (6-24) mg/dL Creatinine (0.67-1.17) mg/dL Est GFR ( Amer) (>60) Est GFR (Non-Af Amer) (>60) BUN/Creatinine Ratio (8-20) Glucose (70-100) mg/dL Lactic Acid (0.5-2.0) mmol/L Calcium (8.6-10.3) mg/dL Total Bilirubin (0.2-1.0) mg/dL AST (13-39) U/L ALT (7-52) U/L Alkaline Phosphatase (34-104) U/L Troponin I (<0.04) ng/mL Total Protein (6.4-8.9) g/dL Albumin (3.2-5.2) g/dL Globulin (2-4) g/dL Albumin/Globulin Ratio (1-3) Procalcitonin (<0.6) ng/mL Influenza A (Rapid) Negative (Negative) Influenza B (Rapid) Negative (Negative) Assess/Plan/Problems-Billing Assessment: 67 yo M with esrd on HD, systolic heart failure, afib, and CAD admitted with shortness of breath, found to be hypoxic and volume overloaded, requiring bipap in the ED, received emergent HD overnight. - Patient Problems (1) Volume overload Current Visit: Yes Status: Acute Code(s): E87.70 - FLUID OVERLOAD, UNSPECIFIED SNOMED Code(s): 10241837 Comment: likely due to fluid indiscretion in the setting of esrd and systolic heart failure he does not know his dry weight, indicating a lack of insight of his disease processes consult nutrition s/p HD overnight, removal of 3.5L, plan for repeat HD today he does make some urine, so we can attempt diuresis if needed, but stable at this point, so will leave volume removal up to dialysis (2) NSTEMI (non-ST elevated myocardial infarction) Current Visit: Yes Status: Acute Code(s): I21.4 - NON-ST ELEVATION (NSTEMI) MYOCARDIAL INFARCTION SNOMED Code(s): 965144779 Comment: troponin has not peaked yet (up to 3.70) with st depressions at admission which have now resolved likely demand in setting of acute volume overload and hypoxia, no pain and ekg changes resolved after volume removal, so less likely a type 1 [place] he had multivessel nonobstructing cad on a [facility] in 2013 (30% LAD, 60% diag, 50% lcx), now with severe hypokinesis on the vicky-apical wall, which appears to be more severe than on a TTE 4 months ago. he may warrant repeat evaluation of his coronary arteries this admission; case discussed with cardiology (3) Acute on chronic systolic heart failure Current Visit: Yes Status: Acute Code(s): I50.23 - ACUTE ON CHRONIC SYSTOLIC (CONGESTIVE) HEART FAILURE SNOMED Code(s): 907815592 Comment: as above ischemic cardiomyopathy, plus valvular dysfunction also appreciate cardiology recommendations for valve lesions, and whether he would be a candidate for valve surgery given his comorbidities--may be contributing to his tenuous volume status continue metoprolol, ASA, statin. he is not on an ruben inhibitor (4) Acute respiratory failure with hypoxia Current Visit: No Status: Acute Code(s): J96.01 - ACUTE RESPIRATORY FAILURE WITH HYPOXIA SNOMED Code(s): 97382348 Comment: likely due to volume overload; HD as above and wean O2 as able (5) Macrocytic anemia Current Visit: No Status: Acute Priority: High Onset Date: 05/15/14 Code (s): D53.9 - NUTRITIONAL ANEMIA, UNSPECIFIED SNOMED Code(s): 67356537 (6) SIRS (systemic inflammatory response syndrome) Current Visit: No Status: Acute Code(s): R65.10 - SIRS OF NON-INFECTIOUS ORIGIN W/O ACUTE ORGAN DYSFUNCTION SNOMED Code(s): 354035372 Comment: fever, left shift, tachycardia source is unclear, check sputum cultures and urine cultures (may be difficult to interpret, since he makes very little), and blood cultures continue vanc/cefepime empirically
[2017-08-27] MEDS ORDERED: Vancomycin Random Level* NOTE FOLLOW UP SCH (15:00)
--- NOTE | 2017-08-27 16:58 | PN ---
Hospitalist Progress Note Date of Service: 08/27/17 rectal exam: no hemorrhoids, stool is brown. sent for fobt.
[2017-08-27] MEDS ORDERED: Epoetin Alfa* 10,000 UNITS/ML VIAL IV ONE (21:00)
--- NOTE | 2017-08-27 22:51 | CONS ---
CC: Dr. Acuña; Dr. Balbina Corral, Family Medicine; Dr. Mosqueda * CARDIOLOGY CONSULTATION REPORT: DATE OF CONSULT: 08/27/17 INDICATION FOR CONSULT: Congestive heart failure. HISTORY OF PRESENT ILLNESS: The patient is a 66-year-old gentleman known to me from previous consultation, who is admitted to the hospital with congestive heart failure. The patient has a history of 3-vessel coronary artery disease, paroxysmal atrial fibrillation, and end-stage renal disease, on dialysis, who was at home when he has had sudden onset of shortness of breath. The patient was brought to the emergency room, he was placed on BiPAP, and underwent urgent dialysis at 2 o'clock in the morning; this significantly improved his symptoms. The patient's initial troponin was 0.13. It began continuously rising to a peak of 4.15. The patient had echocardiogram today, which showed an ejection fraction of 30%, which is slightly worsened at his baseline, but there is a new anterior wall motion abnormality. In speaking with the patient this afternoon, he denies any current chest pain. He says his breathing is much better since his dialysis in the middle of the night. He denies any fevers of chills. He denies any lightheadedness, dizziness , or syncope. PAST MEDICAL HISTORY: Significant for end-stage renal disease, on hemodialysis and atrial fibrillation. He is currently not anticoagulated because of a history of GI bleed, history of CVA, hypertension, diet-controlled diabetes, and congestive heart failure. PAST SURGICAL HISTORY: Fistula replacement, cardiac catheterization. OUTPATIENT MEDICATIONS: 1. Requip 1 mg t.i.d. 2. Kayexalate 15 mg Mondays and Fridays. 3. Simvastatin 20 mg a day. 4. Sevelamer 2400 mg 3 times a day. 5. Metoprolol tartrate 50 mg 3 times a day. 6. Aspirin 81 mg a day. ALLERGIES: To PENICILLIN. FAMILY HISTORY: Mother has history of diabetes. Father has history of coronary artery disease. SOCIAL HISTORY: Denies tobacco use. Rare alcohol use. No other illicit drugs. He is retired. His sister is his health care proxy. PHYSICAL EXAM: Vital Signs: Height is 5 feet and 10 inches, weight is 193 pounds, temperature 98.9, heart rate is 90, blood pressure 128/86, respiratory rate is 20, oxygen saturation 97% on 2 L. Sclerae anicteric. Oropharynx is pink without erythema. Carotids are 2+ without bruits. JVD is normal. Thyroid is normal. Cardiac Exam: S1 and S2, regular with a 2/6 systolic murmur heard best at the left upper sternal border. PMI is normal. Lungs have mildly decreased breath sounds. There are no rhonchi or rales. There is no dullness to percussion. Abdomen is soft, nontender, and nondistended with normoactive bowel sounds. Extremities show no edema. He has 2+ pulses throughout. The patient is awake, alert, and oriented. He moves all 4 extremities equally. DIAGNOSTIC STUDIES/LAB DATA: Chemistry is within normal limits. BUN 21, creatinine 5.3. Again, peak troponin 4.15. White count 4, hemoglobin 8, hematocrit 24, and platelet count 152. EKG today demonstrates normal sinus rhythm with nonspecific ST-T wave abnormalities. IMPRESSION AND PLAN: This is a 66-year-old gentleman with a history of paroxysmal atrial fibrillation, history of coronary artery disease, history of end-stage renal disease, who is admitted to the hospital with flash pulmonary edema. The patient has an elevated troponin level consistent with non-ST elevation myocardial infarction. The patient is currently on beta blockers. He is not on an KLEBER inhibitor. He is on an aspirin a day. The patient is not anticoagulated because of his history of gastrointestinal bleed. The patient is a [employer] and will not receive blood products. For now my recommendations, he will stay on maximum medical therapy. I think it will be difficult to take this patient to the cardiac slab inspector given the fact that he is anemic. He has a history of a gastrointestinal bleed and has end-stage renal disease. At this point, I do not think it is appropriate to consider stent implantation on this patient as potential risk of further bleeding and necessity for blood products which he would not accept would be fairly high. This was discussed with Dr. Larios. The patient will continue with his current medications. I will follow the patient during his hospitalization. [id number]/[facility] #: [id number] PETER
[2017-08-27] MEDS ORDERED: Cefepime(*) 0.5 GM in NS 0.9% 50 ML* 50 ML IVPB ONE (23:00)
[2017-08-28] MEDS ORDERED: Cefepime(*) 0.5 GM in NS 0.9% 50 ML* 50 ML IVPB SCH (01:30)
[2017-08-28] MEDS: Omeprazole CAP* 20 MG PO SCH (05:38)
[2017-08-28] MEDS: Acetaminophen TAB* 325 MG PO PRN (05:38)
[2017-08-28] MEDS: rOPINIRole TAB* 1 MG PO SCH ×3 (08:06→21:27)
[2017-08-28] MEDS: Lisinopril TAB* 10 MG PO SCH (08:06)
[2017-08-28] MEDS: Vitamin B Complex TAB PO SCH (08:06)
[2017-08-28] MEDS: Folic Acid TAB* 1 MG PO SCH (08:06)
[2017-08-28] MEDS: Atorvastatin* 40 MG TAB PO SCH (08:07)
[2017-08-28] MEDS: Metoprolol Tartrate TAB* 25 MG PO SCH ×2 (08:08→21:26)
[2017-08-28] MEDS: Aspirin EC Low Dose* 81 MG TAB.EC PO SCH (08:08)
[2017-08-28] MEDS: Sevelamer TAB* 800 MG PO SCH ×3 (09:45→17:40)
[2017-08-28] MEDS: guaiFENesin LIQ* 100 MG/5 ML UDC PO PRN (09:46)
--- NOTE | 2017-08-28 09:59 | PN ---
Subjective Date of Service: 08/28/17 Interval History: No overnight events. Feels much better this morning. His only complaint is a cough productive of white sputum, which he says is usual for him all winter. No chest pain, and he only gets short of breath when he coughs. He had HD again last night. Family History: Unchanged from Admission Social History: Unchanged from Admission Past Medical History: Unchanged from Admission Objective Active Medications: Acetaminophen (Tylenol Tab*) 650 mg PO Q4H PRN PRN Reason: PAIN Last Admin: 08/28/17 05:38 Dose: 650 mg Aspirin (Aspirin Ec Low Dose*) 81 mg PO DAILY [facility] Last Admin: 08/28/17 08:08 Dose: 81 mg Atorvastatin Calcium (Lipitor*) 40 mg PO DAILY [facility] Last Admin: 08/28/17 08:07 Dose: 40 mg Folic Acid (Folvite Tab*) 0.5 mg PO DAILY [facility] Last Admin: 08/28/17 08:06 Dose: 0.5 mg Guaifenesin (Robitussin*) 5 ml PO Q4H PRN PRN Reason: COUGH Last Admin: 08/28/17 09:46 Dose: 5 ml Cefepime HCl 0.5 gm/ Dextrose 50 mls @ 100 mls/hr IVPB Q24H [facility] Vancomycin HCl 1,000 mg/ (Sodium Chloride) 250 mls @ 166.667 mls/hr IVPB MoWeFr @1500 PRN PRN Reason: RANDOM LEVEL < 20 MCG/ML Last Admin: 08/27/17 23:29 Dose: 166.667 mls/hr Lisinopril (Prinivil Tab*) 10 mg PO DAILY [facility] Last Admin: 08/28/17 08:06 Dose: 10 mg Metoprolol Tartrate (Lopressor Tab*) 25 mg PO Q12HR [facility] Last Admin: 08/28/17 08:08 Dose: 25 mg Omeprazole (Prilosec Cap*) 20 mg PO 0600 [facility] Last Admin: 08/28/17 05:38 Dose: 20 mg Ondansetron HCl (Zofran Inj*) 4 mg IV Q6H PRN PRN Reason: NAUSEA Oxycodone/Acetaminophen (Percocet 5/325 Tab*) 1 tab PO Q6H PRN PRN Reason: PAIN Last Admin: 08/27/17 20:56 Dose: 1 tab Pharmacy Consult (Vancomycin Random Level*) 1 note FOLLOW UP MoWeFr@1500 [facility] Last Admin: 08/27/17 20:57 Dose: 1 note Ropinirole HCl (Requip Tab*) 1 mg PO TID [facility] Last Admin: 08/28/17 08:06 Dose: 1 mg Sevelamer Carbonate (Renvela Tab*) 2,400 mg PO TID WITH MEALS [facility] Last Admin: 08/28/17 09:45 Dose: 2,400 mg Vitamin B Complex/Vitamin E (Complex B-100*) 1 tab PO DAILY [facility] Last Admin: 08/28/17 08:06 Dose: 1 tab Vital Signs - 8 hr 08/28/17 08/28/17 08/28/17 02:00 02:30 03:00 Temperature Pulse Rate 80 84 74 Respiratory 26 21 15 Rate Blood Pressure 131/85 128/87 129/83 (mmHg) O2 Sat by Pulse 100 95 100 Oximetry 08/28/17 08/28/17 08/28/17 03:19 03:30 03:52 Temperature 98.5 F Pulse Rate 73 Respiratory 14 Rate Blood Pressure 124/80 (mmHg) O2 Sat by Pulse 100 100 Oximetry 08/28/17 08/28/17 08/28/17 04:00 04:30 05:00 Temperature Pulse Rate 79 80 80 Respiratory 20 18 24 Rate Blood Pressure 138/92 144/93 138/90 (mmHg) O2 Sat by Pulse 99 100 96 Oximetry 08/28/17 08/28/17 08/28/17 05:30 06:00 06:30 Temperature Pulse Rate 83 81 82 Respiratory 26 26 33 Rate Blood Pressure 136/86 133/84 137/89 (mmHg) O2 Sat by Pulse 98 100 100 Oximetry 08/28/17 08/28/17 08/28/17 07:00 07:30 08:00 Temperature 99.6 F Pulse Rate 81 77 81 Respiratory 21 14 21 Rate Blood Pressure 137/87 145/94 144/86 (mmHg) O2 Sat by Pulse 99 100 99 Oximetry 08/28/17 08/28/17 08:30 09:00 Temperature Pulse Rate 82 83 Respiratory 23 26 Rate Blood Pressure 141/90 130/85 (mmHg) O2 Sat by Pulse 92 94 Oximetry Oxygen Devices in Use Now: Nasal Cannula Appearance: alert, no distress, mildly tachypneic Eyes: No Scleral Icterus Ears/Nose/Mouth/Throat: NL Teeth, Lips, Gums Neck: - - JVP 12cm Respiratory: Symmetrical Chest Expansion and Respiratory Effort, Clear to Auscultation Cardiovascular: NL Sounds; No Murmurs; No JVD, RRR Abdominal: NL Sounds; No Tenderness; No Distention Lymphatic: No Cervical Adenopathy Extremities: No Edema, - - LUE > RUE, LUE AV fistula Skin: - - chronic venous stasis changes, few skin breaks right acevedo Neurological: Alert and Oriented x 3 Result Diagrams: 08/27/17 05:55 08/27/17 05:55 Additional Lab and Data: Lab Results 08/26/17 08/26/17 08/26/17 Range/Units 21:01 21:01 21:01 WBC 8.6 (3.5-10.8) 10^3/ul RBC 3.09 L (4.0-5.4) 10^6/ul Hgb 10.6 L (14.0-18.0) g/dl Hct 32 L (42-52) % MCV 104 H (80-94) fL MCH 34 H (27-31) pg MCHC 33 (31-36) g/dl RDW 19 H (10.5-15) % Plt Count 280 (150-450) 10^3/ul MPV 8 (7.4-10.4) um3 Neut % (Auto) 78.5 (38-83) % Lymph % (Auto) 9.5 L (25-47) % Fergus % (Auto) 4.1 (1-9) % Eos % (Auto) 4.8 (0-6) % Baso % (Auto) 3.1 H (0-2) % Absolute Neuts (auto) 6.7 (1.5-7.7) 10^3/ul Absolute Lymphs (auto) 0.8 L (1.0-4.8) 10^3/ul Absolute Monos (auto) 0.4 (0-0.8) 10^3/ul Absolute Eos (auto) 0.4 (0-0.6) 10^3/ul Absolute Basos (auto) 0.3 H (0-0.2) 10^3/ul Absolute Nucleated RBC 0 10^3/ul Nucleated RBC % 0 INR (Anticoag Therapy) (0.77-1.02) Patient Temperature ABG pH (7.35-7.45) ABG pH (Temp Correct) ABG pCO2 (35-45) mmHg ABG pCO2 (Temp Corrct ABG pO2 (80-100) mmHg ABG pO2 (Temp Correct ABG HCO3 (19-31) mmol/L ABG O2 Saturation (95-98) % ABG Base Excess (-2.0-2.0) Respiration Rate O2 Delivery Device Ventilator Type Vent Mode FiO2 Inspiratory Time PEEP Pressure Support Pressure Control EPAP IPAP BiPAP Sodium 134 (133-145) mmol/L Potassium 3.8 (3.5-5.0) mmol/L Chloride 90 L (101-111) mmol/L Carbon Dioxide 32 (22-32) mmol/L Anion Gap 12 H (2-11) mmol/L BUN 22 (6-24) mg/dL Creatinine 6.00 H (0.67-1.17) mg/dL Est GFR ( Amer) 12.2 (>60) Est GFR (Non-Af Amer) 9.5 (>60) BUN/Creatinine Ratio 3.7 L (8-20) Glucose 166 H (70-100) mg/dL Lactic Acid 4.0 H* (0.5-2.0) mmol/L Calcium 9.5 (8.6-10.3) mg/dL Total Bilirubin 1.00 (0.2-1.0) mg/dL AST 40 H (13-39) U/L ALT 41 (7-52) U/L Alkaline Phosphatase 87 (34-104) U/L Troponin I 0.13 H* (<0.04) ng/mL Total Protein 8.0 (6.4-8.9) g/dL Albumin 3.9 (3.2-5.2) g/dL Globulin 4.1 H (2-4) g/dL Albumin/Globulin Ratio 1.0 (1-3) Procalcitonin (<0.6) ng/mL Influenza A (Rapid) (Negative) Influenza B (Rapid) (Negative) 08/26/17 08/26/17 08/26/17 Range/Units 21:01 21:01 21:13 WBC (3.5-10.8) 10^3/ul RBC (4.0-5.4) 10^6/ul Hgb (14.0-18.0) g/dl Hct (42-52) % MCV (80-94) fL MCH (27-31) pg MCHC (31-36) g/dl RDW (10.5-15) % Plt Count (150-450) 10^3/ul MPV (7.4-10.4) um3 Neut % (Auto) (38-83) % Lymph % (Auto) (25-47) % Fergus % (Auto) (1-9) % Eos % (Auto) (0-6) % Baso % (Auto) (0-2) % Absolute Neuts (auto) (1.5-7.7) 10^3/ul Absolute Lymphs (auto) (1.0-4.8) 10^3/ul Absolute Monos (auto) (0-0.8) 10^3/ul Absolute Eos (auto) (0-0.6) 10^3/ul Absolute Basos (auto) (0-0.2) 10^3/ul Absolute Nucleated RBC 10^3/ul Nucleated RBC % INR (Anticoag Therapy) 1.13 H (0.77-1.02) Patient Temperature Not Reportable ABG pH 7.46 H (7.35-7.45) ABG pH (Temp Correct) Not Reportable ABG pCO2 47 H (35-45) mmHg ABG pCO2 (Temp Corrct Not Reportable ABG pO2 163 H (80-100) mmHg ABG pO2 (Temp Correct Not Reportable ABG HCO3 31.6 H (19-31) mmol/L ABG O2 Saturation 99.6 H (95-98) % ABG Base Excess 8.6 H (-2.0-2.0) Respiration Rate Not Reportable O2 Delivery Device bipap Ventilator Type Not Reportable Vent Mode St FiO2 100 Inspiratory Time 1.0 PEEP Not Reportable Pressure Support Not Reportable Pressure Control Not Reportable EPAP 6 IPAP 12 BiPAP Not Reportable Sodium (133-145) mmol/L Potassium (3.5-5.0) mmol/L Chloride (101-111) mmol/L Carbon Dioxide (22-32) mmol/L Anion Gap (2-11) mmol/L BUN (6-24) mg/dL Creatinine (0.67-1.17) mg/dL Est GFR ( Amer) (>60) Est GFR (Non-Af Amer) (>60) BUN/Creatinine Ratio (8-20) Glucose (70-100) mg/dL Lactic Acid (0.5-2.0) mmol/L Calcium (8.6-10.3) mg/dL Total Bilirubin (0.2-1.0) mg/dL AST (13-39) U/L ALT (7-52) U/L Alkaline Phosphatase (34-104) U/L Troponin I (<0.04) ng/mL Total Protein (6.4-8.9) g/dL Albumin (3.2-5.2) g/dL Globulin (2-4) g/dL Albumin/Globulin Ratio (1-3) Procalcitonin 0.6 H (<0.6) ng/mL Influenza A (Rapid) (Negative) Influenza B (Rapid) (Negative) 08/26/17 Range/Units 21:47 WBC (3.5-10.8) 10^3/ul RBC (4.0-5.4) 10^6/ul Hgb (14.0-18.0) g/dl Hct (42-52) % MCV (80-94) fL MCH (27-31) pg MCHC (31-36) g/dl RDW (10.5-15) % Plt Count (150-450) 10^3/ul MPV (7.4-10.4) um3 Neut % (Auto) (38-83) % Lymph % (Auto) (25-47) % Fergus % (Auto) (1-9) % Eos % (Auto) (0-6) % Baso % (Auto) (0-2) % Absolute Neuts (auto) (1.5-7.7) 10^3/ul Absolute Lymphs (auto) (1.0-4.8) 10^3/ul Absolute Monos (auto) (0-0.8) 10^3/ul Absolute Eos (auto) (0-0.6) 10^3/ul Absolute Basos (auto) (0-0.2) 10^3/ul Absolute Nucleated RBC 10^3/ul Nucleated RBC % INR (Anticoag Therapy) (0.77-1.02) Patient Temperature ABG pH (7.35-7.45) ABG pH (Temp Correct) ABG pCO2 (35-45) mmHg ABG pCO2 (Temp Corrct ABG pO2 (80-100) mmHg ABG pO2 (Temp Correct ABG HCO3 (19-31) mmol/L ABG O2 Saturation (95-98) % ABG Base Excess (-2.0-2.0) Respiration Rate O2 Delivery Device Ventilator Type Vent Mode FiO2 Inspiratory Time PEEP Pressure Support Pressure Control EPAP IPAP BiPAP Sodium (133-145) mmol/L Potassium (3.5-5.0) mmol/L Chloride (101-111) mmol/L Carbon Dioxide (22-32) mmol/L Anion Gap (2-11) mmol/L BUN (6-24) mg/dL Creatinine (0.67-1.17) mg/dL Est GFR ( Amer) (>60) Est GFR (Non-Af Amer) (>60) BUN/Creatinine Ratio (8-20) Glucose (70-100) mg/dL Lactic Acid (0.5-2.0) mmol/L Calcium (8.6-10.3) mg/dL Total Bilirubin (0.2-1.0) mg/dL AST (13-39) U/L ALT (7-52) U/L Alkaline Phosphatase (34-104) U/L Troponin I (<0.04) ng/mL Total Protein (6.4-8.9) g/dL Albumin (3.2-5.2) g/dL Globulin (2-4) g/dL Albumin/Globulin Ratio (1-3) Procalcitonin (<0.6) ng/mL Influenza A (Rapid) Negative (Negative) Influenza B (Rapid) Negative (Negative) Microbiology and Other Data: Microbiology 08/27/17 16:44 Stool Occult Blood (JORGE) - Final Stool 08/27/17 13:49 Gram Stain - Final Sputum Expectorated Assess/Plan/Problems-Billing Assessment: 67 yo M with esrd on HD, systolic heart failure, afib, and CAD admitted with shortness of breath, found to be hypoxic and volume overloaded, requiring bipap in the ED, received emergent HD overnight. - Patient Problems (1) Volume overload Current Visit: Yes Status: Acute Code(s): E87.70 - FLUID OVERLOAD, UNSPECIFIED SNOMED Code(s): 91033339 Comment: likely due to fluid indiscretion in the setting of esrd and systolic heart failure will attempt to wean O2 as able he does not know his dry weight, indicating a lack of insight of his disease processes consult nutrition--he does tell me that this was a wake up call, and he is motivated to get better and take better care of himself now. HD done past two days; today is his usual day (TTHS) he does make some urine, so we can attempt diuresis if needed, but stable at this point, so will leave volume removal up to dialysis (2) NSTEMI (non-ST elevated myocardial infarction) Current Visit: Yes Status: Acute Code(s): I21.4 - NON-ST ELEVATION (NSTEMI) MYOCARDIAL INFARCTION SNOMED Code(s): 132094814 Comment: troponin has not peaked yet (up to 3.70) with st depressions at admission which have now resolved more likely demand in setting of acute volume overload and hypoxia, no pain and ekg changes resolved after volume removal, so less likely a type 1 MN, however his TTE does have a new vicky-apical severe hypokinesis when compared to his prior TTE he had multivessel nonobstructing cad on a [facility] in 2014 (30% LAD, 60% diag, 50% lcx), evaluated by cardiology yesterday, who at this point recommend medical management given his history of anemia (3) Acute on chronic systolic heart failure Current Visit: Yes Status: Acute Code(s): I50.23 - ACUTE ON CHRONIC SYSTOLIC (CONGESTIVE) HEART FAILURE SNOMED Code(s): 147734246 Comment: as above ischemic cardiomyopathy, plus valvular dysfunction also appreciate cardiology recommendations for valve lesions, and whether he would be a candidate for valve surgery given his comorbidities--may be contributing to his tenuous volume status continue metoprolol, ASA, statin. I added lisinopril yesterday. (4) Acute respiratory failure with hypoxia Current Visit: No Status: Acute Code(s): J96.01 - ACUTE RESPIRATORY FAILURE WITH HYPOXIA SNOMED Code(s): 59152401 Comment: likely due to volume overload; HD as above and wean O2 as able (5) Macrocytic anemia Current Visit: No Status: Acute Priority: High Onset Date: 05/15/14 Code (s): D53.9 - NUTRITIONAL ANEMIA, UNSPECIFIED SNOMED Code(s): 44915449 Comment: b12 and folate have been normal (6) SIRS (systemic inflammatory response syndrome) Current Visit: No Status: Acute Code(s): R65.10 - SIRS OF NON-INFECTIOUS ORIGIN W/O ACUTE ORGAN DYSFUNCTION SNOMED Code(s): 321066026 Comment: fever, left shift, tachycardia sputum and blood culture are pending continue vanc/cefepime empirically Status and Disposition: transfer to floor today
[2017-08-28 10:44] LABS: EGFR Non-African American 13.2 (>60)
[2017-08-28 11:47] LABS: ABS Basophils 0.1 10^3/ul (0-0.2); ABS Eosinophils 0.1 10^3/ul (0-0.6); ABS Lymphocytes 0.6 10^3/ul (1.0-4.8); ABS Monocytes 0.3 10^3/ul (0-0.8); ABS Neutrophils 4.1 10^3/ul (1.5-7.7); ABS Nucleated RBC 0 10^3/ul; Eosinophil % 2.1 % (0-6); Hematocrit 30 % (42-52); Hemoglobin 9.7 g/dl (14.0-18.0); Lymphocyte % 11.5 % (25-47); Mean Corpuscular HGB Conc 33 g/dl (31-36); Mean Corpuscular Hemoglobin 33 pg (27-31); Mean Corpuscular Volume 102 fL (80-94); Mean Platelet Volume 8 um3 (7.4-10.4); Nucleated Red Blood Cells % 0.4; Platelet Count 154 10^3/ul (150-450); Red Blood Count 2.89 10^6/ul (4.0-5.4); Red Cell Distribution Width 18 % (10.5-15); White Blood Count 5.2 10^3/ul (3.5-10.8)
[2017-08-29] MEDS ORDERED: D5W IVPB SCH (01:30)
[2017-08-29] MEDS ORDERED: CEFEPIME IVPB SCH (01:30)
[2017-08-29] MEDS: Omeprazole CAP* 20 MG PO SCH (06:00)
[2017-08-29] MEDS: rOPINIRole TAB* 1 MG PO SCH ×3 (10:11→20:38)
[2017-08-29] MEDS: Sevelamer TAB* 800 MG PO SCH ×3 (10:11→16:46)
--- NOTE | 2017-08-29 12:20 | PN ---
Hospitalist Progress Note Date of Service: 08/29/17 I took Mr. Knight off supplemental oxygen, and at rest his pulse ox remains at 95 %. However, with ambulation on room air, his pulse ox dropped to 77%. May not be at his dry weight yet. For dialysis this afternoon, will need to reassess O2 needs.
[2017-08-29] MEDS ORDERED: Epoetin Alfa* 3,000 UNITS/ML VIAL IV ONE (14:00)
[2017-08-29] MEDS ORDERED: Epoetin Alfa* 4,000 UNITS/ML VIAL IV ONE (14:00)
[2017-08-29] MEDS ORDERED: Heparin DIALYSIS ONLY(*) 1,000 UNITS/ML VIAL DIALYSIS ONE (14:00)
--- NOTE | 2017-08-29 14:48 | PN ---
Subjective Date of Service: 08/29/17 Interval History: desaturated when I ambulated with him this morning (see am progress note). feels good, was not short of breath when this occurred. he feels better but says he is nervous to go home, does not feel strong on his feet. no chest pain, orthopnea, headache, fevers. Family History: Unchanged from Admission Social History: Unchanged from Admission Past Medical History: Unchanged from Admission Objective Active Medications: Acetaminophen (Tylenol Tab*) 650 mg PO Q4H PRN PRN Reason: PAIN Last Admin: 08/28/17 05:38 Dose: 650 mg Aspirin (Aspirin Ec Low Dose*) 81 mg PO DAILY [facility] Last Admin: 08/28/17 08:08 Dose: 81 mg Atorvastatin Calcium (Lipitor*) 40 mg PO DAILY [facility] Last Admin: 08/28/17 08:07 Dose: 40 mg Folic Acid (Folvite Tab*) 0.5 mg PO DAILY [facility] Last Admin: 08/28/17 08:06 Dose: 0.5 mg Guaifenesin (Robitussin*) 5 ml PO Q4H PRN PRN Reason: COUGH Last Admin: 08/28/17 09:46 Dose: 5 ml Lisinopril (Prinivil Tab*) 10 mg PO DAILY [facility] Last Admin: 08/28/17 08:06 Dose: 10 mg Metoprolol Tartrate (Lopressor Tab*) 25 mg PO Q12HR [facility] Last Admin: 08/28/17 21:26 Dose: 25 mg Omeprazole (Prilosec Cap*) 20 mg PO 0600 [facility] Last Admin: 08/29/17 06:00 Dose: 20 mg Ondansetron HCl (Zofran Inj*) 4 mg IV Q6H PRN PRN Reason: NAUSEA Last Admin: 08/28/17 19:29 Dose: 4 mg Oxycodone/Acetaminophen (Percocet 5/325 Tab*) 1 tab PO Q6H PRN PRN Reason: PAIN Last Admin: 08/27/17 20:56 Dose: 1 tab Ropinirole HCl (Requip Tab*) 1 mg PO TID [facility] Last Admin: 08/29/17 10:11 Dose: 1 mg Sevelamer Carbonate (Renvela Tab*) 2,400 mg PO TID WITH MEALS [facility] Last Admin: 08/29/17 10:11 Dose: 2,400 mg Vitamin B Complex/Vitamin E (Complex B-100*) 1 tab PO DAILY [facility] Last Admin: 08/28/17 08:06 Dose: 1 tab Vital Signs - 8 hr 08/29/17 07:58 O2 Sat by Pulse 100 Oximetry Oxygen Devices in Use Now: Nasal Cannula Appearance: alert, well appearing Eyes: No Scleral Icterus Ears/Nose/Mouth/Throat: NL Teeth, Lips, Gums Neck: NL Appearance and Movements; NL JVP Respiratory: Symmetrical Chest Expansion and Respiratory Effort, Clear to Auscultation, - - no crackles Cardiovascular: - - irregularly irregular rhythm Abdominal: NL Sounds; No Tenderness; No Distention Lymphatic: No Cervical Adenopathy Extremities: - - 1+ le edema; chronic venous stasis changes R>L, LUE fistula Neurological: Alert and Oriented x 3 Result Diagrams: 08/28/17 10:00 08/28/17 10:00 Additional Lab and Data: Lab Results 08/26/17 08/26/17 08/26/17 Range/Units 21:01 21:01 21:01 WBC 8.6 (3.5-10.8) 10^3/ul RBC 3.09 L (4.0-5.4) 10^6/ul Hgb 10.6 L (14.0-18.0) g/dl Hct 32 L (42-52) % MCV 104 H (80-94) fL MCH 34 H (27-31) pg MCHC 33 (31-36) g/dl RDW 19 H (10.5-15) % Plt Count 280 (150-450) 10^3/ul MPV 8 (7.4-10.4) um3 Neut % (Auto) 78.5 (38-83) % Lymph % (Auto) 9.5 L (25-47) % [place] % (Auto) 4.1 (1-9) % Eos % (Auto) 4.8 (0-6) % Baso % (Auto) 3.1 H (0-2) % Absolute Neuts (auto) 6.7 (1.5-7.7) 10^3/ul Absolute Lymphs (auto) 0.8 L (1.0-4.8) 10^3/ul Absolute Monos (auto) 0.4 (0-0.8) 10^3/ul Absolute Eos (auto) 0.4 (0-0.6) 10^3/ul Absolute Basos (auto) 0.3 H (0-0.2) 10^3/ul Absolute Nucleated RBC 0 10^3/ul Nucleated RBC % 0 INR (Anticoag Therapy) (0.77-1.02) Patient Temperature ABG pH (7.35-7.45) ABG pH (Temp Correct) ABG pCO2 (35-45) mmHg ABG pCO2 (Temp Corrct ABG pO2 (80-100) mmHg ABG pO2 (Temp Correct ABG HCO3 (19-31) mmol/L ABG O2 Saturation (95-98) % ABG Base Excess (-2.0-2.0) Respiration Rate O2 Delivery Device Ventilator Type Vent Mode FiO2 Inspiratory Time PEEP Pressure Support Pressure Control EPAP IPAP BiPAP Sodium 134 (133-145) mmol/L Potassium 3.8 (3.5-5.0) mmol/L Chloride 90 L (101-111) mmol/L Carbon Dioxide 32 (22-32) mmol/L Anion Gap 12 H (2-11) mmol/L BUN 22 (6-24) mg/dL Creatinine 6.00 H (0.67-1.17) mg/dL Est GFR ( Amer) 12.2 (>60) Est GFR (Non-Af Amer) 9.5 (>60) BUN/Creatinine Ratio 3.7 L (8-20) Glucose 166 H (70-100) mg/dL Lactic Acid 4.0 H* (0.5-2.0) mmol/L Calcium 9.5 (8.6-10.3) mg/dL Total Bilirubin 1.00 (0.2-1.0) mg/dL AST 40 H (13-39) U/L ALT 41 (7-52) U/L Alkaline Phosphatase 87 (34-104) U/L Troponin I 0.13 H* (<0.04) ng/mL Total Protein 8.0 (6.4-8.9) g/dL Albumin 3.9 (3.2-5.2) g/dL Globulin 4.1 H (2-4) g/dL Albumin/Globulin Ratio 1.0 (1-3) Procalcitonin (<0.6) ng/mL Influenza A (Rapid) (Negative) Influenza B (Rapid) (Negative) 08/26/17 08/26/17 08/26/17 Range/Units 21:01 21:01 21:13 WBC (3.5-10.8) 10^3/ul RBC (4.0-5.4) 10^6/ul Hgb (14.0-18.0) g/dl Hct (42-52) % MCV (80-94) fL MCH (27-31) pg MCHC (31-36) g/dl RDW (10.5-15) % Plt Count (150-450) 10^3/ul MPV (7.4-10.4) um3 Neut % (Auto) (38-83) % Lymph % (Auto) (25-47) % [place] % (Auto) (1-9) % Eos % (Auto) (0-6) % Baso % (Auto) (0-2) % Absolute Neuts (auto) (1.5-7.7) 10^3/ul Absolute Lymphs (auto) (1.0-4.8) 10^3/ul Absolute Monos (auto) (0-0.8) 10^3/ul Absolute Eos (auto) (0-0.6) 10^3/ul Absolute Basos (auto) (0-0.2) 10^3/ul Absolute Nucleated RBC 10^3/ul Nucleated RBC % INR (Anticoag Therapy) 1.13 H (0.77-1.02) Patient Temperature Not Reportable ABG pH 7.46 H (7.35-7.45) ABG pH (Temp Correct) Not Reportable ABG pCO2 47 H (35-45) mmHg ABG pCO2 (Temp Corrct Not Reportable ABG pO2 163 H (80-100) mmHg ABG pO2 (Temp Correct Not Reportable ABG HCO3 31.6 H (19-31) mmol/L ABG O2 Saturation 99.6 H (95-98) % ABG Base Excess 8.6 H (-2.0-2.0) Respiration Rate Not Reportable O2 Delivery Device bipap Ventilator Type Not Reportable Vent Mode St FiO2 100 Inspiratory Time 1.0 PEEP Not Reportable Pressure Support Not Reportable Pressure Control Not Reportable EPAP 6 IPAP 12 BiPAP Not Reportable Sodium (133-145) mmol/L Potassium (3.5-5.0) mmol/L Chloride (101-111) mmol/L Carbon Dioxide (22-32) mmol/L Anion Gap (2-11) mmol/L BUN (6-24) mg/dL Creatinine (0.67-1.17) mg/dL Est GFR ( Amer) (>60) Est GFR (Non-Af Amer) (>60) BUN/Creatinine Ratio (8-20) Glucose (70-100) mg/dL Lactic Acid (0.5-2.0) mmol/L Calcium (8.6-10.3) mg/dL Total Bilirubin (0.2-1.0) mg/dL AST (13-39) U/L ALT (7-52) U/L Alkaline Phosphatase (34-104) U/L Troponin I (<0.04) ng/mL Total Protein (6.4-8.9) g/dL Albumin (3.2-5.2) g/dL Globulin (2-4) g/dL Albumin/Globulin Ratio (1-3) Procalcitonin 0.6 H (<0.6) ng/mL Influenza A (Rapid) (Negative) Influenza B (Rapid) (Negative) 08/26/17 Range/Units 21:47 WBC (3.5-10.8) 10^3/ul RBC (4.0-5.4) 10^6/ul Hgb (14.0-18.0) g/dl Hct (42-52) % MCV (80-94) fL MCH (27-31) pg MCHC (31-36) g/dl RDW (10.5-15) % Plt Count (150-450) 10^3/ul MPV (7.4-10.4) um3 Neut % (Auto) (38-83) % Lymph % (Auto) (25-47) % [place] % (Auto) (1-9) % Eos % (Auto) (0-6) % Baso % (Auto) (0-2) % Absolute Neuts (auto) (1.5-7.7) 10^3/ul Absolute Lymphs (auto) (1.0-4.8) 10^3/ul Absolute Monos (auto) (0-0.8) 10^3/ul Absolute Eos (auto) (0-0.6) 10^3/ul Absolute Basos (auto) (0-0.2) 10^3/ul Absolute Nucleated RBC 10^3/ul Nucleated RBC % INR (Anticoag Therapy) (0.77-1.02) Patient Temperature ABG pH (7.35-7.45) ABG pH (Temp Correct) ABG pCO2 (35-45) mmHg ABG pCO2 (Temp Corrct ABG pO2 (80-100) mmHg ABG pO2 (Temp Correct ABG HCO3 (19-31) mmol/L ABG O2 Saturation (95-98) % ABG Base Excess (-2.0-2.0) Respiration Rate O2 Delivery Device Ventilator Type Vent Mode FiO2 Inspiratory Time PEEP Pressure Support Pressure Control EPAP IPAP BiPAP Sodium (133-145) mmol/L Potassium (3.5-5.0) mmol/L Chloride (101-111) mmol/L Carbon Dioxide (22-32) mmol/L Anion Gap (2-11) mmol/L BUN (6-24) mg/dL Creatinine (0.67-1.17) mg/dL Est GFR ( Amer) (>60) Est GFR (Non-Af Amer) (>60) BUN/Creatinine Ratio (8-20) Glucose (70-100) mg/dL Lactic Acid (0.5-2.0) mmol/L Calcium (8.6-10.3) mg/dL Total Bilirubin (0.2-1.0) mg/dL AST (13-39) U/L ALT (7-52) U/L Alkaline Phosphatase (34-104) U/L Troponin I (<0.04) ng/mL Total Protein (6.4-8.9) g/dL Albumin (3.2-5.2) g/dL Globulin (2-4) g/dL Albumin/Globulin Ratio (1-3) Procalcitonin (<0.6) ng/mL Influenza A (Rapid) Negative (Negative) Influenza B (Rapid) Negative (Negative) Microbiology and Other Data: Microbiology 08/27/17 16:44 Stool Occult Blood (JORGE) - Final Stool 08/27/17 13:49 Gram Stain - Final Sputum Expectorated Assess/Plan/Problems-Billing Assessment: 67 yo M with esrd on HD, systolic heart failure, afib, and CAD admitted with shortness of breath, found to be hypoxic and volume overloaded, requiring bipap in the ED, received emergent HD overnight. - Patient Problems (1) Acute respiratory failure with hypoxia Current Visit: No Status: Acute Code(s): J96.01 - ACUTE RESPIRATORY FAILURE WITH HYPOXIA SNOMED Code(s): 15957326 Comment: likely due to volume overload; now s/p 2 HD sessions and still with an O2 requirment (baseline is no O2 at home). may not be back to dry weight. HD this afternoon, then needs another ambulatory pulse ox tomorrow. (2) Volume overload Current Visit: Yes Status: Acute Code(s): E87.70 - FLUID OVERLOAD, UNSPECIFIED SNOMED Code(s): 26164231 Comment: likely due to fluid indiscretion in the setting of esrd and systolic heart failure wean O2 as above he does not know his dry weight, indicating a lack of insight of his disease processes consult nutrition--he does tell me that this was a wake up call, and he is motivated to get better and take better care of himself now. he does make some urine, so we can attempt diuresis if needed, but stable at this point, so will leave volume removal up to dialysis (3) NSTEMI (non-ST elevated myocardial infarction) Current Visit: Yes Status: Acute Code(s): I21.4 - NON-ST ELEVATION (NSTEMI) MYOCARDIAL INFARCTION SNOMED Code(s): 686580161 Comment: troponin peaked at 4.1, no chest pain with st depressions at admission which have now resolved more likely demand in setting of acute volume overload and hypoxia, no pain and ekg changes resolved after volume removal, so less likely a type 1 [place], however his TTE does have a new vicky-apical severe hypokinesis when compared to his prior TTE 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 I added lisinopril yesterday. (5) Macrocytic anemia Current Visit: No Status: Acute Priority: High Onset Date: 05/15/14 Code (s): D53.9 - NUTRITIONAL ANEMIA, UNSPECIFIED SNOMED Code(s): 88429944 Comment: b12 and folate have been normal FOBT was negative this admission evaluated by GI; no plans for EGD/colon (6) SIRS (systemic inflammatory response syndrome) Current Visit: No Status: Acute Code(s): R65.10 - SIRS OF NON-INFECTIOUS ORIGIN W/O ACUTE ORGAN DYSFUNCTION SNOMED Code(s): 868519702 Comment: fever, left shift, tachycardia at admission--likely stress response in setting of hypoxia and respiratory failure sputum and blood cultures are negative he received vanc/cefepime empirically at admission, which were discontinued yesterday Status and Disposition: medicine inpatient, attempting to wean O2
[2017-08-29] MEDS: Lisinopril TAB* 10 MG PO SCH (16:44)
[2017-08-29] MEDS: Aspirin EC Low Dose* 81 MG TAB.EC PO SCH (16:44)
[2017-08-29] MEDS: Folic Acid TAB* 1 MG PO SCH (16:44)
[2017-08-29] MEDS: Atorvastatin* 40 MG TAB PO SCH (16:44)
[2017-08-29] MEDS: Metoprolol Tartrate TAB* 25 MG PO SCH ×2 (16:57→20:38)
[2017-08-29] MEDS: Vitamin B Complex TAB PO SCH (18:02)
--- NOTE | 2017-08-29 22:32 | CONS ---
GASTROENTEROLOGY CONSULTATION DATE: 08/28/17 CONSULTING PHYSICIANS: Balbina Corral, Abdifatah Mosqueda, Ty Stewart. REASON FOR CONSULTATION: Profound anemia, question of a gastrointestinal source. HISTORY OF PRESENT ILLNESS: This is a 66-year-old man, on hemodialysis for the last few years and a known triple-vessel coronary artery disease. He is also a Christian and has had recurrent anemia, as low as the upper 4s over the last 4 to 5 years, and has steadfastly maintained that he will not accept transfusions. His sisters have been aware of these discussions (2013 notes - Dr Villanueva) . At this time, he was once again admitted in congestive heart failure. He was found to be fluid overloaded. He received emergency dialysis in the middle of the night where his hemoglobin was found to be 7 and it went to 9.7 and he is feeling better today. The cause of his anemia at this time is felt to be multifactorial, though a question of gastrointestinal component has been raised. In 2016, when he was admitted to the intensive care unit here, he had an INR of 17 (he was in rapid atrial fibrillation) with no obvious GI complication. Eventually he was transferred to [place] and there he had an upper endoscopy which showed gastritis. Apparently, the only endoscopy that he has had. Since that time he is on omeprazole 20. The warfarin was given again chronically, which was stopped this fall, with the chart saying a major bleed. During the 2013 admission, May 2017, and just yesterday, stools have all been negative for occult blood. Some time between the fall discontinuance of warfarin and today, aspirin 81 mg has been added and his omeprazole was raised from 20 to 40. PAST MEDICAL HISTORY: 1. End-stage renal disease - on dialysis since 2013. 2. Atrial fibrillation - strokes on CT scan in 2013, but not on anticoagulation due to anemia, GI bleeding, Christian status, and multiple falls. 3. Hypertension. 4. AODM - diet controlled. OUTPATIENT MEDICATIONS: Requip, simvastatin, metoprolol, aspirin 81, omeprazole 40, sevelamer, and Kayexalate. SOCIAL HISTORY: He lives in a small apartment at [facility]. He believes that he did fall a few days ago fracturing his nose. REVIEW OF SYSTEMS: No family history of colon cancer he is aware of. No history of documented seizure, meningitis, TB, hemoptysis, asthma, hepatitis, jaundice, abdominal surgery, renal stones, or gross hematuria. PHYSICAL EXAMINATION: An older man, sitting up in bed, having completed 95% of his dinner, which appear to be a regular diet. He has extensive ecchymosis over his nose and some ecchymosis in the orbital areas. HEENT exam is otherwise unremarkable. There is no icterus. His membranes are normal. He has no adenopathy. Lungs are clear. Heart: Sounds are irregular. Abdomen is symmetric, soft, mildly protuberant, and without tenderness. Rectal: Deferred. Extremities show no edema. LABORATORY DATA: Hemoglobin today 9.7. IMPRESSION: This 66-year-old man with multiple interrelated and difficult to treat independently medical problems, has a recurring anemia that interacts with all of them. It however seems unlikely he has a gastrointestinal condition causing blood loss that is a major contributor. Placing on omeprazole 40 mg is a good idea even with the low-dose aspirin that he is taking. Strong acid blockade might make for a negative iron balance, but his iron status is to be monitored alongside with his dialysis and supplemented as needed. Independently taking iron is probably not a good idea beyond minimal low- dose daily supplements. Upper endoscopy does not appear to be useful in this setting. Colonoscopy, likewise, does not appear useful as with uniformly heme-negative stools (even when his INR was 17 in 2013), the likelihood of finding a clinically relevant polyp or mass in the colon is exceedingly low. The burden and risk would be exceedingly high and, therefore, it is my opinion that it should not be attempted. [id number]/[facility] #: [id number] [facility]
[2017-08-30] MEDS: Omeprazole CAP* 20 MG PO SCH (05:33)
[2017-08-30] MEDS: Atorvastatin* 40 MG TAB PO SCH (08:58)
[2017-08-30] MEDS: Folic Acid TAB* 1 MG PO SCH (08:59)
[2017-08-30] MEDS: Sevelamer TAB* 800 MG PO SCH ×3 (08:59→17:22)
[2017-08-30] MEDS: Aspirin EC Low Dose* 81 MG TAB.EC PO SCH (08:59)
[2017-08-30] MEDS: Metoprolol Tartrate TAB* 25 MG PO SCH ×2 (08:59→20:10)
[2017-08-30] MEDS: Lisinopril TAB* 10 MG PO SCH (08:59)
[2017-08-30] MEDS: rOPINIRole TAB* 1 MG PO SCH ×3 (09:53→20:10)
[2017-08-30] MEDS: Vitamin B Complex TAB PO SCH (09:53)
--- NOTE | 2017-08-30 19:14 | PN ---
Subjective Date of Service: 08/30/17 Interval History: Ambulated with PT, discharged from PT. on 3L but also able to ambulate on RA later. L>R edema. Pt likes his independence. coughing still. Family History: Unchanged from Admission Social History: Unchanged from Admission Past Medical History: Unchanged from Admission Objective Active Medications: Acetaminophen (Tylenol Tab*) 650 mg PO Q4H PRN PRN Reason: PAIN Last Admin: 08/28/17 05:38 Dose: 650 mg Aspirin (Aspirin Ec Low Dose*) 81 mg PO DAILY [facility] Last Admin: 08/30/17 08:59 Dose: 81 mg Atorvastatin Calcium (Lipitor*) 40 mg PO DAILY [facility] Last Admin: 08/30/17 08:58 Dose: 40 mg Folic Acid (Folvite Tab*) 0.5 mg PO DAILY [facility] Last Admin: 08/30/17 08:59 Dose: 0.5 mg Guaifenesin (Robitussin*) 5 ml PO Q4H PRN PRN Reason: COUGH Last Admin: 08/28/17 09:46 Dose: 5 ml Lisinopril (Prinivil Tab*) 10 mg PO DAILY [facility] Last Admin: 08/30/17 08:59 Dose: 10 mg Metoprolol Tartrate (Lopressor Tab*) 25 mg PO Q12HR [facility] Last Admin: 08/30/17 08:59 Dose: 25 mg Omeprazole (Prilosec Cap*) 20 mg PO 0600 [facility] Last Admin: 08/30/17 05:33 Dose: 20 mg Ondansetron HCl (Zofran Inj*) 4 mg IV Q6H PRN PRN Reason: NAUSEA Last Admin: 08/28/17 19:29 Dose: 4 mg Oxycodone/Acetaminophen (Percocet 5/325 Tab*) 1 tab PO Q6H PRN PRN Reason: PAIN Last Admin: 08/27/17 20:56 Dose: 1 tab Ropinirole HCl (Requip Tab*) 1 mg PO TID [facility] Last Admin: 08/30/17 13:47 Dose: 1 mg Sevelamer Carbonate (Renvela Tab*) 2,400 mg PO TID WITH MEALS [facility] Last Admin: 08/30/17 17:22 Dose: 2,400 mg Vitamin B Complex/Vitamin E (Complex B-100*) 1 tab PO DAILY [facility] Last Admin: 08/30/17 09:53 Dose: 1 tab Vital Signs - 8 hr 08/30/17 08/30/17 08/30/17 11:33 15:18 15:21 Temperature 97.2 F Pulse Rate 78 89 Respiratory 18 16 Rate Blood Pressure 124/81 133/74 (mmHg) O2 Sat by Pulse 100 100 96 Oximetry Oxygen Devices in Use Now: Nasal Cannula Appearance: NAD Eyes: No Scleral Icterus, PERRLA Ears/Nose/Mouth/Throat: NL Teeth, Lips, Gums, Mucous Membranes Moist Neck: NL Appearance and Movements; NL JVP Respiratory: Symmetrical Chest Expansion and Respiratory Effort, Clear to Auscultation Cardiovascular: NL Sounds; No Murmurs; No JVD, RRR Abdominal: NL Sounds; No Tenderness; No Distention, No Hepatosplenomegaly Extremities: No Clubbing, Cyanosis, - - 1-2+ edema L>R extremity. Skin: No Rash or Ulcers, No Nodules or Sclerosis Neurological: Alert and Oriented x 3, NL Sensation, NL Muscle Strength and Tone Result Diagrams: 08/28/17 10:00 08/28/17 10:00 Additional Lab and Data: Microbiology and Other Data: Microbiology 08/27/17 10:55 Blood Venous Aerobic Blood Culture - Preliminary No Growth Day 3 08/27/17 10:55 Blood Venous Anaerobic Blood Culture - Preliminary No Growth Day 3 08/27/17 10:55 Blood Venous Aerobic Blood Culture - Preliminary No Growth Day 3 08/27/17 10:55 Blood Venous Anaerobic Blood Culture - Preliminary No Growth Day 3 08/27/17 13:49 Sputum Expectorated Gram Stain - Final 08/27/17 13:49 Sputum Expectorated Sputum Culture - Final Normal Maria G 08/27/17 13:49 Urine Urine Culture - Final 08/27/17 16:44 Stool Stool Occult Blood (JORGE) - Final 08/26/17 21:35 Nasal Influenza Types A,B Antigen (JORGE) - Final Specimen received for Influenza A/B Molecular testing Assess/Plan/Problems-Billing Assessment: 67 yo high utilizer male PMH ESRD on HD MWF, systolic heart failure, afib (off a /c), and CAD admitted with shortness of breath, found to be hypoxic and volume overloaded, requiring BIPAP in the ED, received emergent HD overnight. 2 NSTEMIs recently including this admission. EF to 25-30%, mod-sev pHTN, mild- moderate . - Patient Problems (1) Acute on chronic systolic heart failure Current Visit: Yes Status: Acute Code(s): I50.23 - ACUTE ON CHRONIC SYSTOLIC (CONGESTIVE) HEART FAILURE SNOMED Code(s): 670676028 Comment: ischemic cardiomyopathy, plus valvular dysfunction appreciate cardiology recs for valve lesions, and whether he would be a candidate for valve surgery given his comorbidities--may be contributing to his tenuous volume status continue metoprolol, ASA, statin, lisinopril daily weights (2) NSTEMI (non-ST elevated myocardial infarction) Current Visit: Yes Status: Acute Code(s): I21.4 - NON-ST ELEVATION (NSTEMI) MYOCARDIAL INFARCTION SNOMED Code(s): 169277477 Comment: troponin peaked at 4.1, no chest pain with st depressions at admission which have now resolved TTE with new vicky-apical severe hypokinesis when compared to his prior TTE he had multivessel nonobstructing cad on a [facility] in 2013 (30% LAD, 60% diag, 50% lcx), Cardiology evaluated him and recommended medical management (3) Volume overload Current Visit: Yes Status: Acute Code(s): E87.70 - FLUID OVERLOAD, UNSPECIFIED SNOMED Code(s): 55598019 Comment: likely due to recent sepsis/hypoxc resp failure admission (08/14-08/17) and possibly fluid indiscretion in the setting of esrd and systolic heart failure wean O2 as above he does not know his dry weight, indicating a lack of insight of his disease processes consult nutrition he does make some urine, so we can attempt diuresis if needed, but stable at this point, so will leave volume removal up to dialysis (4) Acute on chronic renal failure Current Visit: No Status: Acute Priority: High Onset Date: 05/15/14 Code (s): N17.9 - ACUTE KIDNEY FAILURE, UNSPECIFIED; N18.9 - CHRONIC KIDNEY DISEASE, UNSPECIFIED SNOMED Code(s): 063431292 (5) Acute respiratory failure with hypoxia Current Visit: No Status: Acute Code(s): J96.01 - ACUTE RESPIRATORY FAILURE WITH HYPOXIA SNOMED Code(s): 86766679 Comment: likely due to volume overload; now s/p 3 HD sessions and able to ambulate off O2 (6) Anemia Current Visit: No Status: Acute Code(s): D64.9 - ANEMIA, UNSPECIFIED SNOMED Code(s): 956282924 Comment: Refuses blood products. (Voodoo) epogen per renal. cbc daily. (7) ESRD (end stage renal disease) Current Visit: No Status: Acute Code(s): N18.6 - END STAGE RENAL DISEASE SNOMED Code(s): 88630338 Comment: HD at home TuThSa. (8) Afib Current Visit: No Status: Chronic Code(s): I48.91 - UNSPECIFIED ATRIAL FIBRILLATION SNOMED Code(s): 03738998 Comment: off anticoagulation due to prior hematoma/anemia Status and Disposition: medicine inpatient, likely d/c 08/31
[2017-08-30] MEDS: guaiFENesin LIQ* 100 MG/5 ML UDC PO PRN (22:46)
[2017-08-31] MEDS: Omeprazole CAP* 20 MG PO SCH (04:46)
[2017-08-31] MEDS: guaiFENesin LIQ* 100 MG/5 ML UDC PO PRN ×3 (05:50→20:28)
[2017-08-31] MEDS: Vitamin B Complex TAB PO SCH (09:28)
[2017-08-31] MEDS: Aspirin EC Low Dose* 81 MG TAB.EC PO SCH (09:28)
[2017-08-31] MEDS: Sevelamer TAB* 800 MG PO SCH ×3 (09:28→18:11)
[2017-08-31] MEDS: rOPINIRole TAB* 1 MG PO SCH ×3 (09:28→20:28)
[2017-08-31] MEDS: Folic Acid TAB* 1 MG PO SCH (09:29)
[2017-08-31 09:56] LABS: ABS Basophils 0 10^3/ul (0-0.2); ABS Eosinophils 0.2 10^3/ul (0-0.6); ABS Lymphocytes 0.7 10^3/ul (1.0-4.8); ABS Monocytes 0.5 10^3/ul (0-0.8); ABS Nucleated RBC 0 10^3/ul; Eosinophil % 4.5 % (0-6); Hematocrit 26 % (42-52); Hemoglobin 8.5 g/dl (14.0-18.0); Lymphocyte % 12.2 % (25-47); Mean Corpuscular HGB Conc 33 g/dl (31-36); Mean Corpuscular Hemoglobin 33 pg (27-31); Mean Corpuscular Volume 101 fL (80-94); Mean Platelet Volume 8 um3 (7.4-10.4); Nucleated Red Blood Cells % 0; Platelet Count 214 10^3/ul (150-450); Red Blood Count 2.55 10^6/ul (4.0-5.4); Red Cell Distribution Width 17 % (10.5-15); White Blood Count 5.5 10^3/ul (3.5-10.8)
[2017-08-31 10:20] LABS: EGFR Non-African American 9.1 (>60)
[2017-08-31] MEDS: oxyCODONE/Acetamin 5/325 MG* TAB PO PRN ×2 (12:53→20:28)
[2017-08-31] MEDS ORDERED: Epoetin Alfa* 3,000 UNITS/ML VIAL IV ONE (13:00)
[2017-08-31] MEDS ORDERED: Heparin DIALYSIS ONLY(*) 1,000 UNITS/ML VIAL DIALYSIS ONE (13:00)
[2017-08-31] MEDS: Atorvastatin* 40 MG TAB PO SCH (15:02)
[2017-08-31] MEDS: Lisinopril TAB* 10 MG PO SCH (15:02)
[2017-08-31] MEDS: Metoprolol Tartrate TAB* 25 MG PO SCH ×2 (15:02→20:28)
--- NOTE | 2017-08-31 20:25 | PN ---
Subjective Interval History: RA briefly yesterday, currently 1.5L dry heaving in AM Complaint of severe restless legs during dialysis, RN concerned so bad that making him increasing fall risk. pain better afterward(got percoset during HD). Hgb to 8.5 from 9.7 Has been refusing nocturnal bipap. Family History: Unchanged from Admission Social History: Unchanged from Admission Past Medical History: Unchanged from Admission Objective Active Medications: Acetaminophen (Tylenol Tab*) 650 mg PO Q4H PRN PRN Reason: PAIN Last Admin: 08/28/17 05:38 Dose: 650 mg Aspirin (Aspirin Ec Low Dose*) 81 mg PO DAILY [facility] Last Admin: 08/31/17 09:28 Dose: 81 mg Atorvastatin Calcium (Lipitor*) 40 mg PO DAILY [facility] Last Admin: 08/31/17 15:02 Dose: 40 mg Folic Acid (Folvite Tab*) 0.5 mg PO DAILY [facility] Last Admin: 08/31/17 09:29 Dose: 0.5 mg Guaifenesin (Robitussin*) 5 ml PO Q4H PRN PRN Reason: COUGH Last Admin: 08/31/17 10:58 Dose: 5 ml Lisinopril (Prinivil Tab*) 10 mg PO DAILY [facility] Last Admin: 08/31/17 15:02 Dose: 10 mg Metoprolol Tartrate (Lopressor Tab*) 25 mg PO Q12HR [facility] Last Admin: 08/31/17 15:02 Dose: 25 mg Omeprazole (Prilosec Cap*) 20 mg PO 0600 [facility] Last Admin: 08/31/17 04:46 Dose: 20 mg Ondansetron HCl (Zofran Inj*) 4 mg IV Q6H PRN PRN Reason: NAUSEA Last Admin: 08/28/17 19:29 Dose: 4 mg Oxycodone/Acetaminophen (Percocet 5/325 Tab*) 1 tab PO Q6H PRN PRN Reason: PAIN Last Admin: 08/31/17 12:53 Dose: 1 tab Ropinirole HCl (Requip Tab*) 1 mg PO TID [facility] Last Admin: 08/31/17 15:23 Dose: 1 mg Sevelamer Carbonate (Renvela Tab*) 2,400 mg PO TID WITH MEALS [facility] Last Admin: 08/31/17 18:11 Dose: 2,400 mg Vitamin B Complex/Vitamin E (Complex B-100*) 1 tab PO DAILY [facility] Last Admin: 08/31/17 09:28 Dose: 1 tab Vital Signs - 8 hr 08/31/17 08/31/17 08/31/17 12:53 14:45 15:23 Temperature 97.2 F Pulse Rate 90 Respiratory 20 18 18 Rate Blood Pressure 143/82 (mmHg) O2 Sat by Pulse 100 Oximetry 08/31/17 08/31/17 15:34 19:40 Temperature 97.4 F 98.1 F Pulse Rate 76 85 Respiratory 16 20 Rate Blood Pressure 133/69 107/67 (mmHg) O2 Sat by Pulse 100 100 Oximetry Oxygen Devices in Use Now: Nasal Cannula Appearance: NAD, sitting in chair. Eyes: No Scleral Icterus, PERRLA Ears/Nose/Mouth/Throat: NL Teeth, Lips, Gums Respiratory: Symmetrical Chest Expansion and Respiratory Effort, Clear to Auscultation Cardiovascular: NL Sounds; No Murmurs; No JVD, RRR Abdominal: NL Sounds; No Tenderness; No Distention, No Hepatosplenomegaly Extremities: - - woody taut extremities, Skin: No Rash or Ulcers, No Nodules or Sclerosis Neurological: Alert and Oriented x 3 Nutrition: Taking PO's Result Diagrams: 08/31/17 09:36 08/31/17 09:36 Additional Lab and Data: Laboratory Results - last 24 hr 08/28/17 08/31/17 08/31/17 10:00 09:36 09:36 WBC 5.5 RBC 2.55 L Hgb 8.5 L Hct 26 L MCV 101 H MCH 33 H MCHC 33 RDW 17 H Plt Count 214 MPV 8 Neut % (Auto) 73.9 Lymph % (Auto) 12.2 L Davison % (Auto) 8.6 H Eos % (Auto) 4.5 Baso % (Auto) 0.8 Absolute Neuts (auto) 4.0 Absolute Lymphs (auto) 0.7 L Absolute Monos (auto) 0.5 Absolute Eos (auto) 0.2 Absolute Basos (auto) 0 Absolute Nucleated RBC 0 Nucleated RBC % 0 Sodium 130 L 129 L Potassium 3.8 5.1 H Chloride 91 L 94 L Carbon Dioxide 32 27 Anion Gap 7 8 BUN 22 34 H Creatinine 4.52 H 6.22 H Est GFR ( Amer) 17.0 11.7 Est GFR (Non-Af Amer) 13.2 9.1 BUN/Creatinine Ratio 4.9 L 5.5 L Glucose 178 H 150 H Calcium 8.9 9.4 Phosphorus 2.7 Magnesium 1.8 L Total Bilirubin 0.80 AST 39 ALT 25 Alkaline Phosphatase 57 Troponin I 3.00 H* Total Protein 6.5 Albumin 3.3 Globulin 3.2 Albumin/Globulin Ratio 1.0 Microbiology and Other Data: Microbiology 08/27/17 10:55 Blood Venous Aerobic Blood Culture - Preliminary No Growth Day 4 08/27/17 10:55 Blood Venous Anaerobic Blood Culture - Preliminary No Growth Day 4 08/27/17 10:55 Blood Venous Aerobic Blood Culture - Preliminary No Growth Day 4 08/27/17 10:55 Blood Venous Anaerobic Blood Culture - Preliminary No Growth Day 4 08/27/17 13:49 Sputum Expectorated Gram Stain - Final 08/27/17 13:49 Sputum Expectorated Sputum Culture - Final Normal Maria G 08/27/17 13:49 Urine Urine Culture - Final 08/27/17 16:44 Stool Stool Occult Blood (JORGE) - Final 08/26/17 21:35 Nasal Influenza Types A,B Antigen (JORGE) - Final Specimen received for Influenza A/B Molecular testing Assess/Plan/Problems-Billing Assessment: 67 yo high utilizer male H ESRD on HD MWF, systolic heart failure, afib (off a /c), and CAD admitted with shortness of breath, found to be hypoxic and volume overloaded, requiring BIPAP in the ED, received emergent HD overnight. 2 NSTEMIs recently including this admission. EF to 25-30%, mod-sev pHTN, mild- moderate . - Patient Problems (1) Acute on chronic systolic heart failure Current Visit: Yes Status: Acute Code(s): I50.23 - ACUTE ON CHRONIC SYSTOLIC (CONGESTIVE) HEART FAILURE SNOMED Code(s): 466346739 Comment: ischemic cardiomyopathy, plus valvular dysfunction appreciate cardiology recs for valve lesions, and whether he would be a candidate for valve surgery given his comorbidities--may be contributing to his tenuous volume status continue metoprolol, ASA, statin, lisinopril daily weights (2) NSTEMI (non-ST elevated myocardial infarction) Current Visit: Yes Status: Acute Code(s): I21.4 - NON-ST ELEVATION (NSTEMI) MYOCARDIAL INFARCTION SNOMED Code(s): 796603865 Comment: troponin peaked at 4.1, no chest pain with st depressions at admission which have now resolved TTE with new vicky-apical severe hypokinesis when compared to his prior TTE he had multivessel nonobstructing cad on a c in 2013 (30% LAD, 60% diag, 50% lcx), Cardiology evaluated him and recommended medical management (3) Volume overload Current Visit: Yes Status: Acute Code(s): E87.70 - FLUID OVERLOAD, UNSPECIFIED SNOMED Code(s): 33975834 Comment: likely due to recent sepsis/hypoxc resp failure admission (08/14-08/17) and possibly fluid indiscretion in the setting of esrd and systolic heart failure wean O2 as above he does not know his dry weight, indicating a lack of insight of his disease processes appreciate nutritionrecs he does make some urine, so we can attempt diuresis if needed, but stable at this point, so will leave volume removal up to dialysis (4) Acute on chronic renal failure Current Visit: No Status: Acute Priority: High Onset Date: 05/15/14 Code (s): N17.9 - ACUTE KIDNEY FAILURE, UNSPECIFIED; N18.9 - CHRONIC KIDNEY DISEASE, UNSPECIFIED SNOMED Code(s): 637779461 Comment: HD MWF while inpatient (5) Acute respiratory failure with hypoxia Current Visit: No Status: Acute Code(s): J96.01 - ACUTE RESPIRATORY FAILURE WITH HYPOXIA SNOMED Code(s): 90007205 Comment: likely due to volume overload; now s/p 4 HD sessions. wean from O2 vs home O2 qualifier. (6) Anemia Current Visit: No Status: Acute Code(s): D64.9 - ANEMIA, UNSPECIFIED SNOMED Code(s): 163832821 Comment: Refuses blood products. (Taoism) epogen per renal. cbc daily. (7) ESRD (end stage renal disease) Current Visit: No Status: Acute Code(s): N18.6 - END STAGE RENAL DISEASE SNOMED Code(s): 38383568 Comment: HD at home TuThSa. (8) Afib Current Visit: No Status: Chronic Code(s): I48.91 - UNSPECIFIED ATRIAL FIBRILLATION SNOMED Code(s): 90419221 Comment: off anticoagulation due to prior hematoma/anemia Status and Disposition: medicine inpatient, likely d/c 09/01
[2017-09-01] MEDS: guaiFENesin LIQ* 100 MG/5 ML UDC PO PRN ×4 (04:19→17:53)
[2017-09-01] MEDS: Omeprazole CAP* 20 MG PO SCH (05:23)
[2017-09-01] MEDS: Metoprolol Tartrate TAB* 25 MG PO SCH (09:30)
[2017-09-01] MEDS: rOPINIRole TAB* 1 MG PO SCH ×2 (09:30→13:15)
[2017-09-01] MEDS: Acetaminophen TAB* 325 MG PO PRN ×2 (09:30→17:52)
[2017-09-01] MEDS: Vitamin B Complex TAB PO SCH (09:30)
[2017-09-01] MEDS: Atorvastatin* 40 MG TAB PO SCH (09:31)
[2017-09-01] MEDS: Lisinopril TAB* 10 MG PO SCH (09:31)
[2017-09-01] MEDS: Aspirin EC Low Dose* 81 MG TAB.EC PO SCH (09:31)
[2017-09-01] MEDS: Sevelamer TAB* 800 MG PO SCH ×3 (09:31→17:52)
[2017-09-01] MEDS: Folic Acid TAB* 1 MG PO SCH (09:32)
[2017-09-01 13:51] LABS: Hematocrit 28 % (42-52); Hemoglobin 9.1 g/dl (14.0-18.0); Mean Corpuscular HGB Conc 32 g/dl (31-36); Mean Corpuscular Hemoglobin 33 pg (27-31); Mean Corpuscular Volume 101 fL (80-94); Mean Platelet Volume 8 um3 (7.4-10.4); Platelet Count 225 10^3/ul (150-450); Red Blood Count 2.78 10^6/ul (4.0-5.4); Red Cell Distribution Width 17 % (10.5-15); White Blood Count 4.7 10^3/ul (3.5-10.8)
[2017-09-01 13:53] VITALS: BP 129/88
--- NOTE | 2017-09-02 04:13 | DS ---
CC: Dr. Balbina Corral; Dr. Mosqueda * DISCHARGE SUMMARY: DATE OF ADMISSION: 08/26/17 DATE OF DISCHARGE: 09/01/17 PRIMARY CARE PROVIDER: Dr. Balbina Corral. PRIMARY DIAGNOSIS: Acute hypoxic respiratory failure. SECONDARY DIAGNOSES: Include: 1. Acute on chronic systolic heart failure. 2. Non-ST elevation myocardial infarction. 3. Acute on chronic renal failure. 4. Anemia. 5. End-stage renal disease. 6. Atrial fibrillation, off anticoagulation. CONSULTATIONS OBTAINED DURING THIS HOSPITAL STAY: Include Gastroenterology and Cardiology. IMAGING PERFORMED DURING THIS HOSPITAL STAY: Transthoracic echocardiogram, impression: Mild concentric left ventricular hypertrophy with global hypokinesis of the left ventricle with an anterior apical wall severely hypokinetic with an estimated LVEF of 25% to 30%. The right ventricle systolic function is normal. The systolic excursion in the aortic valve cusps is reduced. There is no evidence of AR. There is [id number]-sv-ojgkryfo , but the degree of may be underestimated due to the low LV function. There is mild MR , [id number] TR, and evidence of xakwptpj-ak-[id number] pulmonary hypertension. PERTINENT LABORATORY DATA: Hemoglobin on the day of discharge 9.1. Troponin-I peaked at 4.1 on 08/27/17. Negative influenza A and B. MEDICATIONS ON DISCHARGE: Include: 1. Ropinirole 1 mg 3 times daily. 2. Kayexalate 15 g Sunday and Sunday. 3. Simvastatin 20 mg daily. 4. Sevelamer 2400 mg 3 times daily with meals. 5. Nephro-Mark 1 tab daily. 6. Aspirin 81 mg daily. 7. Guaifenesin 5 every 4 hours as needed. 8. Omeprazole 20 mg in the morning as recommended by Gastroenterology. 9. Metoprolol tartrate 25 mg twice daily, decreased from 50 mg twice daily. 10. Lisinopril 10 mg daily, added in the setting of NSTEMI at the recommendation of Cardiology. HISTORY OF PRESENT ILLNESS AND HOSPITAL COURSE: This is a 66-year-old man with complicated past medical history including end-stage renal disease, on hemodialysis, Sunday, Sunday, Sunday; systolic heart failure; atrial fibrillation, off anticoagulation; CAD; past history of anemia presented with hypoxia in the setting of volume overload combination as well as systolic heart failure as well as in the setting of his end-stage renal disease and dietary indiscretion. He required BiPAP in the emergency room and emergent hemodialysis overnight. He has had 2 recent NSTEMIs including this admission with troponin I peaking at 4.1. He was seen in consultation with Cardiology now recommending percutaneous coronary intervention at this time; however, optimal medical management including medications as outlined above. We continued hemodialysis as the patient continued to improve. On the day of discharge, remained on room air throughout the day including with ambulation. Extensive conversations were had with the patient regarding low-salt diet as the patient likes salty meats including ham and mendez. The patient has had evaluations for anemia in the past. At this point, I thought the addition of omeprazole would be beneficial, although no indication, no recommendation for endoscopy or colonoscopy. Remains rate controlled. Atrial fibrillation, off anticoagulation in the setting of anemia. Please note the patient is a Jehov[employer] and would not accept blood transfusions at this point. The patient is high risk given his medication and dietary indiscretion, nonadherence. Extensive conversations were undergone regarding adherence as indicated above. The patient seems accepting, however, with high utilization, recurrent hospital stays, it is unclear if this will be enough. Further conversations were had with the patient regarding return to the hospital instructions including recurrent or worsening symptoms to include chest pain or shortness of breath, nausea, vomiting, lightheadedness, loss of consciousness, bleeding from any source, inability to obtain or tolerate medication, he acknowledged understanding. FOLLOWUP INSTRUCTIONS: At followup, please: 1. Evaluate for continued fluid status and additional need for more frequent hemodialysis. His weight on the day of discharge was 84.7 kg. 2. Evaluate blood pressure and heart rate on altered doses of medications as indicated above. 3. Can consider CBC, to follow hemoglobin, discharge value is 9.1, hematocrit 28. 4. Can consider low-dose addition of iron. 5. No other specific labs or vitals that need followup. TIME SPENT: Greater than 60 minutes was spent on discharge of this patient, greater than half was spent [id number] with the patient. [id number]/[facility] #: [id number] PETER
== END 2017-09-01 18:25 | disposition home health service (06) | DRG 280 ==
LOC: ED 20:43 → ICU 22:47 → MEDTELE 08-28 12:14
PROVIDERS: ADMIT Hospitalist; ATTEND Internal Medicine
PROC: 5A1D70Z Performance of Urinary Filtration, Intermittent, Less than 6 Hours Per Day (ICD-10-PCS; principal; 2017-08-27)
PROC: 5A1D70Z Performance of Urinary Filtration, Intermittent, Less than 6 Hours Per Day (ICD-10-PCS; 2017-08-27)
PROC: 5A1D70Z Performance of Urinary Filtration, Intermittent, Less than 6 Hours Per Day (ICD-10-PCS; 2017-08-27)
PROC: 5A09357 Assistance with Respiratory Ventilation, Less than 24 Consecutive Hours, Continuous Positive Airway Pressure (ICD-10-PCS; 2017-08-27)
DX: I13.2 Hypertensive heart and chronic kidney disease with heart failure and with stage 5 chronic kidney disease, or end stage renal disease (principal); I21.4 Non-ST elevation (NSTEMI) myocardial infarction; N18.6 End stage renal disease; J96.01 Acute respiratory failure with hypoxia; N17.9 Acute kidney failure, unspecified; E11.22 Type 2 diabetes mellitus with diabetic chronic kidney disease; R65.10 Systemic inflammatory response syndrome (SIRS) of non-infectious origin without acute organ dysfunction; I08.3 Combined rheumatic disorders of mitral, aortic and tricuspid valves; I48.0 Paroxysmal atrial fibrillation; I50.23 Acute on chronic systolic (congestive) heart failure; E11.36 Type 2 diabetes mellitus with diabetic cataract; E87.70 Fluid overload, unspecified; I27.20 Pulmonary hypertension, unspecified; E11.40 Type 2 diabetes mellitus with diabetic neuropathy, unspecified; G25.81 Restless legs syndrome; K21.9 Gastro-esophageal reflux disease without esophagitis; E78.00 Pure hypercholesterolemia, unspecified; G47.33 Obstructive sleep apnea (adult) (pediatric); I25.10 Atherosclerotic heart disease of native coronary artery without angina pectoris; M13.88 Other specified arthritis, other site; D53.9 Nutritional anemia, unspecified; I25.5 Ischemic cardiomyopathy; Z99.2 Dependence on renal dialysis; Z72.89 Other problems related to lifestyle; Z82.49 Family history of ischemic heart disease and other diseases of the circulatory system; Z86.73 Personal history of transient ischemic attack (TIA), and cerebral infarction without residual deficits; Z88.0 Allergy status to penicillin; Z83.3 Family history of diabetes mellitus; Z79.82 Long term (current) use of aspirin
CPT/HCPCS: 36415; 36600; 70450; 70486; 71045; 71046; 72125; 80048; 80053; 80202; 81003; 81015; 82272; 82803; 83605; 83690; 83735; 84100; 84145; 84484; 85025; 85027; 85610; 86140; 87040; 87070; 87086; 87205; 87502; 90935; 93005; 93306; 94660; 94760; 99283; 99285; A9270-GY; G0257; J0692; J0885; J1644; J1940; J2405; J3370

== ENCOUNTER 2017-09-13 06:42 | Inpatient (IN) | payer MEDICARE, MEDICAID ==
--- OUTSIDE RECORDS SUMMARY | 2017-09-13 07:22 | XMS REPORT ---
:1950 External Reference #:[id number] Author Organization [facility] Address [address] [place] [address] Phone [phone] Care Team Providers Name Role Phone Balbina Corral M.D. 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 Primary Care Physician Unavailable Payers Type Date Identification Numbers Payment Provider Subscriber Medicare Primary Effective: Policy Number: Medicare [facility] Rajesh Rodriguez 2013 [id number] PayID: [id number] [address] [place] [address] Medicaid Effective: 2013 Policy Number: [id number] Medicaid [place] Rajesh Rodriguez PayID: [id number] [address] [facility] [place] [address] Problems Date Description Provider Status Onset: 09/29/2013 Benign essential hypertension Joaquin Mosquera M.D. Active Onset: 09/29/2013 Hyperlipidemia Joaquin Mosquera M.D. Active Onset: 09/29/2013 Renal failure syndrome Joaquin Mosquera M.D. Active Onset: 09/29/2013 Coronary arteriosclerosis Joaquin Mosquera M.D. Active Onset: 09/29/2013 Late effects of cerebrovascular disease Joaquin Mosquera M.D. Active Onset: 09/29/2013 Depressive disorder Joaquin Mosquera M.D. Active Onset: 09/29/2013 Gastroesophageal reflux disease Joaquin Mosquera M.D. Active Onset: 09/29/2013 Atrial fibrillation Joaquin Mosquera M.D. Active Onset: 09/29/2013 Impaired fasting glycaemia Joaquin Mosquera M.D. Active Onset: 06/10/2014 Deficiency anemias Joaquin Mosquera M.D. Active Onset: 04/21/2015 Essential hypertension Joaquin Mosquera M.D. Active Onset: 10/29/2015 End stage renal disease Balbina Corral M.D. Active Onset: 10/29/2015 Mixed hyperlipidemia Balbina Corral M.D. Active Onset: 10/29/2015 Obesity Balbina Corral M.D. Active Onset: 11/08/2015 Diabetic retinopathy Balbina Corral M.D. Active Onset: 03/21/2016 History of cerebrovascular accident Balbina Corral M.D. Active without residual deficits Onset: 08/22/2016 Paroxysmal atrial fibrillation Balbina Corral M.D. Active Onset: 08/22/2016 Chronic ischemic heart disease Balbina Corral M.D. 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 Active macular edema, r eye Onset: 09/10/2017 Anemia Balbina Corral M.D. Active Onset: 09/10/2017 Systolic heart failure Balbina Corral M.D. Active Family History Date Family Member(s) Problem(s) Comments Father due to Diabetes () Father due to Natural Causes () Mother due to Diabetes () Mother due to Natural Causes () Social History Type Date Description Comments Lives With Alone Fei towers ETOH Use Occasional 1-2x week Smoking Patient is a former smoker quit in teens General Hx Text Moravian: declines blood products Allergies, Adverse Reactions, Alerts Date Description Reaction Status Severity Comments 09/29/2013 Penicillins active 09/29/2013 Dust active 09/29/2013 Pollen active Medications Medication Date Status Form Strength Qnty SIG Indications Ordering Provider Biotene Dry Mouth 09/10 Active Liquid 1Bott rinse mouth Balbina Gentle Oral Rinse le up to 4x a as M.D. needed Nifedipine ER 06/25 Active Tablets 90mg 1 tablet at ER 24HR bedtime Maritza Corral Randi-Mark 04/11 Active Tablets 90tab 1 tab by s mouth every M.D. Simvastatin 09/29 Active Tablets 20mg 30tab 1 po qd 272.4 jessi Mosquera M.D. Renvela Active Tablets 800mg 3 by mouth Unknown /0000 three times a day with food Chlorpheniramine Active Tablets 4mg as needed Unknown Male Acetaminophen ER Active Tablets 650mg 1 by mouth q ER 8 hr prn Vitamin B Active Tablets 1 by mouth Unknown Complex/Folic every day Acid/Vit C Lisinopril Active Tablets 20mg 1 by mouth Unknown every day Metoprolol Active Tablets 50mg take one I10 Unknown Tartrate tablet by mouth twice a day Nitroglycerin Active Tablets 0.4mg 14tab every 5 min Sub s as needed Lavinia, chest pain, M.D. max 3 tabs, go to hospital if using 3 Diphenhydramine Active Capsules 50mg take one tab Unknown HCL at bedtime for sleep Omeprazole Active Tablets 20mg [address] every day Aspirin Adult Low Active Tablets 81mg 1 by mouth Unknown Dose DR every day Kayexalate Active Powder as needed per dialysis Ropinirole HCL Active Tablets 1mg 1 mg by mouth three times a day Enoxaparin Sodium 09/29 Hx Solution 100mg/ml 20ml 90mg SC daily prior Lavinia, - to surgery , M.D. 04/11 Hold of surgery. Resume next day and continue until Inr therapeutic Levaquin 06/21 Hx Tablets 250mg 7tabs 1 po qd [facility], - Afnp-C 06/28 Levofloxacin 06/29 Hx Tablets 500mg 3tabs 500mg by J18.9 mouth on , - one; then Afnp-C 07/04 250mg /2014 everyday for 4 days Zostavax 04/21 Hx Solution [id number]/ 1unit 1 injection Z23 Rec 0.65ML s subcutaneous Jerry Mosquera M.D. 04/26 Omeprazole 06/10 Hx Capsules 40mg 1 by mouth 530.81 every day Jerry Mosquera M.D. 04/11 Ropinirole HCL 06/10 Hx Tablets 0.25mg 30tab 3 by mouth Zana FCk s three times Shalleric, - a day M.DCk 09/10 Ferrous Sulfate 10/03 Hx Tablets 325(65Fe) 90tab 1 by mouth 281.9 mg s three times Demetri, - a day M.D. 06/10 Metoprolol 09/29 Hx Tablets 50mg 180ta 1 po bid I10 Joaquin bs Demetri - M.DCk 08/22 Sertraline HCL 09/29 Hx Tablets 50mg 1 po qd 311 Joaquin Demetri - M.DCk 06/10 Amlodipine Hx Tablets 10mg 30tab 1 po qd 401.1 Joaquin Besylate / s Demetri - M.DCk 06/10 Hydralazine HCL Hx Tablets 100mg 1 po tid 401.1 Unknown / - 06/10 Lisinopril Hx Tablets 20mg 1 po qd 401.1 Unknown - 06/10 Omeprazole Hx Capsules 20mg 90cap 1 by mouth 530.81 Joaquin /0000 DR s every Demetri, - morning M.D. 06/10 Warfarin Sodium Hx Tablets 5mg 60tab take half 427.31 Joaquin / s tab 2 x a Demetri, - week full M.D. 06/10 tab 5 days week Hydrocodone-Aceta Hx Tablets 5-325mg 60tab 1-2 po q4h Unknown min /0000 s prn pain - 12/16 Lisinopril Hx Tablets 2.5mg 1 by mouth Unknown /0000 every day - 08/22 Nifedipine ER 00 Hx Tablets 30mg 1 by mouth Unknown /0000 ER 24HR every day - 06/25 Kayexalate Hx Powder 15G po qd Unknown /0000 - 04/11 Warfarin Sodium Hx Tablets 5mg 90tab 1.5 tab by Balbina /0000 s mouth every Lavinia, - day as M.D. 06/25 Medications Administered in Office Medication Date Status Form Strength Qnty SIG Indications Ordering Provider Injection 09/29/ Administered Injection Balbina Subcutaneous Or 2016 Lavinia, Intramuscular M.D. Immunizations CPT Code Status Date Vaccine Lot # [id number] Given 03/21/2016 Tdap Tetanus, W Pertussis [id number] Given 03/21/2016 Pneumococcal Conjugate Vacc-13 [id number] 13918 Given 04/21/2015 Zostivax [id number] Given 04/21/2015 Influenza Vac, Quadrivalent, Slit Virus, Im [id number] Given 06/16/2014 Pneumococcal Immunization [id number] Given 04/30/2014 Split Influenza Medicare: [place] [id number] Vital Signs Date Vital Result Comment 09/10/2017 BP Systolic 128 mmHg BP Diastolic 70 mmHg Heart Rate 78 /min Body Temperature 98.3 F Respiratory Rate 20 /min O2 % BldC Oximetry 92 % Ra Height 67 inches 5'7" Weight 195.00 lb BMI (Body Mass Index) 30.5 kg/m2 06/25/2017 BP Systolic 128 mmHg BP Diastolic 76 mmHg Heart Rate 71 /min Body Temperature 97.7 F Respiratory Rate 18 /min O2 % BldC Oximetry 98 % Height 67 inches 5'7" Weight 194.00 lb BMI (Body Mass Index) 30.4 kg/m2 04/11/2017 BP Systolic 120 mmHg BP Diastolic 80 mmHg Heart Rate 72 /min Body Temperature 98.8 F Respiratory Rate 16 /min Height 67 inches 5'7" Weight 181.12 lb BMI (Body Mass Index) 28.4 kg/m2 08/22/2016 BP Systolic 126 mmHg BP Diastolic 78 mmHg Heart Rate 76 /min Body Temperature 98.8 F Respiratory Rate 16 /min Height 67 inches 5'7" Weight 198.00 lb BMI (Body Mass Index) 31.0 kg/m2 06/21/2016 BP Systolic 142 mmHg BP Diastolic 80 mmHg Heart Rate 70 /min Body Temperature 98.1 F Respiratory Rate 16 /min Height 67 inches 5'7" Weight 200.00 lb BMI (Body Mass Index) 31.3 kg/m2 03/21/2016 BP Systolic 136 mmHg BP Diastolic 90 mmHg Heart Rate 80 /min Body Temperature 98.1 F Respiratory Rate 16 /min Height 67 inches 5'7" Weight 207.00 lb BMI (Body Mass Index) 32.4 kg/m2 10/29/2015 BP Systolic 146 mmHg BP Diastolic 80 mmHg Heart Rate 68 /min Body Temperature 97.6 F Respiratory Rate 18 /min Height 57.75 inches 4'9.75" Weight 212.00 lb BMI (Body Mass Index) 44.7 kg/m2 07/05/2015 BP Systolic 120 mmHg BP Diastolic 70 mmHg Heart Rate 68 /min Body Temperature 98.0 F Respiratory Rate 18 /min Height 57.75 inches 4'9.75" Weight 218.00 lb BMI (Body Mass Index) 46.0 kg/m2 06/29/2015 BP Systolic 140 mmHg BP Diastolic 86 mmHg Heart Rate 96 /min Body Temperature 98.2 F Respiratory Rate 17 /min O2 % BldC Oximetry 94 % URI Height 57.75 inches 4'9.75" Weight 210.50 lb BMI (Body Mass Index) 44.4 kg/m2 04/21/2015 BP Systolic 134 mmHg BP Diastolic 60 mmHg Heart Rate 78 /min Body Temperature 97.9 F Respiratory Rate 16 /min Weight 213.12 lb 12/16/2014 BP Systolic 134 mmHg BP Diastolic 80 mmHg Heart Rate 64 /min Respiratory Rate 16 /min Height 67.25 inches 5'7.25" measured 09/29/13 Weight 203.00 lb BMI (Body Mass Index) 31.6 kg/m2 07/29/2014 BP Systolic 150 mmHg BP Diastolic 80 mmHg Heart Rate 76 /min Body Temperature 98.8 F Respiratory Rate 16 /min Height 67.25 inches 5'7.25" measured 09/29/13 Weight 180.00 lb BMI (Body Mass Index) 28.0 kg/m2 06/24/2014 BP Systolic 124 mmHg BP Diastolic 70 mmHg Heart Rate 68 /min Body Temperature 98.7 F Respiratory Rate 16 /min Height 67.25 inches 5'7.25" measured 09/29/13 Weight 166.00 lb BMI (Body Mass Index) 25.8 kg/m2 06/10/2014 BP Systolic 136 mmHg BP Diastolic 74 mmHg Heart Rate 72 /min Body Temperature 98.3 F Respiratory Rate 18 /min Height 67.25 inches 5'7.25" measured 09/29/13 Weight 159.00 lb BMI (Body Mass Index) 24.7 kg/m2 04/30/2014 BP Systolic 150 mmHg BP Diastolic 92 mmHg Heart Rate 72 /min Body Temperature 96.8 F Respiratory Rate 16 /min Height 67.25 inches 5'7.25" measured 09/29/13 Weight 184.00 lb BMI (Body Mass Index) 28.6 kg/m2 11/03/2013 BP Systolic 122 mmHg BP Diastolic 74 mmHg Heart Rate 64 /min Body Temperature 98.0 F Respiratory Rate 15 /min Height 67.25 inches 5'7.25" measured 09/29/13 Weight 189.00 lb BMI (Body Mass Index) 29.4 kg/m2 10/03/2013 BP Systolic 110 mmHg BP Diastolic 60 mmHg Heart Rate 60 /min Body Temperature 98.1 F Respiratory Rate 14 /min Height 67.25 inches 5'7.25" measured 09/29/13 Weight 189.00 lb BMI (Body Mass Index) 29.4 kg/m2 09/29/2013 BP Systolic 138 mmHg BP Diastolic 74 mmHg Heart Rate 66 /min Body Temperature 96.9 F Respiratory Rate 18 /min Height 67.25 inches 5'7.25" measured 09/29/13 Weight 189.00 lb BMI (Body Mass Index) 29.4 kg/m2 Results Test Date Test Result H/L Range Note Rapid Influenza A & 08/26/2017 Influenza A Molecular NEGATIVE Negative 1 B Molecular Influenza B Molecular NEGATIVE Negative Urinalysis Profile 08/23/2017 Urine Color Yellow Urine Appearance Clear Urine Specific [place] 1.009 Low 1.010-1.030 Urine pH 9.0 5-9 Urine Urobilinogen Negative Negative Urine Ketones Negative Negative Urine Protein 2+(100 mg/dL) Negative Urine Leukocytes Negative Negative Urine Blood Negative Negative Urine Nitrite Negative Negative Urine Bilirubin Negative Negative Urine Glucose 1+(50 mg/dL) Negative Urine White Blood Cell Trace(0-5/hpf) Absent Urine Red Blood Cell Trace(0-2/hpf) Absent Urine Bacteria Absent Absent Urine Squamous Epithelial Cell Present Absent CBC Auto Diff 08/23/2017 White Blood Count 6.9 10^3/uL 3.5-10.8 Red Blood Count 2.40 10^6/uL Low 4.0-5.4 Hemoglobin 8.0 g/dL Low 14.0-18.0 Hematocrit 25 % Low 42-52 Mean Corpuscular Volume 102 fL High 80-94 Mean Corpuscular Hemoglobin 33 pg High 27-31 Mean Corpuscular HGB Conc 33 g/dL 31-36 Red Cell Distribution Width 19 % High 10.5-15 Platelet Count 193 10^3/uL 150-450 Mean Platelet Volume 7 um3 Low 7.4-10.4 Abs Neutrophils 4.9 10^3/uL 1.5-7.7 Abs Lymphocytes 0.9 10^3/uL Low 1.0-4.8 Abs Monocytes 0.6 10^3/uL 0-0.8 Abs Eosinophils 0.5 10^3/uL 0-0.6 Abs Basophils 0 10^3/uL 0-0.2 Abs Nucleated RBC 0 10^3/uL Granulocyte % 70.4 % 38-83 Lymphocyte % 12.8 % Low 25-47 Monocyte % 9.3 % High 1-9 Eosinophil % 7.2 % High 0-6 Basophil % 0.3 % 0-2 Nucleated Red Blood Cells % 0.3 Comp Metabolic Panel 08/23/2017 Sodium 131 mmol/L Low 133-145 Chloride 91 mmol/L Low 101-111 Co2 Carbon Dioxide 30 mmol/L 22-32 Glucose 98 mg/dL 70-100 Blood Urea Nitrogen 41 mg/dL High 6-24 Creatinine 6.87 mg/dL High 0.67-1.17 BUN/Creatinine Ratio 6.0 Low 8-20 Calcium 8.9 mg/dL 8.6-10.3 Total Protein 6.4 g/dL 6.4-8.9 Albumin 3.3 g/dL 3.2-5.2 Globulin 3.1 g/dL 2-4 Albumin/Globulin Ratio 1.1 1-3 Total Bilirubin 0.80 mg/dL 0.2-1.0 Alkaline Phosphatase 62 U/L 34-104 Alt 59 U/L High 7-52 Egfr Non- 8.1 >60 Egfr 10.5 >60 2 Potassium 5.0 mmol/L 3.5-5.0 Anion Gap 10 mmol/L 2-11 Ast 36 U/L 13-39 Laboratory test finding 08/23/2017 Lipase 35 U/L 11.0-82.0 C Reactive Protein 20.11 mg/L High < 5.00 3 Laboratory test finding 08/14/2017 Creatine Kinase(CK) 140 U/L 10-223 Troponin I 0.02 ng/mL <0.04 C Reactive Protein 19.49 mg/L High < 5.00 4 Procalcitonin 0.8 ng/mL High <0.6 5 Comp Metabolic Panel 08/14/2017 Sodium 137 mmol/L 133-145 Potassium 4.6 mmol/L 3.5-5.0 Chloride 95 mmol/L Low 101-111 Co2 Carbon Dioxide 32 mmol/L 22-32 Anion Gap 10 mmol/L 2-11 Glucose 55 mg/dL Low 70-100 Blood Urea Nitrogen 23 mg/dL 6-24 Creatinine 4.38 mg/dL High 0.67-1.17 BUN/Creatinine Ratio 5.3 Low 8-20 Calcium 9.6 mg/dL 8.6-10.3 Total Protein 7.2 g/dL 6.4-8.9 Albumin 3.9 g/dL 3.2-5.2 Globulin 3.3 g/dL 2-4 Albumin/Globulin Ratio 1.2 1-3 Total Bilirubin 1.10 mg/dL High 0.2-1.0 Alkaline Phosphatase 82 U/L 34-104 Alt 14 U/L 7-52 Ast 39 U/L 13-39 Egfr Non- 13.7 >60 Egfr 17.6 >60 6 Laboratory test finding 08/14/2017 Partial Thrombo Time 41.7 seconds High 26.0-36.3 PTT Lactic Acid 3.6 mmol/L High 0.5-2.0 7 B-Type Natriuretic Peptide BNP 1133 pg/mL High 8 CBC Auto Diff 08/14/2017 White Blood Count 10.2 10^3/uL 3.5-10.8 Red Blood Count 2.55 10^6/uL Low 4.0-5.4 Hemoglobin 8.5 g/dL Low 14.0-18.0 Hematocrit 26 % Low 42-52 Mean Corpuscular Volume 101 fL High 80-94 Mean Corpuscular Hemoglobin 33 pg High 27-31 Mean Corpuscular HGB Conc 33 g/dL 31-36 Red Cell Distribution Width 18 % High 10.5-15 Platelet Count 229 10^3/uL 150-450 Mean Platelet Volume 7 um3 Low 7.4-10.4 Abs Neutrophils 8.6 10^3/uL High 1.5-7.7 Abs Lymphocytes 0.8 10^3/uL Low 1.0-4.8 Abs Monocytes 0.6 10^3/uL 0-0.8 Abs Eosinophils 0.1 10^3/uL 0-0.6 Abs Basophils 0.1 10^3/uL 0-0.2 Abs Nucleated RBC 0 10^3/uL Granulocyte % 84.1 % High 38-83 Lymphocyte % 7.9 % Low 25-47 Monocyte % 6.1 % 1-9 Eosinophil % 1.0 % 0-6 Basophil % 0.9 % 0-2 Nucleated Red Blood Cells % 0.1 Laboratory test 08/14/2017 Rapid Influenza A SEE RESULT BELOW 9 finding & B Antigen Rapid Influenza A 08/14/2017 Influenza A NEGATIVE Negative 10 & B Molecular Molecular Influenza B Molecular NEGATIVE Negative Arterial Blood Gas 08/14/2017 O2 Device n/c Fio2 6 PH Arterial 7.48 High 7.35-7.45 Pco2 Arterial 45 mmHg 35-45 Po2 Arterial 47 mmHg Low 80-100 11 O2 Saturation Arterial 86.2 % Low 95-98 Base Excess Arterial 9.1 High -2.0-2.0 12 Hco3 Arterial 31.8 mmol/L High 19-31 Arterial Blood Gas 08/14/2017 O2 Device vapotherm Fio2 100 PH Arterial 7.51 High 7.35-7.45 Pco2 Arterial 42 mmHg 35-45 Po2 Arterial 127 mmHg High 80-100 O2 Saturation Arterial 99.3 % High 95-98 Base Excess Arterial 9.6 High -2.0-2.0 13 Hco3 Arterial 32.4 mmol/L High 19-31 Laboratory test 08/14/2017 Point of Care 62 mg/dL Low 70-100 14 finding Glucose Laboratory test 08/14/2017 Lactic Acid 2.9 mmol/L High 0.5-2.0 15 finding Laboratory test 06/04/2017 Stool Occult Blood, SEE RESULT BELOW 16 finding Screen Urinalysis Profile 05/29/2017 Urine Color Yellow Urine Appearance Clear Urine Specific [place] 1.010 1.010-1.030 Urine pH 9.0 5-9 Urine Urobilinogen Negative Negative Urine Ketones Negative Negative Urine Protein 2+(100 mg/dL) Negative Urine Leukocytes Negative Negative Urine Blood 1+ Negative Urine Nitrite Negative Negative Urine Bilirubin Negative Negative Urine Glucose 1+(50 mg/dL) Negative Urine White Blood Cell Trace(0-5/hpf) Absent Urine Red Blood Cell Trace(0-2/hpf) Absent Urine Bacteria Absent Absent Urine Squamous Epithelial Cell Present Absent Laboratory test finding 05/25/2017 Inr/Protime 2.61 High 0.89-1.11 Creatine Kinase(CK) 285 U/L High 10-223 Laboratory test 05/18/2017 Inr (Fma) 2.3 2.0-3.0 finding Laboratory test 04/25/2017 Inr (Fma) 1.7 Low 2.0-3.0 finding Laboratory test 04/12/2017 TSH (Thyroid Stim Horm) 1.55 mcIU/mL 0.34- 5.60 finding Lipid Profile 04/12/2017 Triglycerides 116 mg/dL 17 (Trig/Chol/HDL) Cholesterol 131 mg/dL 18 HDL Cholesterol 61.5 mg/dL 19 LDL Cholesterol 46 mg/dL 20 Comp Metabolic Panel 04/12/2017 Sodium 138 mmol/L 133-145 Potassium 3.8 mmol/L 3.5-5.0 Chloride 92 mmol/L Low 101-111 Co2 Carbon Dioxide 39 mmol/L High 22-32 Anion Gap 7 mmol/L 2-11 Glucose 100 mg/dL 70-100 Blood Urea Nitrogen 13 mg/dL 6-24 Creatinine 3.26 mg/dL High 0.67-1.17 BUN/Creatinine Ratio 4.0 Low 8-20 Calcium 9.4 mg/dL 8.6-10.3 Total Protein 7.9 g/dL 6.4-8.9 Albumin 4.7 g/dL 3.2-5.2 Globulin 3.2 g/dL 2-4 Albumin/Globulin Ratio 1.5 1-3 Total Bilirubin 0.70 mg/dL 0.2-1.0 Alkaline Phosphatase 54 U/L 34-104 Alt 13 U/L 7-52 Ast 22 U/L 13-39 Egfr Non- 19.2 >60 Egfr 24.7 >60 21 CBC No Diff 04/12/2017 White Blood Count 4.5 10^3/uL 3.5-10.8 Red Blood Count 2.88 10^6/uL Low 4.0-5.4 Hemoglobin 10.0 g/dL Low 14.0-18.0 Hematocrit 29 % Low 42-52 Mean Corpuscular Volume 100 fL High 80-94 Mean Corpuscular Hemoglobin 35 pg High 27-31 Mean Corpuscular HGB Conc 35 g/dL 31-36 Red Cell Distribution Width 13 % 10.5-15 Platelet Count 167 10^3/uL 150-450 Mean Platelet Volume 8 um3 7.4-10.4 Laboratory test finding 03/23/2017 Inr (Fma) 2.3 2.0-3.0 Laboratory test finding 03/02/2017 Inr (Fma) 2.3 2.0-3.0 Laboratory test finding 02/07/2017 Inr (Fma) 2.0 2.0-3.0 Laboratory test finding 01/24/2017 Inr (Fma) 1.7 High 0.9-1.1 Laboratory test finding 01/03/2017 Inr (Fma) 1.7 Low 2.0-3.0 Laboratory test finding 12/06/2016 Inr (Fma) 2.7 2.0-3.0 Laboratory test finding 11/20/2016 Inr (Fma) 1.6 Low 2.0-3.0 Laboratory test finding 11/06/2016 Inr (Fma) 1.9 Low 2.0-3.0 Laboratory test finding 10/30/2016 Inr (Fma) 1.9 Low 2-3 Laboratory test finding 10/16/2016 Inr (Fma) 2.0 2.0-3.0 Laboratory test finding 10/14/2016 Inr (Fma) 1.8 Low 2.0-3.0 Laboratory test finding 10/12/2016 Inr (Fma) 1.2 Low 2.0-3.0 Laboratory test finding 10/10/2016 Inr (Fma) 1.1 Low 2.0-3.0 Laboratory test finding 09/25/2016 Inr (Fma) 2.6 2.0-3.0 Laboratory test finding 09/11/2016 Inr (Fma) 1.7 Low 2.0-3.0 Laboratory test finding 08/30/2016 Inr (Fma) 1.5 Low 2.0-3.0 Laboratory test finding 08/25/2016 Inr (Fma) 1.9 Low 2.0-3.0 Laboratory test finding 08/22/2016 Inr/Protime 1.21 High 0.89-1.11 Laboratory test finding 08/17/2016 Inr/Protime 1.05 0.89-1.11 Urinalysis Profile 11/01/2015 Urine Color Yellow 22 Urine Appearance Clear 22 Urine Specific [place] 1.009 Low 1.010-1.030 22 Urine pH 9.0 5-9 22 Urine Urobilinogen Negative Negative 22 Urine Ketones Negative Negative 22 Urine Protein 2+(100 mg/dL) Negative 22 Urine Leukocytes Negative Negative 22 Urine Blood Negative Negative 22 Urine Nitrite Negative Negative 22 Urine Bilirubin Negative Negative 22 Urine Glucose 3+(>=500 mg/dL) Negative 22 Urine White Blood Cell Trace(0-5/hpf) Absent 22 Urine Red Blood Cell Trace(0-2/hpf) Absent 22 Urine Bacteria Absent Absent 22 Urine Squamous Epithelial Cell Present Absent 22 Laboratory test finding 11/01/2015 TSH (Thyroid Stim 0.89 ?IU/mL 0.34- 5.60 22, 23 Horm) CBC Electronic[facility] 11/01/2015 White Blood Count 5.9 10^3/uL 3.5-10.8 22 [facility]ani Red Blood Count 3.13 10^6/uL Low 4.0-5.4 22 Hemoglobin 11.3 g/dL Low 14.0-18.0 22 Hematocrit 33 % Low 42-52 22 Mean Corpuscular Volume 105 fL High 80-94 22, 24 Mean Corpuscular Hemoglobin 36 pg High 27-31 22 Mean Corpuscular HGB Conc 34 g/dL 31-36 22 Red Cell Distribution Width 14 % 10.5-15 22 Platelet Count 163 10^3/uL 150-450 22 Mean Platelet Volume 8 um3 7.4-10.4 22 Abs Neutrophils 3.6 10^3/uL 1.5-7.7 22 Abs Lymphocytes 1.3 10^3/uL 1.0-4.8 22 Abs Monocytes 0.6 10^3/uL 0-0.8 22 Abs Eosinophils 0.4 10^3/uL 0-0.6 22 Abs Basophils 0.1 10^3/uL 0-0.2 22 Abs Nucleated RBC 0 10^3/uL 22 Granulocyte % 61.0 % 38-83 22 Lymphocyte % 21.2 % Low 25-47 22 Monocyte % 10.7 % High 1-9 22 Eosinophil % 6.1 % High 0-6 22 Basophil % 1.0 % 0-2 22 Nucleated Red Blood Cells % 0 22 Lipid Panel[facility] 11/01/2015 Triglycerides 189 mg/dL 22, 25 Cholesterol 161 mg/dL 22, 26 HDL Cholesterol 43.8 mg/dL 22, 27 LDL Cholesterol 79 mg/dL 22, 28 Comp Metabolic-[facility] 11/01/2015 Sodium 135 mmol/L 133-145 22 Potassium 4.5 mmol/L 3.5-5.0 22 Chloride 92 mmol/L Low 101-111 22 Co2 Carbon Dioxide 32 mmol/L 22-32 22 Anion Gap 11 mmol/L 2-11 22 Glucose 167 mg/dL High 70-100 22 Blood Urea Nitrogen 44 mg/dL High 6-24 22 Creatinine 8.66 mg/dL High 0.67-1.17 22 BUN/Creatinine Ratio 5.1 Low 8-20 22 Calcium 8.8 mg/dL 8.6-10.3 22 Total Protein 7.4 g/dL 6.4-8.9 22 Albumin 4.5 g/dL 3.2-5.2 22 Globulin 2.9 g/dL 2-4 22 Albumin/Globulin Ratio 1.6 1-3 22 Total Bilirubin 0.50 mg/dL 0.2-1.0 22 Alkaline Phosphatase 54 U/L 34-104 22 Alt 14 U/L 7-52 22 Ast 24 U/L 13-39 22 Egfr Non- 6.3 >60 22 Egfr 8.1 >60 22, 29 Laboratory test finding 04/30/2014 Inr (Fma) 1.7 Low 2-3 Complete Blood Count 04/30/2014 WBC 5.2 x10^3/UL 3.6-9.6 RBC 2.20 x10^6/UL Low 3.90-5.70 30 HGB 7.5 g/dL Low 12.1-17.2 31 HCT 21 % Low 36-50 32 MCV 96.0 fL 82.2-97.4 MCH 33.8 pg High 27.6-33.3 33 MCHC 35.3 g/dL 33.0-35.5 RDW 11.2 % Low 11.6-13.7 PLT 191 x10^3/UL 150-400 MPV 7.8 fL 7.4-10.4 Gran # 4.3 x10^3/UL 1.5-7.2 Lymph# 0.7 x10^3/UL 0.7-4.9 34 [place]# 0.2 x10^3/UL 0.1-0.9 Gran % 81.5 % High 42.2-75.2 35 Lymph % 13.4 % Low 20.5-51.1 36 [place]% 5.1 % 1.7-9.3 Laboratory test finding 04/30/2014 Magnesium, Serum 1.4 mEq/L 1.2-2.1 Comprehensive Metabolic Prof 04/30/2014 Sodium 134 mEq/L 134-149 Potassium 5.4 mEq/L 3.6-5.5 Chloride 105 mEq/L 94-112 Carbon Dioxide 18 mEq/L Low 21-32 37 Glucose 155 mg/dL High 70-105 38 BUN 54 mg/dL High 6-26 39 Creatinine 5.0 mg/dL High 0.6-1.4 40 BUN/Creat Ratio 10.8 CALC 8.0-36.0 Calcium 7.5 mg/dL Low 8.6-10.2 41 Total Protein 7.1 g/dL 6.4-8.3 Albumin 4.3 g/dL 3.8-5.5 Globulin 2.8 g/dL 2.0-4.8 A/G Ratio 1.5 CALC 0.6-2.3 Alk. Phosphatase 64 U/L 22-95 Alt (SGPT) 7 U/L 7-35 Ast (Sgot) 14 U/L 5-34 Total Bilirubin 0.4 mg/dL 0.2-1.3 Laboratory test finding 04/30/2014 Serum Iron 83 g/dL 60-150 Ferritin 179 ng/mL 415 Laboratory test finding 11/20/2013 Inr (Fma) 2.0 2-3 Complete Blood Count 11/03/2013 WBC 5.2 x10^3/UL 3.6-9.6 RBC 2.23 x10^6/UL Low 3.90-5.70 42 HGB 7.3 g/dL Low 12.1-17.2 43 HCT 22 % Low 36-50 44 MCV 96.0 fL 82.2-97.4 MCH 32.7 pg 27.6-33.3 MCHC 34.0 g/dL 33.0-35.5 RDW 12.0 % 11.6-13.7 PLT 194 x10^3/UL 150-400 MPV 8.2 fL 7.4-10.4 Gran # 4.1 x10^3/UL 1.5-7.2 Lymph# 0.7 x10^3/UL 0.7-4.9 [place]# 0.4 x10^3/UL 0.1-0.9 Gran % 77.7 % High 42.2-75.2 Lymph % 14.0 % Low 20.5-51.1 45 [place]% 8.3 % 1.7-9.3 Laboratory test finding 11/03/2013 Serum Iron 60 g/dL 60-150 Ferritin 165 ng/mL 22-415 Laboratory test finding 10/29/2013 Inr (Fma) 2.2 2.0-3.0 Laboratory test finding 10/09/2013 Inr (Fma) 3.0 2.0-3.0 Laboratory test finding 10/02/2013 Hemoglobin A1c (Fma/CMC,CX) 5.4 % 4.1- 5.7 Inr (Fma) 2.8 2.0-3.0 CBC Electronic ([facility]) 10/02/2013 WBC 4.7 3.6-9.6 RBC 1.84 Low 3.90-5.70 Hemoglobin (Fma/CMC/CTX) 6.0 g/dL Low 12.1 - 17.2 Hematocrit (Fma/CMC/CTX) 17.9 % Low 36.1 - 50.3 Platelets 198 10^3/ul 150-400 Lymph% 15.7 % Low 17.0-48.0 Mixed% 10.9 Neutrophils % 73.4 Mean Corpuscular Vol 97 82.2-97.4 Mean Corpuscular Hemoglobin 32.7 27.6-33.3 Mean Corpuscular Hemo Concen 33.6 32.0-36.0 RDW 12.3 11.6-13.7 Mean Platelet Volume 7.8 5.5-11.0 Comprehensive Metabolic Prof 10/02/2013 Sodium 138 mEq/L 134-149 Potassium 5.4 mEq/L 3.6-5.5 Chloride 104 mEq/L 94-112 Carbon Dioxide 20 mEq/L Low 21-32 46 Glucose 115 mg/dL High 70-105 47 BUN 60 mg/dL High 6-26 48 Creatinine 4.8 mg/dL High 0.6-1.4 49 BUN/Creat Ratio 12.5 CALC 8.0-36.0 Calcium 7.7 mg/dL Low 8.6-10.2 50 Total Protein 7.4 g/dL 6.3-8.1 Albumin 4.1 g/dL 3.8-5.5 Globulin 3.3 g/dL 2.0-4.8 A/G Ratio 1.2 CALC 0.6-2.3 Alk. Phosphatase 73 U/L 22-95 Alt (SGPT) 9 U/L Low 10-40 51 Ast (Sgot) 18 U/L 5-34 Total Bilirubin 0.3 mg/dL 0.2-1.3 Lipid Profile 10/02/2013 Cholesterol 118 mg/dL Low 120-200 52 Triglycerides 80 mg/dL 30-200 HDL Cholesterol 32 mg/dL 30-70 LDL (Calculated) 70 CALC 0-129 VLDL Cholesterol 16 mg/dL 0-50 HDL Risk Factor 3.7 CALC 0.0-4.4 Laboratory test finding 09/29/2013 Inr (Fma) 3.5 High 2.0-3.0 1 Weekend Anchor: [id number] 2 Because ethnic data is not always readily available, this report includes an eGFR for both -Americans and non- Americans. The National Kidney Disease Education Program (NKDEP) does not endorse the use of the MDRD equation for patients that are not between the ages of 18 and 70, are , have extremes of body size, muscle mass, or nutritional status, or are non- or non-. According to the National Kidney Foundation, irrespective of diagnosis, the stage of the disease is based on the level of kidney function: Stage Description GFR(mL/min/1.73 m(2)) 1 Kidney damage with normal or decreased GFR 90 2 Kidney damage with mild decrease in GFR 60-89 3 Moderate decrease in GFR 30-59 4 Severe decrease in GFR 15-29 5 Kidney failure <15 (or dialysis) 3 Acute inflammation: >10.00 4 Acute inflammation: >10.00 5 Interpretive information available on [employer] Lab Test Catalog at [email or web address] 6 Because ethnic data is not always readily available, this report includes an eGFR for both -Americans and non- Americans. The National Kidney Disease Education Program (NKDEP) does not endorse the use of the MDRD equation for patients that are not between the ages of 18 and 70, are , have extremes of body size, muscle mass, or nutritional status, or are non- or non-. According to the National Kidney Foundation, irrespective of diagnosis, the stage of the disease is based on the level of kidney function: Stage Description GFR(mL/min/1.73 m(2)) 1 Kidney damage with normal or decreased GFR 90 2 Kidney damage with mild decrease in GFR 60-89 3 Moderate decrease in GFR 30-59 4 Severe decrease in GFR 15-29 5 Kidney failure <15 (or dialysis) 7 Critical Result LACT:3.6 Called to [id number] at: 10:39:04 by:[id number] Read back by:[id number] [facility] Severe Sepsis and Septic Shock Management Bundle Measure requires all lactic acids initially measuring >2.0 mmol/L be repeated. 8 >100 to <200 pg/mL: likely compensated congestive heart failure (CHF) 200 to 400 pg/mL: likely moderate CHF >400 pg/mL: likely moderate to severe CHF 9 SEE RESULT BELOW Name: RAJESH RODRIGUEZ : [address]: Randlal Nichols MD Acct: [id number] Unit: [id number] AGE: 66 Location: ED Re08/14/17 SEX: M Status: REG ER SPEC: [id number] KARLIE: 08/14/17-[address] [facility] [address]: Randall Nichols MD REQ: [id number] RECD: 08/14/17-1 STATUS: VICKY KING DR: Balbina Corral MD _ SOURCE: [facility]: ORDERED: Flu A B Request Procedure Result Reported Site Rapid Influenza A B Request Final 08/14/17- 1023 ML Specimen received for Influenza A/B Molecular testing * ML - MAIN LAB ([facility]) . END OF REPORT * ML=Testing performed at Main Lab DEPARTMENT OF PATHOLOGY, [address] [place] [address] Randall Martínez M.D. Director [facility] # [id number] 10 Weekend Anchor: [id number] 11 Verbal to [id number] by [id number] at 1043 on 08/14/17. Results read back accurately. 12 Reference ranges based on room air. 13 Reference ranges based on room air. 14 Weekend Anchor: [id number] 15 Critical Result LACT:2.9 Called to [id number] at: 13:06:41 by:[email or web address] Read back by:[email or web address] [facility] Severe Sepsis and Septic Shock Management Bundle Measure requires all lactic acids initially measuring >2.0 mmol/L be repeated. 16 SEE RESULT BELOW Name: RAJESH RODRIGUEZ : [address]: Lokesh Buck MD Acct: [id number] Unit: [id number] AGE: 66 Location: ED Re06/04/17 SEX: M Status: REG ER SPEC: [id number] KARLIE: 06/04/[address]: Lokesh Buck MD REQ: [id number] RECD: 06/04/17 STATUS: COMP OTHR DR: Balbina Corral MD _ SOURCE: STOOL SPDESC: ORDERED: Occult Bl, Scn Procedure Result Reported Site Stool Occult Blood (1) Final 06/04/17- 728 ML Stool Occult Blood Negative * ML - MAIN LAB ([email or web address]) . END OF REPORT * ML=Testing performed at Main Lab DEPARTMENT OF PATHOLOGY, [address] [place] [address] Randall Martínez M.D. Director [facility] # [id number] 17 Desirable <150 Borderline high 150-199 High 200-499 Very High >500 18 Desirable <200 Borderline high 200-239 High >239 19 Low <40 Desirable: 40-60 High: >60 20 Desirable: <100 mg/dL Near Optimal: 100-129 mg/dL Borderline High: 130-159 mg/dL High: 160-189 mg/dL Very High: >189 mg/dL 21 Because ethnic data is not always readily available, this report includes an eGFR for both -Americans and non- Americans. The National Kidney Disease Education Program (NKDEP) does not endorse the use of the MDRD equation for patients that are not between the ages of 18 and 70, are , have extremes of body size, muscle mass, or nutritional status, or are non- or non-. According to the National Kidney Foundation, irrespective of diagnosis, the stage of the disease is based on the level of kidney function: Stage Description GFR(mL/min/1.73 m(2)) 1 Kidney damage with normal or decreased GFR 90 2 Kidney damage with mild decrease in GFR 60-89 3 Moderate decrease in GFR 30-59 4 Severe decrease in GFR 15-29 5 Kidney failure <15 (or dialysis) 22 FASTING 23 FASTING 24 Adult MCV greater than 105 fl incubated 1/2 hr at 37c without significant change. 25 Desirable <150 Borderline high 150-199 High 200-499 Very High >500 26 Desirable <200 Borderline high 200-239 High >239 27 Low <40 Desirable: 40-60 High: >60 28 Desirable: <100 mg/dL Near Optimal: 100-129 mg/dL Borderline High: 130-159 mg/dL High: 160-189 mg/dL Very High: >189 mg/dL 29 Because ethnic data is not always readily available, this report includes an eGFR for both -Americans and non- Americans. The National Kidney Disease Education Program (NKDEP) does not endorse the use of the MDRD equation for patients that are not between the ages of 18 and 70, are , have extremes of body size, muscle mass, or nutritional status, or are non- or non-. According to the National Kidney Foundation, irrespective of diagnosis, the stage of the disease is based on the level of kidney function: Stage Description GFR(mL/min/1.73 m(2)) 1 Kidney damage with normal or decreased GFR 90 2 Kidney damage with mild decrease in GFR 60-89 3 Moderate decrease in GFR 30-59 4 Severe decrease in GFR 15-29 5 Kidney failure <15 (or dialysis) 30 RESULTS VERIFIED BY REPEAT ANALYSIS 31 RESULTS VERIFIED BY REPEAT ANALYSIS 32 RESULTS VERIFIED BY REPEAT ANALYSIS 33 RESULTS VERIFIED BY REPEAT ANALYSIS 34 RESULTS VERIFIED BY REPEAT ANALYSIS 35 RESULTS VERIFIED BY REPEAT ANALYSIS 36 RESULTS VERIFIED BY REPEAT ANALYSIS 37 consistent w/ previous results 38 consistent w/ previous results 39 consistent w/ previous results 40 consistent w/ previous results 41 consistent w/ previous results 42 RESULTS VERIFIED BY REPEAT ANALYSIS 43 RESULTS VERIFIED BY REPEAT ANALYSIS 44 RESULTS VERIFIED BY REPEAT ANALYSIS 45 RESULTS VERIFIED BY REPEAT ANALYSIS 46 RESULTS VERIFIED BY REPEAT ANALYSIS 47 RESULTS VERIFIED BY REPEAT ANALYSIS 48 RESULTS VERIFIED BY REPEAT ANALYSIS 49 RESULTS VERIFIED BY REPEAT ANALYSIS 50 RESULTS VERIFIED BY REPEAT ANALYSIS 51 RESULTS VERIFIED BY REPEAT ANALYSIS 52 RESULTS VERIFIED BY REPEAT ANALYSIS Procedures Date CPT Code Description Status 06/25/2017 13793 Pulse Oximetry Completed 05/18/2017 17939 Finger Or Heel Stick Completed 04/25/2017 15449 Finger Or Heel Stick Completed 03/23/2017 43118 Finger Or Heel Stick Completed 03/02/2017 66726 Finger Or Heel Stick Completed 02/07/2017 49665 Finger Or Heel Stick Completed 01/24/2017 30767 Finger Or Heel Stick Completed 01/03/2017 93709 Finger Or Heel Stick Completed 12/06/2016 88825 Finger Or Heel Stick Completed 11/20/2016 60448 Finger Or Heel Stick Completed 11/06/2016 67140 Finger Or Heel Stick Completed 10/30/2016 43723 Finger Or Heel Stick Completed 10/16/2016 42607 Finger Or Heel Stick Completed 10/14/2016 93001 Finger Or Heel Stick Completed 10/12/2016 63534 Finger Or Heel Stick Completed 10/10/2016 05041 Finger Or Heel Stick Completed 09/29/2016 81048 Injection Subcutaneous Or Intramuscular Completed 09/25/2016 22050 Finger Or Heel Stick Completed 09/11/2016 35431 Finger Or Heel Stick Completed 08/30/2016 70308 Finger Or Heel Stick Completed 08/25/2016 64293 Finger Or Heel Stick Completed 06/21/2016 50945 Pulse Oximetry Completed 06/29/2015 41525 Pulse Oximetry Completed 11/20/2013 43750 Finger Or Heel Stick Completed 10/29/2013 33425 Finger Or Heel Stick Completed 10/09/2013 64880 Finger Or Heel Stick Completed 09/29/2013 04771 Finger Or Heel Stick Completed Encounters Type Date Location Provider CPT E/M Dx Office Visit 06/25/2017 7:30p Main Office Balbina Corral M.D. 49682 I48.0 N18.6 I10 I25.5 D64.9 E87.5 Z86.73 R06.83 Office Visit 04/11/2017 8:20a [facility] Balbina Corral M.D. 06808 I48.0 N18.6 I10 I25.5 I25.10 E08.3291 Office Visit 09/29/2016 3:45p Main Office Balbina Corral M.D. 95548 Z79.01 I48.0 Office Visit 08/22/2016 1:50p Main Office Balbina Corral M.D. 32243 I48.0 N18.6 I10 E78.2 I25.5 Office Visit 06/21/2016 9:45a Main Office Padma Stuart 60964 J20.9 Office Visit 10/29/2015 4:40p Main Office Balbina Corral M.D. 44523 N18.6 I10 E78.2 I25.10 E66.8 Office Visit 07/05/2015 10:30a Main Office LILIAN Arredondo 51033 J18.9 Office Visit 06/29/2015 3:00p Main Office Padma Bailey 39048 J18.9 Office Visit 04/21/2015 12:20p Main Office Joaquin Mosquera M.D. 54867 I10 E78.2 N18.6 Z23 Office Visit 12/16/2014 2:20p Main Office Joaquin Mosquera M.D. 71627 586 401.1 281.9 272.4 Office Visit 07/29/2014 9:00a Main Office Joaquin Mosquera M.D. 48166 586 401.1 281.9 Office Visit 06/24/2014 3:30p Main Office Joaquin Mosquera M.D. 78263 586 281.9 401.1 Office Visit 06/10/2014 2:00p Main Office Joaquin Mosquera M.D. 14166 586 281.9 401.1 Office Visit 04/30/2014 10:20a Main Office Joaquin Mosquera M.D. 57089 401.1 281.9 586 272.4 275.2 V58.61 v04.81 438.9 Office Visit 11/03/2013 10:00a Main Office Joaquin Mosquera M.D. 36039 281.9 Office Visit 10/03/2013 10:40a [facility] Joaquin Mosquera M.D. 77476 281.9 586 401.1 272.4 790.21 Office Visit 09/29/2013 1:00p Main Office Joaquin Mosquera M.D. 39840 401.1 272.4 586 414.01 438.9 311 530.81 427.31 790.21 V58.61 Plan of Care Future Appointment(s):11/19/2017 1:40 pm - Balbina Corral M.D. at Main [facility]5811/2017 - Balbina Corral M.D.I22.2 Subsequent non-St elevation (Nstemi) myocardial infarctionComments:needs medical optimization; had 2 [id number] Paroxysmal atrial fibrillationComments:holding coumadin due to recent hematoma/ rkiurlQ15.6 End stage renal diseaseComments:on dialysis Tues, Thmegan, Sat sees Dr Mosqueda IV iron infusions uttgsH51.9 Anemia, unspecifiedComments:on iron infusion ; does not take blood hhzggitoA33.22 Chronic systolic (congestive) heart failureComments:discussed diet, monitoring weight, fluids, symptoms of shortness of breath, edemagiven MOLST to consider ; discussed CPRFollow up: 2moAllNew Medication:Biotene Dry Mouth Gentle Oral RinseComments:~B_~U_ Medication Management~b_~u_ Patient Understands medications he's taking? Yes No Are there Barriers to Adherence? Yes No Has the patient been asked about herbal supplements and therapies, and OTC meds? Yes No
[2017-09-13 07:54] LABS: INR 1.2 (0.77-1.02)
[2017-09-13 07:57] LABS: EGFR Non-African American 8.1 (>60)
[2017-09-13 07:59] LABS: ABS Basophils 0.1 10^3/ul (0-0.2); ABS Eosinophils 0.2 10^3/ul (0-0.6); ABS Lymphocytes 0.6 10^3/ul (1.0-4.8); ABS Monocytes 0.4 10^3/ul (0-0.8); ABS Neutrophils 3.4 10^3/ul (1.5-7.7); ABS Nucleated RBC 0 10^3/ul; Eosinophil % 4.7 % (0-6); Hematocrit 29 % (42-52); Hemoglobin 9.6 g/dl (14.0-18.0); Lymphocyte % 12.7 % (25-47); Mean Corpuscular HGB Conc 33 g/dl (31-36); Mean Corpuscular Hemoglobin 33 pg (27-31); Mean Corpuscular Volume 100 fL (80-94); Mean Platelet Volume 8 um3 (7.4-10.4); Nucleated Red Blood Cells % 0.1; Platelet Count 175 10^3/ul (150-450); Red Blood Count 2.93 10^6/ul (4.0-5.4); Red Cell Distribution Width 17 % (10.5-15); White Blood Count 4.6 10^3/ul (3.5-10.8)
--- NOTE | 2017-09-13 08:29 | RAD ---
INDICATION: Shortness of breath. COMPARISON: Most recent comparison chest x-ray dated August 26, 2017 TECHNIQUE: PA and lateral views of the chest were obtained. FINDINGS: The heart and mediastinum are normal in size and contour. Patchy densities are seen overlying the bilateral lungs. There is a very mild degree of peribronchial cuffing. There is persistent elevation of the left hemidiaphragm asymmetric to the right. There is mild costophrenic angle blunting. Visualized bones are normal for the patient's age. There is no radiographic evidence of free air beneath the diaphragm IMPRESSION: CHEST X-RAY FINDINGS ARE MOST CONSISTENT WITH PULMONARY EDEMA WITH RELATIVELY IMPROVED AERATION WHEN COMPARED TO THE MOST RECENT CHEST X-RAY DATED AUGUST 26, 2017.
[2017-09-13] MEDS ORDERED: Oral Rinse (Biotene)(NF) 237 ML or 473 ML ORAL RINSE BTL MT PRN (10:38)
[2017-09-13] MEDS ORDERED: Chlorpheniramine Maleate TAB* 4 MG PO PRN (10:38)
[2017-09-13] MEDS: Sevelamer TAB* 800 MG PO SCH ×2 (13:18→17:16)
[2017-09-13] MEDS: rOPINIRole TAB* 1 MG PO SCH ×2 (13:18→19:56)
--- NOTE | 2017-09-13 16:42 | HP ---
DICTATION ENDS ABRUPTLY CC: Dr. Mosqueda; Dr. Acuña * HISTORY AND PHYSICAL: DATE OF ADMISSION: 09/13/17 TIME OF ADMISSION: 11 a.m. CHIEF COMPLAINT: Shortness of breath. HISTORY OF PRESENT ILLNESS: This is a 66-year-old male with a history of end- stage renal disease, coronary artery disease, and iron deficiency anemia who presents from the dialysis unit where he was noted to be short of breath this morning. He has multiple recent admissions for shortness of breath and acute hypoxic respiratory failure. Most recently he was admitted 08/26/17 to for hypoxia thought to be due to dietary indiscretion. He had been feeling well yesterday and went to his regularly scheduled HD session where he complained of shortness of breath, so he was transferred to the emergency department. He had no chest pain at that time and feels more comfortable now except he complains of bilateral lower extremity pain and restless legs. He reports better adherence to fluid restriction at home and states he cannot think of anything that would have caused him to be volume overloaded; however, on further questioning, he states that he did eat some [employer] sausage last night. He thinks he ate approximately two thirds of the package with eggs last night. At this time, his only complaint is restless legs. On his last admission from 08/26/17 to 09/01/17, he was evaluated by Cardiology for elevated troponin and they recommended medical management of his known coronary artery disease, especially in the setting of his chronic anemia and decline of blood products. At the time of discharge on 09/01/17, his weight was 84.7 kg. PAST MEDICAL HISTORY: 1. Hemodialysis, on Sunday, , Sunday HD. 2. AFib, not on anticoagulation due to refusal of blood products. 3. History of CVA. 4. Restless leg syndrome. 5. Systolic heart failure ejection fraction 25% to 30%. 6. Mild to moderate aortic stenosis. 7. Moderate to severe pulmonary hypertension. 8. Chronic venous stasis ulcers on bilateral lower extremities. 9. Coronary artery disease. HOME MEDICATIONS: This list is per his most recent discharge summary on : 1. Ropinirole 1 mg t.i.d. 2. Kayexalate 15 g Sunday and Sunday. 3. Simvastatin 20 mg daily. 4. Sevelamer 2400 mg t.i.d. with meals. 5. Nephro-Mark 1 tab daily. 6. Aspirin 81 mg daily. 7. Guaifenesin 5 mg q.4 hours p.r.n. cough. 8. Omeprazole 20 mg daily. 9. Metoprolol 25 mg b.i.d. 10. Lisinopril 10 mg daily. REVIEW OF SYSTEMS: Negative for weight gain or weight loss, fevers, chills, cough, sputum, chest pain, palpitations, orthopnea, melena or hematochezia. PHYSICAL EXAMINATION GENERAL: Alert, well-appearing man who is disheveled, but in no distress. VITAL SIGNS: Blood pressure 114/72, heart rate 84, pulse ox 98% on 3 L, respiratory rate 25, temperature 97.9 degrees. HEENT: Pupils are equal, round and reactive to light with no conjunctival injection. He has moist mucosa with no pharyngeal exudates or erythema. NECK: JVP is at 10 cm. No cervical adenopathy. CHEST: Irregular rhythm with a systolic murmur at the left upper external border without radiation. PMI nondisplaced. LUNGS: Clear bilaterally. ABDOMEN: Soft, nontender, nondistended with no guarding or rebound. EXTREMITIES: He has severe venous stasis changes on bilateral lower extremities with dressings over both lower extremities. His DP and PT pulses are barely palpable. LABORATORY DATA: White blood cell 4.6, hemoglobin 9.6, platelets 175,000. INR 1.20. Sodium 134, potassium 4.3, chloride 90, bicarb 31, BUN 26, creatinine 6.92, anion gap is 13. Troponin is 0.15. IMAGING: Chest x-ray was consistent with pulmonary edema with relatively improved aeration when compared to the most recent chest x-ray. ASSESSMENT AND PLAN: This is a 66-year-old man who is a high utilizer and has multiple recent admissions for respiratory distress and acute on chronic hypoxic respiratory failure who presents today from dialysis where he was noted to be short of breath. 1. Respiratory distress. Mr. Knight has chronic hypoxic respiratory failure at 3 L of O2 continuously and he is currently on his home O2 requirement; however, I think it is possible that his intake of sausage last night may have contributed to a sudden onset of shortness of breath when he woke up this morning. He has been educated about salty processed meats; however, perhaps he would benefit from ongoing nutritional counseling. He does make minimal urine, so we could attempt to diurese him if necessary; however, given his comfort level at this point and ability to maintain his oxygen saturation on 3 L of oxygen, I will hold off and wait for a dialysis session, which should occur today. His pulmonary edema based on his chest x-ray is markedly improved from his last admission and he is not profoundly volume overloaded based on my exam. 2. Anion gap metabolic acidosis with an elevated lactate. DICTATION ENDS ABRUPTLY [id number]/[facility] #: [id number] MTDD
[2017-09-13] MEDS: Acetaminophen TAB* 325 MG PO PRN (19:55)
[2017-09-13] MEDS ORDERED: NIFEdipine ER TAB* 30 MG PO SCH (21:00)
[2017-09-13] MEDS ORDERED: Metoprolol Tartrate TAB* 25 MG PO SCH (21:00)
[2017-09-13] MEDS: Metoprolol Tartrate TAB* 25 MG PO SCH (22:22)
[2017-09-13] MEDS: NIFEdipine ER TAB* 30 MG PO SCH (22:22)
[2017-09-13 22:29] LABS: Urine Appearance Clear; Urine Blood 1+ (Negative); Urine Color Yellow; Urine Ketones Negative (Negative); Urine Protein 2+(100 mg/dL) (Negative); Urine Specific Gravity 1.012 (1.010-1.030); Urine Urobilinogen Negative (Negative)
[2017-09-13] MEDS: traMADol TAB* 50 MG PO PRN (23:03)
[2017-09-14] MEDS: Omeprazole CAP* 20 MG PO SCH (05:41)
[2017-09-14] MEDS: Acetaminophen TAB* 325 MG PO PRN ×2 (05:52→15:39)
--- NOTE | 2017-09-14 08:18 | ED ---
Gordo Rob Angela, scribed for Randall Nichols MD on 09/13/17 at 0710 . Shortness of Breath - HPI Summary HPI Summary: This pt is a 66 y/o male presenting to [facility] via EMS c/o SOB. Pt was picked up by EMS from dialysis center this morning. Pt states he got up at 04:00 this morning and began to have rapid SOB. His last dialysis was 2 days ago and was due for his next one today. He denies chest pain, palpitations. Pt reports he has chronic bilateral lower extremity open wounds treated by home care. Per nurse, pt is 0.5kg above dry weight. - History of Current Complaint Chief Complaint: EDShortnessOfBreath Hx Obtained From: Patient Onset/Duration: Lasting Hours, Still Present Timing: Constant Dyspnea At: Rest Aggrevating Factors: Nothing Alleviating Factors: Nothing - Allergy/Home Medications Allergies/Adverse Reactions: Allergies Allergy/AdvReac Type Severity Reaction Status Date / Time Penicillins Allergy Intermediate Hives Verified 08/23/17 06:03 Home Medications: Home Medications Acetaminophen [Acetaminophen ER] 650 mg PO Q8H PRN 09/13/17 [History Confirmed 09/13/17] Chlorpheniramine Maleate TAB* [Chlortrimeton TAB*] 4 mg PO Q6H PRN 09/13/17 [ History Confirmed 09/13/17] Folic Acid/Vit B Complex and C [Randi-Mark Tablet] 0.8 mg PO DAILY 09/13/17 [ History Confirmed 09/13/17] Lisinopril TAB* [Prinivil TAB 10 MG*] 10 mg PO DAILY 09/13/17 [History Confirmed 09/13/17] NIFEdipine ER TAB* [Procardia Xl TAB*] 90 mg PO BEDTIME 09/13/17 [History Confirmed 09/13/17] Oral Rinse (Biotene)(NF) [Biotene Dry Mouth Oral Rinse(NF)] 1 liq MT QID PRN 02/23 [History Confirmed 09/13/17] Sodium Polystyrene ORAL.SELENE* [Kayexalate ORAL.SELENE*] 15 gm PO . DIRECTED [History Confirmed 09/13/17] PMH/Surg Hx/FS Hx/Imm Hx Endocrine/Hematology History: Reports: Hx Anticoagulant Therapy - Not currently on anticoagulant therapy d/t hematoma, Hx Diabetes, Hx Anemia Cardiovascular History: Reports: Hx Atrial Fibrillation, Hx Congestive Heart Failure, Hx Coronary Artery Disease - CHOLESTEROL CONTROL WITH MEDICATION, Hx Hypercholesterolemia, Hx Hypertension, Other Cardiovascular Problems/Disorders - 2 LEAKY VALVES Denies: Hx Pacemaker/ICD Respiratory History: Reports: Hx Sleep Apnea - NO CPAP, Other Respiratory Problems/Disorders Denies: Hx Asthma, Hx Chronic Obstructive Pulmonary Disease (COPD) GI History: Reports: Hx Gastroesophageal Reflux Disease - ON MEDICATION History: Reports: Hx Chronic Renal Failure, Hx Dialysis Musculoskeletal History: Reports: Hx Arthritis - BILATERAL KNUCKLES AND NECK Sensory History: Reports: Hx Cataracts - BILATERAL Denies: Hx Contacts or Glasses, Hx Hearing Aid Opthamlomology History: Reports: Hx Cataracts - BILATERAL Denies: Hx Contacts or Glasses Neurological History: Reports: Hx Nerve Disease - Neuropathy, restless leg syndrome, Other Neuro Impairments/Disorders - DIFFICULTY CONCENTRATING WITH LEFT SIDE WEAKNESS, BALANCE OFF, STAMMERING, Psychiatric History: Reports: Hx Depression - ON MEDICATION Denies: Hx Panic Disorder - Surgical History Surgery Procedure, Year, and Place: 2009 OR 2010 CARDIAC CATHERIZATION, [place], [place] DENTAL WORK, OFFICE Hx Anesthesia Reactions: No - Immunization History Date of Tetanus Vaccine: unk Date of Influenza Vaccine: utd Infectious Disease History: No Infectious Disease History: Denies: Traveled Outside the [place] in Last 30 Days - Family History Known Family History: Positive: Cardiac Disease Family History: No FHx of malignant hyperthermia. No FHx of anesthesia reaction - Social History Alcohol Use: None Alcohol Amount: 1-2 per week Hx Substance Use: No Substance Use Type: Reports: None Hx Tobacco Use: No Smoking Status (MU): Never Smoked Tobacco Review of Systems Negative: Fever, Chills Negative: Palpitations, Chest Pain Positive: Shortness Of Breath Skin: Other - chronic wound on bilateral legs All Other Systems Reviewed And Are Negative: Yes Physical Exam - Summary Physical Exam Summary: VITAL SIGNS: Reviewed. GENERAL: Patient is a well-developed and nourished male who is lying comfortable in the stretcher. Patient is not in any acute respiratory distress. Pt looks debilitated. HEAD AND FACE: No signs of trauma. No ecchymosis, hematomas or skull depressions. No sinus tenderness. EYES: PERRLA, EOMI x 2, No injected conjunctiva, no nystagmus. EARS: Hearing grossly intact. Ear canals and tympanic membranes are within normal limits. MOUTH: Oropharynx within normal limits. NECK: Supple, trachea is midline, no adenopathy, no JVD, no carotid bruit, no c- spine tenderness, neck with full ROM. CHEST: Symmetric, no tenderness at palpation LUNGS: Crackles in both bases of the lungs. CVS: Regular rate and rhythm, S1 and S2 present, no murmurs or gallops appreciated. ABDOMEN: Soft, non-tender. No signs of distention. No rebound no guarding, and no masses palpated. Bowel sounds are normal. EXTREMITIES: FROM in all major joints, no edema, no cyanosis or clubbing. Fistula on left arm. NEURO: Alert and oriented x 3. No acute neurological deficits. Speech is normal and follows commands. SKIN: Dry and warm Triage Information Reviewed: Yes Vital Signs On Initial Exam: Initial Vitals Temp Pulse Resp BP Pulse Ox 97.9 F 84 24 114/60 94 09/13/17 06:54 09/13/17 06:54 09/13/17 06:54 09/13/17 06:54 09/13/17 06:54 Vital Signs Reviewed: Yes Diagnostics - Vital Signs Vital Signs Temp Pulse Resp BP Pulse Ox 09/13/17 06:54 97.9 F 84 24 114/60 94 - Laboratory Result Diagrams: 09/13/17 06:50 09/13/17 06:50 Lab Statement: Any lab studies that have been ordered have been reviewed, and results considered in the medical decision making process. - Radiology Chest XR Xray Interpretation: Positive (See Comments) - IMPRESSION: Chest x-ray findings are most consistent with pulmonary edema with relatively improved aeration when compared to the most recent chest x-ray dated August 26, 2017. Dr. Nichosl has reviewed this radiology report. Radiology Interpretation Completed By: Radiologist - EKG 07:17 Cardiac Rate: NL EKG Rhythm: Sinus Rhythm - at 83 bpm EKG Interpretation: No ST elevation. Normal axis. Course/Dx - Course Assessment/Plan: This pt is a 66 y/o male presenting to [facility] via EMS c/o SOB. Pt was picked up by EMS from dialysis center this morning. Pt states he got up at 04:00 this morning and began to have rapid SOB. His last dialysis was 2 days ago and was due for his next one today. He denies chest pain, palpitations. Pt reports he has chronic bilateral lower extremity open wounds treated by home care. Per nurse, pt is 0.5kg above dry weight. Test results show chronic anemia, chronic renal failure, lactic acid of 4.8, troponin is 0.15, BNP is 2709. Influenza A and B is negative. Chest XR: Chest x-ray findings are most consistent with pulmonary edema with relatively improved aeration when compared to the most recent chest x-ray dated August 26, 2017. EKG shows no ST elevation. In the ED course the pt is hemodynamically stable. He was given aspirin in the ED. I discussed the case with Dr. Larios, hospitalist, who accepted the pt for admission for CHF exacerbation and to rule out ACS. Pt is hemodynamically stable, alert and oriented x3. - Diagnoses Provider Diagnoses: CHF exacerbation, rule out ACS - Physician Notifications Discussed Care of Patient With: Abdifatah Mosqueda Time Discussed With Above Provider: 08:00 Instructed by Provider To: Other - I spoke with Dr. Mosqueda, cotton expert, who states the pt did report chest pressure. [09:21] I discussed pt care with Dr. Larios, hospitalist, who has agreed to admit the pt. Discharge - Discharge Plan Condition: Stable Disposition: ADMITTED TO [facility] The documentation as recorded by the Gordo patricio Angela accurately reflects the service I personally performed and the decisions made by me, Randall Nichols MD.
[2017-09-14] MEDS ORDERED: Atorvastatin* 10 MG TAB PO SCH (09:00)
[2017-09-14] MEDS: rOPINIRole TAB* 1 MG PO SCH ×3 (09:07→21:14)
[2017-09-14] MEDS: traMADol TAB* 50 MG PO PRN ×3 (09:07→21:54)
[2017-09-14] MEDS: Sevelamer TAB* 800 MG PO SCH ×3 (09:07→17:25)
[2017-09-14 10:35] LABS: ABS Basophils 0 10^3/ul (0-0.2); ABS Eosinophils 0.3 10^3/ul (0-0.6); ABS Lymphocytes 0.5 10^3/ul (1.0-4.8); ABS Monocytes 0.3 10^3/ul (0-0.8); ABS Neutrophils 1.4 10^3/ul (1.5-7.7); ABS Nucleated RBC 0 10^3/ul; Eosinophil % 13.8 % (0-6); Hematocrit 29 % (42-52); Hemoglobin 9.3 g/dl (14.0-18.0); Lymphocyte % 18.8 % (25-47); Mean Corpuscular HGB Conc 32 g/dl (31-36); Mean Corpuscular Hemoglobin 33 pg (27-31); Mean Corpuscular Volume 101 fL (80-94); Mean Platelet Volume 8 um3 (7.4-10.4); Nucleated Red Blood Cells % 0; Platelet Count 38 10^3/ul (150-450); Red Blood Count 2.87 10^6/ul (4.0-5.4); Red Cell Distribution Width 17 % (10.5-15); White Blood Count 2.5 10^3/ul (3.5-10.8)
[2017-09-14 10:40] LABS: EGFR Non-African American 6.7 (>60)
[2017-09-14] MEDS: Gabapentin CAP(*) 100 MG PO SCH ×2 (10:57→21:09)
[2017-09-14] MEDS ORDERED: Epoetin Alfa* 3,000 UNITS/ML VIAL IV ONE (11:00)
[2017-09-14] MEDS ORDERED: Heparin DIALYSIS ONLY(*) 1,000 UNITS/ML VIAL DIALYSIS ONE (11:00)
[2017-09-14] MEDS: Metoprolol Tartrate TAB* 25 MG PO SCH ×2 (14:07→21:14)
[2017-09-14] MEDS: Aspirin EC Low Dose* 81 MG TAB.EC PO SCH (14:07)
[2017-09-14] MEDS: Lisinopril TAB* 10 MG PO SCH (14:08)
--- NOTE | 2017-09-14 16:41 | PN ---
Subjective Date of Service: 09/14/17 Interval History: Feeling better after dialysis O2 not on in room, was asleep and not SOB when awoken. Restless legs problem in last half of dialysis. gabapentin added and helped with burning pain. short term memory options willing to hear about [facility] and other SNFs. Objective Active Medications: Acetaminophen (Tylenol Tab*) 650 mg PO Q6H PRN PRN Reason: PAIN Last Admin: 09/14/17 15:39 Dose: 650 mg Aspirin (Aspirin Ec Low Dose*) 81 mg PO DAILY [facility] Last Admin: 09/14/17 14:07 Dose: 81 mg Atorvastatin Calcium (Lipitor*) 10 mg PO QPM [facility] Chlorpheniramine Maleate (Chlortrimeton Tab*) 4 mg PO Q6H PRN PRN Reason: Allergy Symptoms Gabapentin (Neurontin Cap(*)) 100 mg PO BID [facility] Last Admin: 09/14/17 10:57 Dose: 100 mg Lisinopril (Prinivil Tab*) 10 mg PO DAILY [facility] Last Admin: 09/14/17 14:08 Dose: 10 mg Metoprolol Tartrate (Lopressor Tab*) 25 mg PO Q12HR [facility] Last Admin: 09/14/17 14:07 Dose: 25 mg Multi-Ingredient Mouthwash/Gargle (Biotene Dry Mouth Oral Rinse(Nf)) 5 ml MT QID PRN PRN Reason: Dry Mouth Nifedipine (Procardia Xl Tab*) 90 mg PO BEDTIME [facility] Last Admin: 09/13/17 22:22 Dose: Not Given Omeprazole (Prilosec Cap*) 20 mg PO 0600 [facility] Last Admin: 09/14/17 05:41 Dose: 20 mg Ropinirole HCl (Requip Tab*) 1 mg PO TID [facility] Last Admin: 09/14/17 14:11 Dose: 1 mg Sevelamer Carbonate (Renvela Tab*) 2,400 mg PO TID WITH MEALS [facility] Last Admin: 09/14/17 14:08 Dose: 2,400 mg Tramadol HCl (Ultram*) 25 mg PO Q6H PRN PRN Reason: PAIN Last Admin: 09/14/17 15:38 Dose: 25 mg Vital Signs - 8 hr 09/14/17 09/14/17 09/14/17 09:07 10:57 13:11 Respiratory 16 Rate 09/14/17 15:38 Respiratory 16 Rate Oxygen Devices in Use Now: Nasal Cannula Appearance: NAD, initially asleep in chair. Eyes: No Scleral Icterus, PERRLA Ears/Nose/Mouth/Throat: NL Teeth, Lips, Gums, Mucous Membranes Moist Respiratory: Symmetrical Chest Expansion and Respiratory Effort, - - reduced left base, rales right base. no rhonchi or wheezing. Cardiovascular: - - JVD Abdominal: NL Sounds; No Tenderness; No Distention, No Hepatosplenomegaly Extremities: No Edema Skin: No Rash or Ulcers Neurological: Alert and Oriented x 3, NL Sensation, NL Muscle Strength and Tone Nutrition: Taking PO's Result Diagrams: 09/14/17 09:30 09/14/17 09:30 Additional Lab and Data: Laboratory Results - last 24 hr 09/13/17 09/13/17 09/14/17 19:37 21:44 09:30 WBC RBC Hgb Hct MCV MCH MCHC RDW Plt Count MPV Neut % (Auto) Lymph % (Auto) [place] % (Auto) Eos % (Auto) Baso % (Auto) Absolute Neuts (auto) Absolute Lymphs (auto) Absolute Monos (auto) Absolute Eos (auto) Absolute Basos (auto) Absolute Nucleated RBC Nucleated RBC % Sodium 132 L Potassium TNP Chloride 92 L Carbon Dioxide 26 Anion Gap 14 H BUN 34 H Creatinine 8.14 H Est GFR ( Amer) 8.6 Est GFR (Non-Af Amer) 6.7 BUN/Creatinine Ratio 4.2 L Glucose 92 Calcium 9.3 Phosphorus 3.4 Magnesium 2.0 Troponin I 2.68 H* 1.16 H* Urine Color Yellow Urine Appearance Clear Urine pH 8.0 Ur Specific [place] 1.012 Urine Protein 2+(100 mg/dl) A Urine Ketones Negative Urine Blood 1+ A Urine Nitrate Negative Urine Bilirubin Negative Urine Urobilinogen Negative Ur Leukocyte Esterase Negative Urine WBC (Auto) Trace(0-5/hpf) Urine RBC (Auto) Trace(0-2/hpf) Ur Squamous Epith Cells Present A Urine Bacteria Absent Urine Glucose 1+(50 mg/dl) A 09/14/17 09:30 WBC 2.5 L RBC 2.87 L Hgb 9.3 L Hct 29 L MCV 101 H MCH 33 H MCHC 32 RDW 17 H Plt Count 38 L D MPV 8 Neut % (Auto) 56.8 Lymph % (Auto) 18.8 L [place] % (Auto) 10.3 H Eos % (Auto) 13.8 H Baso % (Auto) 0.3 Absolute Neuts (auto) 1.4 L Absolute Lymphs (auto) 0.5 L Absolute Monos (auto) 0.3 Absolute Eos (auto) 0.3 Absolute Basos (auto) 0 Absolute Nucleated RBC 0 Nucleated RBC % 0 Sodium Potassium Chloride Carbon Dioxide Anion Gap BUN Creatinine Est GFR ( Amer) Est GFR (Non-Af Amer) BUN/Creatinine Ratio Glucose Calcium Phosphorus Magnesium Troponin I Urine Color Urine Appearance Urine pH Ur Specific [place] Urine Protein Urine Ketones Urine Blood Urine Nitrate Urine Bilirubin Urine Urobilinogen Ur Leukocyte Esterase Urine WBC (Auto) Urine RBC (Auto) Ur Squamous Epith Cells Urine Bacteria Urine Glucose Microbiology and Other Data: Microbiology 09/13/17 08:44 Blood Venous Aerobic Blood Culture - Preliminary No Growth Day 1 09/13/17 08:44 Blood Venous Anaerobic Blood Culture - Preliminary No Growth Day 1 09/13/17 08:49 Blood Venous Aerobic Blood Culture - Preliminary No Growth Day 1 09/13/17 08:49 Blood Venous Anaerobic Blood Culture - Preliminary No Growth Day 1 09/13/17 08:10 Nasopharyngeal Influenza Types A,B Antigen (JORGE) - Final Specimen received for Influenza A/B Molecular testing Assess/Plan/Problems-Billing Assessment: 66 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 improved after. - Patient Problems (1) Acute on chronic systolic heart failure Current Visit: No Status: Acute Code(s): I50.23 - ACUTE ON CHRONIC SYSTOLIC (CONGESTIVE) HEART FAILURE SNOMED Code(s): 581282307 Comment: EF 25-30%(which has worsened in last 6 months given ischemia/NSTEMI ) combined with continued dietary noncompliance, ESRD, mod-severe pHTN, mild- moderate , his volume status is tenuous and will likely continue to be so while living alone. Open to talke to case managment about SNF. Will also put in Palliative care consult given continued readmissions. continue metoprolol, ASA, statin, lisinopril daily weights BNP 2709. (2) Acute respiratory failure with hypoxia Current Visit: No Status: Acute Code(s): J96.01 - ACUTE RESPIRATORY FAILURE WITH HYPOXIA SNOMED Code(s): 01584061 Comment: likely due to volume overload, improved with HD. wean from O2 consider CT to define potential hiatal hernia given asymmetric diaphragm seen on CXRs. (3) ESRD (end stage renal disease) Current Visit: No Status: Acute Code(s): N18.6 - END STAGE RENAL DISEASE SNOMED Code(s): 83202774 Comment: Continue MWF while hospitalized. HD at home TuThSa. (4) Macrocytic anemia Current Visit: No Status: Acute Priority: High Onset Date: 05/15/14 Code (s): D53.9 - NUTRITIONAL ANEMIA, UNSPECIFIED SNOMED Code(s): 34863836 Comment: b12 and folate have been normal (5) NSTEMI (non-ST elevated myocardial infarction) Current Visit: No Status: Acute Code(s): I21.4 - NON-ST ELEVATION (NSTEMI) MYOCARDIAL INFARCTION SNOMED Code(s): 227277086 Comment: troponin peaked at 2.68, denies chest pain he had multivessel nonobstructing cad on a [facility] in 2013 (30% LAD, 60% diag, 50% lcx), Cardiology evaluated him and recommended continued medical management (6) Restless leg syndrome Current Visit: Yes Status: Acute Comment: continue ropinorole 1mg TID (max ESRD dosing) gabapentin added but renal dosing given ESRD. Status and Disposition: medicine inpatient. PT ordered. Likely would benefit from SNF given continue dietary noncompliance in setting of multiorgan failure.
--- NOTE | 2017-09-14 16:48 | CONS ---
CC: Hospitalist Service; Dr. Acuña; Dr. Balbina Corral CARDIOLOGY CONSULT: DATE OF CONSULT: 09/14/17 HISTORY OF PRESENT ILLNESS: I was asked by hospitalist service, Dr. Larios, to see this 66-year-old male patient with recurrent hospitalizations at [facility] who does have significant comor bidities with end-stage renal disease, hemodialysis 3 times per week, significant history of coronary artery disease, history of CVA, history of anemia, history of congestive heart failure with cardiomy opathy with an EF of 25 to 30%, history of iymg-yc-alpzfayc aortic stenosis, ilzizuaf-fy-mbyosf pulmo nary hypertension. He is a Jehovah Witness and he refuses blood products. He presented to the [facility] as part of his multiple hospitalizations initially for dialysis. He was noted to be short of geovanni ath. Dialysis was canceled. He was brought in to be hospitalized because of elevated troponin, which is not unusual for him actually. His initial troponin was 0.15. It did peak at 2.68 and did go down to 1.16 today at 9:30 this morning. The patient does have in the last actual visit, which was on , he did have a peak troponin 4.15. Cardiology consult was done there with recommendations for continued medical treatment based on his comorbidities and the Jehovah Witness and complexity of his medical condition. In speaking to the patient, he had no symptoms of chest pain and he wants actual ly as per his wishes to continue on medical treatment. He does not wish to go for any cardiac cathet erization or intervention. He gives no chest pain. He gives no fevers, no chills, no skin rash, no tremors, no hematochezia, no nausea, no vomiting, no abdominal pain, no syncope is appreciated. Actu ally, he did just complete his morning hemodialysis and he feels much better. His review of all othe r systems essentially is negative. PAST MEDICAL HISTORY: Includes end-stage renal disease, hemodialysis Tuesdays, , and ays, followed up with Dr. Mosqueda; atrial fibrillation, he is not on anticoagulation due to refusal of blood product; history of CVA; restless leg syndrome; systemic heart failure, EF 25% to 30%; history of lntz-zz-wwyebwdb aortic stenosis; hshhhgyp-gz-czxvwj pulmonary hypertension; coronary artery dise ase. Review of all other systems essentially is negative. MEDICATIONS: 1. Tylenol 650 mg p.o. q.6 h. p.r.n. 2. Aspirin 81 mg daily. 3. Lipitor 10 mg daily. 4. Neurontin 100 mg twice a day. 5. Lisinopril 10 mg daily. 6. Lopressor 25 mg p.o. q.12 h. 7. Nifedipine 90 mg at bedtime. 8. Omeprazole 20 mg daily. 9. Tramadol when needed. ALLERGIES: He is allergic to PENICILLIN. FAMILY HISTORY: No family history of premature coronary artery disease. SOCIAL HISTORY: He gives no history of smoking, drinking, or illicit drug use. PHYSICAL EXAMINATION: He is awake, alert, and oriented. Actually, he is not in any acute distress. He had no symptoms of chest pain. His vitals include blood pressure 105/70, pulse 72, temperature 9 8.0. Head and Neck exam: Normocephalic, atraumatic. Ears, nose, and throat essentially benign. Ne ck: Supple. JVP is not elevated. No carotid bruits. No masses in the neck is appreciated. Chest: Diminished air entry bilaterally with rhonchi at the bases. Heart: Normal and regular. S1, S2. N o added sounds. No gallops. No rubs. There is a grade 3/6 systolic murmur in the left sternal bor juliana. Abdomen: Benign, soft. Positive bowel sounds. Extremities: 1+ edema. PRINTER HELPER: No focal defici ts appreciated. LABORATORY DATA/DIAGNOSTIC STUDIES: His labs showed his sodium today is 132, chloride 92, total CO2 of 26, BUN 34, creatinine 8.14. His troponin peaked as I said at 2.68. CBC: White blood cell 2.5, hemoglobin 9.3, hematocrit 29, platelets 38,000. His EKG yesterday showed he is in sinus rhythm and nonspecific T abnormality. His QTc is borderline prolonged. No acute ST-T changes. His chest x- ra y that was done yesterday, pulmonary edema with improvement compared to the chest x-ray done on 08/26. IMPRESSION: The patient is a 66-year-old male patient with complex medical history comorbidities wit h: 1. History of severe cardiomyopathy with EF 25% to 30%. 2. Coronary artery disease. 3. End-stage renal disease, on dialysis 3 times per week. 4. History of atrial fibrillation. He is in sinus rhythm. He is not on anticoagulation due to refu quinton of blood products. 5. History of cerebrovascular accident. 6. Yyrj-ld-iciuikax aortic stenosis. 7. Erowbkns-wk-crnbsl pulmonary hypertension. 8. Elevated troponin with known history of elevated troponin and ruled in for non- ST elevation myoc ardial infarction. PLAN: The patient is a Jehovah Witness. As per his wishes, he does not wish to proceed with any fur ther cardiac intervention including cardiac catheterization. He said he had been through this before. His medical management at the present time is continue his hemodialysis. He is already feeling muc h better actually after his dialysis today. He is not overtly in pulmonary edema or congestive heart failure. He was able to carry a conversation with me without any labored breathing. He feels a lit tle bit tired and fatigued. I agree with your current medical treatment with continuing maximizing h is medical treatment. He is already on beta-dutch, KLEBER inhibitor, aspirin and statin, which I stro ngly recommend to continue. If blood pressure allows, someone can advance his beta-dutch and/or AC E inhibitors given his severe cardiomyopathy. I explained all of the above to the patient. He is aw are of his comorbidities and high-risk patient and he wants to continue at the current medical treatm ent. TIME SPENT: More than half of at least 60 plus minutes was in the [id number]-ii-[id number] education and substance abuse counselor ing mode going over his comorbidities and medical management. [id number]/[facility] #: [id number]
[2017-09-14] MEDS: Atorvastatin* 10 MG TAB PO SCH (17:25)
[2017-09-14] MEDS: NIFEdipine ER TAB* 30 MG PO SCH (21:14)
[2017-09-15] MEDS: traMADol TAB* 50 MG PO PRN ×3 (04:25→13:24)
[2017-09-15] MEDS: Omeprazole CAP* 20 MG PO SCH (05:44)
[2017-09-15] MEDS: Metoprolol Tartrate TAB* 25 MG PO SCH ×2 (09:56→20:58)
[2017-09-15] MEDS: Gabapentin CAP(*) 100 MG PO SCH ×2 (09:57→20:57)
[2017-09-15] MEDS: rOPINIRole TAB* 1 MG PO SCH ×3 (09:57→20:57)
[2017-09-15] MEDS: Aspirin EC Low Dose* 81 MG TAB.EC PO SCH (09:57)
[2017-09-15] MEDS: Lisinopril TAB* 10 MG PO SCH (09:57)
[2017-09-15] MEDS: Sevelamer TAB* 800 MG PO SCH ×3 (09:58→17:26)
--- NOTE | 2017-09-15 17:22 | PN ---
Subjective Date of Service: 09/15/17 Interval History: feels good, no chest pain or shortness of breath, no palpitations. ongoing restless legs Family History: Unchanged from Admission Social History: Unchanged from Admission Past Medical History: Unchanged from Admission Objective Active Medications: Acetaminophen (Tylenol Tab*) 650 mg PO Q6H PRN PRN Reason: PAIN Last Admin: 09/14/17 15:39 Dose: 650 mg Aspirin (Aspirin Ec Low Dose*) 81 mg PO DAILY [facility] Last Admin: 09/15/17 09:57 Dose: 81 mg Atorvastatin Calcium (Lipitor*) 10 mg PO QPM [facility] Last Admin: 09/14/17 17:25 Dose: 10 mg Chlorpheniramine Maleate (Chlortrimeton Tab*) 4 mg PO Q6H PRN PRN Reason: Allergy Symptoms Gabapentin (Neurontin Cap(*)) 100 mg PO BID [facility] Last Admin: 09/15/17 09:57 Dose: 100 mg Lisinopril (Prinivil Tab*) 10 mg PO DAILY [facility] Last Admin: 09/15/17 09:57 Dose: 10 mg Metoprolol Tartrate (Lopressor Tab*) 25 mg PO Q12HR [facility] Last Admin: 09/15/17 09:56 Dose: 25 mg Multi-Ingredient Mouthwash/Gargle (Biotene Dry Mouth Oral Rinse(Nf)) 5 ml MT QID PRN PRN Reason: Dry Mouth Nifedipine (Procardia Xl Tab*) 90 mg PO BEDTIME [facility] Last Admin: 09/14/17 21:14 Dose: 90 mg Omeprazole (Prilosec Cap*) 20 mg PO 0600 [facility] Last Admin: 09/15/17 05:44 Dose: 20 mg Ropinirole HCl (Requip Tab*) 1 mg PO TID [facility] Last Admin: 09/15/17 13:23 Dose: 1 mg Sevelamer Carbonate (Renvela Tab*) 2,400 mg PO TID WITH MEALS [facility] Last Admin: 09/15/17 13:24 Dose: 2,400 mg Tramadol HCl (Ultram*) 25 mg PO Q6H PRN PRN Reason: PAIN Last Admin: 09/15/17 13:24 Dose: 25 mg Vital Signs - 8 hr 09/15/17 09/15/17 09/15/17 09:55 09:57 11:55 Temperature Pulse Rate Respiratory 18 18 18 Rate Blood Pressure (mmHg) O2 Sat by Pulse Oximetry 09/15/17 09/15/17 09/15/17 12:34 13:24 16:11 Temperature 98.0 F 97.8 F Pulse Rate 71 68 Respiratory 16 18 16 Rate Blood Pressure 99/57 105/60 (mmHg) O2 Sat by Pulse 99 96 Oximetry Oxygen Devices in Use Now: None Appearance: alert, resting in the recliner, nontoxic Eyes: No Scleral Icterus Ears/Nose/Mouth/Throat: NL Teeth, Lips, Gums Neck: NL Appearance and Movements; NL JVP Respiratory: Symmetrical Chest Expansion and Respiratory Effort, Clear to Auscultation Cardiovascular: NL Sounds; No Murmurs; No JVD, RRR Abdominal: NL Sounds; No Tenderness; No Distention Lymphatic: No Cervical Adenopathy Extremities: No Edema, - - superficial wounds b/l lower extremities with severe venous stasis changes b/l Neurological: Alert and Oriented x 3 Result Diagrams: 09/14/17 09:30 09/14/17 09:30 Additional Lab and Data: Laboratory Results - last 24 hr 09/13/17 09/13/17 09/14/17 19:37 21:44 09:30 WBC RBC Hgb Hct MCV MCH MCHC RDW Plt Count MPV Neut % (Auto) Lymph % (Auto) [place] % (Auto) Eos % (Auto) Baso % (Auto) Absolute Neuts (auto) Absolute Lymphs (auto) Absolute Monos (auto) Absolute Eos (auto) Absolute Basos (auto) Absolute Nucleated RBC Nucleated RBC % Sodium 132 L Potassium TNP Chloride 92 L Carbon Dioxide 26 Anion Gap 14 H BUN 34 H Creatinine 8.14 H Est GFR ( Amer) 8.6 Est GFR (Non-Af Amer) 6.7 BUN/Creatinine Ratio 4.2 L Glucose 92 Calcium 9.3 Phosphorus 3.4 Magnesium 2.0 Troponin I 2.68 H* 1.16 H* Urine Color Yellow Urine Appearance Clear Urine pH 8.0 Ur Specific [place] 1.012 Urine Protein 2+(100 mg/dl) A Urine Ketones Negative Urine Blood 1+ A Urine Nitrate Negative Urine Bilirubin Negative Urine Urobilinogen Negative Ur Leukocyte Esterase Negative Urine WBC (Auto) Trace(0-5/hpf) Urine RBC (Auto) Trace(0-2/hpf) Ur Squamous Epith Cells Present A Urine Bacteria Absent Urine Glucose 1+(50 mg/dl) A 09/14/17 09:30 WBC 2.5 L RBC 2.87 L Hgb 9.3 L Hct 29 L MCV 101 H MCH 33 H MCHC 32 RDW 17 H Plt Count 38 L D MPV 8 Neut % (Auto) 56.8 Lymph % (Auto) 18.8 L [place] % (Auto) 10.3 H Eos % (Auto) 13.8 H Baso % (Auto) 0.3 Absolute Neuts (auto) 1.4 L Absolute Lymphs (auto) 0.5 L Absolute Monos (auto) 0.3 Absolute Eos (auto) 0.3 Absolute Basos (auto) 0 Absolute Nucleated RBC 0 Nucleated RBC % 0 Sodium Potassium Chloride Carbon Dioxide Anion Gap BUN Creatinine Est GFR ( Amer) Est GFR (Non-Af Amer) BUN/Creatinine Ratio Glucose Calcium Phosphorus Magnesium Troponin I Urine Color Urine Appearance Urine pH Ur Specific [place] Urine Protein Urine Ketones Urine Blood Urine Nitrate Urine Bilirubin Urine Urobilinogen Ur Leukocyte Esterase Urine WBC (Auto) Urine RBC (Auto) Ur Squamous Epith Cells Urine Bacteria Urine Glucose Microbiology and Other Data: Microbiology 09/13/17 08:44 Blood Venous Aerobic Blood Culture - Preliminary No Growth Day 1 09/13/17 08:44 Blood Venous Anaerobic Blood Culture - Preliminary No Growth Day 1 09/13/17 08:49 Blood Venous Aerobic Blood Culture - Preliminary No Growth Day 1 09/13/17 08:49 Blood Venous Anaerobic Blood Culture - Preliminary No Growth Day 1 09/13/17 08:10 Nasopharyngeal Influenza Types A,B Antigen (JORGE) - Final Specimen received for Influenza A/B Molecular testing Assess/Plan/Problems-Billing Assessment: 66 yo 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 - Patient Problems (1) Acute on chronic systolic heart failure Current Visit: No Status: Acute Code(s): I50.23 - ACUTE ON CHRONIC SYSTOLIC (CONGESTIVE) HEART FAILURE SNOMED Code(s): 923196472 Comment: EF 25-30%(which has worsened in last 6 months given ischemia/NSTEMI ) combined with continued dietary noncompliance, ESRD, mod-severe pHTN, mild- moderate , his volume status is tenuous and will likely continue to be so while living alone. continue metoprolol, ASA, statin, lisinopril daily weights BNP 2709. He has a poor prognosis and I discussed a higher level of care with him. He is failing at [employer] as evidenced by his frequent admissions since the new year. He is willing to discuss alf placement. I discussed this with case management. (2) Acute respiratory failure with hypoxia Current Visit: No Status: Acute Code(s): J96.01 - ACUTE RESPIRATORY FAILURE WITH HYPOXIA SNOMED Code(s): 68740424 Comment: likely due to volume overload from dietary indiscretion (sausage prior to admission), improved with HD. resolved, now on room air (3) ESRD (end stage renal disease) Current Visit: No Status: Acute Code(s): N18.6 - END STAGE RENAL DISEASE SNOMED Code(s): 62911701 Comment: Continue MWF while hospitalized. HD at home Tu[facility]. (4) NSTEMI (non-ST elevated myocardial infarction) Current Visit: No Status: Acute Code(s): I21.4 - NON-ST ELEVATION (NSTEMI) MYOCARDIAL INFARCTION SNOMED Code(s): 339765473 Comment: troponin peaked at 2.68, denies chest pain he had multivessel nonobstructing cad on a [facility] in 2013 (30% LAD, 60% diag, 50% lcx), Cardiology evaluated him and recommended continued medical management Status and Disposition: medicine inpatient. Likely would benefit from SNF given continue dietary noncompliance in setting of multiorgan failure.
[2017-09-15] MEDS: Atorvastatin* 10 MG TAB PO SCH (17:26)
[2017-09-15] MEDS: Acetaminophen TAB* 325 MG PO PRN (18:34)
[2017-09-15] MEDS: NIFEdipine ER TAB* 30 MG PO SCH (21:01)
[2017-09-16] MEDS: Omeprazole CAP* 20 MG PO SCH (04:30)
[2017-09-16] MEDS: Acetaminophen TAB* 325 MG PO PRN (04:30)
[2017-09-16] MEDS: traMADol TAB* 50 MG PO PRN ×2 (06:59→20:28)
--- NOTE | 2017-09-16 09:36 | PN ---
Subjective Date of Service: 09/16/17 Interval History: No overnight events. Feels good today. Talked with CM about SNF placement and he is willing to go to one instead of [facility] upon discharge. Breathing feels comfortable, no chest pain or cough. Family History: Unchanged from Admission Social History: Unchanged from Admission Past Medical History: Unchanged from Admission Objective Active Medications: Acetaminophen (Tylenol Tab*) 650 mg PO Q6H PRN PRN Reason: PAIN Last Admin: 09/16/17 04:30 Dose: 650 mg Aspirin (Aspirin Ec Low Dose*) 81 mg PO DAILY [facility] Last Admin: 09/15/17 09:57 Dose: 81 mg Atorvastatin Calcium (Lipitor*) 10 mg PO QPM [facility] Last Admin: 09/15/17 17:26 Dose: 10 mg Chlorpheniramine Maleate (Chlortrimeton Tab*) 4 mg PO Q6H PRN PRN Reason: Allergy Symptoms Gabapentin (Neurontin Cap(*)) 100 mg PO BID [facility] Last Admin: 09/15/17 20:57 Dose: 100 mg Lisinopril (Prinivil Tab*) 10 mg PO DAILY [facility] Last Admin: 09/15/17 09:57 Dose: 10 mg Metoprolol Tartrate (Lopressor Tab*) 25 mg PO Q12HR [facility] Last Admin: 09/15/17 20:58 Dose: 25 mg Multi-Ingredient Mouthwash/Gargle (Biotene Dry Mouth Oral Rinse(Nf)) 5 ml MT QID PRN PRN Reason: Dry Mouth Nifedipine (Procardia Xl Tab*) 90 mg PO BEDTIME [facility] Last Admin: 09/15/17 21:01 Dose: 90 mg Omeprazole (Prilosec Cap*) 20 mg PO 0600 [facility] Last Admin: 09/16/17 04:30 Dose: 20 mg Ropinirole HCl (Requip Tab*) 1 mg PO TID [facility] Last Admin: 09/15/17 20:57 Dose: 1 mg Sevelamer Carbonate (Renvela Tab*) 2,400 mg PO TID WITH MEALS [facility] Last Admin: 09/15/17 17:26 Dose: 2,400 mg Tramadol HCl (Ultram*) 25 mg PO Q6H PRN PRN Reason: PAIN Last Admin: 09/16/17 06:59 Dose: 25 mg Vital Signs - 8 hr 09/16/17 09/16/1718 03:44 06:59 07:24 Temperature 97.6 F 97.4 F Pulse Rate 70 63 Respiratory 16 18 20 Rate Blood Pressure 104/63 92/62 (mmHg) O2 Sat by Pulse 92 96 Oximetry Oxygen Devices in Use Now: None Appearance: nontoxic, sitting up in recliner Eyes: No Scleral Icterus Ears/Nose/Mouth/Throat: NL Teeth, Lips, Gums Neck: NL Appearance and Movements; NL JVP, - - lipoma anterior neck Respiratory: Symmetrical Chest Expansion and Respiratory Effort, Clear to Auscultation Cardiovascular: - - systolic murmur throughout Abdominal: NL Sounds; No Tenderness; No Distention Lymphatic: No Cervical Adenopathy Extremities: - - LUE fistula Skin: - - superficial wounds b/l anterior legs; severe venous stasis changes b/l Neurological: Alert and Oriented x 3 Result Diagrams: 09/14/17 09:30 09/14/17 09:30 Additional Lab and Data: Laboratory Results - last 24 hr 09/13/17 09/13/17 09/14/17 19:37 21:44 09:30 WBC RBC Hgb Hct MCV MCH MCHC RDW Plt Count MPV Neut % (Auto) Lymph % (Auto) [place] % (Auto) Eos % (Auto) Baso % (Auto) Absolute Neuts (auto) Absolute Lymphs (auto) Absolute Monos (auto) Absolute Eos (auto) Absolute Basos (auto) Absolute Nucleated RBC Nucleated RBC % Sodium 132 L Potassium TNP Chloride 92 L Carbon Dioxide 26 Anion Gap 14 H BUN 34 H Creatinine 8.14 H Est GFR ( Amer) 8.6 Est GFR (Non-Af Amer) 6.7 BUN/Creatinine Ratio 4.2 L Glucose 92 Calcium 9.3 Phosphorus 3.4 Magnesium 2.0 Troponin I 2.68 H* 1.16 H* Urine Color Yellow Urine Appearance Clear Urine pH 8.0 Ur Specific [place] 1.012 Urine Protein 2+(100 mg/dl) A Urine Ketones Negative Urine Blood 1+ A Urine Nitrate Negative Urine Bilirubin Negative Urine Urobilinogen Negative Ur Leukocyte Esterase Negative Urine WBC (Auto) Trace(0-5/hpf) Urine RBC (Auto) Trace(0-2/hpf) Ur Squamous Epith Cells Present A Urine Bacteria Absent Urine Glucose 1+(50 mg/dl) A 09/14/17 09:30 WBC 2.5 L RBC 2.87 L Hgb 9.3 L Hct 29 L MCV 101 H MCH 33 H MCHC 32 RDW 17 H Plt Count 38 L D MPV 8 Neut % (Auto) 56.8 Lymph % (Auto) 18.8 L [place] % (Auto) 10.3 H Eos % (Auto) 13.8 H Baso % (Auto) 0.3 Absolute Neuts (auto) 1.4 L Absolute Lymphs (auto) 0.5 L Absolute Monos (auto) 0.3 Absolute Eos (auto) 0.3 Absolute Basos (auto) 0 Absolute Nucleated RBC 0 Nucleated RBC % 0 Sodium Potassium Chloride Carbon Dioxide Anion Gap BUN Creatinine Est GFR ( Amer) Est GFR (Non-Af Amer) BUN/Creatinine Ratio Glucose Calcium Phosphorus Magnesium Troponin I Urine Color Urine Appearance Urine pH Ur Specific [place] Urine Protein Urine Ketones Urine Blood Urine Nitrate Urine Bilirubin Urine Urobilinogen Ur Leukocyte Esterase Urine WBC (Auto) Urine RBC (Auto) Ur Squamous Epith Cells Urine Bacteria Urine Glucose Microbiology and Other Data: Microbiology 09/13/17 08:44 Blood Venous Aerobic Blood Culture - Preliminary No Growth Day 1 09/13/17 08:44 Blood Venous Anaerobic Blood Culture - Preliminary No Growth Day 1 09/13/17 08:49 Blood Venous Aerobic Blood Culture - Preliminary No Growth Day 1 09/13/17 08:49 Blood Venous Anaerobic Blood Culture - Preliminary No Growth Day 1 09/13/17 08:10 Nasopharyngeal Influenza Types A,B Antigen (JORGE) - Final Specimen received for Influenza A/B Molecular testing Assess/Plan/Problems-Billing Assessment: 66 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 - Patient Problems (1) Acute on chronic systolic heart failure Current Visit: No Status: Acute Code(s): I50.23 - ACUTE ON CHRONIC SYSTOLIC (CONGESTIVE) HEART FAILURE SNOMED Code(s): 008638311 Comment: likely due to dietary non adherence +/- NSTEMI appears euvolemic today after a HD session Sunday EF 25-30%(which has worsened in last 6 months, with worsened regional wall abnormalities) also withmod-severe pHTN, mild-moderate continue metoprolol, ASA, statin, lisinopril daily weights BNP 2709. He has a poor prognosis and I discussed a higher level of care with him. He is failing at [employer] as evidenced by his frequent admissions since the new year. He agrees to senior care placement. Will order PT. (2) Acute respiratory failure with hypoxia Current Visit: No Status: Acute Code(s): J96.01 - ACUTE RESPIRATORY FAILURE WITH HYPOXIA SNOMED Code(s): 76532136 Comment: resolved, now on room air. likely due to volume overload from dietary indiscretion (sausage prior to admission), improved with HD. (3) ESRD (end stage renal disease) Current Visit: No Status: Acute Code(s): N18.6 - END STAGE RENAL DISEASE SNOMED Code(s): 91680146 Comment: TThS, got a session on Sunday. Lytes are okay, volume is okay. (4) NSTEMI (non-ST elevated myocardial infarction) Current Visit: No Status: Acute Code(s): I21.4 - NON-ST ELEVATION (NSTEMI) MYOCARDIAL INFARCTION SNOMED Code(s): 788853756 Comment: troponin peaked at 2.68, denies chest pain he had multivessel nonobstructing cad on a [facility] in 2013 (30% LAD, 60% diag, 50% lcx), Cardiology evaluated him and recommended continued medical management Status and Disposition: medicine inpatient. Stable for discharge when SNF bed available.
[2017-09-16] MEDS: Gabapentin CAP(*) 100 MG PO SCH ×2 (09:40→20:29)
[2017-09-16] MEDS: Sevelamer TAB* 800 MG PO SCH ×3 (09:41→17:55)
[2017-09-16] MEDS: Aspirin EC Low Dose* 81 MG TAB.EC PO SCH (09:41)
[2017-09-16] MEDS: rOPINIRole TAB* 1 MG PO SCH ×3 (09:41→20:29)
[2017-09-16] MEDS: Metoprolol Tartrate TAB* 25 MG PO SCH ×2 (09:49→20:29)
[2017-09-16] MEDS: Lisinopril TAB* 10 MG PO SCH (09:49)
[2017-09-16] MEDS: Atorvastatin* 10 MG TAB PO SCH (17:55)
[2017-09-16] MEDS: NIFEdipine ER TAB* 30 MG PO SCH (20:29)
[2017-09-16] MEDS: GuaiFENesin DM* 5 ML UDC PO PRN (23:28)
[2017-09-17] MEDS: Acetaminophen TAB* 325 MG PO PRN ×2 (04:06→15:10)
[2017-09-17] MEDS: traMADol TAB* 50 MG PO PRN ×2 (04:07→15:10)
[2017-09-17] MEDS: Omeprazole CAP* 20 MG PO SCH (04:41)
[2017-09-17 05:48] LABS: ABS Basophils 0.1 10^3/ul (0-0.2); ABS Eosinophils 0.4 10^3/ul (0-0.6); ABS Lymphocytes 0.6 10^3/ul (1.0-4.8); ABS Monocytes 0.3 10^3/ul (0-0.8); ABS Neutrophils 1.8 10^3/ul (1.5-7.7); ABS Nucleated RBC 0 10^3/ul; Eosinophil % 11.8 % (0-6); Hematocrit 27 % (42-52); Hemoglobin 8.8 g/dl (14.0-18.0); Lymphocyte % 18.3 % (25-47); Mean Corpuscular HGB Conc 33 g/dl (31-36); Mean Corpuscular Hemoglobin 32 pg (27-31); Mean Corpuscular Volume 98 fL (80-94); Mean Platelet Volume 8 um3 (7.4-10.4); Nucleated Red Blood Cells % 0.2; Platelet Count 141 10^3/ul (150-450); Red Blood Count 2.75 10^6/ul (4.0-5.4); Red Cell Distribution Width 17 % (10.5-15); White Blood Count 3.2 10^3/ul (3.5-10.8)
[2017-09-17 05:59] LABS: EGFR Non-African American 7.9 (>60)
[2017-09-17] MEDS: Sevelamer TAB* 800 MG PO SCH ×3 (08:29→18:05)
[2017-09-17] MEDS ORDERED: DOXYcycline CAP(*) 100 MG PO SCH (09:00)
[2017-09-17] MEDS: Metoprolol Tartrate TAB* 25 MG PO SCH ×2 (09:16→20:58)
[2017-09-17] MEDS: rOPINIRole TAB* 1 MG PO SCH ×3 (09:16→20:58)
[2017-09-17] MEDS: Gabapentin CAP(*) 100 MG PO SCH ×2 (09:17→20:58)
[2017-09-17] MEDS: Lisinopril TAB* 10 MG PO SCH (09:33)
[2017-09-17] MEDS: Aspirin EC Low Dose* 81 MG TAB.EC PO SCH (09:33)
[2017-09-17] MEDS: GuaiFENesin DM* 5 ML UDC PO PRN (15:49)
--- NOTE | 2017-09-17 16:42 | PN ---
Subjective Date of Service: 09/17/17 Interval History: Pt feels well, awaiting dialysis Family History: Unchanged from Admission Social History: Unchanged from Admission Past Medical History: Unchanged from Admission Objective Active Medications: Acetaminophen (Tylenol Tab*) 650 mg PO Q6H PRN PRN Reason: PAIN Last Admin: 09/17/17 15:10 Dose: 650 mg Aspirin (Aspirin Ec Low Dose*) 81 mg PO DAILY [facility] Last Admin: 09/17/17 09:33 Dose: 81 mg Atorvastatin Calcium (Lipitor*) 10 mg PO QPM [facility] Last Admin: 09/16/17 17:55 Dose: 10 mg Chlorpheniramine Maleate (Chlortrimeton Tab*) 4 mg PO Q6H PRN PRN Reason: Allergy Symptoms Doxycycline Hyclate (Vibramycin Cap(*)) 100 mg PO BID [facility] Last Admin: 09/17/17 09:16 Dose: 100 mg Gabapentin (Neurontin Cap(*)) 100 mg PO BID [facility] Last Admin: 09/17/17 09:17 Dose: 100 mg Guaifenesin/Dextromethorphan (Robitussin Dm*) 5 ml PO Q6H PRN PRN Reason: COUGH Last Admin: 09/17/17 15:49 Dose: 5 ml Lisinopril (Prinivil Tab*) 10 mg PO DAILY [facility] Last Admin: 09/17/17 09:33 Dose: 10 mg Metoprolol Tartrate (Lopressor Tab*) 25 mg PO Q12HR [facility] Last Admin: 09/17/17 09:16 Dose: 25 mg Multi-Ingredient Mouthwash/Gargle (Biotene Dry Mouth Oral Rinse(Nf)) 5 ml MT QID PRN PRN Reason: Dry Mouth Nifedipine (Procardia Xl Tab*) 90 mg PO BEDTIME [facility] Last Admin: 09/16/17 20:29 Dose: 90 mg Omeprazole (Prilosec Cap*) 20 mg PO 0600 [facility] Last Admin: 09/17/17 04:41 Dose: 20 mg Ropinirole HCl (Requip Tab*) 1 mg PO TID [facility] Last Admin: 09/17/17 14:13 Dose: 1 mg Sevelamer Carbonate (Renvela Tab*) 2,400 mg PO TID WITH MEALS [facility] Last Admin: 09/17/17 12:21 Dose: 2,400 mg Tramadol HCl (Ultram*) 25 mg PO Q6H PRN PRN Reason: PAIN Last Admin: 09/17/17 15:10 Dose: 25 mg Vital Signs - 8 hr 09/17/17 09/17/17 09/17/17 09:17 10:53 11:12 Temperature 97.3 F 97.3 F Pulse Rate 65 66 Respiratory 16 18 Rate Blood Pressure 114/61 116/69 (mmHg) O2 Sat by Pulse 91 98 Oximetry 09/17/17 09/17/17 15:10 15:33 Temperature 97.3 F Pulse Rate 69 Respiratory 18 20 Rate Blood Pressure 117/63 (mmHg) O2 Sat by Pulse 97 Oximetry Oxygen Devices in Use Now: None Appearance: 66 yo M in NAD, AAOx3 Eyes: No Scleral Icterus, PERRLA Ears/Nose/Mouth/Throat: NL Teeth, Lips, Gums, Mucous Membranes Moist Neck: NL Appearance and Movements; NL JVP, Trachea Midline Respiratory: Symmetrical Chest Expansion and Respiratory Effort, Clear to Auscultation Cardiovascular: NL Sounds; No Murmurs; No JVD, RRR Abdominal: NL Sounds; No Tenderness; No Distention, No Hepatosplenomegaly Lymphatic: No Cervical Adenopathy Extremities: No Clubbing, Cyanosis, - - traceankle edema b/l Skin: No Nodules or Sclerosis, - - chronic appearing venous statsis ulcer on b/ l pretibial areas : L leg - at 1x2 cm stage 2-3, R leg 1x4 cm stage 3 Neurological: Alert and Oriented x 3, NL Muscle Strength and Tone Result Diagrams: 09/17/17 05:15 09/17/17 05:15 Additional Lab and Data: Laboratory Results - last 24 hr 09/13/17 09/13/17 09/14/17 19:37 21:44 09:30 WBC RBC Hgb Hct MCV MCH MCHC RDW Plt Count MPV Neut % (Auto) Lymph % (Auto) [place] % (Auto) Eos % (Auto) Baso % (Auto) Absolute Neuts (auto) Absolute Lymphs (auto) Absolute Monos (auto) Absolute Eos (auto) Absolute Basos (auto) Absolute Nucleated RBC Nucleated RBC % Sodium 132 L Potassium TNP Chloride 92 L Carbon Dioxide 26 Anion Gap 14 H BUN 34 H Creatinine 8.14 H Est GFR ( Amer) 8.6 Est GFR (Non-Af Amer) 6.7 BUN/Creatinine Ratio 4.2 L Glucose 92 Calcium 9.3 Phosphorus 3.4 Magnesium 2.0 Troponin I 2.68 H* 1.16 H* Urine Color Yellow Urine Appearance Clear Urine pH 8.0 Ur Specific [place] 1.012 Urine Protein 2+(100 mg/dl) A Urine Ketones Negative Urine Blood 1+ A Urine Nitrate Negative Urine Bilirubin Negative Urine Urobilinogen Negative Ur Leukocyte Esterase Negative Urine WBC (Auto) Trace(0-5/hpf) Urine RBC (Auto) Trace(0-2/hpf) Ur Squamous Epith Cells Present A Urine Bacteria Absent Urine Glucose 1+(50 mg/dl) A 09/14/17 09:30 WBC 2.5 L RBC 2.87 L Hgb 9.3 L Hct 29 L MCV 101 H MCH 33 H MCHC 32 RDW 17 H Plt Count 38 L D MPV 8 Neut % (Auto) 56.8 Lymph % (Auto) 18.8 L [place] % (Auto) 10.3 H Eos % (Auto) 13.8 H Baso % (Auto) 0.3 Absolute Neuts (auto) 1.4 L Absolute Lymphs (auto) 0.5 L Absolute Monos (auto) 0.3 Absolute Eos (auto) 0.3 Absolute Basos (auto) 0 Absolute Nucleated RBC 0 Nucleated RBC % 0 Sodium Potassium Chloride Carbon Dioxide Anion Gap BUN Creatinine Est GFR ( Amer) Est GFR (Non-Af Amer) BUN/Creatinine Ratio Glucose Calcium Phosphorus Magnesium Troponin I Urine Color Urine Appearance Urine pH Ur Specific [place] Urine Protein Urine Ketones Urine Blood Urine Nitrate Urine Bilirubin Urine Urobilinogen Ur Leukocyte Esterase Urine WBC (Auto) Urine RBC (Auto) Ur Squamous Epith Cells Urine Bacteria Urine Glucose Microbiology and Other Data: Microbiology 09/13/17 08:44 Blood Venous Aerobic Blood Culture - Preliminary No Growth Day 1 09/13/17 08:44 Blood Venous Anaerobic Blood Culture - Preliminary No Growth Day 1 09/13/17 08:49 Blood Venous Aerobic Blood Culture - Preliminary No Growth Day 1 09/13/17 08:49 Blood Venous Anaerobic Blood Culture - Preliminary No Growth Day 1 09/13/17 08:10 Nasopharyngeal Influenza Types A,B Antigen (JORGE) - Final Specimen received for Influenza A/B Molecular testing Assess/Plan/Problems-Billing Assessment: 66 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 - Patient Problems (1) Acute respiratory failure with hypoxia Comment: resolved, now on room air. likely due to volume overload from dietary indiscretion (sausage prior to admission, [facility]), improved with HD. (2) Venous stasis ulcer Comment: on b/l pretibial areas-cont wound care with xeroform gauze, wound care consult appreciated (3) Acute on chronic systolic heart failure Comment: likely due to dietary non adherence +/- NSTEMI EF 25-30%(which has worsened in last 6 months, with worsened regional wall abnormalities) also with mod-severe pHTN, mild-moderate continue metoprolol, ASA, statin, lisinopril daily weights BNP 2709. He has a poor prognosis and I discussed a higher level of care with him. He is failing at [employer] as evidenced by his frequent admissions since the new year. He agrees to long term placement. Awaitng OT eval (4) Cardiomyopathy Comment: Known EF 25-30% on 08/26/17 Echo (5) ESRD (end stage renal disease) Comment: TThS, got a session on Sunday. Awaiting HD today, hyponatremia noted (6) NSTEMI (non-ST elevated myocardial infarction) Comment: troponin peaked at 2.68, denies chest pain he had multivessel nonobstructing cad on a [facility] in 2013 (30% LAD, 60% diag, 50% lcx), Cardiology evaluated him and recommended continued medical management (7) VRE (vancomycin resistant enterococcus) culture positive Comment: in urine. Pt makes small amount of urine a days Had been asymptomatic and denies U. frequency or dysuria. UA shows no nitrate and no esterase, WBC trace-not consistent with UTI, suspect contamination, no need to tx. (8) DVT prophylaxis Comment: HSQ Status and Disposition: medicine inpatient. Stable for discharge when SNF bed available.
[2017-09-17] MEDS ORDERED: Morphine INJ* 2 MG/ML 1 ML CARPUJECT IV ONE (17:54)
[2017-09-17] MEDS ORDERED: Heparin DIALYSIS ONLY(*) 1,000 UNITS/ML VIAL DIALYSIS ONE (19:00)
[2017-09-17] MEDS ORDERED: Epoetin Alfa* 10,000 UNITS/ML VIAL IV ONE (19:00)
[2017-09-17] MEDS: Heparin VIAL(*) 5000 UNITS/ML VIAL (FIVE THOUSAND) SUBCUT SCH (20:58)
[2017-09-17] MEDS: Atorvastatin* 10 MG TAB PO SCH (20:58)
[2017-09-17] MEDS: NIFEdipine ER TAB* 30 MG PO SCH (20:58)
[2017-09-18] MEDS: Acetaminophen TAB* 325 MG PO PRN (03:13)
[2017-09-18] MEDS: traMADol TAB* 50 MG PO PRN (03:14)
[2017-09-18] MEDS: Heparin VIAL(*) 5000 UNITS/ML VIAL (FIVE THOUSAND) SUBCUT SCH (05:23)
[2017-09-18] MEDS: Omeprazole CAP* 20 MG PO SCH (05:23)
[2017-09-18] MEDS: GuaiFENesin DM* 5 ML UDC PO PRN (05:47)
[2017-09-18 05:54] LABS: ABS Basophils 0.1 10^3/ul (0-0.2); ABS Eosinophils 0.3 10^3/ul (0-0.6); ABS Lymphocytes 0.5 10^3/ul (1.0-4.8); ABS Monocytes 0.3 10^3/ul (0-0.8); ABS Neutrophils 1.7 10^3/ul (1.5-7.7); ABS Nucleated RBC 0 10^3/ul; Eosinophil % 10.6 % (0-6); Hematocrit 26 % (42-52); Lymphocyte % 18.2 % (25-47); Mean Corpuscular HGB Conc 34 g/dl (31-36); Mean Corpuscular Hemoglobin 33 pg (27-31); Mean Corpuscular Volume 98 fL (80-94); Mean Platelet Volume 8 um3 (7.4-10.4); Nucleated Red Blood Cells % 0; Platelet Count 133 10^3/ul (150-450); Red Blood Count 2.69 10^6/ul (4.0-5.4); Red Cell Distribution Width 17 % (10.5-15)
[2017-09-18 06:07] LABS: EGFR Non-African American 10.7 (>60)
[2017-09-18] MEDS: Sevelamer TAB* 800 MG PO SCH ×2 (08:32→12:38)
[2017-09-18] MEDS: rOPINIRole TAB* 1 MG PO SCH (08:32)
[2017-09-18] MEDS: Lisinopril TAB* 10 MG PO SCH (08:32)
[2017-09-18] MEDS: Aspirin EC Low Dose* 81 MG TAB.EC PO SCH (08:32)
[2017-09-18] MEDS: Metoprolol Tartrate TAB* 25 MG PO SCH (08:32)
[2017-09-18] MEDS: Gabapentin CAP(*) 100 MG PO SCH (08:32)
[2017-09-18 11:40] VITALS: BP 122/67
--- NOTE | 2017-09-18 12:39 | DS ---
CC: Dr. Balbina Corral; Dr. Acuña; Dr. Mosqueda; [facility]* DISCHARGE SUMMARY DATE OF ADMISSION: 09/13/2017 DATE OF DISCHARGE: 09/18/2017 to [facility] PRIMARY CARE PROVIDER: Dr. Balbina Corral DISCHARGE Diagnoses: 1. Acute respiratory failure due to pulmonary edema due to acute on chronic systolic congestive heart failure with suspected dietary indiscretion. 2. Chronic end stage renal disease on dialysis. 3. Non-ST elevation NJ during the hospital stay with Dr. Acuña as sales consultant insurance. 4. History of chronic macrocystic anemia at baseline. SECONDARY DIAGNOSES: 1. End stage renal disease with dialysis scheduled Sunday, and Sunday. 2. History of atrial fibrillation not on anticoagulation due to refusal of blood products. 3. History of CVA. 4. Restless leg syndrome. 5. History of chronic CHF with EF of 25% to 30%. 6. History of mild to moderate aortic stenosis. 7. History of moderate to severe pulmonary hypertension. 8. History of chronic venous stasis ulcers on bilateral lower extremities. 9. History of known coronary artery disease. HOME MEDICATIONS: At discharge include: 1. Acetaminophen 650 mg every 8 hours ornelas 2. Aspirin 81 mg daily. 3. Chlorpheniramine 4 mg every 6 hours p.r.n. allergy 4. Folic acid vitamin B complex 1 capsule daily. 5. Lisinopril 10 mg daily. 6. Metoprolol tartrate 25 mg every 12 hours. 7. Procardia XL 90 mg at bedtime. 8. Prilosec 20 mg daily. 9. Oral rinse with Biotene 4x a day p.r.n. 10. Requip 1 mg 3x a day. 11. Renvela 2400 mg p.o. t.i.d. with meals. 12. Zocor 20 mg daily. 13. Kayexalate p.r.n. hyperkalemia. 14. Ultram 25 mg every 6 hours p.r.n. pain. Laboratory Date: Performed during the hospital stay included: 1. On 09/18/17 white blood cell count 3.0, hemoglobin 9.0, hematocrit 26, platelets of 133. 2. 64.9, chloride 91, carbon dioxide 31, BUN 22, creatinine 5.41. 3. Troponin 2.68 on 09/13/17. 4. Portable chest x-ray obtained on admission. Impression: "Chest x-ray findings are most consistent with pulmonary edema with relatively improved aeration compared to most recent x-ray dated 08/26/17." 5. Microbiology studies showed blood cultures that were negative. Influenza testing was negative. Urine culture showed Enterococcus faecium VRE at 75-100 thousand colonies. That was in conjunction with urinalysis that showed trace of blood, negative for esterase, negative for nitrates and trace of white blood cells. HOSPITALIZATION COURSE: Rajesh Knight is a 66-year-old who has history of recurrent hospitalizations for acute respiratory failure due to pulmonary edema, with history of dietary indiscretion. He lives at [facility]. On he presented once again with pulmonary edema requiring hospitalization. He was noted to have non-ST elevation NJ most likely due to stress with some pulmonary edema. Dr. Acuña saw patient in consultation, noted the patient had history of cardiac disease and recommended continuation of medical treatment. Patient was dialyzed and he did very well, was able to be taken off oxygen supplementation by the time of discharge. He was noted to have chronic macrocytic anemia likely due to renal failure. Patient was also noted to have microbiology test positive for VRE in his urine. In spite of that urinalysis was really not that significant. At this point patient has no symptoms of dysuria or any other symptoms to suspect UTI. Consulted with Infectious Disease specialist and there was no indication for treatment at that point. It became apparent that patient really is not taking care of himself at home, he admits to dietary indiscretion at home including hot dogs and pickles. He underwent physical therapy and occupational therapy evaluation and deemed to an appropriate candidate for rehabilitation at [facility], for which he is going to be transferred today. Physical Examination: At the time of discharge blood pressure 112/65, heart rate of 66 and regular rate of 20. Saturation 99% on room air. Temperature 98.0. This is a very pleasant 66-year-old male who is in no acute distress. Alert, awake and oriented x3. HEENT: Head atraumatic, normocephalic. Eyes: Pupils are equal and reactive to light and accommodation. Oropharynx clear. Mucosa moist. Neck: Supple. No JVD. No bruit bilaterally. Cardiovascular: Regular rate and rhythm with 2/6 systolic ejection murmur at auscultation of the right upper sternal border. Respiratory: Clear to auscultation bilaterally. Abdomen: Soft, nontender. Bowel sounds are present in all 4 quadrants. Extremities: There is no pedal edema. There are venous stasis ulcers over the bilateral pretibial areas. They are approximately 1-2 cm wide and approximately 2-3 cm long. Wound Care saw patient in consultation and performed Xeroform dressings to the wounds daily. Patient's weight at discharge was noted to be 188 pounds and 9.6 ounces. It was recommended for the patient to have his weight checked on a daily basis and to followup closely on weight increase over 3 pounds in any given day. Patient is mildly hyponatremic at discharge and may be related to patient's dialysis. That needs to be followed with basic metabolic panel in approximately 1 week. Patient is recommended to continue with renal and cardiac diet. Once again, Xeroform dressing with daily changes are recommended to bilateral distal lower extremity wounds. Please note this is a short summary of complicated case on patient's long hospitalization. Please refer to further medical records for details. Approximately 45 minutes was spent on preparation of the patient's discharge. [id number]/[facility] #: [id number] MTDD
== END 2017-09-18 13:30 | DRG 280 ==
LOC: ED 06:42 → MEDTELE 10:14
PROVIDERS: ADMIT Internal Medicine; ATTEND Internal Medicine
PROC: 5A1D70Z Performance of Urinary Filtration, Intermittent, Less than 6 Hours Per Day (ICD-10-PCS; principal; 2017-09-14)
PROC: 5A1D70Z Performance of Urinary Filtration, Intermittent, Less than 6 Hours Per Day (ICD-10-PCS; 2017-09-17)
DX: I13.2 Hypertensive heart and chronic kidney disease with heart failure and with stage 5 chronic kidney disease, or end stage renal disease (principal); I50.23 Acute on chronic systolic (congestive) heart failure; I21.4 Non-ST elevation (NSTEMI) myocardial infarction; J96.21 Acute and chronic respiratory failure with hypoxia; E87.2 Acidosis; E87.1 Hypo-osmolality and hyponatremia; N18.6 End stage renal disease; I27.20 Pulmonary hypertension, unspecified; I48.91 Unspecified atrial fibrillation; G25.81 Restless legs syndrome; I42.9 Cardiomyopathy, unspecified; I35.0 Nonrheumatic aortic (valve) stenosis; I87.8 Other specified disorders of veins; I25.10 Atherosclerotic heart disease of native coronary artery without angina pectoris; D50.9 Iron deficiency anemia, unspecified; Z99.2 Dependence on renal dialysis; Z86.73 Personal history of transient ischemic attack (TIA), and cerebral infarction without residual deficits; Z79.82 Long term (current) use of aspirin; Z79.899 Other long term (current) drug therapy; Z88.0 Allergy status to penicillin
CPT/HCPCS: 36415; 71046; 80048; 80053; 81003; 81015; 82550; 82553; 83605; 83735; 83880; 84100; 84484; 85025; 85610; 85730; 86140; 87040; 87077; 87086; 87186; 87502; 90935; 93005; 99284; A9270-GY; G0257; J0885; J1644; J2270

== ENCOUNTER 2017-10-03 11:52 | Inpatient (IN) | payer MEDICARE, MEDICAID ==
[2017-10-03] MEDS ORDERED: NS 0.9% 1000 ML* 1,000 ML IV ONE (12:58)
[2017-10-03 13:41] LABS: Hematocrit 28 % (42-52); Hemoglobin 9.2 g/dl (14.0-18.0); Mean Corpuscular HGB Conc 33 g/dl (31-36); Mean Corpuscular Hemoglobin 31 pg (27-31); Mean Corpuscular Volume 95 fL (80-94); Mean Platelet Volume 8.3 um3 (7.4-10.4); Platelet Count 184 10^3/ul (150-450); Red Blood Count 2.94 10^6/ul (4.0-5.4); Red Cell Distribution Width 17 % (10.5-15); White Blood Count 6.5 10^3/ul (3.5-10.8)
[2017-10-03 13:52] LABS: INR 1.58 (0.77-1.02)
--- NOTE | 2017-10-03 13:53 | RAD ---
INDICATION: Altered mental status COMPARISON: August 23, 2017 TECHNIQUE: Noncontrast axial source images were acquired from the skull base to the vertex. FINDINGS: Ventricles/sulci: There is cortical atrophy with compensatory dilatation of the CSF spaces. Brain parenchyma: There are no acute focal probable findings. There is stable right frontal and left parietal encephalomalacia consistent with prior infarcts. There are chronic microvascular ischemic changes. Intracranial hemorrhage:None. Extra-axial spaces: There are no abnormal extra axial fluid collections or evidence of extra-axial mass. Calvarium: There is no calvarial fracture or other calvarial abnormality. Scalp: There is no evidence of scalp or extracalvarial soft tissue abnormality. Paranasal sinuses/mastoid: The paranasal sinuses and mastoid air cells are clear. Other: None. IMPRESSION: No acute findings. Remote infarcts, unchanged.
[2017-10-03 14:11] LABS: ABS Lymphocytes 0.5 10^3/ul (1.0-4.8); ABS Monocytes 0.6 10^3/ul (0-0.8); ABS Neutrophils 5.2 10^3/ul (1.5-7.7)
[2017-10-03 14:12] LABS: ABS Basophils 0 10^3/ul (0-0.2); ABS Eosinophils 0.3 10^3/ul (0-0.6); ABS Nucleated RBC 0 10^3/ul
[2017-10-03 14:14] LABS: Monocytes % 7 % (0-7)
[2017-10-03] MEDS ORDERED: Dextrose 50% Syringe 50 ML* 25 GM/50 ML SYRINGE ONE ×2 (14:17→14:23)
[2017-10-03] MEDS ORDERED: Dextrose 50% VIAL 50 ml IV PRN (14:18)
[2017-10-03] MEDS ORDERED: Dextrose 50% Syringe 50 ML* 25 GM/50 ML SYRINGE IV PUSH ONE (14:20)
--- NOTE | 2017-10-03 15:06 | RAD ---
HISTORY: Altered mental status COMPARISONS: September 13, 2012 VIEWS: 1: frontal portable view of the chest at 2:44 PM FINDINGS: LINES AND TUBES: None. CARDIOMEDIASTINAL SILHOUETTE: The cardiac silhouette is mildly enlarged. The cardiomediastinal silhouette is otherwise normal for portable technique. PLEURA: There is a small right pleural effusion. LUNG PARENCHYMA: There is a perihilar reticular pattern of opacification with more focal alveolar position of the right lower lung. ABDOMEN: The upper abdomen is clear. There is no subphrenic gas. BONES AND SOFT TISSUES: No bone or soft tissue abnormalities are noted. IMPRESSION: 1. MILD CARDIOMEGALY. 2. PULMONARY INTERSTITIAL EDEMA. 3. PATCHY RIGHT BASILAR ATELECTASIS VERSUS ELEVATION. 4. SMALL RIGHT PLEURAL EFFUSION
[2017-10-03] MEDS ORDERED: Ondansetron INJ* 2 MG/ML VIAL IV PRN (16:15)
[2017-10-03] MEDS ORDERED: Potassium Chlor TAB* 20 MEQ TAB.ER PO ONE (16:15)
--- NOTE | 2017-10-03 16:16 | ED ---
Bryce Rob Julia, scribed for Lokesh Buck on 10/03/17 at 1252 . Complex/Multi-Sys Presentation - HPI Summary HPI Summary: This patient is a 66 year old M BIBA to [facility] from [facility] due to slurred speech, increased lethargy, and slight AMS after completion of dialysis this morning. EMS reports slurred speech, slow responses. Patient c/o bilateral leg pains and twitching, rating the pain 6/10 in severity. Patient has a history of restless leg syndrome. Patient rarely walks while at snf. - History Of Current Complaint Chief Complaint: EDGeneral Time Seen by Provider: 10/03/17 12:24 Hx Obtained From: Patient, EMS Onset/Duration: Lasting Hours Timing: Constant Location: Pain At: - bilateral legs Associated Signs And Symptoms: Positive: Decreased Responsiveness, Other - slurred speech - Allergies/Home Medications Allergies/Adverse Reactions: Allergies Allergy/AdvReac Type Severity Reaction Status Date / Time Penicillins Allergy Intermediate Hives Verified 08/23/17 06:03 Home Medications: Home Medications GuaiFENesin DM* [Robitussin DM*] 5 ml PO Q4H PRN 10/03/17 [History Confirmed ] Loperamide CAP* [Imodium CAP*] 2 mg PO Q1H PRN MDD 16mg 10/03/17 [History Confirmed 10/03/17] Metoprolol Tartrate TAB* [Lopressor TAB*] 25 mg PO BID 10/03/17 [History Confirmed 10/03/17] Sodium Polystyrene ORAL.SELENE* [Kayexalate ORAL.SELENE*] 15 gm PO EVERY OTHER DAY PRN 10/03/17 [History Confirmed 10/03/17] traMADol TAB* [Ultram*] 25 - 50 mg PO Q6H PRN MDD 100 mg 10/03/17 [History Confirmed 10/03/17] PMH/Surg Hx/FS Hx/Imm Hx Endocrine/Hematology History: Reports: Hx Anticoagulant Therapy - Not currently on anticoagulant therapy d/t hematoma, Hx Diabetes, Hx Anemia Cardiovascular History: Reports: Hx Atrial Fibrillation, Hx Congestive Heart Failure, Hx Coronary Artery Disease - CHOLESTEROL CONTROL WITH MEDICATION, Hx Hypercholesterolemia, Hx Hypertension, Other Cardiovascular Problems/Disorders - 2 [place]ES Denies: Hx Pacemaker/ICD Respiratory History: Reports: Hx Sleep Apnea - NO CPAP, Other Respiratory Problems/Disorders Denies: Hx Asthma, Hx Chronic Obstructive Pulmonary Disease (COPD) GI History: Reports: Hx Gastroesophageal Reflux Disease - ON MEDICATION History: Reports: Hx Chronic Renal Failure, Hx Dialysis Musculoskeletal History: Reports: Hx Arthritis - BILATERAL KNUCKLES AND NECK Sensory History: Reports: Hx Cataracts - BILATERAL Denies: Hx Contacts or Glasses, Hx Hearing Aid Opthamlomology History: Reports: Hx Cataracts - BILATERAL Denies: Hx Contacts or Glasses Neurological History: Reports: Hx Nerve Disease - Neuropathy, restless leg syndrome, Other Neuro Impairments/Disorders - DIFFICULTY CONCENTRATING WITH LEFT SIDE WEAKNESS, BALANCE OFF, STAMMERING, Psychiatric History: Reports: Hx Depression - ON MEDICATION Denies: Hx Panic Disorder - Surgical History Surgery Procedure, Year, and Place: 2009 OR 2010 CARDIAC CATHERIZATION, [place] DENTAL WORK, OFFICE Hx Anesthesia Reactions: No - Immunization History Date of Tetanus Vaccine: unk Date of Influenza Vaccine: utd Infectious Disease History: No Infectious Disease History: Denies: Traveled Outside the in Last 30 Days - Family History Known Family History: Positive: Cardiac Disease Family History: No FHx of malignant hyperthermia. No FHx of anesthesia reaction - Social History Lives: At The [facility] Alcohol Use: None Alcohol Amount: 1-2 per week Hx Substance Use: No Substance Use Type: Reports: None Hx Tobacco Use: No Smoking Status (MU): Never Smoked Tobacco Review of Systems Positive: Myalgia - leg pain Positive: Slurred Speech All Other Systems Reviewed And Are Negative: Yes Physical Exam - Summary Physical Exam Summary: Appearance: Well appearing, no pain distress Skin: warm, dry, reflects adequate perfusion, dry mucous membranes Head/face: normal Eyes: EOMI, DARLEEN ENT: normal Neck: supple, non-tender Respiratory: CTA, breath sounds present Cardiovascular: RRR, pulses symmetrical Abdomen: non-tender, soft Bowel: present Musculoskeletal:, strength/ROM intact, fistula of the left arm Neuro: normal, sensory motor intact, A&Ox3 Triage Information Reviewed: Yes Vital Signs On Initial Exam: Initial Vitals Temp Pulse Resp BP Pulse Ox 99.8 F 75 18 94/61 100 10/03/17 12:16 10/03/17 12:16 10/03/17 12:16 10/03/17 12:16 10/03/17 12:16 Vital Signs Reviewed: Yes Diagnostics - Vital Signs Vital Signs Temp Pulse Resp BP Pulse Ox 10/03/17 12:30 75 25 85/52 95 10/03/17 12:24 19 10/03/17 12:22 87/52 10/03/17 12:16 99.8 F 75 18 94/61 100 - Laboratory Lab Results: Lab Results 10/03/17 10/03/17 10/03/17 Range/Units 13:30 13:30 13:30 WBC 6.5 (3.5-10.8) 10^3/ul RBC 2.94 L (4.0-5.4) 10^6/ul Hgb 9.2 L (14.0-18.0) g/dl Hct 28 L (42-52) % MCV 95 H (80-94) fL MCH 31 (27-31) pg MCHC 33 (31-36) g/dl RDW 17 H (10.5-15) % Plt Count 184 (150-450) 10^3/ul MPV 8.3 (7.4-10.4) um3 Neut % (Auto) Not Reportable Lymph % (Auto) Not Reportable Dauphin % (Auto) Not Reportable Eos % (Auto) Not Reportable Baso % (Auto) Not Reportable Absolute Neuts (auto) 5.2 (1.5-7.7) 10^3/ul Absolute Lymphs (auto) 0.5 L (1.0-4.8) 10^3/ul Absolute Monos (auto) 0.6 (0-0.8) 10^3/ul Absolute Eos (auto) 0.3 (0-0.6) 10^3/ul Absolute Basos (auto) 0 (0-0.2) 10^3/ul Absolute Nucleated RBC 0 10^3/ul Neutrophils % 81 (38-83) % Lymphocytes % 6 L (25-47) % Monocytes % 7 (0-7) % Eosinophils % 6 (0-6) % Basophils % 0 (0-2) % Nucleated RBC % Not Reportable Abs Neuts (Manual) 5.3 (1.5-7.7) 10^3/ul Abs Lymphs (Manual) 0.4 L (1.0-4.8) 10^3/ul Abs Monocytes (Manual) 0.5 (0-0.8) 10^3/ul Absolute Eos (Manual) 0.4 (0-0.6) 10^3/ul Abs Basophils (Manual) 0 (0-0.2) 10^3/ul Normal RBC Morphology Normal (Normal) Hem Pathologist Commnt Pending INR (Anticoag Therapy) 1.58 H (0.77-1.02) APTT 40.3 H (26.0-36.3) seconds Patient Temperature ABG pH (7.35-7.45) ABG pH (Temp Correct) ABG pCO2 (35-45) mmHg ABG pCO2 (Temp Corrct ABG pO2 (80-100) mmHg ABG pO2 (Temp Correct ABG HCO3 (19-31) mmol/L ABG O2 Saturation (95-98) % ABG Base Excess (-2.0-2.0) Respiration Rate Ventilator Type Vent Mode FiO2 Inspiratory Time PEEP Pressure Support Pressure Control EPAP IPAP BiPAP Sodium (139-145) mmol/L Potassium (3.5-5.0) mmol/L Chloride (101-111) mmol/L Carbon Dioxide (22-32) mmol/L Anion Gap (2-11) mmol/L BUN (6-24) mg/dL Creatinine (0.67-1.17) mg/dL Est GFR ( Amer) (>60) Est GFR (Non-Af Amer) (>60) BUN/Creatinine Ratio (8-20) Glucose (70-100) mg/dL POC Glucose (mg/dL) (70-100) mg/dL Lactic Acid (0.5-2.0) mmol/L Calcium (8.6-10.3) mg/dL Total Bilirubin (0.2-1.0) mg/dL AST (13-39) U/L ALT (7-52) U/L Alkaline Phosphatase (34-104) U/L Troponin I (<0.04) ng/mL B-Natriuretic Peptide 2985 H ( - 100) pg/mL Total Protein (6.4-8.9) g/dL Albumin (3.2-5.2) g/dL Globulin (2-4) g/dL Albumin/Globulin Ratio (1-3) Influenza A (Rapid) (Negative) Influenza B (Rapid) (Negative) 10/03/17 10/03/17 10/03/17 Range/Units 13:30 13:30 13:45 WBC (3.5-10.8) 10^3/ul RBC (4.0-5.4) 10^6/ul Hgb (14.0-18.0) g/dl Hct (42-52) % MCV (80-94) fL MCH (27-31) pg MCHC (31-36) g/dl RDW (10.5-15) % Plt Count (150-450) 10^3/ul MPV (7.4-10.4) um3 Neut % (Auto) Lymph % (Auto) [place] % (Auto) Eos % (Auto) Baso % (Auto) Absolute Neuts (auto) (1.5-7.7) 10^3/ul Absolute Lymphs (auto) (1.0-4.8) 10^3/ul Absolute Monos (auto) (0-0.8) 10^3/ul Absolute Eos (auto) (0-0.6) 10^3/ul Absolute Basos (auto) (0-0.2) 10^3/ul Absolute Nucleated RBC 10^3/ul Neutrophils % (38-83) % Lymphocytes % (25-47) % Monocytes % (0-7) % Eosinophils % (0-6) % Basophils % (0-2) % Nucleated RBC % Abs Neuts (Manual) (1.5-7.7) 10^3/ul Abs Lymphs (Manual) (1.0-4.8) 10^3/ul Abs Monocytes (Manual) (0-0.8) 10^3/ul Absolute Eos (Manual) (0-0.6) 10^3/ul Abs Basophils (Manual) (0-0.2) 10^3/ul Normal RBC Morphology (Normal) Hem Pathologist Commnt INR (Anticoag Therapy) (0.77-1.02) APTT (26.0-36.3) seconds Patient Temperature Not Reportable ABG pH 7.52 H (7.35-7.45) ABG pH (Temp Correct) Not Reportable ABG pCO2 46 H (35-45) mmHg ABG pCO2 (Temp Corrct Not Reportable ABG pO2 53 L* (80-100) mmHg ABG pO2 (Temp Correct Not Reportable ABG HCO3 35.2 H (19-31) mmol/L ABG O2 Saturation 93.0 L (95-98) % ABG Base Excess 13.3 H (-2.0-2.0) Respiration Rate Not Reportable Ventilator Type Not Reportable Vent Mode Not Reportable FiO2 3 Inspiratory Time Not Reportable PEEP Not Reportable Pressure Support Not Reportable Pressure Control Not Reportable EPAP Not Reportable IPAP Not Reportable BiPAP Not Reportable Sodium 136 L (139-145) mmol/L Potassium 2.7 L* (3.5-5.0) mmol/L Chloride 89 L (101-111) mmol/L Carbon Dioxide 33 H (22-32) mmol/L Anion Gap 14 H (2-11) mmol/L BUN 18 (6-24) mg/dL Creatinine 5.73 H (0.67-1.17) mg/dL Est GFR ( Amer) 12.9 (>60) Est GFR (Non-Af Amer) 10.0 (>60) BUN/Creatinine Ratio 3.1 L (8-20) Glucose 30 L* (70-100) mg/dL POC Glucose (mg/dL) (70-100) mg/dL Lactic Acid 1.0 (0.5-2.0) mmol/L Calcium 8.6 (8.6-10.3) mg/dL Total Bilirubin 1.10 H (0.2-1.0) mg/dL AST 111 H (13-39) U/L ALT 32 (7-52) U/L Alkaline Phosphatase 66 (34-104) U/L Troponin I 0.32 H* (<0.04) ng/mL B-Natriuretic Peptide ( - 100) pg/mL Total Protein 6.2 L (6.4-8.9) g/dL Albumin 2.7 L (3.2-5.2) g/dL Globulin 3.5 (2-4) g/dL Albumin/Globulin Ratio 0.8 L (1-3) Influenza A (Rapid) (Negative) Influenza B (Rapid) (Negative) 10/03/17 10/03/17 Range/Units 14:12 16:02 WBC (3.5-10.8) 10^3/ul RBC (4.0-5.4) 10^6/ul Hgb (14.0-18.0) g/dl Hct (42-52) % MCV (80-94) fL MCH (27-31) pg MCHC (31-36) g/dl RDW (10.5-15) % Plt Count (150-450) 10^3/ul MPV (7.4-10.4) um3 Neut % (Auto) Lymph % (Auto) [place] % (Auto) Eos % (Auto) Baso % (Auto) Absolute Neuts (auto) (1.5-7.7) 10^3/ul Absolute Lymphs (auto) (1.0-4.8) 10^3/ul Absolute Monos (auto) (0-0.8) 10^3/ul Absolute Eos (auto) (0-0.6) 10^3/ul Absolute Basos (auto) (0-0.2) 10^3/ul Absolute Nucleated RBC 10^3/ul Neutrophils % (38-83) % Lymphocytes % (25-47) % Monocytes % (0-7) % Eosinophils % (0-6) % Basophils % (0-2) % Nucleated RBC % Abs Neuts (Manual) (1.5-7.7) 10^3/ul Abs Lymphs (Manual) (1.0-4.8) 10^3/ul Abs Monocytes (Manual) (0-0.8) 10^3/ul Absolute Eos (Manual) (0-0.6) 10^3/ul Abs Basophils (Manual) (0-0.2) 10^3/ul Normal RBC Morphology (Normal) Hem Pathologist Commnt INR (Anticoag Therapy) (0.77-1.02) APTT (26.0-36.3) seconds Patient Temperature ABG pH (7.35-7.45) ABG pH (Temp Correct) ABG pCO2 (35-45) mmHg ABG pCO2 (Temp Corrct ABG pO2 (80-100) mmHg ABG pO2 (Temp Correct ABG HCO3 (19-31) mmol/L ABG O2 Saturation (95-98) % ABG Base Excess (-2.0-2.0) Respiration Rate Ventilator Type Vent Mode FiO2 Inspiratory Time PEEP Pressure Support Pressure Control EPAP IPAP BiPAP Sodium (139-145) mmol/L Potassium (3.5-5.0) mmol/L Chloride (101-111) mmol/L Carbon Dioxide (22-32) mmol/L Anion Gap (2-11) mmol/L BUN (6-24) mg/dL Creatinine (0.67-1.17) mg/dL Est GFR ( Amer) (>60) Est GFR (Non-Af Amer) (>60) BUN/Creatinine Ratio (8-20) Glucose (70-100) mg/dL POC Glucose (mg/dL) 122 H (70-100) mg/dL Lactic Acid (0.5-2.0) mmol/L Calcium (8.6-10.3) mg/dL Total Bilirubin (0.2-1.0) mg/dL AST (13-39) U/L ALT (7-52) U/L Alkaline Phosphatase (34-104) U/L Troponin I (<0.04) ng/mL B-Natriuretic Peptide ( - 100) pg/mL Total Protein (6.4-8.9) g/dL Albumin (3.2-5.2) g/dL Globulin (2-4) g/dL Albumin/Globulin Ratio (1-3) Influenza A (Rapid) Negative (Negative) Influenza B (Rapid) Negative (Negative) Result Diagrams: 10/03/17 13:30 10/03/17 13:30 Lab Statement: Any lab studies that have been ordered have been reviewed, and results considered in the medical decision making process. - Radiology CXR Radiology Interpretation Completed By: Radiologist - 1. MILD CARDIOMEGALY. 2. PULMONARY INTERSTITIAL EDEMA. 3. PATCHY RIGHT BASILAR ATELECTASIS VERSUS ELEVATION. 4. SMALL RIGHT PLEURAL EFFUSION ED Physician has reviewed this report. - CT Brain CT Interpretation Completed By: Radiologist - No acute findings. Remote infarcts , unchanged. ED Physician has reviewed this report. - EKG 1311 Cardiac Rate: NL - at 77 BPM EKG Rhythm: Sinus Rhythm ST Segment: Non-Specific Re-Evaluation - Re-Evaluation 1 Re-Evaluation Time: 14:50 Comment: Results discussed with patient. Pt will be admitted. Complex Multi-Symp Course/Dx Course Of Treatment: Pt is brought from [facility] due to AMS. EMS reports slurred speech and slow responses. Pt does not regularly ambulate. Pt finished dialysis this morning. A Brain CT is unremarkable. A CXR reveals:1. MILD CARDIOMEGALY. 2. PULMONARY INTERSTITIAL EDEMA. 3. PATCHY RIGHT BASILAR ATELECTASIS VERSUS ELEVATION. 4. SMALL RIGHT PLEURAL EFFUSION. An EKG is unremarkable. Bloodwork is indicative of hypoglycemia and hypokalemia, with a positive Troponin. Patient is given IV fluids and Dextrose. - Diagnoses Differential Diagnoses/HQI/PQRI: CVA, Sepsis, Other - esrd on hd Provider Diagnoses: Hypokalemia, Hypoglycemia, End stage renal disease, Altered mental status - Physician Notifications Discussed Care Of Patient With: Blaire Chan - hospitalist Time Discussed With Above Provider: 14:50 Instructed by Provider To: Admit As Inpatient - Critical Care Time Critical Care Time: 30-74 min Discharge - Sign-Out/Discharge Documenting (check all that apply): Discharge - admit - Discharge Plan Condition: Critical Disposition: ADMITTED TO [facility] Referrals: Balbina Corral MD [Primary Care Provider] - - Billing Disposition and Condition Condition: CRIT[place] [place] The documentation as recorded by the Bryce patricio Julia accurately reflects the service I personally performed and the decisions made by Heber lao Emmanuel.
[2017-10-03] MEDS: Acetaminophen TAB* 325 MG PO PRN (16:35)
[2017-10-03] MEDS ORDERED: Vancomycin(*) 750 MG in NS 0.9% 250 ML* 250 ML IVPB PRN (16:41)
[2017-10-03] MEDS ORDERED: Vancomycin(*) 1,000 MG in NS 0.9% 250 ML* 250 ML IVPB ONE ×2 (17:00→20:30)
[2017-10-03] MEDS ORDERED: KCL 10 MEQ/50 ML IVPREMIX* 10 MEQ/50 ML BAG IV SCH (17:00)
[2017-10-03] MEDS ORDERED: Cefepime(*) 1 GM in NS 0.9% 50 ML* 50 ML IVPB SCH (17:00)
[2017-10-03] MEDS ORDERED: Potassium Chloride IV* 30 MEQ in NS 0.9% 250 ML* 250 ML IVPB ONE (17:00)
--- NOTE | 2017-10-03 17:42 | RAD ---
HISTORY: Elevated LFTs COMPARISONS: CT abdomen pelvis dated May 29, 2017 TECHNIQUE: Multiple transverse and longitudinal ultrasound images were obtained of the right upper quadrant. FINDINGS: LIVER: The liver is normal in dimensions and echogenicity. Normal hepatic and portal venous blood flow is duplicated with color flow imaging. There is no gross intrahepatic biliary duct dilatation. GALLBLADDER AND EXTRAHEPATIC BILIARY DUCT: None shadowing hyperechoic material in the dependent portion of the gallbladder is most consistent with biliary sludge. There are no definite gallstones. There is no pericholecystic fluid or gallbladder wall thickening. The common bile duct measures a maximum diameter of 4 mm. PANCREAS: The portions of the pancreas not obscured by bowel gas are normal in appearance. RIGHT KIDNEY: The right kidney is normal in size, morphology and echogenicity. Incidentally noted is a moderate size right-sided pleural effusion. IMPRESSION: 1. BILIARY SLUDGE WITHOUT SONOGRAPHIC APPEARANCE IS CONSISTENT WITH ACUTE INFLAMMATORY CHANGE OR PATHOLOGIC BILIARY OBSTRUCTION. 2. MODERATE SIZE RIGHT-SIDED PLEURAL EFFUSION.
[2017-10-03] MEDS: Sevelamer TAB* 800 MG PO SCH (17:43)
[2017-10-03] MEDS: traMADol TAB* 50 MG PO PRN (19:44)
[2017-10-03] MEDS: rOPINIRole TAB* 1 MG PO SCH (19:44)
[2017-10-03] MEDS ORDERED: NS 0.9% 500 ML* 500 ML IV ONE (19:55)
[2017-10-03] MEDS ORDERED: Iodixanol* (CONTRAST) 320 MG/ML 100 ML SDV IV ONE (20:55)
--- NOTE | 2017-10-03 22:15 | HP ---
CC: Dr. Balbina Corral; Francisco; Dr. Mosqueda * HISTORY AND PHYSICAL: DATE OF ADMISSION: 10/03/17 PRIMARY CARE PROVIDER: Dr. Balbina Corral and Francisco. CONSULTING SPECIAL EFFECTS ARTIST: Dr. Mosqueda. ATTENDING PHYSICIAN WHILE IN THE HOSPITAL: Dr. Blaire Chan * (report dictated by Kp Nieves NP). CHIEF COMPLAINT: Altered mental status. HISTORY OF PRESENT ILLNESS: Mr. Knight is a 66-year-old male patient, he has multiple medical problems. He comes in to our ER today from [facility]. The complaint was that the patient has had an episode where he apparently was altered. He was very weak. They could not stand him without 2 assists, which was not his baseline. He is normally awake, alert, and oriented x3, and he was not acting himself, there was concern. The patient does report that he fell, but he is unaware of how it happened. He says that the next thing he knew is the ambulance was there to pick him up and bring him to the hospital. The patient says that he does not really know if his leg wounds have been getting any worse. I did discussion with Francisco, they do say that in last week, his legs according to the wound care nurse there, the legs bilaterally looked much worse, today, particularly the left leg. The patient says that he again does not recall the fall. He denies having any chest pain or shortness of breath. He denies any nausea or vomiting. No recent fevers or chills. He says that he is not in any pain currently. He came into the hospital because of the altered mental status. On evaluation here, it was noted that he appeared to be hypoglycemic. He was hypokalemic. There was concern because his wounds were getting worse. There was concern because he had fallen and he was not acting himself. He was more weak. He came into the ED, he was evaluated and it was noted again he had elevated troponin, he is hypokalemic, he is hypoglycemic. We were asked to evaluate for admission. PAST MEDICAL HISTORY: Significant for: 1. End-stage renal disease. 2. AFib, not on anticoagulation. 3. History of CVA. 4. Restless legs syndrome. 5. History of CHF, EF of 25% to 30%. 6. Wikb-ej-dhhagnch aortic stenosis. 7. Pulmonary hypertension. 8. Chronic venous stasis ulcers. 9. CAD. 10. Hypertension. 11. Hyperlipidemia. 12. Anemia. PAST SURGICAL HISTORY: 1. The patient has had a fistula to the left upper extremity. 2. He has had heart catheterization x2. MEDICATIONS: Home meds according to the list provided include: 1. Tramadol 25 mg to 50 mg every 6 hours as needed. 2. Requip 1 mg p.o. t.i.d. 3. Kayexalate 15 g p.o. every other day as needed. 4. Zocor 20 mg daily. 5. Renvela 2400 mg p.o. t.i.d. with meals. 6. Biotin 1 liquid by mouth four times a day as needed. 7. Prilosec 20 mg daily. 8. Procardia 90 mg at bedtime. 9. Lopressor 25 mg p.o. b.i.d. 10. Imodium 2 mg p.o. every hour as needed. 11. Lisinopril 10 mg daily. 12. Guaifenesin 5 cc every 4 hours as needed. 13. Randi-Mark 0.8 mg p.o. daily. 14. Chlorpheniramine 4 mg p.o. every 6 hours as needed. 15. Aspirin 81 mg daily. 16. Tylenol 650 mg every 8 hours as needed. FAMILY HISTORY: His mother is diabetic. Father had CAD and diabetes. SOCIAL HISTORY: He does not smoke. He does not drink. Surrogate decision maker is his sister. He currently resides at [facility]. REVIEW OF SYSTEMS: There is no documented fever. He denied any weight change. No double vision. No ear discharge. No rhinorrhea. No sore throat. No thyroid enlargement. He denies having any chest pain. There was no orthopnea. No nocturnal dyspnea. There was no abdominal pain. There was no nausea, no vomiting. No dysuria, no frequency. There was no seizure or question of loss of consciousness. No pruritus. There are multiple skin ulcerations. Review of 14 systems was completed, all others negative. PHYSICAL EXAMINATION GENERAL: At this time, Mr. Knight is a 66-year-old male patient. He is chronically ill appearing. He does not appear to be in any acute respiratory distress. VITAL SIGNS: Blood pressure 96/55, pulse 82, respirations were 20, his O2 saturations were 97% on 3 L, temperature was 99.8. HEENT: Head: Atraumatic, normocephalic. Eyes: EOMs intact. Sclerae anicteric and not pale. Throat: Oral mucosa appears to be dry. No oropharyngeal erythema. NECK: Supple. LUNGS: His lungs were diminished at the bases, but no wheezes, rales, or rhonchi. HEART: Sounds S1, S2. Irregularly irregular rate. No murmurs, rubs, or gallops. ABDOMEN: Soft, flat, nontender. Bowel sounds were present. EXTREMITIES: He is moving the lower extremities with 5/5 strength. Pulses were palpable in the lower extremities, but they did feel cool at touch, they appeared to be discolored bilaterally, they were shiny. NEUROLOGICAL: He does awaken, he knows he is in the hospital, he knows it is almost October, he knows his name. His pharmacy technology instructor were equal. His tongue is midline. Speech is clear. He had no gross focal deficits. SKIN: He has multiple bilateral lower extremity lesions that were on the pretibial area bilaterally. He also had on the left 2 ulcers, 1 on the medial ankle and on top of his foot covered with Mepilex dressing. There was erythema surrounding these areas and what appears to be area of necrosis but no purulent discharge. Otherwise, skin intact. These lesions do appear to be significantly changed compared to just about 10 days ago when he was here according to notes. DIAGNOSTIC STUDIES/LAB DATA: His labs today revealed WBC of 6.4, RBC of 2.94, hemoglobin of 9.2, hematocrit of 28, platelet count of 184. INR 1.58, PTT of 40.3. His pH was 7.52, PCO2 of 46, his PO2 was 53. Sodium was 136; potassium was 2.7; chloride of 89; bicarb was 33; BUN 18; creatinine of 5.73; glucose of 30 when he had presented, it is now 122; lactate of 1; calcium 8.6. His total bili was 1.1, AST 111, ALT 32, alk phos. Troponin 0.32, but when reviewing previous troponins, he has been as high as 2. His BNP was 2985. Albumin of 2.7. Serology negative for flu. He had a brain CT obtained today, no acute intracranial findings, remote infarcts, unchanged. He had a chest x-ray obtained today, which showed a mild cardiomegaly, pulmonary interstitial edema, patchy right basilar atelectasis versus elevation , small right pleural effusion. He had an EKG obtained today, it shows a sinus rhythm, rate of 77, no ST elevations. He had depressions in 1 lead only in V3, diffuse T-wave flattening. When you look back at his previous EKG, he has had upright T waves in II, III, and aVF, they have been flat in V4 and V6, and they have been flat in V2, biphasic in lead V. Old medical records were reviewed. He had an echo just done about a month ago and EF was 25% to 30%. Old medical records were reviewed. ASSESSMENT AND PLAN: Mr. Knight is a 66-year-old male patient with multiple medical problems coming in to the emergency department today with complaints of weakness, altered mental status, fall. There was concern because the patient's mentation was off and his wounds appeared to be worse. He was sent to the hospital. We were asked to evaluate for admission. He will be admitted under inpatient status for: 1. Altered mental status. I suspect this is related to hypoglycemia. The question is what is causing hypoglycemia. I am worried about possible underlying infection, also liver dysfunction can cause this as well. He is a diabetic previously, but not on medications. My plan would be to treat underlying causes, he is improving now with the dextrose, we will continue to follow this. We will continue to monitor. 2. Concern for possible sepsis. Again, he was profoundly hypoglycemic. I know he does not have the white count, but he was hypotensive when he came in. He was altered. My concern is there could be a source of infection coming from his legs. He did receive bolus fluid here in the ED. His pressure responded. My plan is to put him on vanco, cefepime, and Flagyl. Get ABIs of the lower extremities. If we are unable to obtain accurate ABIs, I will get a CTA with run-off for the patient. It does appear that the lower extremity wounds could be calciphylaxis or underlying again cellulitis or infected wounds, so I do want to make sure that vascularly, he is intact. I am going to try to get the ABIs. If I can, I will do CTA with run-off. We will treat with antibiotics, fluids. We will ornelas culture him. Check ESRs and CRPs and we will continue to follow. 3. Elevated troponin. This is probably demand ischemia from underlying hypoglycemia, possibly from syncope and infection. He is not having any chest pain and cardiac symptoms. It could be demand ischemia from an underlying infection. I will go ahead and just trend these and we will get an echo as well. 4. Question of syncope. This could just be related to the hypoglycemia or dehydration. We will check orthostatics, echo, trops, and place him on telemetry. 5. End-stage renal disease. I did touch base with Dr. Mosqueda. We will try to dialysis him tomorrow outpatient if he is safe to discharge, but I suspect we are probably going to need to be dialyzing this patient on Sunday here in the hospital. 6. Atrial fibrillation. Continue his current medical regimen. He is not on anticoagulation. 7. History of cerebrovascular accident. Again, he has the high CHADS-VASc score, is on no anticoagulation due to history of hematoma. In addition to this , the patient also has significant opposition to blood transfusion. 8. History of restless legs syndrome. Continue meds as prescribed. 9. History of congestive heart failure. We will diuresis as needed. 10. Hypertension. He is hypotensive here, we will hold his medications. 11. History of coronary artery disease. Continue his aspirin and statin. 12. Hyperlipidemia. Continue statin therapy. 13. Anemia. We will follow with his H and H, appears to be stable. 14. DVT prophylaxis. He will be placed on heparin subcu. 15. Code status. He is full code. 16. Fluids, electrolytes, and nutrition. He can have a renal diet. TIME SPENT: On the admission was 90 minutes, greater than half of the time spent [id number] with the patient obtaining my history and physical, other half the time was spent going over the plan of care with the patient and implementing the plan of care. I did discuss plan of care with my attending, Dr. Chan. I also had Dr. Chan evaluate the patient, she is in agreement with the plan. KP NIEVES, MEDICAL PSYCHOTHERAPIST [id number]/[facility] #: [id number] PETER
--- NOTE | 2017-10-03 22:18 | RAD ---
INDICATION: Bilateral lower extremity wounds and leg pain in a vasculopath COMPARISON: None TECHNIQUE: A CT angiogram of the abdomen, pelvis and lower extremities was performed before and following arterial phase intravenous contrast enhancement with 125 mL Visipaque 320. Delayed images of the lower legs were acquired as well. Contiguous axial sections were obtained and reconstructed in the sagittal, coronal planes and a maximum intensity projection 3-D was created. FINDINGS: Non-arterial findings: There are large bibasilar pleural effusions. There is compressive atelectasis of the adjacent dependent lower lobes. Coarse calcification is seen at the visualized portion of the aortic ring and also at the mitral valve. The liver, spleen, pancreas and adrenal glands appear to be within normal limits. The gallbladder is normal. The kidneys appear atrophic bilaterally. Evaluation of the gastrointestinal tract is limited without oral contrast. There are mildly enlarged groin lymph nodes measuring up to 1.7 cm in short axis diameter. Degenerative changes of the lower thoracic and lumbar spine includes loss of intervertebral disc height. There are likely Schmorl's nodes at the articulating endplates of L2 and L1. Arterial findings: Abdomen & Pelvis: The lower thoracic and abdominal aorta exhibits mild curvature but there is no pathologic aneurysm or signs of dissection. There is coarse calcification at the lower abdominal aorta extending into the bilateral iliac arteries. The lower aorta and iliac arteries appear to otherwise be adequately patent. The major branch arteries including the celiac trunk, superior mesenteric artery and inferior mesenteric artery appear to be adequately patent. There is coarse calcification at the origins of the bilateral renal arteries causing at least moderate stenosis bilaterally. Right leg: There is coarse calcification eccentrically along the posterior medial border of the right common femoral artery but adequate patency is maintained into the femoral profundus and proximal superficial femoral artery. The superficial femoral artery exhibits coarse calcification circumferentially but in-line flow appears to be maintained into the popliteal artery. At the lower popliteal artery (image 351) there is focal occlusion that extends at least to the upper portion of the tibioperoneal trunk. The on this point the degree of calcification of the infrapopliteal arteries prevents reliable determination of patency. Left leg: There is coarse calcification eccentrically along the posterior medial border of the left common femoral artery but adequate patency is maintained into the femoral profundus and proximal superficial femoral artery. The coarse calcification in the superficial femoral artery becomes more irregular and severe as it passes through Mateus's canal but luminal patency is likely maintained. Coarse calcification causes at least high-grade stenosis in the popliteal artery before the lower popliteal artery appears to become totally occluded. More inferiorly severe calcification of the tibioperoneal trunk and infrapopliteal arteries prevents reliable determination of luminal patency. IMPRESSION: 1. Widespread mixed attenuation vasculopathy as described in more detail above. The more severe and/or clinically relevant findings are as follows: * Mixed attenuation atherosclerosis at the origins of the bilateral renal arteries causes at least moderate stenosis, although this may be clinically irrelevant to a dialysis patient. * The distal left superficial femoral artery exhibits at least high-grade stenoses at the level of Mateus's canal leading into the popliteal artery. * There appears to be focal occlusion of the bilateral popliteal arteries distally with questionable reconstituted flow more distally in the tibioperoneal trunks and infrapopliteal arteries. * Advanced calcified atherosclerosis of the infrapopliteal arteries prevents reliable determination of patency on CTA. Determination of patency can be made with arterial duplex sonography or, more superior, catheter arteriography. 2. Moderate bibasilar pleural effusions causing adjacent compressive atelectasis of the lower lobes. 3. Additional chronic and degenerative changes described in the body the report.
[2017-10-03] MEDS: Cefepime 1 GM in Dextrose(*) 1 GM/50 ML BAG IV SCH (22:58)
[2017-10-03] MEDS: Heparin VIAL(*) 5000 UNITS/ML VIAL (FIVE THOUSAND) SUBCUT SCH (23:06)
--- NOTE | 2017-10-03 23:20 | PN ---
Progress Note - Progress Note Date of Service: 10/03/17 Note: Requested by THREAD SPINNER to eval L foot for pulses. L dorsalis pedis is very faint but present on doppler. L posterior tibial is faint on doppler but better than the L dorsalis pedis.
[2017-10-03] MEDS: metroNIDAZOLE IV 500 MG/100ML* 500 MG/100 ML BAG IVPB SCH (23:42)
[2017-10-04] MEDS: Acetaminophen TAB* 325 MG PO PRN ×2 (00:14→05:40)
[2017-10-04] MEDS ORDERED: Cyclobenzaprine TAB* 10 MG PO ONE (00:50)
[2017-10-04] MEDS ORDERED: Cyclobenzaprine TAB* 10 MG ONE (00:51)
[2017-10-04] MEDS: traMADol TAB* 50 MG PO PRN ×3 (01:35→21:03)
[2017-10-04] MEDS: Cyclobenzaprine TAB* 10 MG PO PRN ×3 (05:39→21:02)
[2017-10-04] MEDS: Omeprazole CAP* 20 MG PO SCH (05:39)
[2017-10-04] MEDS: Heparin VIAL(*) 5000 UNITS/ML VIAL (FIVE THOUSAND) SUBCUT SCH ×3 (05:39→21:38)
[2017-10-04 05:48] LABS: ABS Basophils 0.1 10^3/ul (0-0.2); ABS Eosinophils 0.3 10^3/ul (0-0.6); ABS Lymphocytes 0.4 10^3/ul (1.0-4.8); ABS Monocytes 0.5 10^3/ul (0-0.8); ABS Neutrophils 5.2 10^3/ul (1.5-7.7); ABS Nucleated RBC 0 10^3/ul; Eosinophil % 5.2 % (0-6); Hematocrit 25 % (42-52); Hemoglobin 8.5 g/dl (14.0-18.0); Lymphocyte % 5.6 % (25-47); Mean Corpuscular HGB Conc 34 g/dl (31-36); Mean Corpuscular Hemoglobin 32 pg (27-31); Mean Corpuscular Volume 94 fL (80-94); Nucleated Red Blood Cells % 0.1; Platelet Count 173 10^3/ul (150-450); Red Cell Distribution Width 17 % (10.5-15); White Blood Count 6.5 10^3/ul (3.5-10.8)
[2017-10-04 05:58] LABS: INR 1.55 (0.77-1.02)
[2017-10-04 06:09] LABS: EGFR Non-African American 8.6 (>60)
[2017-10-04] MEDS: rOPINIRole TAB* 1 MG PO SCH ×3 (08:24→21:02)
[2017-10-04] MEDS: Atorvastatin* 10 MG TAB PO SCH (08:25)
[2017-10-04] MEDS: Sevelamer TAB* 800 MG PO SCH ×3 (08:34→20:36)
[2017-10-04] MEDS: Aspirin EC TAB* 81 MG TAB.EC PO SCH (08:34)
[2017-10-04] MEDS: metroNIDAZOLE IV 500 MG/100ML* 500 MG/100 ML BAG IVPB SCH ×3 (08:40→23:35)
--- NOTE | 2017-10-04 09:02 | RAD ---
INDICATION: Claudication COMPARISON: CTA October 03, 2017 TECHNIQUE: Ankle brachial indices were attempted but could not be obtained because adequate pressure in the blood pressure cuffs could not be achieved due to patient discomfort. IMPRESSION: NONDIAGNOSTIC STUDY
--- NOTE | 2017-10-04 15:01 | CONSULT ---
Consult Consult: Date of Service: 10/04/17 DATE OF ADMISSION: 10/03/17 PRIMARY CARE PROVIDER: Dr. Balbina Corral and [facility]. Reason for Consultation: Bilateral leg wounds and pain with evidence of bilateral femoropopliteal artery insufficiency. (Focused) HPI: Mary Knight, the patient's sister, is present during the consultation and supplements the patient's history. Mr. Knight is a 66-year-old male patient, he has multiple medical problems. He presented to the ER from [facility] on 10/03/17. The complaint was that the patient has had an episode where he apparently was altered. He was very weak. They could not stand him without 2 assists, which was not his baseline. He is normally awake, alert, and oriented x3, and he was not acting himself, there was concern. The patient does report that he fell, but he is unaware of how it happened. He says that the next thing he knew is the ambulance was there to pick him up and bring him to the hospital. The patient says that he does not really know if his leg wounds have been getting any worse. According to Kp Nieves's note, he spoke to caretakers at [facility] and they do say that in last week, "his legs bilaterally looked much worse", particularly the left leg. The patient reports that up to 18 months earlier he was walking 6 miles most days. He reports that before the occurrence of his leg wounds his ability to walk at lengthy distances was becoming shorter and shorter. He has what he describes as "spasms" in his legs at night when laying flat. He said the wounds have become to form within the past 6 months but is unclear exactly when this started. PE: Selected Entries 10/04/17 10/04/17 10/04/17 11:35 13:00 13:13 Temperature 98.8 F Temperature Temporal Artery Source Scan Pulse Rate 98 Respiratory 24 Rate Blood Pressure 121/73 (mmHg) Blood Pressure 79 Mean O2 Sat by Pulse 95 Oximetry Patient on Room No: 2 NC Air NAD, Somnolent, but arousable to voice RRR, S1/S2 Reduced breath sounds over the bilateral lung bases Abdomen is soft, NT There is a right upper arm hemodialysis fistula exhibiting weak pulsatile flow with no palpable or audible thrill. 2+ pulses palpated the bilateral upper extremities 2+ pulses palpated the bilateral common femoral arteries Pulses are nonpalpable at the popliteal and ankle arteries. Multiple bilateral lower extremity wounds overlying the anterior and medial lower legs with dark red scabbing. Bandages covering much of the wounds. The right foot is cool to touch. Motor function is grossly intact though strength is generally 3 out of 5 The patient has no sensation to light touch at the feet PAST MEDICAL HISTORY: 1. End-stage renal disease. 2. AFib, not on anticoagulation. 3. History of CVA. 4. Restless legs syndrome. 5. History of CHF, EF of 25% to 30%. 6. Qjgj-do-exqcwher aortic stenosis. 7. Pulmonary hypertension. 8. Chronic venous stasis ulcers. 9. CAD. 10. Hypertension. 11. Hyperlipidemia. 12. Anemia. SURGICAL HISTORY: 1. The patient has had a fistula to the left upper extremity. 2. He has had heart catheterization x2. FAMILY HISTORY: His mother is diabetic. Father had CAD and diabetes. SOCIAL HISTORY: He does not smoke. He does not drink. Surrogate decision maker is his sister Mary. He currently resides at [facility]. REVIEW OF SYSTEMS: There is no documented fever. He denied any weight change. No double vision. No ear discharge. No rhinorrhea. No sore throat. No thyroid enlargement. He denies having any chest pain. There was no orthopnea. No nocturnal dyspnea. There was no abdominal pain. There was no nausea, no vomiting. No dysuria, no frequency. There was no seizure or question of loss of consciousness. No pruritus. There are multiple skin ulcerations. Imaging: CTA Aorta w/ runoff 10/03/17 IMPRESSION: 1. Widespread mixed attenuation vasculopathy as described in more detail above. The more severe and/or clinically relevant findings are as follows: * Mixed attenuation atherosclerosis at the origins of the bilateral renal arteries causes at least moderate stenosis, although this may be clinically irrelevant to a dialysis patient. * The distal left superficial femoral artery exhibits at least high-grade stenoses at the level of Mateus's canal leading into the popliteal artery. * There appears to be focal occlusion of the bilateral popliteal arteries distally with questionable reconstituted flow more distally in the tibioperoneal trunks and infrapopliteal arteries. * Advanced calcified atherosclerosis of the infrapopliteal arteries prevents reliable determination of patency on CTA. Determination of patency can be made with arterial duplex sonography or, more superior, catheter arteriography. 2. Moderate bibasilar pleural effusions causing adjacent compressive atelectasis of the lower lobes. 3. Additional chronic and degenerative changes described in the body the report. <Electronically signed by Karlos Vasquez MD in [place]> 10/03/172213 Dictated By: Karlos Vasquez MD Dictated Date/Time: 10/03/172213 Transcribed Date/Time: 10/03/172200 Labs: Laboratory Tests 10/03/17 10/03/17 10/04/17 13:30 19:16 05:20 WBC 6.5 RBC 2.70 L Hgb 8.5 L Hct 25 L INR (Anticoag Therapy) APTT 40.3 H BUN Creatinine Est GFR ( Amer) Est GFR (Non-Af Amer) Troponin I 0.30 H* C-Reactive Protein 380.69 H 10/04/17 10/04/17 05:20 05:20 WBC RBC Hgb Hct INR (Anticoag Therapy) 1.55 H APTT BUN 22 Creatinine 6.58 H Est GFR ( Amer) 11.0 Est GFR (Non-Af Amer) 8.6 Troponin I C-Reactive Protein IMPRESSION: 1. The patient is a 66-year-old vasculopath with bilateral lower popliteal artery occlusions, though reconstituted flow is seen laterally at the tibioperoneal trunks. Vascular imaging so far, including CTA with runoff and HESHAM, does not reliably indicate whether there is patency of the infrapopliteal arteries. At least high-grade stenosis if not occlusion is expected at least some if not all of the infrapopliteal arteries. 2. Bilateral pleural effusions with reduce basilar lung sounds. 3. Ejection fraction is reported to be 25%. PLAN/RECOMMENDATIONS: 1. The patient is currently DNR status and has multiple complex medical problems. If the patient is going to be placed on comfort care only then catheter arteriography, with its incumbent risks, and potential lower extremity revascularization may not be indicated. 2. I do not expect the patient's leg pain or wounds to improve without improved in-line arterial flow. Determining the feasibility of endovascular revascularization will require catheter arteriography. 3. Recent reports indicate the patient has a 25% ejection fraction. As I discussed with the patient and his sister Mary even if the arteries can be made patent, with insufficient cardiac output likelihood of wound healing remains low. 4. Thoracentesis may improve the patient's respiratory status it would be advisable prior to administering conscious sedation before arteriography.
[2017-10-04] MEDS ORDERED: Morphine INJ* 2 MG/ML 1 ML CARPUJECT IV PRN (15:58)
--- NOTE | 2017-10-04 15:58 | ECHO ---
Patient: HARRISON RODRIGUEZ [facility] Rec#: [id number] : 1950 Date: 10/04/2017 Age: 66y Height: 177.8 cm / 70.0 in Weight: 72.57 kg / 159.9 lbs Sex: M BSA: 1.9 Room#: 439 Admit Date#: 10/03/2017 Type: Inpatient Referring: Kp Nieves NP Reading: Steven Villanueva MD Rubber Washer: Stephanie Carrillo RDCS CC: Balbina Corral Transthoracic Echocardiogram Indication: Syncope BP: 92/52 HR: 93 Rhythm: NSR Findings History: ESRD, CHF, CVA, CAD, , moderate-severe PHTN, AFIB, KIMBERLY. Technical Comments: The study quality is fair. The study is technically limited due to poor acoustic windows. The study was technically limited due to the patient's inability to lay in the left lateral decubitus position. Completed at 1540. Left Ventricle: The left ventricular chamber size is normal. Mild concentric left ventricular hypertrophy is observed. There is global hypokinesis of the left ventricle with minor regional variation.In limited views , the low posterolatertal wall shows the worst wall motion. There is moderately decreased left ventricular systolic function. The estimated ejection fraction is 35-40%. Visually estimated LVEF is closer to 40 %. There is septal flattening of the interventricular septum consistent with right ventricular volume or pressure overload. There is no consistent Doppler evidence of clinically significant diastolic dysfunction. Left Atrium: The left atrium is severely dilated. Right Ventricle: Moderator Band present. The right ventricle is moderately dilated. The right ventricular global systolic function is normal. Right Atrium: The right atrial cavity size is severely dilated. Aortic Valve: The aortic valve structure is not well visualized. Mild aortic leaflet calcification is visualized. Systolic excursion of the aortic valve cusps is reduced. There is no evidence of aortic regurgitation. There is mild aortic stenosis. The mean gradient of the aortic valve is 11.9 mmHg. The peak instantaneous gradient of the aortic valve is 18.85 mmHg. The aortic valve area, by peak velocities, is calculated at 1.5 cm2. The aortic valve area, by VTI's, is calculated at 1.6 cm2. Mitral Valve: There is mitral annular calcification. The mitral valve leaflets are mildly thickened. There is mild mitral regurgitation. There is mild mitral stenosis. Tricuspid Valve: The tricuspid valve leaflets are mildly thickened. There is mild tricuspid regurgitation. The right ventricular systolic pressure is estimated at 35 mmHg. There is evidence that pulmonary hypertension may be underestimated. There is no tricuspid stenosis. Pulmonic Valve: The pulmonic valve structure is not well visualized. There is a trace pulmonic regurgitation. There is no pulmonic stenosis. Pericardium: There is no significant pericardial effusion. Aorta: There is no dilatation of the ascending aorta. There is no dilatation of the aortic arch. There is mild dilatation of the aortic root. Pulmonary Artery: The main pulmonary artery is not well visualized. Venous: The inferior vena cava is dilated. There is a greater than 50% respiratory change in the inferior vena cava dimension. Conclusions The study is technically limited due to poor acoustic windows. The study was technically limited due to the patient's inability to lay in the left lateral decubitus position. Completed at 1540. Mild concentric left ventricular hypertrophy is observed. There is global hypokinesis of the left ventricle with minor regional variation.In limited views , the low posterolatertal wall shows the worst wall motion. There is moderately decreased left ventricular systolic function. The estimated ejection fraction is 35-40%, Visually estimated LVEF is closer to 40%. There is mild aortic stenosis. There is mild mitral regurgitation. There is mild mitral stenosis. There is mild tricuspid regurgitation. There is a trace pulmonic regurgitation. Compared to report of study from 08/27/2017 the overall LV systolic function is better (was reported 25-30% ). Measurements Name Value Normal Range RVIDd (AP) 2D 3.4 cm (0.9 - 2.6) RVDdMajor (2D) 5.7 cm (2.2 - 4.4) RAd ISD 4CH 6.2 cm (3.4 - 4.9) RA (A4C)W 5.3 cm (2.9 - 4.6) IVSd (2D) 1.2 cm (0.6 - 1) LVPWd (2D) 1.2 cm (0.6 - 1) LVIDd (2D) 4.8 cm (3.6 - 5.4) LVIDs (2D) 3.9 cm - LV FS (2D) 18 % (25 - 45) Aortic Annulus 2.2 cm (1.4 - 2.6) Ao root diameter (2D) 3.6 cm (2.1 - 3.5) Ascending Ao 3 cm (2.1 - 3.4) Aortic arch 2.2 cm (1.8 - 3.4) LA dimension (AP) 2D 4.7 cm (2.3 - 3.8) LAd ISD 4CH 6.2 cm (2.9 - 5.3) LA ISD 4CH W 4.5 cm (2.5 - 4.5) Name Value Normal Range LA ESV SP 4CH (A/L) 92 ml - LA ESV SP 2CH (A/L) 131 ml - LA ESV BP (A/L) 116 ml - LA ESV BP (A/L) index 61 ml/m2 - LA ESV SP 4CH (MOD) 88 ml - LA ESV SP 2CH (MOD) 129 ml - Name Value Normal Range MV E-wave Vmax 1.54 m/sec - MV deceleration time 252.95 msec - MV A-wave Vmax 0.64 m/sec - MV E:A ratio 2.38 ratio - LV septal e' Vmax 0.05 m/sec - LV lateral e' Vmax 0.06 m/sec - LV E:e' septal ratio 30.8 ratio - LV E:e' lateral ratio 25.67 ratio - Name Value Normal Range AV Vmax 2.2 m/sec - AV VTI 40.96 cm - AV peak gradient 18.85 mmHg - AV mean gradient 11.9 mmHg - LVOT diameter 2 cm - LVOT Vmax 1.07 m/sec - LVOT VTI 21.47 cm - LVOT peak gradient 4.59 mmHg - LVOT mean gradient 2.52 mmHg - DOI (VTI) 0.52 ratio - PATSY (continuity Vmax) 1.5 cm2 - PATSY (continuity VTI) 1.6 cm2 - Name Value Normal Range MV Vmax 1.53 m/sec - MV VTI 39.76 cm - MV peak gradient 9.44 mmHg - MV mean gradient 3.67 mmHg - MV PHT 91.31 msec - MVA (PHT) 2.4 cm2 - MVA (continuity VTI) 2.05 cm2 - Name Value Normal Range TR Vmax 2.6 m/sec - TR peak gradient 27 mmHg - RAP 8 mmHg - RVSP 35 mmHg - IVC diameter 2.1 cm - Name Value Normal Range PV Vmax 1.02 m/sec - PV peak gradient 4.17 mmHg -
--- NOTE | 2017-10-04 16:21 | PN ---
Subjective Date of Service: 10/04/17 Interval History: Multiple conversations at bedside with pt. Overall goal is that pt wants to be comfortable and now wants DNR/DNI. He would like trial Bipap at this time. He does however wants antibiotics and HD still for now and later expressed desire to pursue endovascular procedure with Dr. Vasquez though he reserves right to change his mind. palliative care consulted. retaining urine ~300 tachypneic. defervesced. Tmax 101.0 sister updated at bedside. Objective Active Medications: Acetaminophen (Tylenol Tab*) 650 mg PO Q4H PRN PRN Reason: FEVER/PAIN Last Admin: 10/04/17 05:40 Dose: 650 mg Aspirin (Aspirin Ec Low Dose*) 81 mg PO DAILY [facility] Last Admin: 10/04/17 08:34 Dose: 81 mg Atorvastatin Calcium (Lipitor*) 10 mg PO DAILY [facility] Last Admin: 10/04/17 08:25 Dose: 10 mg Cyclobenzaprine HCl (Flexeril Tab*) 10 mg PO TID PRN PRN Reason: cramps Last Admin: 10/04/17 13:13 Dose: 10 mg Heparin Sodium (Porcine) (Heparin Vial(*)) 5,000 units SUBCUT Q8HR [facility] Last Admin: 10/04/17 13:15 Dose: 5,000 units Metronidazole/Sodium Chloride (Flagyl 500 Mg Ivpb*) 500 mg in 100 mls @ 100 mls /hr IVPB Q8H [facility] Last Admin: 10/04/17 08:40 Dose: 100 mls/hr Vancomycin HCl 750 mg/ Sodium (Chloride) 250 mls @ 166.667 mls/hr IVPB MoWeFr@ 1500 PRN PRN Reason: RANDOM LEVEL WITHIN GOAL RANGE Cefepime HCl (Maxipime 1 Gm In Dextrose Duplex (*)) 1 gm in 50 mls @ 100 mls/ hr IV DAILY@2200 [facility] Last Admin: 10/03/17 22:58 Dose: 100 mls/hr Morphine Sulfate (Morphine Inj (Syringe)*) 2 mg IV Q2H PRN PRN Reason: PAIN - MODERATE TO SEVERE Omeprazole (Prilosec Cap*) 20 mg PO 0600 [facility] Last Admin: 10/04/17 05:39 Dose: 20 mg Ondansetron HCl (Zofran Inj*) 4 mg IV Q6H PRN PRN Reason: NAUSEA Last Admin: 10/03/17 19:43 Dose: 4 mg Pharmacy Consult (Vancomycin Random Level*) 1 note FOLLOW UP MoWeFr@0600 [facility] Ropinirole HCl (Requip Tab*) 1 mg PO TID [facility] Last Admin: 10/04/17 13:12 Dose: 1 mg Sevelamer Carbonate (Renvela Tab*) 2,400 mg PO TID WITH MEALS [facility] Last Admin: 10/04/17 12:47 Dose: 2,400 mg Tramadol HCl (Ultram*) 25 mg PO Q6H PRN PRN Reason: PAIN Last Admin: 10/04/17 08:25 Dose: 25 mg Vital Signs - 8 hr 10/04/17 10/04/17 10/04/17 08:25 09:36 11:35 Temperature 98.7 F 98.8 F Pulse Rate 90 98 Respiratory 28 28 20 Rate Blood Pressure 98/72 121/73 (mmHg) O2 Sat by Pulse 97 88 Oximetry 10/04/17 10/04/17 10/04/17 12:49 13:00 13:13 Temperature Pulse Rate Respiratory 24 24 Rate Blood Pressure (mmHg) O2 Sat by Pulse 95 Oximetry 10/04/17 15:58 Temperature 98.5 F Pulse Rate 94 Respiratory 18 Rate Blood Pressure 97/57 (mmHg) O2 Sat by Pulse 92 Oximetry Oxygen Devices in Use Now: OxyMask Appearance: Acute on Chronically ill appearing. Eyes: No Scleral Icterus Ears/Nose/Mouth/Throat: NL Teeth, Lips, Gums Neck: NL Appearance and Movements; NL JVP Respiratory: Symmetrical Chest Expansion and Respiratory Effort, - - reduced at bases, no wheezing or rhonchi. Cardiovascular: NL Sounds; No Murmurs; No JVD, RRR Abdominal: NL Sounds; No Tenderness; No Distention, No Hepatosplenomegaly Extremities: - - necrotic wounds in bilateral anterior shins. Skin: - - necrotic skin lesions b/l Neurological: Alert and Oriented x 3, NL Sensation, - - intermittently drowsy. Nutrition: Taking PO's Result Diagrams: 10/04/17 05:20 10/04/17 05:20 Additional Lab and Data: Laboratory Results - last 24 hr 10/03/17 10/03/17 10/03/17 19:16 20:44 23:58 WBC RBC Hgb Hct MCV MCH MCHC RDW Plt Count MPV Neut % (Auto) Lymph % (Auto) [place] % (Auto) Eos % (Auto) Baso % (Auto) Absolute Neuts (auto) Absolute Lymphs (auto) Absolute Monos (auto) Absolute Eos (auto) Absolute Basos (auto) Absolute Nucleated RBC Nucleated RBC % INR (Anticoag Therapy) Sodium Potassium Chloride Carbon Dioxide Anion Gap BUN Creatinine Est GFR ( Amer) Est GFR (Non-Af Amer) BUN/Creatinine Ratio Glucose POC Glucose (mg/dL) 80 73 Calcium Troponin I 0.30 H* 10/04/17 10/04/17 10/04/17 05:20 05:20 05:20 WBC 6.5 RBC 2.70 L Hgb 8.5 L Hct 25 L MCV 94 MCH 32 H MCHC 34 RDW 17 H Plt Count 173 MPV 8.0 Neut % (Auto) 80.1 Lymph % (Auto) 5.6 L [place] % (Auto) 8.3 H Eos % (Auto) 5.2 Baso % (Auto) 0.8 Absolute Neuts (auto) 5.2 Absolute Lymphs (auto) 0.4 L Absolute Monos (auto) 0.5 Absolute Eos (auto) 0.3 Absolute Basos (auto) 0.1 Absolute Nucleated RBC 0 Nucleated RBC % 0.1 INR (Anticoag Therapy) 1.55 H Sodium 136 L Potassium 3.0 L Chloride 91 L Carbon Dioxide 33 H Anion Gap 12 H BUN 22 Creatinine 6.58 H Est GFR ( Amer) 11.0 Est GFR (Non-Af Amer) 8.6 BUN/Creatinine Ratio 3.3 L Glucose 68 L POC Glucose (mg/dL) Calcium 8.2 L Troponin I 10/04/17 10/04/17 10/04/17 09:46 12:35 19:28 WBC RBC Hgb Hct MCV MCH MCHC RDW Plt Count MPV Neut % (Auto) Lymph % (Auto) [place] % (Auto) Eos % (Auto) Baso % (Auto) Absolute Neuts (auto) Absolute Lymphs (auto) Absolute Monos (auto) Absolute Eos (auto) Absolute Basos (auto) Absolute Nucleated RBC Nucleated RBC % INR (Anticoag Therapy) Sodium Potassium Chloride Carbon Dioxide Anion Gap BUN Creatinine Est GFR ( Amer) Est GFR (Non-Af Amer) BUN/Creatinine Ratio Glucose POC Glucose (mg/dL) 75 69 L 80 Calcium Troponin I Microbiology and Other Data: Microbiology 10/03/17 13:30 Blood Venous Aerobic Blood Culture - Preliminary No Growth Day 1 10/03/17 13:30 Blood Venous Anaerobic Blood Culture - Preliminary No Growth Day 1 10/03/17 13:30 Blood Venous Aerobic Blood Culture - Preliminary No Growth Day 1 10/03/17 13:30 Blood Venous Anaerobic Blood Culture - Preliminary No Growth Day 1 10/03/17 14:01 Nasal Nasal Screen MRSA (PCR)(JORGE) - Final Mrsa Not Detected 10/03/17 14:01 Nasal Influenza Types A,B Antigen (JORGE) - Final Specimen received for Influenza A/B Molecular testing Assess/Plan/Problems-Billing Assessment: 66 yo male PMH ESRD HD T,R,Sa, systolic CHF (EF 35-40%), moderate-severe pHTN presents from [facility] with sepsis 2/2 b/l necrotic leg wounds in setting of b/ l PVD, chronic respiratory failure, hypoglycemia. Pt desiring DNR/DNI (with Bipap okay. Vanc, flagyl, cefepime) #Sepsis 2/2 Necrotic leg wounds. Also Hx of VRE in Urine - CT with at least high grade stenosis of distal left superficial femoral artery. focal occlusion of - Appreciate Dr. Christina zaidi. Pt wanting to proceed with catheter ateriography and potential endovascular intervention. - Pt to get thoracentesis and HD tomorrow to help stablize respiratory status. - continue empiric vancomycin, cefepime, flagyl - CRP 380 - ID consulted. - consider Urology to place camacho in AM as RNs have been unable to place twice. Edematous penis, may be easier after HD. - pain control with morphine/tramadol #Goals of care - palliative care consult - strong consideration for full comfort care given multiple comorbities. # RLS - flexeril, requip CODE: DNR/DNI but BIPAP okay. DVT ppx: heparin TID. diet: heart healthy dispo: medicine inpatient. -
--- NOTE | 2017-10-04 17:23 | PN ---
Hospitalist Progress Note Pt currently wants Bipap if necessary and would like to proceed with IR intervention tomorrow. Still DNR/DNI. Updated sister Helga.
[2017-10-04] MEDS: Cefepime 1 GM in Dextrose(*) 1 GM/50 ML BAG IV SCH (21:38)
[2017-10-05] MEDS: Acetaminophen TAB* 325 MG PO PRN (00:29)
[2017-10-05] MEDS ORDERED: Furosemide IV* 10 MG/ML VIAL (40 MG) IV ONE (01:17)
[2017-10-05] MEDS ORDERED: Albuterol 2.5 MG/3 ML NEB.SOL* (0.083%) INH PRN (01:18)
[2017-10-05] MEDS: Omeprazole CAP* 20 MG PO SCH (05:44)
[2017-10-05] MEDS: Heparin VIAL(*) 5000 UNITS/ML VIAL (FIVE THOUSAND) SUBCUT SCH ×3 (05:44→21:44)
[2017-10-05] MEDS ORDERED: Vancomycin Random Level* NOTE FOLLOW UP SCH (06:00)
[2017-10-05 06:21] LABS: ABS Basophils 0.1 10^3/ul (0-0.2); ABS Eosinophils 0.3 10^3/ul (0-0.6); ABS Lymphocytes 0.4 10^3/ul (1.0-4.8); ABS Monocytes 0.5 10^3/ul (0-0.8); ABS Nucleated RBC 0 10^3/ul; Hematocrit 29 % (42-52); Hemoglobin 9.3 g/dl (14.0-18.0); Lymphocyte % 6.9 % (25-47); Mean Corpuscular HGB Conc 33 g/dl (31-36); Mean Corpuscular Hemoglobin 31 pg (27-31); Mean Corpuscular Volume 94 fL (80-94); Mean Platelet Volume 7.7 um3 (7.4-10.4); Nucleated Red Blood Cells % 0; Platelet Count 200 10^3/ul (150-450); Red Blood Count 3.03 10^6/ul (4.0-5.4); Red Cell Distribution Width 17 % (10.5-15); White Blood Count 6.3 10^3/ul (3.5-10.8)
[2017-10-05 06:35] LABS: EGFR Non-African American 7.4 (>60)
[2017-10-05] MEDS ORDERED: Potassium Chlor TAB* 20 MEQ TAB.ER PO ONE ×2 (07:11→10:29)
[2017-10-05] MEDS ORDERED: Magnesium Sulfate 2 GM IV* 2 GM/50 ML BAG IVPB ONE (08:06)
[2017-10-05] MEDS: Sevelamer TAB* 800 MG PO SCH ×3 (08:24→16:06)
[2017-10-05] MEDS: rOPINIRole TAB* 1 MG PO SCH ×3 (08:25→21:44)
[2017-10-05] MEDS: Aspirin EC TAB* 81 MG TAB.EC PO SCH (08:25)
[2017-10-05] MEDS: Atorvastatin* 10 MG TAB PO SCH (08:25)
[2017-10-05 08:50] LABS: INR 1.52 (0.77-1.02)
--- NOTE | 2017-10-05 09:38 | RAD ---
INDICATION: End-stage renal disease and congestive heart failure. RIGHT side thoracentesis requested. COMPARISON: October 03, 2017 CT Written informed consent obtained. Timeout performed. PROCEDURE: Large volume of nonloculated RIGHT pleural fluid visualized at the posterior inferior thorax with the patient seated. Routine aseptic skin prep. Soft tissues superficial to the pleural space anesthetized with 4 mL 1% lidocaine. Through a small skin neck a 5-Tajik thoracentesis catheter was advanced into the pleural space over an introducer needle internal return of pleural fluid. The needle was removed and the catheter advanced. 1800 mL of clear straw fluid was aspirated under vacuum. The patient denied discomfort or coughing during thoracentesis. Xeroform gauze and Tegaderm dressing applied. The patient tolerated the procedure well with no immediate complications. IMPRESSION: Successful US guided RIGHT thoracentesis.
[2017-10-05] MEDS: Tamsulosin CAP* 0.4 MG PO SCH (09:54)
[2017-10-05] MEDS: metroNIDAZOLE IV 500 MG/100ML* 500 MG/100 ML BAG IVPB SCH ×3 (09:54→23:24)
--- NOTE | 2017-10-05 10:24 | PN ---
AMENDED REPORT NOW INCLUDES DATE OF VISIT PROGRESS NOTE: DATE OF VISIT: 10/04/17 HISTORY: Mr. Knight is well known to me from outpatient management in the dialysis unit. I have been following his course here in the hospital and I am aware of the recent vascular studies and consultation by Dr. Vasquez and I have reviewed the case in detail with Dr. Vasquez. I have just had a prolonged discussion of about 45 minutes with the patient and his family regarding his options. At present, the options that I see are continuing as we are doing, which is not doing well, and he is continuing to have significant discomfort. He is actually wanting less pain medication that I think would be necessary, but he wants to remain lucid as much as possible. He could quit dialysis and go to hospice care and we could ensure his comfort or we could make an attempt at an arteriogram with angioplasty and stent placement if that were possible and see if we can get any better wound healing. I described for them the fact that even though that procedure may be of value to his lower limbs, he still has diffuse atherosclerosis in other areas as well as significant heart failure with a markedly depressed ejection fraction. At the present time, the patient is not able to make any decisions as to how to instruct us to proceed. He and his family wanted to take some more time to think about it. I did discuss the risks of his arteriogram should he proceed. I did discuss the time course of longevity with discontinuance of dialysis and I did discuss the issue that I thought that his pain control was less than adequate based upon his own decision making. I answered all their questions to their satisfaction. I have discussed the case with Dr. Howard Patiño as well. [id number]/[facility] #: [id number] PETER
[2017-10-05] MEDS ORDERED: CMCS - Midodrine (NF) 5 MG TAB PO ONE (13:20)
--- NOTE | 2017-10-05 15:03 | RAD ---
Indication: Post RIGHT unilateral thoracentesis today. Comparison: Ultrasound of the same date and October 03, [address] October 03, 2017 chest radiograph. Technique: Sitting AP and lateral chest views. Report: Negative for pneumothorax. Significant decrease in volume of dependent LEFT pleural fluid with proportional reduction in atelectasis at the RIGHT lung. No significant change in moderately large LEFT pleural effusion with compressive atelectasis. Mild cardiomegaly. Mildly prominent central pulmonary vasculature and diffuse mild prominence of interstitial markings. IMPRESSION: Negative for pneumothorax post large volume LEFT thoracentesis. Persistent findings of pulmonary vascular congestion and interstitial edema.
[2017-10-05] MEDS: Cefepime 1 GM in Dextrose(*) 1 GM/50 ML BAG IV SCH (21:44)
--- NOTE | 2017-10-05 22:30 | PN ---
Subjective Date of Service: 10/05/17 Interval History: Tmax 103.0 midnight. s/p 1800cc thoracentesis with IR this AM. Pt's breathing subjectively improved. was too hypotensive with dialysis to remove and infact got 500cc extra. was given midodrine during aspirated some water with that pill Mentation waxed/waned. did get one dose morphine in AM Went into Afib RVR. lytes repletion. Objective Active Medications: Acetaminophen (Tylenol Tab*) 650 mg PO Q4H PRN PRN Reason: FEVER/PAIN Last Admin: 10/05/17 00:29 Dose: 650 mg Albuterol (Ventolin 2.5 Mg/3 Ml Neb.Maria Isabel*) 2.5 mg INH Q2H PRN PRN Reason: SOB/WHEEZING Last Admin: 10/05/17 02:10 Dose: 2.5 mg Aspirin (Aspirin Ec Low Dose*) 81 mg PO DAILY [facility] Last Admin: 10/05/17 08:25 Dose: 81 mg Atorvastatin Calcium (Lipitor*) 10 mg PO DAILY [facility] Last Admin: 10/05/17 08:25 Dose: 10 mg Cyclobenzaprine HCl (Flexeril Tab*) 10 mg PO TID PRN PRN Reason: cramps Last Admin: 10/04/17 21:02 Dose: 10 mg Heparin Sodium (Porcine) (Heparin Vial(*)) 5,000 units SUBCUT Q8HR [facility] Last Admin: 10/05/17 21:44 Dose: 5,000 units Metronidazole/Sodium Chloride (Flagyl 500 Mg Ivpb*) 500 mg in 100 mls @ 100 mls /hr IVPB Q8H [facility] Last Admin: 10/05/17 16:31 Dose: 100 mls/hr Vancomycin HCl 750 mg/ Sodium (Chloride) 250 mls @ 166.667 mls/hr IVPB MoWeFr@ 1500 PRN PRN Reason: RANDOM LEVEL WITHIN GOAL RANGE Cefepime HCl (Maxipime 1 Gm In Dextrose Duplex (*)) 1 gm in 50 mls @ 100 mls/ hr IV DAILY@2200 [facility] Last Admin: 10/05/17 21:44 Dose: 100 mls/hr Morphine Sulfate (Morphine Inj (Syringe)*) 2 mg IV Q2H PRN PRN Reason: PAIN - MODERATE TO SEVERE Last Admin: 10/05/17 09:55 Dose: 2 mg Omeprazole (Prilosec Cap*) 20 mg PO 0600 [facility] Last Admin: 10/05/17 05:44 Dose: 20 mg Ondansetron HCl (Zofran Inj*) 4 mg IV Q6H PRN PRN Reason: NAUSEA Last Admin: 10/03/17 19:43 Dose: 4 mg Pharmacy Consult (Vancomycin Random Level*) 1 note FOLLOW UP MoWeFr@0600 [facility] Last Admin: 10/05/17 05:44 Dose: Not Given Ropinirole HCl (Requip Tab*) 1 mg PO TID [facility] Last Admin: 10/05/17 21:44 Dose: 1 mg Sevelamer Carbonate (Renvela Tab*) 2,400 mg PO TID WITH MEALS [facility] Last Admin: 10/05/17 16:06 Dose: Not Given Tamsulosin HCl (Flomax Cap*) 0.4 mg PO DAILY [facility] Last Admin: 10/05/17 09:54 Dose: 0.4 mg Tramadol HCl (Ultram*) 25 mg PO Q6H PRN PRN Reason: PAIN Last Admin: 10/04/17 21:03 Dose: 25 mg Vital Signs - 8 hr 10/05/17 10/05/17 10/05/17 15:13 16:48 19:23 Temperature 98.2 F 100.7 F 99.1 F Pulse Rate 117 134 Respiratory 24 20 Rate Blood Pressure 92/62 119/70 (mmHg) O2 Sat by Pulse 95 98 Oximetry 10/05/17 19:35 Temperature Pulse Rate Respiratory 22 Rate Blood Pressure (mmHg) O2 Sat by Pulse Oximetry Oxygen Devices in Use Now: Nasal Cannula Appearance: chronically ill appearing with worsening compared to prior baseline. Eyes: No Scleral Icterus, PERRLA Ears/Nose/Mouth/Throat: NL Teeth, Lips, Gums, Mucous Membranes Moist Neck: NL Appearance and Movements; NL JVP Respiratory: Symmetrical Chest Expansion and Respiratory Effort, - - coarse rhonchi right, diminished on left. Cardiovascular: NL Sounds; No Murmurs; No JVD, RRR, - Abdominal: NL Sounds; No Tenderness; No Distention, No Hepatosplenomegaly Extremities: - - feet edema 1+ Skin: - - necrotic wounds b/l lower extremities Neurological: Alert and Oriented x 3, NL Sensation Nutrition: Taking PO's Result Diagrams: 10/05/17 05:58 10/05/17 05:58 Additional Lab and Data: Laboratory Results - last 24 hr 10/03/17 10/04/17 10/05/17 13:30 23:19 03:42 WBC RBC Hgb Hct MCV MCH MCHC RDW Plt Count MPV Neut % (Auto) Lymph % (Auto) [place] % (Auto) Eos % (Auto) Baso % (Auto) Absolute Neuts (auto) Absolute Lymphs (auto) Absolute Monos (auto) Absolute Eos (auto) Absolute Basos (auto) Absolute Nucleated RBC Nucleated RBC % Hem Pathologist Commnt INR (Anticoag Therapy) APTT Sodium Potassium Chloride Carbon Dioxide Anion Gap BUN Creatinine Est GFR ( Amer) Est GFR (Non-Af Amer) BUN/Creatinine Ratio Glucose POC Glucose (mg/dL) 90 74 Calcium Magnesium Lactate Dehydrogenase Random Vancomycin 10/05/17 10/05/17 10/05/17 05:58 05:58 08:24 WBC 6.3 RBC 3.03 L Hgb 9.3 L Hct 29 L MCV 94 MCH 31 MCHC 33 RDW 17 H Plt Count 200 MPV 7.7 Neut % (Auto) 79.7 Lymph % (Auto) 6.9 L [place] % (Auto) 7.4 H Eos % (Auto) 5.0 Baso % (Auto) 1.0 Absolute Neuts (auto) 5.0 Absolute Lymphs (auto) 0.4 L Absolute Monos (auto) 0.5 Absolute Eos (auto) 0.3 Absolute Basos (auto) 0.1 Absolute Nucleated RBC 0 Nucleated RBC % 0 Hem Pathologist Commnt INR (Anticoag Therapy) APTT Sodium 135 L Potassium 2.9 L Chloride 91 L Carbon Dioxide 32 Anion Gap 12 H BUN 27 H Creatinine 7.48 H Est GFR ( Amer) 9.5 Est GFR (Non-Af Amer) 7.4 BUN/Creatinine Ratio 3.6 L Glucose 66 L POC Glucose (mg/dL) 73 Calcium 8.2 L Magnesium 1.8 L Lactate Dehydrogenase 251 Random Vancomycin 10/05/17 10/05/17 10/05/17 08:35 11:52 13:00 WBC RBC Hgb Hct MCV MCH MCHC RDW Plt Count MPV Neut % (Auto) Lymph % (Auto) [place] % (Auto) Eos % (Auto) Baso % (Auto) Absolute Neuts (auto) Absolute Lymphs (auto) Absolute Monos (auto) Absolute Eos (auto) Absolute Basos (auto) Absolute Nucleated RBC Nucleated RBC % Hem Pathologist Commnt INR (Anticoag Therapy) 1.52 H APTT 52.1 H Sodium Potassium Chloride Carbon Dioxide Anion Gap BUN Creatinine Est GFR ( Amer) Est GFR (Non-Af Amer) BUN/Creatinine Ratio Glucose POC Glucose (mg/dL) 83 Calcium Magnesium Lactate Dehydrogenase Random Vancomycin 8.6 10/05/17 10/05/17 16:33 19:28 WBC RBC Hgb Hct MCV MCH MCHC RDW Plt Count MPV Neut % (Auto) Lymph % (Auto) [place] % (Auto) Eos % (Auto) Baso % (Auto) Absolute Neuts (auto) Absolute Lymphs (auto) Absolute Monos (auto) Absolute Eos (auto) Absolute Basos (auto) Absolute Nucleated RBC Nucleated RBC % Hem Pathologist Commnt INR (Anticoag Therapy) APTT Sodium Potassium Chloride Carbon Dioxide Anion Gap BUN Creatinine Est GFR ( Amer) Est GFR (Non-Af Amer) BUN/Creatinine Ratio Glucose POC Glucose (mg/dL) 80 81 Calcium Magnesium Lactate Dehydrogenase Random Vancomycin Microbiology and Other Data: Microbiology 10/03/17 13:30 Blood Venous Aerobic Blood Culture - Preliminary No Growth Day 2 10/03/17 13:30 Blood Venous Anaerobic Blood Culture - Preliminary No Growth Day 2 10/03/17 13:30 Blood Venous Aerobic Blood Culture - Preliminary No Growth Day 2 10/03/17 13:30 Blood Venous Anaerobic Blood Culture - Preliminary No Growth Day 2 10/03/17 14:01 Nasal Nasal Screen MRSA (PCR)(JORGE) - Final Mrsa Not Detected 10/03/17 14:01 Nasal Influenza Types A,B Antigen (JORGE) - Final Specimen received for Influenza A/B Molecular testing Assess/Plan/Problems-Billing Assessment: 66 yo Oriental orthodox (won't accept blood products) male PMH ESRD HD T,R,Sa, systolic CHF (EF 35-40%), pAfib, moderate-severe pHTN presents from [facility] with sepsis 2/2 b/l necrotic leg wounds in setting of b/l PVD, acute on chronic respiratory failure, severe hypoglycemia. Pt desiring DNR/DNI (with Bipap okay) . On Vanc, flagyl, cefepime #Sepsis 2/2 Necrotic leg wounds. Also Hx of VRE in Urine - CT with at least high grade stenosis of distal left superficial femoral artery. focal occlusion of bilateral popliteal artery. - Appreciate Dr. Christina zaidi. Pt wanting to proceed with catheter ateriography and potential endovascular intervention. - s/p thoracentesis with 1800 cc off. did not get any effective HD. - continue empiric vancomycin, cefepime, flagyl - CRP 380 - ID consulted. - consider Urology to place camacho in AM as RNs have been unable to place twice. Edematous penis, may be easier after HD. No cosmetic surgeon today. - pain control with morphine/tramadol #Goals of care - palliative care consult - strong consideration for full comfort care given multiple comorbities. I am extremely doubtful that he will survive this admission. #?aspiration - [employer] eval # RLS - flexeril, requip CODE: DNR/DNI but BIPAP okay. DVT ppx: heparin TID. diet: heart healthy dispo: medicine inpatient.
[2017-10-05] MEDS: Cyclobenzaprine TAB* 10 MG PO PRN (22:44)
[2017-10-06] MEDS: Vancomycin(*) 750 MG in NS 0.9% 250 ML* 250 ML IVPB ONE ×3 (00:09)
[2017-10-06] MEDS ORDERED: Vancomycin(*) 750 MG in NS 0.9% 250 ML* 250 ML IVPB ONE ×2 (00:30→09:00)
[2017-10-06] MEDS: Acetaminophen TAB* 325 MG PO PRN (00:50)
[2017-10-06] MEDS: Metoprolol Tartrate IV* 1 MG/ML 5 ML VIAL IV ONE ×2 (03:27→05:41)
[2017-10-06] MEDS: Cyclobenzaprine TAB* 10 MG PO PRN ×2 (03:43→22:53)
[2017-10-06] MEDS: traMADol TAB* 50 MG PO PRN (04:09)
[2017-10-06 05:29] LABS: ABS Basophils 0 10^3/ul (0-0.2); ABS Eosinophils 0.4 10^3/ul (0-0.6); ABS Lymphocytes 0.5 10^3/ul (1.0-4.8); ABS Monocytes 0.5 10^3/ul (0-0.8); ABS Neutrophils 5.7 10^3/ul (1.5-7.7); ABS Nucleated RBC 0 10^3/ul; Eosinophil % 5.5 % (0-6); Hematocrit 27 % (42-52); Hemoglobin 9.1 g/dl (14.0-18.0); Lymphocyte % 6.5 % (25-47); Mean Corpuscular HGB Conc 34 g/dl (31-36); Mean Corpuscular Hemoglobin 32 pg (27-31); Mean Corpuscular Volume 94 fL (80-94); Nucleated Red Blood Cells % 0; Platelet Count 185 10^3/ul (150-450); Red Blood Count 2.84 10^6/ul (4.0-5.4); Red Cell Distribution Width 17 % (10.5-15); White Blood Count 7.1 10^3/ul (3.5-10.8)
[2017-10-06] MEDS: Heparin VIAL(*) 5000 UNITS/ML VIAL (FIVE THOUSAND) SUBCUT SCH ×2 (05:41→14:00)
[2017-10-06] MEDS: Omeprazole CAP* 20 MG PO SCH (05:41)
[2017-10-06 05:44] LABS: EGFR Non-African American 6.6 (>60)
[2017-10-06] MEDS ORDERED: Magnesium Sulfate 2 GM IV* 2 GM/50 ML BAG IVPB ONE (08:27)
[2017-10-06] MEDS: metroNIDAZOLE IV 500 MG/100ML* 500 MG/100 ML BAG IVPB SCH ×2 (08:30→15:12)
[2017-10-06] MEDS: Tamsulosin CAP* 0.4 MG PO SCH (08:32)
[2017-10-06] MEDS: rOPINIRole TAB* 1 MG PO SCH ×2 (08:32→14:00)
[2017-10-06] MEDS: Aspirin EC TAB* 81 MG TAB.EC PO SCH (08:32)
[2017-10-06] MEDS: Atorvastatin* 10 MG TAB PO SCH (08:32)
--- NOTE | 2017-10-06 08:33 | PN ---
Subjective Date of Service: 10/06/17 Interval History: AFib RVR overnight, 100-110 currently. lopressor 5mg IV at 540am. denies pain. coughing. SOB w/ talking lytes low still. Tmax 100.1 redosed vanc. Pt continues to decline. HR 140-150s. Long talk with patient and Sister Helga at bedside. Pt transitioned to comfort care measures. abx stopped Objective Active Medications: Acetaminophen (Tylenol Tab*) 650 mg PO Q4H PRN PRN Reason: FEVER/PAIN Last Admin: 10/06/17 00:50 Dose: 650 mg Albuterol (Ventolin 2.5 Mg/3 Ml Neb.Maria Isabel*) 2.5 mg INH Q2H PRN PRN Reason: SOB/WHEEZING Last Admin: 10/05/17 02:10 Dose: 2.5 mg Aspirin (Aspirin Ec Low Dose*) 81 mg PO DAILY [facility] Last Admin: 10/05/17 08:25 Dose: 81 mg Atorvastatin Calcium (Lipitor*) 10 mg PO DAILY [facility] Last Admin: 10/05/17 08:25 Dose: 10 mg Cyclobenzaprine HCl (Flexeril Tab*) 10 mg PO TID PRN PRN Reason: cramps Last Admin: 10/06/17 03:43 Dose: 10 mg Heparin Sodium (Porcine) (Heparin Vial(*)) 5,000 units SUBCUT Q8HR [facility] Last Admin: 10/06/17 05:41 Dose: 5,000 units Metronidazole/Sodium Chloride (Flagyl 500 Mg Ivpb*) 500 mg in 100 mls @ 100 mls /hr IVPB Q8H [facility] Last Admin: 10/05/17 23:24 Dose: 100 mls/hr Vancomycin HCl 750 mg/ Sodium (Chloride) 250 mls @ 166.667 mls/hr IVPB MoWeFr@ 1500 PRN PRN Reason: RANDOM LEVEL WITHIN GOAL RANGE Cefepime HCl (Maxipime 1 Gm In Dextrose Duplex (*)) 1 gm in 50 mls @ 100 mls/ hr IV DAILY@2200 [facility] Last Admin: 10/05/17 21:44 Dose: 100 mls/hr Magnesium Sulfate (Magnesium Sulfate 2 Gm Iv*) 2 gm in 50 mls @ 50 mls/hr IVPB ONCE ONE Stop: 10/06/17 09:26 Potassium Chloride (Potassium Chloride 20 Meq/100 Ml Ivpremix*) 20 meq in 100 mls @ 50 mls/hr IV Q2H [facility] Stop: 10/06/17 14:59 Morphine Sulfate (Morphine Inj (Syringe)*) 2 mg IV Q2H PRN PRN Reason: PAIN - MODERATE TO SEVERE Last Admin: 10/05/17 09:55 Dose: 2 mg Omeprazole (Prilosec Cap*) 20 mg PO 0600 [facility] Last Admin: 10/06/17 05:41 Dose: 20 mg Ondansetron HCl (Zofran Inj*) 4 mg IV Q6H PRN PRN Reason: NAUSEA Last Admin: 10/03/17 19:43 Dose: 4 mg Pharmacy Consult (Vancomycin Random Level*) 1 note FOLLOW UP MoWeFr@0600 [facility] Last Admin: 10/05/17 05:44 Dose: Not Given Ropinirole HCl (Requip Tab*) 1 mg PO TID [facility] Last Admin: 10/05/17 21:44 Dose: 1 mg Sevelamer Carbonate (Renvela Tab*) 2,400 mg PO TID WITH MEALS [facility] Last Admin: 10/05/17 16:06 Dose: Not Given Tamsulosin HCl (Flomax Cap*) 0.4 mg PO DAILY [facility] Last Admin: 10/05/17 09:54 Dose: 0.4 mg Tramadol HCl (Ultram*) 25 mg PO Q6H PRN PRN Reason: PAIN Last Admin: 10/06/17 04:09 Dose: 25 mg Vital Signs - 8 hr 10/06/17 10/06/17 10/06/17 00:48 02:13 03:29 Temperature 99.4 F 98.3 F Pulse Rate 45 126 Respiratory 26 28 20 Rate Blood Pressure 123/64 86/57 (mmHg) O2 Sat by Pulse 95 96 Oximetry 10/06/17 10/06/17 10/06/17 03:43 04:09 05:39 Temperature Pulse Rate Respiratory 28 24 24 Rate Blood Pressure (mmHg) O2 Sat by Pulse Oximetry 10/06/17 10/06/17 05:40 07:33 Temperature 96.9 F Pulse Rate 95 Respiratory 28 Rate Blood Pressure 132/62 95/56 (mmHg) O2 Sat by Pulse 100 Oximetry Oxygen Devices in Use Now: Nasal Cannula Appearance: intially drowsy, later awake but uncomfortable appearing Respiratory: - - rhonchi base. Cardiovascular: - - irregularly irregular, tachycardic. Abdominal: NL Sounds; No Tenderness; No Distention, No Hepatosplenomegaly Extremities: - - necrotic b/l leg wounds. pulses were no longer dopplerable. Skin: - - necrotic leg wounds b/l Neurological: - - oriented x3. intermittently drowsy. Nutrition: Taking PO's Result Diagrams: 10/06/17 05:01 10/06/17 05:01 Additional Lab and Data: Laboratory Results - last 24 hr 10/05/17 10/05/17 10/05/17 09:20 09:20 09:20 WBC RBC Hgb Hct MCV MCH MCHC RDW Plt Count MPV Neut % (Auto) Lymph % (Auto) [place] % (Auto) Eos % (Auto) Baso % (Auto) Absolute Neuts (auto) Absolute Lymphs (auto) Absolute Monos (auto) Absolute Eos (auto) Absolute Basos (auto) Absolute Nucleated RBC Nucleated RBC % Sodium Potassium Chloride Carbon Dioxide Anion Gap BUN Creatinine Est GFR ( Amer) Est GFR (Non-Af Amer) BUN/Creatinine Ratio Glucose POC Glucose (mg/dL) Calcium Magnesium Fluid Source Pleural Pleural Pleural Fluid Glucose 69 Fluid Total Protein 2.3 Fluid LDH 122 Random Gentamicin 10/05/17 10/05/17 10/05/17 19:28 21:49 23:20 WBC RBC Hgb Hct MCV MCH MCHC RDW Plt Count MPV Neut % (Auto) Lymph % (Auto) [place] % (Auto) Eos % (Auto) Baso % (Auto) Absolute Neuts (auto) Absolute Lymphs (auto) Absolute Monos (auto) Absolute Eos (auto) Absolute Basos (auto) Absolute Nucleated RBC Nucleated RBC % Sodium Potassium Chloride Carbon Dioxide Anion Gap BUN Creatinine Est GFR ( Amer) Est GFR (Non-Af Amer) BUN/Creatinine Ratio Glucose POC Glucose (mg/dL) 81 72 Calcium Magnesium Fluid Source Fluid Glucose Fluid Total Protein Fluid LDH Random Gentamicin < 0.4 10/06/17 10/06/17 10/06/17 03:05 03:39 04:42 WBC RBC Hgb Hct MCV MCH MCHC RDW Plt Count MPV Neut % (Auto) Lymph % (Auto) [place] % (Auto) Eos % (Auto) Baso % (Auto) Absolute Neuts (auto) Absolute Lymphs (auto) Absolute Monos (auto) Absolute Eos (auto) Absolute Basos (auto) Absolute Nucleated RBC Nucleated RBC % Sodium Potassium Chloride Carbon Dioxide Anion Gap BUN Creatinine Est GFR ( Amer) Est GFR (Non-Af Amer) BUN/Creatinine Ratio Glucose POC Glucose (mg/dL) 58 L 59 L 152 H Calcium Magnesium Fluid Source Fluid Glucose Fluid Total Protein Fluid LDH Random Gentamicin 10/06/17 10/06/17 10/06/17 05:01 05:01 07:15 WBC 7.1 RBC 2.84 L Hgb 9.1 L Hct 27 L MCV 94 MCH 32 H MCHC 34 RDW 17 H Plt Count 185 MPV 8.0 Neut % (Auto) 80.6 Lymph % (Auto) 6.5 L [place] % (Auto) 6.7 Eos % (Auto) 5.5 Baso % (Auto) 0.7 Absolute Neuts (auto) 5.7 Absolute Lymphs (auto) 0.5 L Absolute Monos (auto) 0.5 Absolute Eos (auto) 0.4 Absolute Basos (auto) 0 Absolute Nucleated RBC 0 Nucleated RBC % 0 Sodium 134 L Potassium 3.2 L Chloride 93 L Carbon Dioxide 31 Anion Gap 10 BUN 31 H Creatinine 8.26 H Est GFR ( Amer) 8.5 Est GFR (Non-Af Amer) 6.6 BUN/Creatinine Ratio 3.8 L Glucose 75 POC Glucose (mg/dL) 71 Calcium 8.1 L Magnesium 1.8 L Fluid Source Fluid Glucose Fluid Total Protein Fluid LDH Random Gentamicin 10/06/17 10/06/17 10/06/17 11:10 11:29 11:58 WBC RBC Hgb Hct MCV MCH MCHC RDW Plt Count MPV Neut % (Auto) Lymph % (Auto) [place] % (Auto) Eos % (Auto) Baso % (Auto) Absolute Neuts (auto) Absolute Lymphs (auto) Absolute Monos (auto) Absolute Eos (auto) Absolute Basos (auto) Absolute Nucleated RBC Nucleated RBC % Sodium Potassium Chloride Carbon Dioxide Anion Gap BUN Creatinine Est GFR ( Amer) Est GFR (Non-Af Amer) BUN/Creatinine Ratio Glucose POC Glucose (mg/dL) 53 L 57 L 91 Calcium Magnesium Fluid Source Fluid Glucose Fluid Total Protein Fluid LDH Random Gentamicin 10/06/17 15:14 WBC RBC Hgb Hct MCV MCH MCHC RDW Plt Count MPV Neut % (Auto) Lymph % (Auto) [place] % (Auto) Eos % (Auto) Baso % (Auto) Absolute Neuts (auto) Absolute Lymphs (auto) Absolute Monos (auto) Absolute Eos (auto) Absolute Basos (auto) Absolute Nucleated RBC Nucleated RBC % Sodium Potassium Chloride Carbon Dioxide Anion Gap BUN Creatinine Est GFR ( Amer) Est GFR (Non-Af Amer) BUN/Creatinine Ratio Glucose POC Glucose (mg/dL) 97 Calcium Magnesium Fluid Source Fluid Glucose Fluid Total Protein Fluid LDH Random Gentamicin Microbiology and Other Data: Microbiology 10/05/17 18:24 Blood Venous Aerobic Blood Culture - Preliminary No Growth Day 1 10/05/17 18:24 Blood Venous Anaerobic Blood Culture - Preliminary No Growth Day 1 10/03/17 13:30 Blood Venous Aerobic Blood Culture - Preliminary No Growth Day 3 10/03/17 13:30 Blood Venous Anaerobic Blood Culture - Preliminary No Growth Day 3 10/03/17 13:30 Blood Venous Aerobic Blood Culture - Preliminary No Growth Day 3 10/03/17 13:30 Blood Venous Anaerobic Blood Culture - Preliminary No Growth Day 3 10/03/17 14:01 Nasal Nasal Screen MRSA (PCR)(JORGE) - Final Mrsa Not Detected 10/03/17 14:01 Nasal Influenza Types A,B Antigen (JORGE) - Final Specimen received for Influenza A/B Molecular testing Assess/Plan/Problems-Billing Assessment: 66 yo [employer]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 Pt desiring DNR/DNI (with Bipap okay) . On Vanc, flagyl, cefepime NOW on COMPLETE COMFORT CARE. ABX stopped. morphine and ativan prns. tylenol prn. CODE: DNR/DNI dispo: medicine inpatient.
[2017-10-06] MEDS ORDERED: Potassium Chloride IV* 40 MEQ in NS 0.9% 250 ML* 250 ML IVPB ONE (09:00)
[2017-10-06] MEDS: Sevelamer TAB* 800 MG PO SCH ×3 (09:35→15:22)
--- NOTE | 2017-10-06 09:56 | PN ---
Progress Note - Progress Note Date of Service: 10/05/17 Note: Chart reviewed in preparation for patient interview and discussion. Extremely ill with ESRD on HD, CHF with low EF, panvascular disease with LE ischemia and nonhealiing wounds. He also has poor nutritional status with albumin 2.7. Dr. Mosqueda has already discussed patient's options with him. Although he has had 8 [facility] admissions in about a year, he was still a full code at the time of this admission. He just recently agreed to DNR status. At the bedside, patient was able to be stimulated to alertness, and was O x 3, but only for a few seconds before drifting off into a somnolent state. Not able to maintain a conversation. Today thoracentesis yielded 1800 cc pleural fluid, but patient later was not able to tolerate dialysis, as he became hypotensive with systolics 60's-70's, so HD interrupted without drawing off fluid. If patient survives the weekend and is alert enough to tolerate a conversation I will see him early next week.
[2017-10-06] MEDS ORDERED: KCL 20 MEQ/100 ML IVPREMIX* 20 MEQ/100 ML BAG IV SCH (11:00)
[2017-10-06] MEDS: Morphine INJ* 2 MG/ML 1 ML CARPUJECT IV PRN ×5 (16:52→23:32)
[2017-10-06] MEDS: Atropine 1% (ORAL/SL)* 15 ML BTL SL PRN (20:13)
[2017-10-06] MEDS: Acetaminophen SUPP* 650 MG SUPP PR PRN (20:25)
[2017-10-07] MEDS: Morphine INJ* 2 MG/ML 1 ML CARPUJECT IV PRN ×3 (01:53→08:01)
[2017-10-07] MEDS: Atropine 1% (ORAL/SL)* 15 ML BTL SL PRN ×5 (01:54→23:16)
[2017-10-07] MEDS ORDERED: Benzonatate CAP* 100 MG PO PRN (07:55)
--- NOTE | 2017-10-07 08:22 | PN ---
Subjective Date of Service: 10/07/17 Interval History: HOSPITALIST PROGRESS NOTE Patient seen and examined at bedside. Case reviewed and d/w his nurse Venecia Azar. Speech is garbled, but he's able to tell me he has no pain. Family History: Unchanged from Admission Social History: Unchanged from Admission Past Medical History: Unchanged from Admission Objective Active Medications: Acetaminophen (Tylenol Tab*) 650 mg PO Q4H PRN PRN Reason: FEVER/PAIN Last Admin: 10/06/17 00:50 Dose: 650 mg Acetaminophen (Tylenol Supp*) 650 mg SC Q4H PRN PRN Reason: FEVER Last Admin: 10/06/17 20:25 Dose: 650 mg Atropine Sulfate (Atropine 1% (Oral/Sl)*) 2 drop SL Q2H PRN PRN Reason: SIALORRHEA Last Admin: 10/07/17 01:54 Dose: 2 drp Benzonatate (Tessalon Cap*) 100 mg PO TID PRN PRN Reason: COUGH Cyclobenzaprine HCl (Flexeril Tab*) 10 mg PO TID PRN PRN Reason: cramps Last Admin: 10/06/17 22:53 Dose: 10 mg Lorazepam (Ativan Inj*) 1 mg IV PUSH Q4H PRN PRN Reason: Anxiety/Agitation Morphine Sulfate (Morphine Inj (Syringe)*) 2 mg IV Q1H PRN PRN Reason: Pain or Shortness of Breath Last Admin: 10/07/17 08:01 Dose: 2 mg Ondansetron HCl (Zofran Inj*) 4 mg IV Q6H PRN PRN Reason: NAUSEA Last Admin: 10/03/17 19:43 Dose: 4 mg Vital Signs - 8 hr 10/07/17 10/07/17 10/07/17 00:29 01:53 02:31 Temperature Pulse Rate 124 Respiratory 28 28 28 Rate O2 Sat by Pulse 93 Oximetry 10/07/17 10/07/17 10/07/17 02:50 04:04 04:55 Temperature Pulse Rate Respiratory 28 22 22 Rate O2 Sat by Pulse Oximetry 10/07/17 10/07/17 10/07/17 05:37 07:59 08:00 Temperature 100 F Pulse Rate Respiratory 20 32 Rate O2 Sat by Pulse Oximetry 10/07/17 08:01 Temperature Pulse Rate Respiratory 32 Rate O2 Sat by Pulse Oximetry Oxygen Devices in Use Now: Nasal Cannula - 4 liters Appearance: Elderly gentleman, appears older than stated age, lying in bed in NAD. Eyes: No Scleral Icterus Ears/Nose/Mouth/Throat: Mucous Membranes Moist Neck: Trachea Midline Respiratory: Symmetrical Chest Expansion and Respiratory Effort, - - BS+ bilaterally with bibasilar crackles Cardiovascular: - - Normal S1 and S2, irregularly irregular, tachycardic Abdominal: NL Sounds; No Tenderness; No Distention Extremities: - - Bilateral LE with necrotic wounds Neurological: - - Mild lethargy, but arousable to voice and able to carry on conversation Result Diagrams: 10/06/17 05:01 10/06/17 05:01 Assess/Plan/Problems-Billing Assessment: Mr. Knight is a 66 yo [employer] M with PMH of ESRD on HD, systolic CHF ( EF 35-40%), paroxysmal Afib, moderate-severe pulmonary, HTN, PVD who presented from [facility] to ED with sepsis secondary to bilateral necrotic leg wounds, acute on chronic respiratory failure, severe hypoglycemia. - Patient Problems (1) Need for comfort care Comment: - Patient has elected comfort care measures only. - Continue Morphine, Lorazepam, Atropine PRN. - HD discontinued. - Anticipate passing in the next 48h. (2) DNR (do not resuscitate) Status and Disposition: Inpatient for comfort care measures.
[2017-10-07] MEDS: Morphine ORAL CONCENTRATE* 5 MG/0.25 ML ORAL.SYRIN SL PRN ×2 (12:40→15:12)
[2017-10-07] MEDS ORDERED: LORazepam TAB(*) 1 MG SL PRN ×2 (16:07→18:18)
[2017-10-07] MEDS ORDERED: Morphine ORAL CONCENTRATE* 5 MG/0.25 ML ORAL.SYRIN SL PRN ×2 (16:08→18:18)
[2017-10-07] MEDS: LORazepam INJ* 2 MG/ML 1 ML VIAL IV PUSH PRN ×2 (16:17→20:56)
[2017-10-07] MEDS ORDERED: Morphine INJ* 2 MG/ML 1 ML CARPUJECT IV ONE (18:19)
[2017-10-07] MEDS ORDERED: Morphine INJ* 10 MG/ML 1 ML CARPUJECT ONE (18:25)
[2017-10-07] MEDS ORDERED: Scopolamine 1.5 mg* PATCH TRANSDERM SCH (21:00)
[2017-10-07] MEDS: Morphine VIAL* 4 MG/ML VIAL (1 ml vial) IV PRN ×2 (21:24→23:16)
[2017-10-08] MEDS: Acetaminophen SUPP* 650 MG SUPP PR PRN ×2 (00:21→04:14)
[2017-10-08] MEDS: Atropine 1% (ORAL/SL)* 15 ML BTL SL PRN ×3 (00:26→04:14)
[2017-10-08] MEDS: Morphine VIAL* 4 MG/ML VIAL (1 ml vial) IV PRN ×2 (01:58→04:14)
[2017-10-08] MEDS ORDERED: Tamsulosin CAP* 0.4 MG PO SCH (08:00)
[2017-10-08 08:49] VITALS: BP 69/38
--- NOTE | 2017-10-09 17:24 | DS ---
CC: Dr. Balbina Corral; Dr. Mosqueda * DISCHARGE SUMMARY/ NOTE: DATE OF ADMISSION: 10/03/17 DATE OF : 10/08/17 PRIMARY CARE PROVIDER: Dr. Balbina Corral. GROUP FITNESS ASSISTANT DEPARTMENT HEAD: Dr. Mosqueda. DISCHARGE DIAGNOSIS: Sepsis secondary to bilateral lower extremity necrotic wounds. SECONDARY DIAGNOSES: 1. End-stage renal disease. 2. Atrial fibrillation. 3. Cerebrovascular accident. 4. Restless legs syndrome. 5. Systolic congestive heart failure with ejection fraction of 25% to 30%. 6. Aortic stenosis. 7. Pulmonary hypertension. 8. Coronary artery disease. 9. Hypertension. 10. Hyperlipidemia. 11. Anemia of renal disease. HOSPITAL COURSE: Mr. Knight was a 66-year-old male with a past medical history stated above that had a complex past medical history and was sent from [facility] to the emergency room with complaints of weakness and altered mental status. As per admission note, his wounds appeared to be worse and he was admitted with possible sepsis. He was found to be hypoglycemic likely due to severe underlying infection. The patient did not have leukocytosis, but he was hypotensive on admission. He was started on broad-spectrum antibiotics, but he failed to show any significant improvement. He had an aorta with runoff CTA that showed wide-spread mixed attenuation vasculopathy. His condition continued to decline and he elected to be do not resuscitate and was seen in consultation by Palliative Care. Dr. Dorsey felt the patient was 66-year-old male, extremely ill with ESRD, CHF, peripheral vascular disease, lower extremity ischemia, and non-healing wounds. She noted that the patient had had 8 admissions in a year and at that point, he was still a full code and had just recently agreed to a DNR status. She also noted that the patient's dialysis had to be canceled as he became hypotensive with systolic blood pressures in the 60s. So, his hemodialysis had to be interrupted without removing fluids. At that point, the patient elected to receive comfort care measures only. Dialysis was discontinued and he received morphine, Ativan, and atropine as needed for comfort. The patient on 10/08/17 at 8:11 a.m. TIME SPENT: Approximately 40 minutes was spent to complete this discharge. [id number]/[facility] #: [id number] [facility]ITAL[facility]
[2017-10-10] MEDS ORDERED: Scopolamine PATCH Remove* 1 NOTE MISC PATCH OFF ONE (21:00)
== END 2017-10-08 08:11 | disposition expired | DRG 871 ==
LOC: ED 11:52 → MEDTELE 16:06
PROVIDERS: ADMIT Hospitalist; ATTEND Internal Medicine
PROC: 0W993ZZ Drainage of Right Pleural Cavity, Percutaneous Approach (ICD-10-PCS; principal; 2017-10-05)
PROC: 5A1D70Z Performance of Urinary Filtration, Intermittent, Less than 6 Hours Per Day (ICD-10-PCS; 2017-10-05)
DX: A41.9 Sepsis, unspecified organism (principal); I50.21 Acute systolic (congestive) heart failure; N18.6 End stage renal disease; J96.20 Acute and chronic respiratory failure, unspecified whether with hypoxia or hypercapnia; I13.2 Hypertensive heart and chronic kidney disease with heart failure and with stage 5 chronic kidney disease, or end stage renal disease; L97.818 Non-pressure chronic ulcer of other part of right lower leg with other specified severity; L97.828 Non-pressure chronic ulcer of other part of left lower leg with other specified severity; I24.8 Other forms of acute ischemic heart disease; Z99.2 Dependence on renal dialysis; E16.1 Other hypoglycemia; E87.6 Hypokalemia; R74.8 Abnormal levels of other serum enzymes; I48.91 Unspecified atrial fibrillation; G25.81 Restless legs syndrome; I35.0 Nonrheumatic aortic (valve) stenosis; I27.20 Pulmonary hypertension, unspecified; I83.018 Varicose veins of right lower extremity with ulcer other part of lower leg; I83.028 Varicose veins of left lower extremity with ulcer other part of lower leg; I25.10 Atherosclerotic heart disease of native coronary artery without angina pectoris; E78.5 Hyperlipidemia, unspecified; D64.9 Anemia, unspecified; Z51.5 Encounter for palliative care; I95.9 Hypotension, unspecified; L98.8 Other specified disorders of the skin and subcutaneous tissue; Z98.61 Coronary angioplasty status; Z79.1 Long term (current) use of non-steroidal anti-inflammatories (NSAID); Z79.82 Long term (current) use of aspirin; Z79.899 Other long term (current) drug therapy; Z83.3 Family history of diabetes mellitus; Z82.49 Family history of ischemic heart disease and other diseases of the circulatory system; Z86.73 Personal history of transient ischemic attack (TIA), and cerebral infarction without residual deficits
CPT/HCPCS: 32555; 36415; 36600; 70450; 71045; 71046; 75635; 76705; 80048; 80053; 80170; 80202; 82803; 82945; 83605; 83615; 83735; 83880; 83986; 84157; 84484; 85025; 85060; 85610; 85652; 85730; 86140; 87040; 87502; 87641; 90935; 93005; 93306; 93922; 94640; 94760; 99284; A9270-GY; G0257; J0692; J1644; J1940; J2060; J2270; J2405; J3370; J3475; J3480; J3490; Q9967